=== PATIENT | female | born 1960 | race Caucasian/White ===

== ENCOUNTER → 2016-11-22 | Outpatient (CLI) | payer OTHER ==
[~2016-11-22] MED LIST: CYM30 PO; ERGO1CAP35 PO; FOLI1TAB7 PO; LORA-741 PO; MULT-506 PO; OXYC-57 PO; PRED-301 PO; PRED10TA PO; RMCI; ZOLE5INJ; methotrexate
[2016-11-22 15:38] LABS: CHOLESTEROL/HDL RATIO 2.6
== END | disposition home or self-care (01) ==
LOC: C.LABBC 09:41
PROVIDERS: ATTEND Family Medicine
DX: Z13.220 Encounter for screening for lipoid disorders (principal); Z11.59 Encounter for screening for other viral diseases

== ENCOUNTER → 2016-12-27 | Outpatient (CLI) | payer OTHER ==
--- NOTE | 2016-12-28 15:07 | MAMMOGRAPHY REPORT ---
BILATERAL DIGITAL SCREENING MAMMOGRAM TOMOSYNTHESIS WITH CAD: 12/27/2016 CLINICAL HISTORY: Routine screening. Patient has no complaints. TECHNIQUE: Breast tomosynthesis in addition to standard 2D mammography was performed. Current study was also evaluated with a Computer Aided Detection (CAD) system. COMPARISON: Comparison is made to exams dated: 11/25/2015 mammogram, 12/09/2014 ultrasound, 12/09/2014 m ammogram, 11/20/2013 mammogram, 11/19/2012 mammogram, and 11/17/2011 mammogram - [facility]. BREAST COMPOSITION: There are scattered areas of fibroglandular density in both breasts. FINDINGS: The hub of a Port-A-Cath projects over the superior right pectoralis muscle on the MLO vi ew. There are a few benign appearing calcifications in the breasts. No new suspicious mass, dawood ectural distortion or cluster of microcalcifications is seen. IMPRESSION: ACR BI-RADS CATEGORY 1: NEGATIVE There is no mammographic evidence of malignancy. A 1 year screening mammogram is recommended. The p atient will receive written notification of the results. Approximately 10% of breast cancers are not detected with mammography. A negative mammographic repor t should not delay biopsy if a clinically suggestive mass is present. Virginie Boyd M.D. ay/:12/27/2016 22:08:59 Automatic Furnace Operator: Kerline Juarez, [facility] letter sent: Normal 1/2 BI-RADS Code: ACR BI-RADS Category 1: Negative
== END | disposition home or self-care (01) ==
LOC: C.MAMM 12:24
PROVIDERS: ATTEND Internal Medicine Rheumatology
DX: Z12.31 Encounter for screening mammogram for malignant neoplasm of breast (principal)

== ENCOUNTER → 2017-01-17 | Outpatient (CLI) | payer OTHER ==
[~2017-01-17] MED LIST changes: -ERGO1CAP35 PO; -PRED10TA PO
== END | disposition home or self-care (01) ==
LOC: C.PAPS 14:13
PROVIDERS: ATTEND Obstetrics & Gynecology
DX: Z12.4 Encounter for screening for malignant neoplasm of cervix (principal)

== ENCOUNTER → 2017-03-02 | Outpatient (CLI) | payer OTHER ==
--- NOTE | 2017-03-02 15:19 | DIAGNOSTIC IMAGING REPORT ---
LEFT WRIST 4 VIEWS HISTORY: Left wrist injury and pain. COMPARISON: None. FINDINGS: Severe cartilage space narrowing with subchondral sclerosis at the radiocarpal joint. There is subchondral cystic change/erosions seen across the radiocarpal joint. There appear to be erosions at the scaphoid. Soft tissue swelling within the wrist. No definite fracture or dislocation within the left wrist. No radiopaque foreign bodies. 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 There may be superimposed erosions versus cystic change at the radiocarpal joint raising the possibility of rheumatoid arthritis. No definite acute fracture or dislocation within the left wrist. Electronically signed by: Paulo Cash M.D. 03/02/2017 3:18 PM Dictated Date/Time: 03/02/2017 3:14 PM
== END | disposition home or self-care (01) ==
LOC: C.RAD1850 15:04
PROVIDERS: ATTEND Family Medicine
DX: S69.92XA Unspecified injury of left wrist, hand and finger(s), initial encounter (principal); X58.XXXA Exposure to other specified factors, initial encounter

== ENCOUNTER → 2017-04-17 | Outpatient (CLI) | payer OTHER ==
--- NOTE | 2017-04-17 14:40 | DIAGNOSTIC IMAGING REPORT ---
INFUSION PORT CHECK CLINICAL HISTORY: Nonfunctioning port. Lack of blood return. COMPARISON STUDY: Infusion port check dated 11/25/2015. Fluoroscopy time: 0.1 minutes. FINDINGS: Approximately 20 cc of Optiray 300 was injected through the infusion port under fluoroscopic guidance as part of an infusion port check. The infusion port catheter appears intact. There is likely thrombus at the tip of the catheter with slow flow of contrast through the catheter lumen and pooling of contrast around the catheter tip. A small fibrin sheath is not excluded. There is normal filling of the superior vena cava. IMPRESSION: Thrombus is suggested at the tip of the catheter and a small fibrin sheath is not excluded. Electronically signed by: Varinder Morrissey M.D. 04/17/2017 2:39 PM Dictated Date/Time: 04/17/2017 2:27 PM
== END | disposition home or self-care (01) ==
LOC: C.RAD 13:41
PROVIDERS: ATTEND Physician Assistant
DX: Z45.2 Encounter for adjustment and management of vascular access device (principal)

== ENCOUNTER 2017-04-23 07:09 | Day surgery (SDC) | payer OTHER ==
[~2017-04-23] VITALS: Ht 170.2 cm; Wt 68.3 kg
--- NOTE | 2017-04-23 06:35 | History and Physical ---
History & Physical Date of Service Apr 23, 2017. History & Physical CC: Non functioning infusaport. HPI: Mrs. Miller is a 57-year-old female with a history of rectal cancer status post chemotherapy and currently being on Remicade per rheumatology, which she has been initially getting through the MediPort in the right chest wall, but has now been receiving it through IV injections since the MediPort has been nonfunctional for approximately 1 year. The patient reports that the MediPort is flushing, but they are not able to draw back any blood. The patient went in for a diagnostic study on 01/18/2017 which showed a thrombus suggested at the tip of the catheter and a small fibrinous sheath. The patient today denies any swelling in upper or lower extremities. Denies any chest pain , shortness of breath, fever or chills. Allergies Coded Allergies: Doxycycline (Verified Allergy, Intermediate, RASH, 08/11/14) Surgical / Medical History Hx Cardiac Surgery: No Hx Abdominal Surgery: Yes (cholecystectomy) Hx Cancer Surgery: No Hx Thoracic Surgery: No Hx Orthopedic: No (R elbow,lumbar fusion,L knee calcium,herniated disc,L TKA) Hx Urinary Tract Surgery: No HX Other Surgery: Yes (Retinal detachment,Calcium remoed L eye,L cataract) Past Medical/Surgical History: Arthritis Social History Smoking Status: Former Smoker Hx Tobacco Use In Past Year?: No Hx Alcohol Use - Type & Amnt: No Hx Substance Use -Type & Amnt: No Review of Systems Skin: No change in color, No change in hair/nails, No dryness, No lesions, No lumps, No rash, No abnormal mole, No problem reported Eyes: No discharge, No blurred vision, No double vision, No eye pain, No tearing, No itching, No photophobia, No redness, No visual changes, No dryness, No irritation, No problem reported ENMT: No dental pain, No loss of hearing, No epistaxis, No ear discharge, No ear pain, No gum swelling, No mouth pain, No mouth swelling, No nasal congestion , No nasal pain, No rhinorrhea, No stridor, No tinnitus, No sore throat, No throat swelling, No problem reported Respiratory: No cough, No cyanosis, No BONILLA, No hemoptysis, No orthopnea, No PND , No short of breath, No sputum production, No stridor, No wheezing, No dyspnea , No problem reported Cardiovascular: No chest pain, No chest tightness, No chest pressure, No palpitations, No syncope, No diaphoresis, No edema, No intermittent claudication , No orthopnea, No cyanosis, No mumur, No lightheadedness, No paroxysmal nocturnal dyspnea, No problem reported Gastrointestinal: + rectal bleeding, No abdominal pain, No constipation, No diarrhea, No nausea, No vomiting, No anorexia, No appetite changes, No belching , No flatulence, No food intolerance, No hematemesis, No hemorrhoids, No hematochezia, No stool changes, No heartburn, No indigestion, No dysphagia, No problem reported Genitourinary - Female: No dysmenorrhea, No dysuria, No hematuria, No hesitancy , No menorrhagia, No metrorrhagia, No , No rash, No urinary frequency, No urinary incontinence, No urinary retention, No urinary urgency, No vulvadynia , No vaginal bleeding, No vaginal discharge, No vaginal itching, No breast problems, No problem reported Musculoskeletal: + back pain, + joint pain Neurologic: No dizziness, No weakness, No headache, No lethargy, No numbness, No paresthesia, No pre-existing deficit, No seizures, No tics, No tingling, No tremors, No vertigo, No memory loss, No LOC, No problem reported Psychiatric: No anxiety, No alcohol abuse, No auditory hallucinations, No depression, No drug abuse, No homicidal ideation, No mood changes, No suicidal ideation, No visual hallucinations, No problem reported Physical Exam: Constitutional: General Apperance: heathly-appearing, well-nourished, well-developed Level of Distress: NAD Ambulation: ambulating normally Psychiatric: Mental Status: active & alert, normal mood, normal affect Orientation: oriented except where noted, to time, to place, to person Memory: recent memory normal, remote memory normal Head: normocephalic Lungs: Auscultation: breath sounds normal Cardiovascular: Heart Auscultation: RRR Peripheral Pulses: Pulses: full and equal Abdomen: Inspection & Palpation: soft Musculoskeletal: normal Extremities: Upper Right: no cyanosis, no edema, no varicosities, no palpable cord, no clubbing, no ulcers, no mottling Upper Left: no cyanosis, no edema, no varicosities, no palpable cord, no clubbing, no ulcers, no mottling Lower Right: no cyanosis, no edema, no varicosities, no palpable cord, no clubbing, no ulcers, no mottling Lower Left: no cyanosis, no edema, no varicosities, no palpable cord, no clubbing, no ulcers, no mottling Neurologic: Cranial Nerves: grossly intact Sensation: grossly intact Assessment and Plan Imp: Nonfunctioning infusaport Plan: Patient is admitted for removal of her infusaport. I have discussed the risks options and benefits of the procedure with the patient. The patient understands the risks options and benefits and agrees to the procedure.
[~2017-04-23 07:09] MED LIST changes: +CEFAZOLIN 1000MG/55 ML D5W IV SCH; +HYDROCORTISONE IV 100 MG in SYRINGE 0 ML IV SCH; -OXYC-57 PO; -RMCI; +SODIUM CHLORIDE 0.9% 1000ML IV SCH
--- NOTE | 2017-04-23 07:37 | Procedure Note ---
Pre-Mod Sedation Assessment General Date of Moderate Sedation: Apr 23, 2017. Pre-Sedation Airway Assessment Smoking Status: Never Smoker Mallampati Classification: Class I ASA Classification: Class II Notes The planned sedation has been discussed with the patient and consent obtained. I have identified the patient, determined the appropriateness of sedation and have assessed the patient immediately prior to the procedure. All medicine(s) and interventions are by my order.
--- NOTE | 2017-04-23 07:37 | History & Physical Bridge Note ---
H&P Re-Evaluation Bridge Note: I have examined the patient, reviewed the History & Physical and in the interval since the performance of the History & Physical I have noted the following changes of clinical significance: No changes noted
[2017-04-23] MEDS ORDERED: RMCI (07:53)
[2017-04-23 07:58] VITALS: BP 112/66; PULSE 55; TEMP 36.6; O2SAT 96; Ht 170.2 cm; Wt 68.3 kg
[2017-04-23] MEDS ORDERED: LIDOCAINE HCL 1% 20 ML VIAL ONE (08:45)
[2017-04-23] MEDS ORDERED: MIDAZOLAM HCL 1 MG/ML 2ML VIAL ONE (08:45)
[2017-04-23] MEDS ORDERED: FENTANYL CITRATE INJ 50 MCG/1 ML 2 ML VIAL ONE (08:45)
[2017-04-23 08:55] VITALS: BP 112/66; PULSE 55; TEMP 36.6; O2SAT 96
[2017-04-23] MEDS ORDERED: MIDAZOLAM HCL 1 MG/ML 2ML VIAL IV ONE (09:14)
[2017-04-23] MEDS ORDERED: FENTANYL CITRATE INJ 50 MCG/1 ML 2 ML VIAL IV ONE (09:14)
[2017-04-23] MEDS ORDERED: LIDOCAINE HCL 1% 20 ML VIAL INJ ONE (09:15)
--- NOTE | 2017-04-23 09:30 | Procedure Note ---
Post-Moderate Sedation Plan General Date of Moderate Sedation Apr 23, 2017. Vital Signs: Vital Signs Past 12 Hours Date Time Temp Pulse Resp B/P (MAP) Pulse Ox O2 Delivery O2 Flow Rate FiO2 04/23/17 08:55 36.6 55 18 112/66 96 Room Air 04/23/17 07:58 36.6 55 18 112/66 (81) 96 Room Air Review - Discharge Plan Post Moderate Sedation Plan: On clinical assessment, the patient appears to have tolerated the conscious sedation without complications. Patient is recovering as anticipated. Patient will continue to be monitored by nursing and may be discharged when conscious sedation discharge criteria are met.
--- NOTE | 2017-04-23 09:34 | [facility] Operative Report ---
Operative Report Operative Date Apr 23, 2017. Pre-Operative Diagnosis Malfunctioning infusaport Post-Operative Diagnosis Same Procedure(s) Performed Removal of infusaport, right internal jugular Conscious sedation ([id number]) Surgeon Teresa Strip Deburrer Surgeon(s) none Estimated Blood Loss 5cc Findings port and catheter entirely removed Specimens port Anesthesia Local with sedation Complication(s) None Disposition Indications This is a 57-year-old female with a right internal jugular [id number] in place. It is nonfunctional due to a clot around the tip. Removal was recommended. She understood the risks options and benefits and agreed to go ahead with this procedure. Description of Procedure Patient was taken to the angio suite and placed in the supine position. The right side of the neck and chest wall were prepped and draped in a sterile manner. Local anesthesia was then administered to the appropriate areas of the neck and chest wall. A transverse incision was made below the clavicle on the chest wall in the line of the old incision. Bleeding was controlled using cautery. Using sharp and blunt dissection the port and fibrin sheath were dissected free and removed. The catheter slid out easily. Adequate hemostasis was then obtained. Once adequate hemostasis was noted the wound was then closed. The incision was closed using a 3-0 Vicryl suture for the subcutaneous layer and a 4-0 Vicryl subcuticular stitch for the skin layer. Dermabond was used for a dressing on the incision. Pressure was applied to the catheter site over the internal jugular vein. The patient left the angio suite in good condition and tolerated the procedure well. I attest to the content of the Intraoperative Record and any orders documented therein. Any exceptions are noted below.
[2017-04-23 09:40] VITALS: BP 115/72; PULSE 57; TEMP 36.6; O2SAT 96
[2017-04-23] MEDS ORDERED: OXYC-57 PO (09:45)
--- NOTE | 2017-04-23 09:47 | Discharge Instructions ---
Discharge Instructions Date of Service Apr 23, 2017. Visit Reason for Visit: Malfunctioning Port Discharge Discharge Diagnosis / Problem: Non functional infusaport Discharge Goals Goal(s): Therapeutic intervention Activity Recommendations Activity Limitations: resume your previous activity Exercise/Sports Limitations: none Shower/Bathe: tomorrow Driving or Machine Use: resume 1 day after discharge Anesthesia . Post Anesthesia Instructions: If you have had General Anesthesia or IV Sedation: * Do not drive today. * Resume driving when surgeon permits. * Do not make important decisions or sign legal documents today. * Call surgeon for: 1. Temperature elevations greater than 101 degrees F. 2. Uncontrollable pain. 3. Excessive bleeding. 4. Persistent nausea and vomiting. 5. Medication intolerance (nausea, vomiting or rash). * For nausea and vomiting use only clear liquids such as: tea, soda, bouillon until nausea subsides, then gradually increase diet as tolerated. * If you have any concerns or questions, call your surgeon's office. If physician is unavailable and it is an emergency, call 911 or go to the nearest emergency room. . Instructions / Follow-Up Instructions / Follow-Up Call [phone] to schedule a follow up appointment if one not already scheduled. ACTIVITY RECOMMENDATIONS: See Above SPECIAL CARE INSTRUCTIONS: Call your doctor if: * Temperature above 101 degrees * Pain not relieved by pain medicine ordered * There is increased drainage or redness from any incision * You have any unanswered questions or concerns. Diet Recommendations Recommended Home Diet: resume previous diet Procedures Procedures Performed: Removal of infusaport, right internal jugular Conscious sedation ([id number]) Pending Studies Studies pending at discharge: no Medical Emergencies . Who to Call and When: Medical Emergencies: If at any time you feel your situation is an emergency, please call 911 immediately. . Non-Emergent Contact Non-Emergency issues call your: Surgeon . . "Provider Documentation" section prepared by Durga Moore. .
[2017-04-23 10:10] VITALS: BP 114/70; PULSE 55; TEMP 36.4; O2SAT 95
== END 2017-04-23 10:25 | disposition home or self-care (01) ==
LOC: C.ACU 07:09
PROVIDERS: ATTEND Surgery Vascular Surgery
DX: T82.594A Other mechanical complication of infusion catheter, initial encounter (principal); X58.XXXA Exposure to other specified factors, initial encounter; Z85.048 Personal history of other malignant neoplasm of rectum, rectosigmoid junction, and anus; Z92.21 Personal history of antineoplastic chemotherapy; Z87.891 Personal history of nicotine dependence; Z79.899 Other long term (current) drug therapy

== ENCOUNTER → 2018-01-02 | Outpatient (CLI) | payer OTHER ==
[~2018-01-02] MED LIST changes: -CEFAZOLIN 1000MG/55 ML D5W IV SCH; -FOLI1TAB7 PO; +FOLI1TAB8 PO; -HYDROCORTISONE IV 100 MG in SYRINGE 0 ML IV SCH; +RMCI; -SODIUM CHLORIDE 0.9% 1000ML IV SCH
--- NOTE | 2018-01-02 15:44 | MAMMOGRAPHY REPORT ---
BILATERAL DIGITAL SCREENING MAMMOGRAM TOMOSYNTHESIS WITH CAD: 01/02/2018 CLINICAL HISTORY: Routine screening. The patient reported to the technologist that she has a palpabl e right breast lump and associated milky discharge. TECHNIQUE: Breast tomosynthesis in addition to standard 2D mammography was performed. Current study was also evaluated with a Computer Aided Detection (CAD) system. Bilateral CC and MLO 2D and tomosyn thesis images were obtained. COMPARISON: Comparison is made to exams dated: 11/25/2015 mammogram, 12/27/2016 mammogram, 12/09/2014 ma mmogram, 11/20/2013 mammogram, 11/19/2012 mammogram, and 11/17/2011 mammogram - [facility]ter. BREAST COMPOSITION: There are scattered areas of fibroglandular density in both breasts. FINDINGS: A triangle marker chavez the site of the palpable lump pointed out by the patient in the rig ht 12:00 breast. There are no suspicious masses, calcifications, or areas of architectural distortio n noted in either breast. There has been no significant interval change compared to prior exams. A few scattered bilateral benign-appearing calcifications are not significantly changed. Focal asymmet ry in the right subareolar breast is stable compared to multiple prior exams. IMPRESSION: ACR BI-RADS CATEGORY 0: INCOMPLETE EVALUATION: NEED ADDITIONAL IMAGING EVALUATION No mammographic evidence of malignancy in either breast. However, the patient reported a palpable ri ght breast lump and associated milky nipple discharge, for which further evaluation with targeted ult rasound is recommended for further evaluation. The patient will be called to schedule an appointment. Approximately 10% of breast cancers are not detected with mammography. A negative mammographic report should not delay biopsy if a clinically suggestive mass is present. Porsche Gonzalez M.D. ah/:01/02/2018 13:10:24 Certified Midwife: Kerline DICKSON(Rohan)(M), [facility] letter sent: Addl Imaging 0 BI-RADS Code: ACR BI-RADS Category 0: Incomplete Evaluation: Need Additional Imaging Evaluation
== END | disposition home or self-care (01) ==
LOC: C.MAMM 12:31
PROVIDERS: ATTEND Nurse Practitioner Adult Health
DX: Z12.31 Encounter for screening mammogram for malignant neoplasm of breast (principal)

== ENCOUNTER → 2018-01-11 | Outpatient (CLI) | payer OTHER ==
--- NOTE | 2018-01-14 07:45 | MAMMOGRAPHY REPORT ---
ULTRASOUND OF RIGHT BREAST: 01/11/2018 CLINICAL HISTORY: The patient reports a palpable right subareolar breast lump for approximately 8 mon ths. She also reports bilateral nonspontaneous milky and sometimes green nipple discharge for approx imately a months as well. She also reports a possible left subareolar lump. She notes multiple whit e pimple-like lesions on her nipple which she has had for years. COMPARISON: Comparison is made to exams dated: 01/02/2018 mammogram, 12/27/2016 mammogram, 11/25/2015 ma mmogram, 12/09/2014 mammogram, 11/20/2013 mammogram, and 11/19/2012 mammogram - [facility]. TECHNIQUE: Real-time targeted ultrasound of the right breast was performed. FINDINGS: Real-time, high-resolution targeted ultrasound was performed of the area of the palpable ri ght subareolar breast mass pointed out by the patient. In the right inferior subareolar breast, ther e is a round circumscribed hypoechoic 9 x 6 x 8 mm mass which demonstrates posterior acoustic enhance ment. The mass is indeterminant, with differential including a papilloma or dilated duct with qa internship al debris, or possibly a Wyman gland/sebaceous cyst. On clinical exam, there are multiple white superficial lesions on the right nipple which may represent sebaceous cysts or other benign masses. Targeted ultrasound was also performed of the left subareolar breast at the site of the palpable lump pointed out by the patient, which shows no suspicious masses or other suspicious sonographic abnorma lities. IMPRESSION: ACR BI-RADS CATEGORY 4: SUSPICIOUS - FOLLOW-UP RECOMMENDED 1. Circumscribed 9 mm mass in the right subareolar breast, in the setting of a palpable right subare olar breast lump and nonspontaneous white/green nipple discharge. The mass is indeterminant, with di fferential including a papilloma, focal duct ectasia with internal debris, or possibly a Wyman g land/sebaceous cyst. Recommend ultrasound-guided core needle biopsy for further evaluation. 2. No suspicious sonographic abnormality in the left subareolar breast at the site of a possible lum p. Recommend clinical follow-up. A phone call was made to the physician's office to confirm faxed results were received. The patient was verbally notified of the results. She tentatively scheduled the biopsy before leaving the depart ment. Porsche Gonzalez M.D. ah/:01/11/2018 09:10:52 Behavioral Consultant: Porsche Gonzalez MD, [facility] letter sent: Abnormal 4/5 BI-RADS Code: ACR BI-RADS Category 4: Suspicious
== END | disposition home or self-care (01) ==
LOC: C.MAMM 08:26
PROVIDERS: ATTEND Nurse Practitioner Adult Health
DX: R92.8 Other abnormal and inconclusive findings on diagnostic imaging of breast (principal); N63.10 Unspecified lump in the right breast, unspecified quadrant

== ENCOUNTER → 2018-01-16 | Outpatient (CLI) | payer OTHER ==
--- NOTE | 2018-01-16 15:25 | MAMMOGRAPHY REPORT ---
ULTRASOUND OF RIGHT BREAST: 01/16/2018 CLINICAL HISTORY: Circumscribed 9 mm mass in the subareolar right breast, which is palpable by the pa tient. Patient presents for ultrasound-guided core biopsy. The patient reports that since her diagnostic workup dated 01/11/2018, she was able to elicit greenish discharge from this mass and feels it may be slightly smaller in size. COMPARISON: Comparison is made to exams dated: 01/11/2018 ultrasound, 01/02/2018 mammogram, 12/27/2016 m ammogram, and 11/25/2015 mammogram - [facility]. FINDINGS: Targeted ultrasound was performed in the subareolar right breast in the area of lump pointe d out by the patient. There is an oval circumscribed isoechoic solid versus cystic mass which twila willy measures 5.2 x 3.4 x 5.3 mm, previously measured 9.0 x 6.3 x 7.8 mm. This has significantly decr eased in size since the prior exam, confirming benignity, and is also concordant with the clinical hi story of eliciting fluid from inside this lesion. Therefore, the ultrasound-guided core biopsy was c anceled and a short interval follow-up targeted right breast ultrasound in 1-2 months is recommended to ensure stability and/or resolution. Conservative management with hot compresses and NSAIDs may al so be useful. IMPRESSION: ACR-BI-RADS CATEGORY 3: PROBABLY BENIGN - FOLLOW-UP RECOMMENDED Ultrasound-guided core biopsy of the right subareolar breast was canceled given that the palpable les ion has significantly decreased in size comparing to the prior ultrasound, and the patient was able t o elicit internal fluid from the lesion. Conservative management with hot compresses and NSAIDs are recommended. Also recommend follow-up right breast ultrasound in 1-2 months to ensure stability and/ or resolution. Virginie Boyd M.D. ay/:01/16/2018 13:37:06 Waistband Setter: Dr. Virginie Boyd, [facility] letter sent: Follow Up Recommended 3 BI-RADS Code: ACR-BI-RADS Category 3: Probably Benign
== END | disposition home or self-care (01) ==
LOC: C.MAMM 09:53
PROVIDERS: ATTEND Nurse Practitioner Adult Health
DX: N63.41 Unspecified lump in right breast, subareolar (principal)

== ENCOUNTER 2020-05-01 14:10 | Inpatient (IN) ==
[2020-05-01] MEDS ORDERED: SODIUM CHLORIDE 0.9% 1000ML 2,000 ML IV ONE (14:30)
--- NOTE | 2020-05-01 14:32 | Emergency Department Note ---
Impression & Plan Acute blood loss anemia, Lyme disease, Acute GI bleeding, Symptomatic anemia, Acute hypotension, Atrial tachycardia ED Provider Note NAME: SERA ABRAMS AGE: 60 SEX: F : 1960 ARRIVES VIA: Walk-In INFORMANT: Patient ED PROVIDER(S): Mahamed Young DO CHIEF COMPLAINT: weakness HPI: Patient is a 60-year-old female who presents the ER for weakness. She notes that she has been weak for the past 2 weeks. She has a history of colon cancer and is in remission and nearly discharged from that service. She notes about 2 weeks ago on Sunday she felt like she could not get warm. Since then she has been feeling more weak. She notes that she does not really want to eat or drink. She followed up today with [facility] and was referred in as she was found to be a little tachycardic. Patient denies any headache, change in vision, sore throat, loss of taste or smell, cough, shortness of breath, chest pain, nausea, vomiting, diarrhea. No dysuria urgency or frequency. No open wounds or sores. She does admit to taking methotrexate, steroids for her rheumatoid arthritis. Admits to dark tarry stools for the past 2 weeks. ROS: See above HPI for pertinent positives & negatives. A total of 10 systems reviewed and were otherwise negative. PAST MEDICAL HISTORY:See Below PAST SURGICAL HISTORY:See Below FAMILY HISTORY:See Below SOCIAL HISTORY:See Below HOME MEDICATIONS:See Below ALLERGIES:See Below VITALS:See Below PHYSICAL EXAMINATION: GENERAL: Sitting up in bed, alert, cachectic, no acute distress, nontoxic EYE EXAM: normal conjunctiva. PERRL and EOM's grossly intact. OROPHARYNX: no exudate, no erythema, lips, buccal mucosa, and tongue normal and mucous membranes are moist NECK: supple, no nuchal rigidity, no adenopathy, non-tender LUNGS: Clear to auscultation. Normal chest wall mechanics HEART: no murmurs, S1 normal and S2 normal ABDOMEN: abdomen soft, non-tender, normo-active bowel sounds, no masses, no rebound or guarding. BACK: Back is symmetrical on inspection and there is no deformity, no midline tenderness, no CVA tenderness. RECTAL: Heme positive stool SKIN: no rashes and no bruising UPPER EXTREMITIES: upper extremities are grossly normal. LOWER EXTREMITIES: No pitting edema. NEURO EXAM: Normal sensorium, cranial nerves II-XII grossly intact, normal speech, no gross weakness of arms, no gross weakness of legs. No drift. Finger to nose intact. Gross sensation intact. MEDICAL DECISION MAKING: Patient is a 60-year-old female immune compromised being treated for rheumatoid arthritis who presents the ER referred and for hypotension and tachycardia. Upon presentation she is found to be tachycardic and hypotensive. Labs show leukocytosis of 16,000. Hemoglobin 8 down from 12. Rectally heme positive. Admits to dark tarry stools for the past 2 weeks. History of colon cancer. No thinners. BMP with mild hyponatremia. Chloride slightly low. LFTs bilirubin lactate and troponin were negative. Patient was typed and screened. UA was contaminated. IgM Lyme was obtained and positive. I did cover her with a gram of Rocephin for questionable UTI which would also cover the positive Lyme disease. Patient was also given Protonix drip and bolus. Patient was also given 2 L of IV fluids. Patient was updated and admitted to the hospital for symptomatic anemia, GI bleed hypotension and tachycardia and immune compromise. Triage Nursing notes reviewed. Prior medical records reviewed Vital Signs: reviewed and remarkable for tachycardic and hypotensive Differential diagnosis: Differential diagnosis includes etiologies such as sepsis, UTI, pneumonia, metabolic, electrolyte abnormalities, cardiac sources, intracerebral event, toxicologic, neurological, as well as others were entertained. ER treatment provided: See below Diagnostics interpreted by me: ECG: Sinus tachycardia rate of 101 Normal axis No PVCs Normal QTC Cardiac Monitoring: An order was placed for continuous cardiac monitoring. The monitor shows a rate of 104 with sinus rhythm. Laboratory studies: As stated above and show below. Imaging studies: Portable AP upright 1 view of the chest shows no focal infiltrate or pneumothorax Consultation(s): Discussed with Dr. 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, chemo, radiation Deep vein thrombosis hx of after back surgery---no blood thinners Degenerative disc disease Detached retina Diverticulosis Rheumatoid arthritis Spinal stenosis Vitamin D deficiency Warts, genital Surgical History H/O hemorrhoidectomy History of arthroscopy of left knee History of colonoscopy Recommend repeat 2023 History of detached retina repair left History of esophagogastroduodenoscopy (EGD) History of lumbar discectomy History of lumbar fusion hardware in place History of right elbow replacement History of total left knee replacement (TKR) History of vascular access device Aport right side Hx of cholecystectomy Family History Sister Family history of reaction to anesthesia trouble waking up after anesthesia Type 2 diabetes mellitus Breast cancer Mother Cardiac disorder Hypertension Type 2 diabetes mellitus Grandfather (Paternal) Family hx of colon cancer Father Bladder cancer Grandfather Osteoarthritis Grandmother Osteoarthritis Social History Smoking Status: Former smoker Second Hand Exposure: No; Hx Alcohol Use: No Hx Substance Use: No Preferred Language: Hebrew Communication Ability: Effective Visual Impairment: No Limitations Hearing Ability: Normal Chopped Strand Operator Required: No Beliefs That Will Affect Care: None marital status: Single Current Living Situation: Alone current occupational status: disabled Other Information That Helps Us Care for You: No Feels Safe at Home: Yes Safety Concerns: Feels Safe At This Time Childhood Exposure to Second-Hand Smoke: Yes Dental Care, Regularly: Yes Physical Activity Frequency: 3-4 Times per Week Seatbelt Use: always Sunscreen Use: Yes Allergies Allergies Allergy/AdvReac Type Severity Reaction Status Date / Time doxycycline Allergy Intermediate RASH Verified 04/26/20 11:01 buspirone AdvReac Intermediate nightmares Verified 04/26/20 11:01 mirtazapine AdvReac Mild weight gain Verified 04/26/20 11:01 Home Meds Home Medications Medication Instructions Recorded Confirmed folic acid 1 mg PO QAM 90 Days #90 tab 01/03/17 05/01/20 prednisone 5 mg PO .TAPER UD #0 tab 01/03/17 05/01/20 infliximab 500 mg IV [id number] #0 04/23/17 05/01/20 cholecalciferol (vitamin D3) 1,000 unit PO QAM 07/08/18 05/01/20 ibuprofen 200 - 400 mg PO Q8 PRN 08/07/18 05/01/20 methotrexate sodium 6 tab PO WK 08/07/18 05/01/20 Previous Rx's Medication Instructions Recorded duloxetine 30 mg capsule,delayed See Rx Instructions .ROUTE 10/12/19 release .COMPLEX #30 capsule bupropion HCl 100 mg tablet,12 hr 100 mg PO QAM #30 ea 02/25/20 sustained-release duloxetine 60 mg capsule,delayed 60 mg PO DAILY #90 cap 04/16/20 release Results & Data (ED) Vital Signs Vital Signs - 24 hr 05/01/20 14:14 05/01/20 14:55 05/01/20 15:00 Temperature 37.1 C Temperature Source Oral Pulse Rate 105 H 94 H 101 H Pulse Rate from SpO2 Sensor Respiratory Rate 20 20 25 H Blood Pressure 94/63 L Blood Pressure Mean 73 Pulse Oximetry 97 Oxygen Delivery Method Room Air Sepsis Recent Fever Within 48 Hours No Sepsis New/Unexplained Change in Mental Status No Sepsis Action Taken by Nursing No Action Required 05/01/20 15:10 05/01/20 15:20 05/01/20 15:25 Temperature Temperature Source Pulse Rate 95 H 102 H Pulse Rate from SpO2 Sensor 102 H Respiratory Rate 22 28 H Blood Pressure Blood Pressure Mean Pulse Oximetry 94 98 Oxygen Delivery Method Room Air Sepsis Recent Fever Within 48 Hours Sepsis New/Unexplained Change in Mental Status Sepsis Action Taken by Nursing 05/01/20 15:30 05/01/20 15:31 05/01/20 15:40 Temperature Temperature Source Pulse Rate 97 H 97 H 94 H Pulse Rate from SpO2 Sensor 98 H 97 H 93 H Respiratory Rate 24 32 H 18 Blood Pressure 100/70 Blood Pressure Mean 78 Pulse Oximetry 90 94 94 Oxygen Delivery Method Sepsis Recent Fever Within 48 Hours Sepsis New/Unexplained Change in Mental Status Sepsis Action Taken by Nursing 05/01/20 15:50 05/01/20 16:00 05/01/20 16:01 Temperature Temperature Source Pulse Rate 87 88 88 Pulse Rate from SpO2 Sensor 88 88 88 Respiratory Rate 22 22 24 Blood Pressure 98/67 L Blood Pressure Mean 74 Pulse Oximetry 93 93 92 Oxygen Delivery Method Sepsis Recent Fever Within 48 Hours Sepsis New/Unexplained Change in Mental Status Sepsis Action Taken by Nursing 05/01/20 16:10 05/01/20 16:20 05/01/20 16:30 Temperature Temperature Source Pulse Rate 94 H 90 92 H Pulse Rate from SpO2 Sensor 93 H 91 H 92 H Respiratory Rate 18 26 H 23 Blood Pressure 95/67 L Blood Pressure Mean 69 Pulse Oximetry 96 95 91 Oxygen Delivery Method Sepsis Recent Fever Within 48 Hours Sepsis New/Unexplained Change in Mental Status Sepsis Action Taken by Nursing 05/01/20 16:31 05/01/20 16:40 05/01/20 16:50 Temperature Temperature Source Pulse Rate 87 95 H 85 Pulse Rate from SpO2 Sensor 87 Respiratory Rate 21 20 20 Blood Pressure Blood Pressure Mean Pulse Oximetry 92 Oxygen Delivery Method Sepsis Recent Fever Within 48 Hours Sepsis New/Unexplained Change in Mental Status Sepsis Action Taken by Nursing 05/01/20 16:56 05/01/20 17:00 05/01/20 17:01 Temperature Temperature Source Pulse Rate 87 82 86 Pulse Rate from SpO2 Sensor 87 83 84 Respiratory Rate 20 19 19 Blood Pressure 93/64 L 96/60 L Blood Pressure Mean 68 65 Pulse Oximetry 92 92 92 Oxygen Delivery Method Sepsis Recent Fever Within 48 Hours Sepsis New/Unexplained Change in Mental Status Sepsis Action Taken by Nursing 05/01/20 17:10 05/01/20 17:15 05/01/20 17:16 Temperature Temperature Source Pulse Rate 84 87 91 H Pulse Rate from SpO2 Sensor 84 87 92 H Respiratory Rate 20 22 21 Blood Pressure 100/63 Blood Pressure Mean 68 Pulse Oximetry 92 92 93 Oxygen Delivery Method Sepsis Recent Fever Within 48 Hours Sepsis New/Unexplained Change in Mental Status Sepsis Action Taken by Nursing Laboratory Data Result diagrams: 05/01/20 15:20 05/01/20 15:20 Lab Results 05/01/20 05/01/20 05/01/20 Range/Units 14:30 15:02 15:20 WBC 16.29 H (4.8-10.8) K/uL RBC 2.60 L (4.2-5.4) M/uL Hgb 8.2 L (12.0-16.0) g/dL Hct 23.6 L (37-47) % MCV 90.8 (80-100) fL MCH 31.5 (25-34) pg MCHC 34.7 (32-36) g/dL RDW Std Deviation 43.1 (36.4-46.3) fL RDW Coeff of Gabrielle 13.1 (11.5-14.5) % Plt Count 470 H (130-400) K/uL MPV 8.5 (7.4-10.4) fL Immature Gran % (Auto) 0.4 % Neut % (Auto) 93.1 % Lymph % (Auto) 3.4 % [place] % (Auto) 2.8 % Eos % (Auto) 0.2 % Baso % (Auto) 0.1 % Neut # (Auto) 15.16 H (1.4-6.5) K/uL Lymph # (Auto) 0.55 L (1.2-3.4) K/uL [place] # (Auto) 0.46 (0.11-0.59) K/uL Eos # (Auto) 0.03 (0-0.5) K/uL Baso # (Auto) 0.02 (0-0.2) K/uL Immature Gran # (Auto) 0.07 H (0.00-0.02) K/uL PT (9.0-12.0) Seconds INR (0.9-1.1) APTT (21.0-31.0) Seconds PTT Ratio Sodium (136-145) mmol/L Potassium (3.5-5.1) mmol/L Chloride (98-107) mmol/L Carbon Dioxide (21-32) mmol/L Anion Gap (3-11) BUN (7-18) mg/dl Creatinine (0.6-1.2) mg/dl Est Cr Clr Drug Dosing ml/min Est GFR ( Amer) Est GFR (Non-Af Amer) BUN/Creatinine Ratio (10-20) Glucose (70-99) mg/dl Lactate 0.9 (0.4-2.0) mmol/L Calcium (8.5-10.1) mg/dl Magnesium (1.8-2.4) mg/dl Total Bilirubin (0.2-1) mg/dl AST (15-37) U/L ALT (12-78) U/L Alkaline Phosphatase (45-117) U/L Troponin I (0-0.045) ng/ml Total Protein (6.4-8.2) gm/dl Albumin (3.4-5.0) gm/dl Globulin (2.5-4.0) gm/dl Albumin/Globulin Ratio (0.9-2) Urine Color Urine Appearance (Clear) Urine pH (4.5-7.5) Ur Specific [place] (1.000-1.030) Urine Protein (Negative) Urine Glucose (UA) (Negative) Urine Ketones (Negative) Urine Blood (Negative) Urine Nitrite (Negative) Urine Bilirubin (Negative) Urine Urobilinogen (Negative) Ur Leukocyte Esterase (Negative) Urine WBC (Auto) (0-5) /hpf Urine RBC (Auto) (0-4) /hpf U Hyaline Cast (Auto) (0-5) /lpf U Epithel Cells (Auto) (0-5) /lpf Urine Bacteria (Auto) (Negative) Lyme Disease IgG Ab Negative (Negative) Lyme Disease IgM Ab Positive A (Negative) Blood Type Antibody Screen 05/01/20 05/01/20 05/01/20 Range/Units 15:20 15:20 16:38 WBC (4.8-10.8) K/uL RBC (4.2-5.4) M/uL Hgb (12.0-16.0) g/dL Hct (37-47) % MCV (80-100) fL MCH (25-34) pg MCHC (32-36) g/dL RDW Std Deviation (36.4-46.3) fL RDW Coeff of Gabrielle (11.5-14.5) % Plt Count (130-400) K/uL MPV (7.4-10.4) fL Immature Gran % (Auto) % Neut % (Auto) % Lymph % (Auto) % [place] % (Auto) % Eos % (Auto) % Baso % (Auto) % Neut # (Auto) (1.4-6.5) K/uL Lymph # (Auto) (1.2-3.4) K/uL [place] # (Auto) (0.11-0.59) K/uL Eos # (Auto) (0-0.5) K/uL Baso # (Auto) (0-0.2) K/uL Immature Gran # (Auto) (0.00-0.02) K/uL PT 12.0 (9.0-12.0) Seconds INR 1.1 (0.9-1.1) APTT 42.7 H (21.0-31.0) Seconds PTT Ratio 1.5 Sodium 129 L (136-145) mmol/L Potassium 3.6 (3.5-5.1) mmol/L Chloride 97 L (98-107) mmol/L Carbon Dioxide 22 (21-32) mmol/L Anion Gap 10.0 (3-11) BUN 9 (7-18) mg/dl Creatinine 0.57 L (0.6-1.2) mg/dl Est Cr Clr Drug Dosing 104.6 ml/min Est GFR ( Amer) 118.4 Est GFR (Non-Af Amer) 102.2 BUN/Creatinine Ratio 15.4 (10-20) Glucose 98 (70-99) mg/dl Lactate (0.4-2.0) mmol/L Calcium 9.0 (8.5-10.1) mg/dl Magnesium 1.9 (1.8-2.4) mg/dl Total Bilirubin 0.5 (0.2-1) mg/dl AST 56 H (15-37) U/L ALT 42 (12-78) U/L Alkaline Phosphatase 112 (45-117) U/L Troponin I < 0.015 (0-0.045) ng/ml Total Protein 7.4 (6.4-8.2) gm/dl Albumin 2.6 L (3.4-5.0) gm/dl Globulin 4.8 H (2.5-4.0) gm/dl Albumin/Globulin Ratio 0.5 L (0.9-2) Urine Color Urine Appearance (Clear) Urine pH (4.5-7.5) Ur Specific [place] (1.000-1.030) Urine Protein (Negative) Urine Glucose (UA) (Negative) Urine Ketones (Negative) Urine Blood (Negative) Urine Nitrite (Negative) Urine Bilirubin (Negative) Urine Urobilinogen (Negative) Ur Leukocyte Esterase (Negative) Urine WBC (Auto) (0-5) /hpf Urine RBC (Auto) (0-4) /hpf U Hyaline Cast (Auto) (0-5) /lpf U Epithel Cells (Auto) (0-5) /lpf Urine Bacteria (Auto) (Negative) Lyme Disease IgG Ab (Negative) Lyme Disease IgM Ab (Negative) Blood Type O Positive Antibody Screen NEGATIVE 05/01/20 Range/Units 16:55 WBC (4.8-10.8) K/uL RBC (4.2-5.4) M/uL Hgb (12.0-16.0) g/dL Hct (37-47) % MCV (80-100) fL MCH (25-34) pg MCHC (32-36) g/dL RDW Std Deviation (36.4-46.3) fL RDW Coeff of Gabrielle (11.5-14.5) % Plt Count (130-400) K/uL MPV (7.4-10.4) fL Immature Gran % (Auto) % Neut % (Auto) % Lymph % (Auto) % [place] % (Auto) % Eos % (Auto) % Baso % (Auto) % Neut # (Auto) (1.4-6.5) K/uL Lymph # (Auto) (1.2-3.4) K/uL [place] # (Auto) (0.11-0.59) K/uL Eos # (Auto) (0-0.5) K/uL Baso # (Auto) (0-0.2) K/uL Immature Gran # (Auto) (0.00-0.02) K/uL PT (9.0-12.0) Seconds INR (0.9-1.1) APTT (21.0-31.0) Seconds PTT Ratio Sodium (136-145) mmol/L Potassium (3.5-5.1) mmol/L Chloride (98-107) mmol/L Carbon Dioxide (21-32) mmol/L Anion Gap (3-11) BUN (7-18) mg/dl Creatinine (0.6-1.2) mg/dl Est Cr Clr Drug Dosing ml/min Est GFR ( Amer) Est GFR (Non-Af Amer) BUN/Creatinine Ratio (10-20) Glucose (70-99) mg/dl Lactate (0.4-2.0) mmol/L Calcium (8.5-10.1) mg/dl Magnesium (1.8-2.4) mg/dl Total Bilirubin (0.2-1) mg/dl AST (15-37) U/L ALT (12-78) U/L Alkaline Phosphatase (45-117) U/L Troponin I (0-0.045) ng/ml Total Protein (6.4-8.2) gm/dl Albumin (3.4-5.0) gm/dl Globulin (2.5-4.0) gm/dl Albumin/Globulin Ratio (0.9-2) Urine Color Dark Yellow Urine Appearance Clear (Clear) Urine pH 7.0 (4.5-7.5) Ur Specific [place] 1.024 (1.000-1.030) Urine Protein 1+ H (Negative) Urine Glucose (UA) Negative (Negative) Urine Ketones 3+ H (Negative) Urine Blood Trace H (Negative) Urine Nitrite Negative (Negative) Urine Bilirubin Negative (Negative) Urine Urobilinogen Negative (Negative) Ur Leukocyte Esterase 2+ H (Negative) Urine WBC (Auto) 10-30 H (0-5) /hpf Urine RBC (Auto) 5-10 H (0-4) /hpf U Hyaline Cast (Auto) 5-10 H (0-5) /lpf U Epithel Cells (Auto) >30 H (0-5) /lpf Urine Bacteria (Auto) Negative (Negative) Lyme Disease IgG Ab (Negative) Lyme Disease IgM Ab (Negative) Blood Type Antibody Screen Administered Medications Pantoprazole Sodium 40 mg/ (Dextrose) 100 mls @ 20 mls/hr IV Q5H [facility] Stop: 05/31/20 16:38 Last Admin: 05/01/20 17:10 Dose: 8 mg/hr, 20 mls/hr Documented by: [id number] Discontinued Medications Sodium Chloride (Nss 1000ml) 2,000 mls @ 999 mls/hr IV .Q2H1M ONE Stop: 05/01/20 16:30 Last Infusion: 05/01/20 17:34 Dose: 0 mls/hr Documented by: [id number] Admin: 05/01/20 15:30 Dose: 999 mls/hr Documented by: [id number] Pantoprazole Sodium (Protonix Bolus/Drip) 0 mls @ 1 mls/hr IV ONE STA Stop: 05/01/20 16:25 Last Admin: 05/01/20 17:12 Dose: Not Given Documented by: [id number] Pantoprazole Sodium 80 mg/ (Dextrose) 120 mls @ 400 mls/hr IV NOW ONE Stop: 05/01/20 16:41 Last Infusion: 05/01/20 17:35 Dose: 0 mls/hr Documented by: [id number] Admin: 05/01/20 16:52 Dose: 400 mls/hr Documented by: [id number] Discharge Plan Visit Data Chief Complaint: Illness Stated Complaint: TESTED NEGATIVE FOR COVID ED Provider: Mahamed Young Discharge Problem: Acute blood loss anemia, Lyme disease, Acute GI bleeding, Symptomatic anemia, Acute hypotension, Atrial tachycardia Patient Disposition: Admitted As Inpatient Discharge Instructions Interventions: ED Discharge Assessment Last Done: 05/01/20 17:45
--- NOTE | 2020-05-01 15:10 | XRay Report ---
SINGLE VIEW CHEST CLINICAL HISTORY: Sepsis. FINDINGS: An AP, portable, upright chest radiograph is compared to study dated C3 12/14/2019 and corre lated with chest CT dated 07/10/2014. The examination is degraded by portable technique and apical zac dotic positioning. The right internal jugular central venous infusion port is unchanged in position.T he cardiomediastinal silhouette is unremarkable. There is pulmonary vascular congestion. Atelectasis is noted at the lung bases. No airspace consolidation or large pleural effusion is identified. No pne umothorax is seen. The skeletal structures are osteopenic. The bony thorax is grossly intact. IMPRESSION: There is pulmonary vascular congestion. ACT 112: Negative or not required by law. Electronically signed by: Varinder Morrissey M.D. 05/01/2020 3:09 PM
[2020-05-01 15:32] LABS: Basophils # (auto) 0.02 K/uL (0-0.2); Basophils % (auto) 0.1 %; Eosinophils # (auto) 0.03 K/uL (0-0.5); Eosinophils % (auto) 0.2 %; Hematocrit (blood only) 23.6 % (37-47); Hemoglobin 8.2 g/dL (12.0-16.0); Immature Granulocytes # (auto) 0.07 K/uL (0.00-0.02); Immature Granulocytes % (auto) 0.4 %; Lymphocytes # (auto) 0.55 K/uL (1.2-3.4); Lymphocytes % (auto) 3.4 %; Mean Corpuscular Hemoglobin 31.5 pg (25-34); Mean Corpuscular Hgb Conc 34.7 g/dL (32-36); Mean Corpuscular Volume 90.8 fL (80-100); Mean Platelet Volume 8.5 fL (7.4-10.4); Monocytes # (auto) 0.46 K/uL (0.11-0.59); Monocytes % (auto) 2.8 %; Neutrophils # (auto) 15.16 K/uL (1.4-6.5); Neutrophils % (auto) 93.1 %; Platelet Count 470 K/uL (130-400); RDW Coefficient of Variation 13.1 % (11.5-14.5); RDW Standard Deviation 43.1 fL (36.4-46.3); White Blood Count 16.29 K/uL (4.8-10.8)
[2020-05-01 15:44] LABS: INR 1.1 (0.9-1.1); Partial Thromboplastin Ratio 1.5; Partial Thromboplastin Time 42.7 Seconds (21.0-31.0)
[2020-05-01 15:49] LABS: Alanine Aminotransferase 42 U/L (12-78); Albumin Level 2.6 gm/dl (3.4-5.0); Aspartate Aminotransferase 56 U/L (15-37); BUN Creatinine Ratio 15.4 (10-20); Blood Urea Nitrogen 9 mg/dl (7-18); Carbon Dioxide 22 mmol/L (21-32); Chloride 97 mmol/L (98-107); Creatinine Clr Calc Pharmacy 104.6 ml/min; Est GFR (African American) 118.4; Est GFR (Non-African American) 102.2; Glucose 98 mg/dl (70-99); Magnesium 1.9 mg/dl (1.8-2.4); Potassium 3.6 mmol/L (3.5-5.1); Sodium 129 mmol/L (136-145)
[2020-05-01 15:54] LABS: Albumin Globulin Ratio 0.5 (0.9-2); Alkaline Phosphatase 112 U/L (45-117); Bilirubin,Total 0.5 mg/dl (0.2-1); Globulin 4.8 gm/dl (2.5-4.0); Total Protein 7.4 gm/dl (6.4-8.2); Troponin I < 0.015 ng/ml (0-0.045)
[2020-05-01] MEDS ORDERED: PANTOprazole 80 MG in DEXTROSE 5% 100 ML IV ONE (16:24)
[2020-05-01] MEDS ORDERED: PANTOPRAZOLE BOLUS/DRIP 1 EA IV STA (16:24)
--- NOTE | 2020-05-01 16:51 | History & Physical Report ---
Date of Service May 01, 2020 Assessment & Plan (1) Acute blood loss anemia: Patient presents with acute blood loss anemia suspected to be from a GI source. Since she has melena there would be concern it could be from an upper GI bleed. Patient does take prednisone and methotrexate for rheumatoid arthritis. 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 She most recently had a recent colonoscopy in 2019, by Dr. Obregon, which only showed diverticuli and internal hemorrhoids and one sessile polyp that was removedpathology showed tubular adenoma. She is followed by [facility] for anal Pap smears and these have been up-to-date following in the [place] office Patient will be hydrated frequent hemoglobins will be checked transfused if she drops further. She will be a Protonix drip as she was bolus in the ER. gastroenterology consultation keeping her n.p.o. in the morning in case urgent endoscopy would be required Blood consent is signed and on the chart (2) Leukocytosis: Patient's leukocytosis could be a stress reaction. The patient has had changes in her urine and she also has a indications of an active Lyme infection which she is placed on ceftriaxone due to an allergy to doxycycline. Urine culture and blood cultures were sent on presentation and these will be followed. She does have an abnormal urine dip in the ER although negative nitrates positive leukocyte esterase and trace blood (3) Rheumatoid arthritis: Patient has history of J I/A and OA she typically sees rheumatology taking methotrexate prednisone Remicade and for osteoporosis does take some zoledronic acid her oral prednisone is being held she is on intravenous hydrocortisone due to her chronic steroid use and suppression of her adrenal axis (4) Chronic steroid use: Patient is on chronic daily prednisone use reluctantly I will give her hydrocortisone as she will be come n.p.o. for possible endoscopy (5) Depression: Wellbutrin and Cymbalta will be continued with a small sip (6) Lyme disease: Will be on ceftriaxone 2 g daily patient initially a Lyme test to because of extreme fatigue prior to the disclosure of melena. Reports of being treated previously for Lyme disease although her IgM antibody is positive and IgG antibody is negative (7) Hyponatremia: We will check a random urine sodium as it was greater than 20 she will be given isotonic saline we will follow her sodium levels (8) DVT prophylaxis: DVT prevention is SCDs given her bleeding History of Present Illness Primary Care Provider: Miguel Arreola, DO 60-year-old female who presents the ER for weakness. She notes that she has been weak for the past 2 weeks. She has a history of colon cancer and is in remission and nearly discharged from that service. She notes about 2 weeks ago on Sunday she felt like she could not get warm. Since then she has been feeling more weak. She notes that she does not really want to eat or drink. She followed up today with js barkley and was referred in as she was found to be a little tachycardic. Patient denies any headache, change in vision, sore throat, loss of taste or smell, cough, shortness of breath, chest pain, nausea, vomiting, diarrhea. No dysuria urgency or frequency. No open wounds or sores. She does admit to taking methotrexate, steroids for her rheumatoid arthritis. Allergies Allergy/AdvReac Type Severity Reaction Status Date / Time doxycycline Allergy Intermediate RASH Verified 04/26/20 11:01 buspirone AdvReac Intermediate nightmares Verified 04/26/20 11:01 mirtazapine AdvReac Mild weight gain Verified 04/26/20 11:01 Home Medications Home Medications Medication Instructions Recorded Confirmed Type folic acid 1 mg PO QAM 90 Days #90 tab 01/03/17 05/01/20 History prednisone 5 mg PO .TAPER UD #0 tab 01/03/17 05/01/20 History infliximab 500 mg IV [id number] #0 04/23/17 05/01/20 History cholecalciferol (vitamin D3) 1,000 unit PO QAM 07/08/18 05/01/20 History ibuprofen 200 - 400 mg PO Q8 PRN 08/07/18 05/01/20 History methotrexate sodium 6 tab PO WK 08/07/18 05/01/20 History duloxetine 30 mg capsule,delayed See Rx Instructions .ROUTE 10/12/19 05/01/20 Rx release .COMPLEX #30 capsule bupropion HCl 100 mg tablet,12 hr 100 mg PO QAM #30 ea 02/25/20 05/01/20 Rx sustained-release duloxetine 60 mg capsule,delayed 60 mg PO DAILY #90 cap 04/16/20 05/01/20 Rx release Past Med/Surg History Medical History (Updated 05/01/20 @ 17:42 by Donnell Brown MD) 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, chemo, radiation Deep vein thrombosis hx of after back surgery---no blood thinners Degenerative disc disease Detached retina Diverticulosis Rheumatoid arthritis Spinal stenosis Vitamin D deficiency Warts, genital Surgical History H/O hemorrhoidectomy History of arthroscopy of left knee History of colonoscopy Recommend repeat 2023 History of detached retina repair left History of esophagogastroduodenoscopy (EGD) History of lumbar discectomy History of lumbar fusion hardware in place History of right elbow replacement History of total left knee replacement (TKR) History of vascular access device [place] right side Hx of cholecystectomy Family History Sister Family history of reaction to anesthesia trouble waking up after anesthesia Type 2 diabetes mellitus Breast cancer Mother Cardiac disorder Hypertension Type 2 diabetes mellitus Grandfather (Paternal) Family hx of colon cancer Father Bladder cancer Grandfather Osteoarthritis Grandmother Osteoarthritis Social History Smoking Status: Former smoker Second Hand Exposure: No; Hx Alcohol Use: No Hx Substance Use: No Preferred Language: Maori Communication Ability: Effective Visual Impairment: No Limitations Hearing Ability: Normal Telescope Repairer Required: No Beliefs That Will Affect Care: None marital status: Single Current Living Situation: Alone current occupational status: disabled Other Information That Helps Us Care for You: No Feels Safe at Home: Yes Safety Concerns: Feels Safe At This Time Childhood Exposure to Second-Hand Smoke: Yes Dental Care, Regularly: Yes Physical Activity Frequency: 3-4 Times per Week Seatbelt Use: always Sunscreen Use: Yes Review of Systems Review of Systems: Mild distress and moderate fatigue no headache, blurry or double vision no speech or swallowing issues no chest pain, pressure or palpitations no shortness of breath, she has had some dyspnea on exertion. No cough or wheezes Patient gets upper epigastric abdominal pain after she eats or drinks his pain is not reproducible otherwise, she has had no nausea or vomiting, she has had black bowel movements no dysuria, hematuria or frequency in fact she is had darkened urine and less frequent urine Typical focal joint pain associate with her arthritis no back pain, CVA tenderness or radicular pain no bruising, bleeding or rashes no focal signs of weakness or numbness or altered sensation no complaints or anxiety or depression. Physical Exam Physical Exam: The patient appeared well nourished and normally developed. He is mildly pale Vital signs as documented. Head exam is normocephalic atraumatic no scleral icterus conjunctiva are not pale she does have decreased visual acuity of her left eye due to retinal detachment Neck is without JVD, thyromegaly, or carotid bruits. Lungs are clear to auscultation, no focal loss of breath sounds Cardiac exam, Rhythm is regular.. No murmurs, rubs or gallops. Abdominal exam reveals normal bowel sounds, soft non tender, no masses, interestingly no reproducible tenderness on abdominal exam of any means Extremities are nonedematous and both pedal pulses are normal. Neurologic exam is alert and oriented, no focal loss of strength or sensation Skin is without bruises or rashes Psychologically is without concerns for anxiety or depression. Results & Data Results & Data ([facility]) Vital Signs (Past 12 Hours) Vital Signs Temp Pulse Resp BP Pulse Ox 05/01/20 16:20 90 26 H 95 05/01/20 16:10 94 H 18 96 05/01/20 16:01 88 24 92 05/01/20 16:00 88 22 98/67 L 93 05/01/20 15:50 87 22 93 05/01/20 15:40 94 H 18 94 05/01/20 15:31 97 H 32 H 94 05/01/20 15:30 97 H 24 100/70 90 05/01/20 15:25 98 05/01/20 15:20 102 H 28 H 94 05/01/20 15:10 95 H 22 05/01/20 15:00 101 H 25 H 05/01/20 14:55 94 H 20 05/01/20 14:14 98.8 F 105 H 20 94/63 L 97 vascular congestion although her hypotension suggest the fact that she needs volume resuscitation volume resuscitation was performed in the ER EKG shows sinus tachycardia no acute ST or T wave changes PG Care Time/CCT Total # of Minutes Spent Total Time Spent with Patient: Total time spent is greater than 50% in coordination of care (as documented) at patient's floor/unit and/or counseling patient: Coding Level of Care Code 81603 Initial Inpt Care Lvl 3 Diagnoses Acute blood loss anemia D62 Leukocytosis D72.829 Rheumatoid arthritis M06.9 Chronic steroid use Depression F32.9 Lyme disease A69.20 Hyponatremia E87.1 DVT prophylaxis Z29.9
[2020-05-01 16:55] LABS: Lyme Ab IgG w/WB Rflx Negative (Negative)
[2020-05-01 16:56] LABS: Lyme Ab IgM w/WB Rflx Positive (Negative)
[2020-05-01] MEDS: PANTOprazole 40 MG in DEXTROSE 5% 100 ML IV SCH ×2 (17:10→21:56)
[2020-05-01 17:12] LABS: Appearance Urine Clear (Clear); Bacteria Urine Automated Negative (Negative); Blood Urine Trace (Negative); Color Urine Dark Yellow; Epithelial Cell Urine Auto >30 /lpf (0-5); Glucose Urine UA Negative (Negative); Ketones Urine 3+ (Negative); Leukocyte Esterase Urine 2+ (Negative); Nitrite Urine Negative (Negative); Protein Urine 1+ (Negative); Specific Gravity Urine 1.024 (1.000-1.030); Urobilinogen Urine Negative (Negative)
[2020-05-01 17:26] LABS: Bilirubin Urine Negative (Negative); Ictotest Urine Negative (Negative)
[2020-05-01] MEDS ORDERED: MoRPHine SULFATE 4 MG/ML 1 ML CARP\\VIAL IV PRN (18:18)
[2020-05-01] MEDS ORDERED: ONDANSETRON INJ 2 MG/ML 2 ML VIAL IV PRN (18:18)
[2020-05-01] MEDS ORDERED: MoRPHine SULFATE 2 MG/ML CARP IV PRN (18:18)
[2020-05-01] MEDS ORDERED: OXYCODONE HCL IR 5 MG TAB (IMMEDIATE RELEASE) PO PRN (18:18)
[2020-05-01] MEDS ORDERED: PANTOprazole 40 MG in DEXTROSE 5% 100 ML IV SCH (18:18)
[2020-05-01] MEDS: SODIUM CHLORIDE 0.9% 1000ML 1,000 ML IV SCH (20:09)
[2020-05-01] MEDS: cefTRIAXone SODIUM 2,000 MG in DEXTROSE 5% 50 ML IV SCH (20:12)
[2020-05-01] MEDS ORDERED: HYDROCORTISONE SOD SUCCINATE 100 MG/2 ML VIAL IV SCH (22:00)
[2020-05-01] MEDS: HYDROCORTISONE SOD 50 MG in SYRINGE 0 ML IV SCH (22:03)
[2020-05-02] MEDS: LORazepam 0.5 MG TAB PO PRN ×2 (01:43→15:13)
[2020-05-02] MEDS: PANTOprazole 40 MG in DEXTROSE 5% 100 ML IV SCH ×5 (02:13→21:53)
[2020-05-02] MEDS: SODIUM CHLORIDE 0.9% 1000ML 1,000 ML IV SCH ×3 (04:45→18:48)
[2020-05-02] MEDS: HYDROCORTISONE SOD 50 MG in SYRINGE 0 ML IV SCH ×2 (05:09→15:10)
[2020-05-02 06:20] LABS: Hematocrit (blood only) 28.6 % (37-47); Hemoglobin 9.4 g/dL (12.0-16.0); Mean Corpuscular Hemoglobin 30.5 pg (25-34); Mean Corpuscular Hgb Conc 32.9 g/dL (32-36); Mean Corpuscular Volume 92.9 fL (80-100); Mean Platelet Volume 8.3 fL (7.4-10.4); Platelet Count 363 K/uL (130-400); RDW Coefficient of Variation 13.4 % (11.5-14.5); RDW Standard Deviation 45.2 fL (36.4-46.3); Red Blood Count 3.08 M/uL (4.2-5.4); White Blood Count 11.49 K/uL (4.8-10.8)
[2020-05-02 07:10] LABS: BUN Creatinine Ratio 11.3 (10-20); Calcium 7.7 mg/dl (8.5-10.1); Creatinine Clr Calc Pharmacy 124.2 ml/min; Est GFR (African American) 125.3; Est GFR (Non-African American) 108.1; Potassium 3.4 mmol/L (3.5-5.1)
[2020-05-02] MEDS: DULOXETINE HCL 30 MG CAP PO SCH (07:55)
[2020-05-02] MEDS: BuPROPion SR 100 MG TABCR PO SCH (07:55)
[2020-05-02] MEDS: DULOXETINE HCL 60 MG CAP PO SCH (07:55)
--- NOTE | 2020-05-02 10:05 | Electrocardiogram Report ---
Test Reason : Blood Pressure : / mmHG Vent. Rate : 101 BPM Atrial Rate : 101 BPM P-R Int : 128 ms QRS Dur : 088 ms QT Int : 344 ms P-R-T Axes : 066 068 063 degrees QTc Int : 446 ms Sinus tachycardia Otherwise normal ECG When compared with ECG of 15-DEC-2013 13:42, No significant change was found Confirmed by Maximus Lazaro ([id number]) on 05/02/2020 10:04:56 AM Referred By: REFERRED SELF Confirmed By:Maximus Laazro
--- NOTE | 2020-05-02 15:03 | Consultation Report ---
DATE OF CONSULTATION: 05/02/2020 GASTROENTEROLOGY CONSULTATION REFERRED BY: Dr. Brown. I was asked by Dr. Brown to consult on this patient for evaluation of GI bleeding. HISTORY OF PRESENT ILLNESS: The patient is a 60-year-old who presented to the hospital for weakness. She states she has been weak for about 2 weeks. She states she has had some occasional dark stools, which is not typical for her. She has a history of colon cancer in remission. Upon workup in the Emergency Room, she was found to be anemic. She denies any significant abdominal pain. She does take prednisone for arthritis as well as nonsteroidal products several times a week. Her colon cancer and history of anal dysplasia are followed at [facility]. She denies any previous history of ulcer disease. I reviewed her medical records and her past medical history. PAST MEDICAL HISTORY: Significant for anal cancer, DVT, diverticulosis, rheumatoid arthritis, degenerative disk disease. FAMILY HISTORY: Not significant for colorectal disease. SOCIAL HISTORY: Significant for being a former smoker, but no alcohol use. OUTPATIENT MEDICATIONS: Include Infliximab, prednisone, folic acid, ibuprofen p.r.n., methotrexate, duloxetine, bupropion. ALLERGIES: SHE STATES SHE IS ALLERGIC TO DOXYCYCLINE, BUSPIRONE, AND MIRTAZAPINE. REVIEW OF SYSTEMS: As above, otherwise she denies any significant change in vision or hearing. She has had no slurred speech. She denies any chest pain or pressure. She denies any shortness of breath or productive cough. She denies dysuria or hematuria. She denies any change in her joint symptoms, though she typically has joint pain because of her arthritis. She has had no recent bruising. She denies any history of seizures, depression or anxiety. She has had no change in gait. She denies any heat or cold intolerance. PHYSICAL EXAMINATION: GENERAL: Reveals a pleasant woman in no distress. VITAL SIGNS: Blood pressure is 96/63, pulse is 85, temperature is 36.8. SKIN: Anicteric. EYES: Show anicteric sclerae. NECK: Supple. CHEST: Clear. HEART: Regular rate and rhythm. ABDOMEN: Benign with good bowel sounds. There is no organomegaly, masses, rebound tenderness noted. EXTREMITIES: Warm with good distal pulses. NEUROLOGIC: She is alert and oriented x3 and grossly intact. LABORATORY DATA: Show a hemoglobin on admission of 8.2, down from the 13 and 12 gram range several months ago. BUN is 9 and creatinine is 0.57 on admission. IMPRESSION: A 60-year-old woman on prednisone and nonsteroidals for rheumatoid arthritis who presents with some symptomatic anemia, most likely related to low grade upper GI bleeding. She is certainly at risk for ulcer disease. This would explain her weakness and dark stools as well. Given her constellation of symptoms and her prior history, I would recommend an upper endoscopy and we can arrange this for tomorrow morning. I have discussed this with the patient and she is agreeable with the plan. Continue to follow her hemoglobin and her IV PPI.
[2020-05-02] MEDS: ACETAMINOPHEN 325 MG TAB PO PRN ×2 (15:13→21:17)
--- NOTE | 2020-05-02 16:11 | Hospitalist Progress Note ---
Date of Service May 02, 2020 Assessment & Plan (1) Acute blood loss anemia: Patient presents with acute blood loss anemia suspected to be from a GI source. Since she has melena there would be concern it could be from an upper GI bleed. Patient does take prednisone and methotrexate for rheumatoid arthritis. 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 She most recently had a recent colonoscopy in 2019, by Dr. Obregon, which only showed diverticuli and internal hemorrhoids and one sessile polyp that was removedpathology showed tubular adenoma. She is followed by [facility] for anal Pap smears and these have been up-to-date following in the [place] office -admitted and started on PPI gtt -serial hgbs stable today at 9, no transfusion needed -unclear if any further GI bleeding but seems stabilized -plan for EGD on Sunday with GI -follow CBC again in the AM -Blood consent is signed and on the chart (2) Acute GI bleeding: p/w melena, on chronic prednisone and some NSAIDs occasionally EGD tomorrow as above PPI gtt (3) Leukocytosis: Patient's leukocytosis could be a stress reaction to GIB and anemia. SHe did report a fever x 2 within the last week and is being terated for Lyme disease given positive IgM COVID test negative 04/28 as an outpt UA seems contaminated but Ur cx was sent BCxs drawn-NGTD no abx at this time and leukocytosis improving on own -follow CBC Now on IV hydrocortisone which could skew results (4) Rheumatoid arthritis: Patient has history of RA--> she typically sees rheumatology taking methotrexate, prednisone , and Remicade -continue prednisone and IV HC for stess dosed steroids hold MTX, Remicade for now (5) Lyme disease: With reports of fevers to 101, HAs, myalgias within the last week, severe fatigue. Lyme IgM positive but has been positive in the past and can remain positive for years (even the IgM) -Nonetheless, continue IV ceftriaxone 2 g daily and eventually can convert to amoxicillin x 4 week course -await Lyme WB to come back (6) Chronic steroid use: continue prednisone 5mg daily and IV HC as above (7) Depression: continue Wellbutrin and Cymbalta (8) Hyponatremia: Na+ 129 on admission, Ur Na+ >20 Was given NS and now greatly improved to 138 likely volume depletion follow BMP (9) History of DVT (deep vein thrombosis): in 2000 after a surgery no chemical DVT proph due to bleeding SCDs (10) Hypokalemia: mildly low replace follow BMP (11) Metabolic acidosis: mild, HCO3 20 today, likely from volume depletion, non AG -continue NSS and follow BMP in AM (12) Elevated AST (SGOT): mild elevation at 56 did have fevers, possible Lyme? DO not suspect ANaplasmosis given lack of thrombocytopenia. COVID neg on 04/28 follow LFTs (13) DVT prophylaxis: DVT prevention is SCDs given her bleeding Dispo --Continued stay on PCU, EGD on Sunday NPO after midnight Admission and Anticipated Discharge Date Admission Date: May 01, 2020 Subjective Pt feeling better than on admission. Still some BONILLA with walking to bathroom. Not lightheaded, denies chest pain. Had 2 loose BMs today but does not think they were dark or bloody although wasn't paying close attention. Is making urine, no nausea, no abd pain except slight pain left mid abdomen. Denies heartburn or indigestion. Does report she had a fever to 101 x 2 days last week along with myalgias and headaches. No tick bite noticed. Tele with NSR, PACs Review of Systems Review of Systems: All systems reviewed & are unremarkable except as noted in HPI & below Physical Exam Constitutional: WD/WN, vitals as above Eyes: + anicteric sclerae Neck: trachea midline, no thyromegaly Respiratory: normal respiratory effort, lungs clear to auscultation Cardiovascular: RRR, no murmur, no edema Chest (Breasts): Chest: normal inspection of chest Gastrointestinal (Abdomen): normal bowel sounds, soft, nontender, no hepatosplenomegaly Musculoskeletal: Extremities: extremities normal to inspection; no cyanosis and no clubbing Skin: no rashes, warm and dry Neurologic: moves all extremities and awake; no focal motor deficits Psychiatric: A+Ox3, euthymic affect Lymphatic: no lymphedema Results & Data Results & Data ([facility]) Vital Signs (Past 12 Hours) Vital Signs Temp Pulse Pulse Resp BP Pulse Ox 05/02/20 15:55 36.7 C 78 19 99/64 L 93 05/02/20 11:17 36.8 C 85 18 96/63 L 91 05/02/20 07:24 37.0 C 81 18 94/60 L 90 05/02/20 06:58 93 H Laboratory Results 05/02/20 05/02/20 05/02/20 Range/Units Unknown 15:50 05:55 WBC 10.29 (4.8-10.8) K/uL RBC 2.93 L (4.2-5.4) M/uL Hgb 9.0 L (12.0-16.0) g/dL Hct 27.3 L (37-47) % MCV 93.2 (80-100) fL MCH 30.7 (25-34) pg MCHC 33.0 (32-36) g/dL RDW Std Deviation 45.3 (36.4-46.3) fL RDW Coeff of Gabrielle 13.4 (11.5-14.5) % Plt Count 363 (130-400) K/uL MPV 8.4 (7.4-10.4) fL Sodium 138 D (136-145) mmol/L Potassium 3.4 L (3.5-5.1) mmol/L Chloride 109 H (98-107) mmol/L Carbon Dioxide 20 L (21-32) mmol/L Anion Gap 9.0 (3-11) BUN 5 L (7-18) mg/dl Creatinine 0.48 L (0.6-1.2) mg/dl Est Cr Clr Drug Dosing 124.2 ml/min Est GFR ( Amer) 125.3 Est GFR (Non-Af Amer) 108.1 BUN/Creatinine Ratio 11.3 (10-20) Glucose 107 H (70-99) mg/dl Calcium 7.7 L (8.5-10.1) mg/dl Ur Random Sodium 48 mmol/L 05/02/20 Range/Units 05:55 WBC 11.49 H (4.8-10.8) K/uL RBC 3.08 L (4.2-5.4) M/uL Hgb 9.4 L (12.0-16.0) g/dL Hct 28.6 L (37-47) % MCV 92.9 (80-100) fL MCH 30.5 (25-34) pg MCHC 32.9 (32-36) g/dL RDW Std Deviation 45.2 (36.4-46.3) fL RDW Coeff of Gabrielle 13.4 (11.5-14.5) % Plt Count 363 (130-400) K/uL MPV 8.3 (7.4-10.4) fL Sodium (136-145) mmol/L Potassium (3.5-5.1) mmol/L Chloride (98-107) mmol/L Carbon Dioxide (21-32) mmol/L Anion Gap (3-11) BUN (7-18) mg/dl Creatinine (0.6-1.2) mg/dl Est Cr Clr Drug Dosing ml/min Est GFR ( Amer) Est GFR (Non-Af Amer) BUN/Creatinine Ratio (10-20) Glucose (70-99) mg/dl Calcium (8.5-10.1) mg/dl Ur Random Sodium mmol/L PG Care Time/CCT Total # of Minutes Spent Total Time Spent with Patient: Total time spent is greater than 50% in coordination of care (as documented) at patient's floor/unit and/or counseling patient: Coding Level of Care Code 72072 Subseq Hosp Care Lvl 3 Diagnoses Acute blood loss anemia D62 Acute GI bleeding K92.2 Leukocytosis D72.829 Rheumatoid arthritis M06.9 Lyme disease A69.20 Chronic steroid use Depression F32.9 Hyponatremia E87.1 History of DVT (deep vein thrombosis) Z86.718 Hypokalemia E87.6 Metabolic acidosis E87.2 Elevated AST (SGOT) R74.0 DVT prophylaxis Z29.9
[2020-05-02 16:12] LABS: Hematocrit (blood only) 27.3 % (37-47); Mean Corpuscular Hemoglobin 30.7 pg (25-34); Mean Corpuscular Volume 93.2 fL (80-100); Mean Platelet Volume 8.4 fL (7.4-10.4); Platelet Count 363 K/uL (130-400); RDW Coefficient of Variation 13.4 % (11.5-14.5); RDW Standard Deviation 45.3 fL (36.4-46.3); Red Blood Count 2.93 M/uL (4.2-5.4); White Blood Count 10.29 K/uL (4.8-10.8)
[2020-05-02] MEDS: cefTRIAXone SODIUM 2,000 MG in DEXTROSE 5% 50 ML IV SCH (18:48)
[2020-05-03] MEDS: SODIUM CHLORIDE 0.9% 1000ML 1,000 ML IV SCH ×3 (02:20→18:35)
[2020-05-03] MEDS: PANTOprazole 40 MG in DEXTROSE 5% 100 ML IV SCH ×3 (03:05→13:44)
[2020-05-03] MEDS: ACETAMINOPHEN 325 MG TAB PO PRN ×2 (03:19→09:12)
[2020-05-03] MEDS ORDERED: POLYETHYLENE (MIRALAX) 17 GM PACK PO SCH (06:00)
[2020-05-03 06:37] LABS: Hematocrit (blood only) 26.4 % (37-47); Hemoglobin 8.9 g/dL (12.0-16.0); Mean Corpuscular Hemoglobin 30.8 pg (25-34); Mean Corpuscular Hgb Conc 33.7 g/dL (32-36); Mean Corpuscular Volume 91.3 fL (80-100); Platelet Count 338 K/uL (130-400); RDW Coefficient of Variation 13.4 % (11.5-14.5); RDW Standard Deviation 43.9 fL (36.4-46.3); Red Blood Count 2.89 M/uL (4.2-5.4); White Blood Count 9.97 K/uL (4.8-10.8)
[2020-05-03 07:20] LABS: BUN Creatinine Ratio 6.7 (10-20); Calcium 7.2 mg/dl (8.5-10.1); Creatinine Clr Calc Pharmacy 121.7 ml/min; Est GFR (African American) 124.5; Est GFR (Non-African American) 107.4; Potassium 2.6 mmol/L (3.5-5.1)
[2020-05-03] MEDS: DULOXETINE HCL 60 MG CAP PO SCH (08:13)
[2020-05-03] MEDS: DULOXETINE HCL 30 MG CAP PO SCH (08:13)
[2020-05-03] MEDS: predniSONE 5 MG TAB PO SCH (08:13)
[2020-05-03] MEDS: BuPROPion SR 100 MG TABCR PO SCH (08:13)
[2020-05-03] MEDS: POTASSIUM CHLORIDE / WTR 10 MEQ/100 ML PLCT IV SCH ×4 (09:12→13:45)
--- NOTE | 2020-05-03 09:22 | Anesthesiology Consultation ---
Date of Service May 03, 2020 Assessment & Plan (1) Encounter for pre-operative examination: Chart Review Chart Review: Acceptable Risk for Surgery and Patient NOT seen in Pre Admission Testing Consults Requested none History Surgery Operation Date: 05/03/20 16:30 Proposed Procedures p Esophagogastroduodenoscopy Dr Sebastian Cortes Height/Weight Height: 5 ft 7 in Weight: 67 kg Allergies Allergy/AdvReac Type Severity Reaction Status Date / Time doxycycline Allergy Intermediate RASH Verified 04/26/20 11:01 buspirone AdvReac Intermediate nightmares Verified 04/26/20 11:01 mirtazapine AdvReac Mild weight gain Verified 04/26/20 11:01 Medications Home Medications Medication Instructions Recorded Confirmed Last Taken folic acid 1 mg PO QAM 90 Days #90 tab 01/03/17 05/01/20 10/23/19 09:00 prednisone 5 mg PO .TAPER UD #0 tab 01/03/17 05/01/20 10/24/19 08:00 infliximab 500 mg IV 6XWK #0 04/23/17 05/01/20 09/17/19 cholecalciferol (vitamin D3) 1,000 unit PO QAM 07/08/18 05/01/20 10/23/19 08:00 ibuprofen 200 - 400 mg PO Q8 PRN 08/07/18 05/01/20 Unknown methotrexate sodium 6 tab PO WK 08/07/18 05/01/20 10/22/19 duloxetine 30 mg capsule,delayed See Rx Instructions .ROUTE 10/12/19 05/01/20 10/24/19 07:00 release .COMPLEX #30 capsule bupropion HCl 100 mg tablet,12 hr 100 mg PO QAM #30 ea 02/25/20 05/01/20 Unknown sustained-release duloxetine 60 mg capsule,delayed 60 mg PO DAILY #90 cap 04/16/20 05/01/20 Unknown release Active Medications Generic Name Dose Route Start Last Admin Trade Name Freq PRN Reason Stop Dose Admin Acetaminophen 650 mg 05/01/20 18:18 05/03/20 09:12 Acetaminophen 325 Mg Tab PO 05/31/20 18:17 650 mg Q4H PRN Administration Pain or Fever Bupropion HCl 100 mg 05/02/20 09:00 05/03/20 08:13 Bupropion Sr 100 Mg Tabcr PO 06/01/20 08:59 100 mg QAM [facility] Administration Duloxetine HCl 30 mg 05/02/20 09:00 05/03/20 08:13 Duloxetine Hcl 30 Mg Cap PO 06/01/20 08:59 30 mg DAILY [facility] Administration Duloxetine HCl 60 mg 05/02/20 09:00 05/03/20 08:13 Duloxetine Hcl 60 Mg Cap PO 06/01/20 08:59 60 mg DAILY [facility] Administration Pantoprazole Sodium 40 mg/ 100 mls @ 20 mls/hr 05/01/20 16:39 05/03/20 08:12 Dextrose IV 05/31/20 16:38 8 mg/hr Q5H [facility] 20 mls/hr Administration 8 MG/HR Sodium Chloride 1,000 mls @ 125 mls/hr 05/01/20 18:18 05/03/20 02:20 Nss 1000ml IV 05/31/20 18:17 125 mls/hr .Q8H [facility] Administration Ceftriaxone Sodium 2,000 mg/ 50 mls @ 100 mls/hr 05/01/20 19:00 05/02/20 19:27 Dextrose IV 05/11/20 18:59 Infused Q24H [facility] Infusion Protocol Potassium Chloride 10 meq in 100 mls @ 100 mls/hr 05/03/20 08:30 05/03/20 09:12 K Reinaldo / Wtr IV 05/03/20 12:29 100 mls/hr Q1H [facility] Administration Lorazepam 0.5 mg 05/01/20 18:18 05/02/20 15:13 Lorazepam 0.5 Mg Tab PO 05/31/20 18:17 0.5 mg Q6H PRN Administration Anxiety Prednisone 5 mg 05/03/20 09:00 05/03/20 08:13 Prednisone 5 Mg Tab PO 06/02/20 08:59 5 mg DAILY [facility] Administration Past Medical History Medical History 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, chemo, radiation Deep vein thrombosis hx of after back surgery---no blood thinners Degenerative disc disease Detached retina Diverticulosis History of DVT (deep vein thrombosis) Rheumatoid arthritis Spinal stenosis Vitamin D deficiency Warts, genital Exercise / Class Metabolic Activity II 4-5 Yardwork/Stairs/Walk up hill Past Family History Family History Sister Family history of reaction to anesthesia trouble waking up after anesthesia Type 2 diabetes mellitus Breast cancer Mother Cardiac disorder Hypertension Type 2 diabetes mellitus Grandfather (Paternal) Family hx of colon cancer Father Bladder cancer Grandfather Osteoarthritis Grandmother Osteoarthritis Past Surgical History Surgical History H/O hemorrhoidectomy History of arthroscopy of left knee History of colonoscopy Recommend repeat 2023 History of detached retina repair left History of esophagogastroduodenoscopy (EGD) History of lumbar discectomy History of lumbar fusion hardware in place History of right elbow replacement History of total left knee replacement (TKR) History of vascular access device [place] right side Hx of cholecystectomy Past Anesthesia History No Hx of Anesthesia Complications and No Family Hx of Anesthesia Complications History of PONV No Hx of PONV and No Hx of Motion Sickness Social History Smoking Status: Former smoker tobacco type: cigarettes Hx Alcohol Use: No Hx Substance Use: No substance use type: does not use Physical Exam Vital Signs Last Vital Signs Temp 36.5 C 05/03/20 08:00 Pulse 90 05/03/20 08:00 Resp 18 05/03/20 08:00 BP 98/66 L 05/03/20 08:00 Pulse Ox 92 05/03/20 08:00 Testing Laboratory Results 05/03/20 06:26 05/03/20 06:26 PT 12.0 Seconds (9.0-12.0) 05/01/20 15:20 INR 1.1 (0.9-1.1) 05/01/20 15:20 APTT 42.7 Seconds (21.0-31.0) H 05/01/20 15:20 Urine Color Dark Yellow 05/01/20 16:55 Urine Appearance Clear (Clear) 05/01/20 16:55 Urine pH 7.0 (4.5-7.5) 05/01/20 16:55 Ur Specific [place] 1.024 (1.000-1.030) 05/01/20 16:55 Urine Protein 1+ (Negative) H 05/01/20 16:55 Urine Glucose (UA) Negative (Negative) 05/01/20 16:55 Urine Ketones 3+ (Negative) H 05/01/20 16:55 Urine Nitrite Negative (Negative) 05/01/20 16:55 Ur Leukocyte Esterase 2+ (Negative) H 05/01/20 16:55 Urine WBC (Auto) 10-30 /hpf (0-5) H 05/01/20 16:55 Urine RBC (Auto) 5-10 /hpf (0-4) H 05/01/20 16:55 U Hyaline Cast (Auto) 5-10 /lpf (0-5) H 05/01/20 16:55 U Epithel Cells (Auto) >30 /lpf (0-5) H 05/01/20 16:55 Urine Bacteria (Auto) Negative (Negative) 05/01/20 16:55 Blood Type O Positive 05/01/20 16:38 Antibody Screen NEGATIVE 05/01/20 16:38 05/01/20 15:29 Aerobic Blood Culture - Preliminary Blood No growth in Aerobic bottle after 24 hours. Anaerobic Blood Culture - Preliminary No growth in Anaerobic bottle after 24 hours. 05/01/20 15:20 Aerobic Blood Culture - Preliminary Blood No growth in Aerobic bottle after 24 hours. Anaerobic Blood Culture - Preliminary No growth in Anaerobic bottle after 24 hours. 05/01/20 16:55 Urine Culture - Preliminary Urine,Clean Catch No growth - Less than 1,000 colonies/mL, Final report to follow.
--- NOTE | 2020-05-03 09:55 | History & Physical Bridge Note ---
Date of Service May 03, 2020 History & Physical Bridge Note I have examined the patient, reviewed the History & Physical and in the interval since the performance of the History & Physical I have noted the following changes of clinical significance: no changes noted. Upper endoscopy planned for today due to a history of anemia and question of melena. We have discussed the risks to include bleeding, infection, perforation and need for follow-up studies.
--- NOTE | 2020-05-03 10:23 | GI REPORT ---
Patient Name: Misa Miller Procedure Date: 05/03/2020 10:00 AM Date of : 1960 Admit Type: Inpatient Age: 60 Gender: Female Attending MD: Angel Luis Cortes DO Procedure: Upper GI endoscopy Providers: Angel Luis Cortes DO Referring MD: Luigi Jacobo Indications: Melena Medicines: Monitored Anesthesia Care Complications: No immediate complications. Estimated blood loss: Minimal. Estimated Blood Loss: Estimated blood loss was minimal. Procedure: Pre-Anesthesia Assessment: - Prior to the procedure, a History and Physical was performed, and patient medications, allergies and sensitivities were reviewed. The patient's tolerance of previous anesthesia was reviewed. - The risks and benefits of the procedure and the sedation options and risks were discussed with the patient. All questions were answered and informed consent was obtained. - Patient identification and proposed procedure were verified prior to the procedure by the physician, the nurse and the director work. The procedure was verified in the procedure room. - Pre-procedure physical examination revealed no contraindications to sedation. - ASA Grade Assessment: II - A patient with mild systemic disease. - After reviewing the risks and benefits, the patient was deemed in satisfactory condition to undergo the procedure. - The anesthesia plan was to use monitored anesthesia care (MAC). - Immediately prior to administration of medications, the patient was re-assessed for adequacy to receive sedatives. - The heart rate, respiratory rate, oxygen saturations, blood pressure, adequacy of pulmonary ventilation, and response to care were monitored throughout the procedure. - The physical status of the patient was re-assessed after the procedure. After obtaining informed consent, the endoscope was passed under direct vision. Throughout the procedure, the patient's blood pressure, pulse, and oxygen saturations were monitored continuously. The Endoscope was introduced through the mouth, and advanced to the fourth part of duodenum. The upper GI endoscopy was accomplished without difficulty. The patient tolerated the procedure well. Findings: The examined esophagus was normal. The Z-line was regular and was found 38 cm from the incisors. Diffuse minimal inflammation characterized by erythema and granularity was found in the entire examined stomach. The examined duodenum was normal. Impression: - Normal esophagus. - Z-line regular, 38 cm from the incisors. - Gastritis. - Normal examined duodenum. - No specimens collected. Recommendation: - Observe patient's clinical course following today's procedure with therapeutic intervention. Angel Luis Cortes D.O. Angel Luis Cortes, 05/03/2020 10:22:50 AM This report has been signed electronically. Note Initiated On: 05/03/2020 10:00 AM Number of Addenda: 0 I attest to the content of the Intraoperative Record and orders documented therein, exceptions below {[id number]}
[2020-05-03] MEDS ORDERED: PROPOFOL IV EMULSION 10 MG/ML 20 ML VIAL IV ONE (10:51)
[2020-05-03] MEDS ORDERED: LIDOCAINE HCL 2% 2 ML VIAL/AMP(20MG/ML) INFIL ONE (10:51)
--- NOTE | 2020-05-03 11:13 | Communication Note ---
Date of Service: May 03, 2020 Patient underwent upper endoscopy today notable for mild gastritis. It was otherwise unremarkable, there was no evidence of peptic ulcer disease. Recommendations Colonoscopy to be scheduled, will have the patient undergo bowel preparation this afternoon and evening for anticipated examination tomorrow
[2020-05-03] MEDS ORDERED: bisacodyL 5 MG TABEC PO STA (11:20)
--- NOTE | 2020-05-03 12:06 | Anesthesiology Progress Note ---
Date of Service May 03, 2020 Anesthesia Post Procedure Vital Signs Vital Signs: Temp Pulse Pulse Pulse Resp BP BP 05/03/20 11:12 97 H 18 110/68 05/03/20 10:48 84 18 96/61 L 05/03/20 10:35 83 18 96/62 L 05/03/20 10:22 91 H 18 95/58 L 05/03/20 08:00 36.5 C 90 18 98/66 L 05/03/20 07:43 69 05/03/20 03:18 36.8 C 80 20 94/57 L 05/03/20 00:29 36.7 C 75 18 101/63 05/02/20 22:00 78 05/02/20 19:29 36.7 C 83 24 97/62 L 05/02/20 15:55 36.7 C 78 19 99/64 L 05/02/20 14:00 90 Pulse Ox 05/03/20 11:12 94 05/03/20 10:48 97 05/03/20 10:35 97 05/03/20 10:22 93 05/03/20 08:00 92 05/03/20 07:43 05/03/20 03:18 91 05/03/20 00:29 92 05/02/20 22:00 05/02/20 19:29 90 05/02/20 15:55 93 05/02/20 14:00 Transfer of Care Handoff Completed per policy Notes Mental Status: alert / awake / arousable and participated in evaluation Patient Amnestic to Procedure: Yes Nausea / Vomiting: adequately controlled Pain: adequately controlled Airway Patency, RR, SpO2: stable & adequate BP & HR: stable & adequate Hydration State: stable & adequate Anesthetic Complications: no major complications apparent and Pt Satisfied with anesthetic care
[2020-05-03] MEDS: LORazepam 0.5 MG TAB PO PRN ×2 (12:20→18:35)
[2020-05-03] MEDS ORDERED: MAGNESIUM CITRATE 296 ML/BTL PO STA (13:04)
[2020-05-03] MEDS ORDERED: POTASSIUM CHLORIDE 20 MEQ TABCR PO SCH (14:00)
[2020-05-03] MEDS ORDERED: PROMETHAZINE HCL 12.5 MG in SODIUM CHLORIDE 0.9% 50 ML IV PRN (14:08)
[2020-05-03] MEDS ORDERED: POLYETHYLENE (MIRALAX) 17 GM PACK PO STA (14:09)
[2020-05-03] MEDS ORDERED: POTASSIUM CHLORIDE / WTR 20 MEQ/100 ML PLCT IV ONE (14:30)
--- NOTE | 2020-05-03 16:25 | Hospitalist Progress Note ---
Date of Service May 03, 2020 Assessment & Plan (1) Acute blood loss anemia: Patient presents with acute blood loss anemia suspected to be from a GI source. Since she has melena there would be concern it could be from an upper GI bleed. Patient does take prednisone and methotrexate for rheumatoid arthritis. 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 She most recently had a recent colonoscopy in 2019, by Dr. Obregon, which only showed diverticuli and internal hemorrhoids and one sessile polyp that was removedpathology showed tubular adenoma. She is followed by [facility] for anal Pap smears and these have been up-to-date following in the [facility] office Hb stable at 8.9, no transfusions required, BP stable no signs of bleeding EGD today with gastritis, no bleeding plan for colonoscopy tomorrow, bowel prep with Miralax (2) Acute GI bleeding: stop PPI drip as no concerning findings on EGD today no signs of active bleeding check colonoscopy tomorrow (3) Leukocytosis: Patient's leukocytosis could be a stress reaction to GIB and anemia. SHe did report a fever x 2 within the last week and is being terated for Lyme disease given positive IgM COVID test negative 04/28 as an outpt UA seems contaminated but Ur cx was sent BCxs drawn-NGTD WBC normal at 9k today no antibiotics, monitor (4) Rheumatoid arthritis: Patient has history of RA--> she typically sees rheumatology taking methotrexate, prednisone , and Remicade -continue prednisone and IV HC for stess dosed steroids hold MTX, Remicade for now (5) Lyme disease: With reports of fevers to 101, HAs, myalgias within the last week, severe fatigue. Lyme IgM positive but has been positive in the past and can remain positive for years (even the IgM) -Nonetheless, continue IV ceftriaxone 2 g daily and eventually can convert to amoxicillin x 4 week course -await Lyme WB to come back (6) Chronic steroid use: continue prednisone 5mg daily and IV HC as above (7) Depression: continue Wellbutrin and Cymbalta (8) Hyponatremia: Na+ 129 on admission, Ur Na+ >20 Was given NS and now greatly improved to 142 likely volume depletion follow BMP (9) History of DVT (deep vein thrombosis): in 2000 after a surgery no chemical DVT proph due to bleeding SCDs (10) Hypokalemia: low at 2.6 60mEq IV total today via port repeat tomorrow (11) Metabolic acidosis: HCO3 21 today, likely from volume depletion, non AG resolved (12) Elevated AST (SGOT): mild elevation at 56 did have fevers, possible Lyme? DO not suspect ANaplasmosis given lack of thrombocytopenia. COVID neg on 04/28 follow LFTs (13) DVT prophylaxis: DVT prevention is SCDs given her bleeding Dispo --Continued stay on PCU, colonoscopy tomorrow Admission and Anticipated Discharge Date Admission Date: May 01, 2020 Subjective patient with EGD today, just showed gastritis, plan for colonoscopy tomorrow discussed prep, she cannot tolerate GoLytely or Magnesium Citrate, requesting Miralax K low, replaced IV via port Hb is improved to 8.9, no signs of bleeding has some nausea no other complaints Review of Systems Review of Systems: All systems reviewed & are unremarkable except as noted in Subjective Physical Exam Constitutional: WD/WN, vitals as above Eyes: PERRL, conjunctivae normal, anicteric sclerae ENMT: external ear and nose normal, oropharynx normal Neck: trachea midline, no thyromegaly Respiratory: normal respiratory effort, lungs clear to auscultation Cardiovascular: RRR, no murmur, no edema Gastrointestinal (Abdomen): normal bowel sounds, soft, nontender, no hepatosplenomegaly Musculoskeletal: no cyanosis or clubbing, extremities motor strength 5/5 Skin: no rashes, warm and dry Neurologic: patellar DTR's 2+ bilat, sensation intact and PERRL, EOMI, accommodation nl, no face palsy, no dysarthria Psychiatric: A+Ox3, euthymic affect Lymphatic: no cervical or axillary lymphadenopathy Results & Data Results & Data ([facility]) Vital Signs (Past 12 Hours) Vital Signs Temp Pulse Pulse Pulse Resp BP BP 05/03/20 16:00 36.8 C 61 18 90/54 L 05/03/20 15:43 90 05/03/20 13:06 94 H 18 95/61 L 05/03/20 12:25 82 18 111/70 05/03/20 12:00 94 H 18 110/68 05/03/20 11:12 97 H 18 110/68 05/03/20 10:48 84 18 96/61 L 05/03/20 10:35 83 18 96/62 L 05/03/20 10:22 91 H 18 95/58 L 05/03/20 08:00 36.5 C 90 18 98/66 L 05/03/20 07:43 69 Pulse Ox 05/03/20 16:00 98 05/03/20 15:43 05/03/20 13:06 94 05/03/20 12:25 96 05/03/20 12:00 89 L 05/03/20 11:12 94 05/03/20 10:48 97 05/03/20 10:35 97 05/03/20 10:22 93 05/03/20 08:00 92 05/03/20 07:43 Laboratory Results Laboratory Results - last 24 hr 05/03/20 05/03/20 05/03/20 06:26 06:26 08:28 WBC 9.97 RBC 2.89 L Hgb 8.9 L Hct 26.4 L MCV 91.3 MCH 30.8 MCHC 33.7 RDW Std Deviation 43.9 RDW Coeff of Gabrielle 13.4 Plt Count 338 MPV 8.0 Sodium 142 Potassium 2.6 L D Chloride 113 H Carbon Dioxide 21 Anion Gap 8.0 BUN 3 L Creatinine 0.49 L Est Cr Clr Drug Dosing 121.7 Est GFR ( Amer) 124.5 Est GFR (Non-Af Amer) 107.4 BUN/Creatinine Ratio 6.7 L Glucose 88 Calcium 7.2 L COVID-19 Eval Order Covid19 IDNow atMLAC SARS-CoV-2, RNA, NAAT 05/03/20 08:28 WBC RBC Hgb Hct MCV MCH MCHC RDW Std Deviation RDW Coeff of Gabrielle Plt Count MPV Sodium Potassium Chloride Carbon Dioxide Anion Gap BUN Creatinine Est Cr Clr Drug Dosing Est GFR ( Amer) Est GFR (Non-Af Amer) BUN/Creatinine Ratio Glucose Calcium COVID-19 Eval Order SARS-CoV-2, RNA, NAAT NEGATIVE Medications Administered Current Inpatient Medications Acetaminophen (Acetaminophen 325 Mg Tab) 650 mg PO Q4H PRN PRN Reason: Pain or Fever Stop: 05/31/20 18:17 Last Admin: 05/03/20 09:12 Dose: 650 mg Documented by: Bupropion HCl (Bupropion Sr 100 Mg Tabcr) 100 mg PO QAM [facility] Stop: 06/01/20 08:59 Last Admin: 05/03/20 08:13 Dose: 100 mg Documented by: Duloxetine HCl (Duloxetine Hcl 30 Mg Cap) 30 mg PO DAILY [facility] Stop: 06/01/20 08:59 Last Admin: 05/03/20 08:13 Dose: 30 mg Documented by: Duloxetine HCl (Duloxetine Hcl 60 Mg Cap) 60 mg PO DAILY [facility] Stop: 06/01/20 08:59 Last Admin: 05/03/20 08:13 Dose: 60 mg Documented by: Heparin Sodium (Porcine) (Heparin 100 Unit/Ml 5ml Flush) 5 ml FLUSH PRN PRN PRN Reason: Flush Stop: 06/01/20 00:02 Sodium Chloride (Nss 1000ml) 1,000 mls @ 125 mls/hr IV .Q8H [facility] Stop: 05/31/20 18:17 Last Admin: 05/03/20 12:19 Dose: 125 mls/hr Documented by: Ceftriaxone Sodium 2,000 mg/ (Dextrose) 50 mls @ 100 mls/hr IV Q24H [facility]; Protocol Stop: 05/11/20 18:59 Last Infusion: 05/02/20 19:27 Dose: Infused Documented by: Promethazine HCl 12.5 mg/ (Sodium Chloride) 50.5 mls @ 202 mls/hr IV Q6H PRN PRN Reason: Nausea And Vomiting Stop: 06/02/20 14:07 Potassium Chloride (K Reinaldo / Wtr) 20 meq in 100 mls @ 50 mls/hr IV ONE ONE Stop: 05/03/20 16:29 Last Admin: 05/03/20 15:06 Dose: 50 mls/hr Documented by: Lorazepam (Lorazepam 0.5 Mg Tab) 0.5 mg PO Q6H PRN PRN Reason: Anxiety Stop: 05/31/20 18:17 Last Admin: 05/03/20 12:20 Dose: 0.5 mg Documented by: Morphine Sulfate (Morphine Sulfate 2 Mg/Ml Carp) 2 mg IV Q4 PRN PRN Reason: Pain Stop: 05/15/20 18:17 Morphine Sulfate (Morphine Sulfate 4 Mg/Ml 1 Ml Carp\Vial) 4 mg IV Q4 PRN PRN Reason: Pain Stop: 05/15/20 18:17 Ondansetron HCl (Ondansetron Inj 2 Mg/Ml 2 Ml Vial) 4 mg IV Q6H PRN PRN Reason: Nausea Stop: 05/31/20 18:17 Oxycodone HCl (Oxycodone Hcl Ir 5 Mg Tab (Immediate Release)) 10 mg PO Q6H PRN PRN Reason: Moderate Pain Stop: 05/15/20 18:17 Prednisone (Prednisone 5 Mg Tab) 5 mg PO DAILY [facility] Stop: 06/02/20 08:59 Last Admin: 05/03/20 08:13 Dose: 5 mg Documented by: PG Care Time/CCT Total # of Minutes Spent Total Time Spent with Patient: Total time spent is greater than 50% in coordination of care (as documented) at patient's floor/unit and/or counseling patient: Coding Level of Care Code 61128 Subseq Hosp Care Lvl 3 Diagnoses Acute blood loss anemia D62 Acute GI bleeding K92.2 Leukocytosis D72.829 Rheumatoid arthritis M06.9 Lyme disease A69.20 Chronic steroid use Depression F32.9 Hyponatremia E87.1 History of DVT (deep vein thrombosis) Z86.718 Hypokalemia E87.6 Metabolic acidosis E87.2 Elevated AST (SGOT) R74.0 DVT prophylaxis Z29.9
[2020-05-03] MEDS: cefTRIAXone SODIUM 2,000 MG in DEXTROSE 5% 50 ML IV SCH (18:30)
[2020-05-03] MEDS ORDERED: MAGNESIUM CITRATE 296 ML/BTL PO SCH (19:00)
[2020-05-04] MEDS: LORazepam 0.5 MG TAB PO PRN ×3 (01:09→18:15)
[2020-05-04] MEDS ORDERED: POLYETHYLENE (MIRALAX) 17 GM PACK PO SCH (06:00)
[2020-05-04 06:16] LABS: Hematocrit (blood only) 27.8 % (37-47); Hemoglobin 9.5 g/dL (12.0-16.0); Mean Corpuscular Hemoglobin 31.1 pg (25-34); Mean Corpuscular Hgb Conc 34.2 g/dL (32-36); Mean Corpuscular Volume 91.1 fL (80-100); Mean Platelet Volume 8.3 fL (7.4-10.4); Platelet Count 357 K/uL (130-400); RDW Coefficient of Variation 13.6 % (11.5-14.5); Red Blood Count 3.05 M/uL (4.2-5.4); White Blood Count 11.25 K/uL (4.8-10.8)
[2020-05-04] MEDS: SODIUM CHLORIDE 0.9% 1000ML 1,000 ML IV SCH ×3 (06:22→14:33)
[2020-05-04 06:51] LABS: BUN Creatinine Ratio 2.9 (10-20); Calcium 7.7 mg/dl (8.5-10.1); Creatinine Clr Calc Pharmacy 119.3 ml/min; Est GFR (African American) 123.7; Est GFR (Non-African American) 106.7
[2020-05-04] MEDS: LAVAGE SOLUTION 4000ML PO SCH (08:23)
[2020-05-04] MEDS: DULOXETINE HCL 60 MG CAP PO SCH (08:38)
[2020-05-04] MEDS: predniSONE 5 MG TAB PO SCH (08:38)
[2020-05-04] MEDS: DULOXETINE HCL 30 MG CAP PO SCH (08:38)
[2020-05-04] MEDS: BuPROPion SR 100 MG TABCR PO SCH (08:38)
[2020-05-04] MEDS ORDERED: POTASSIUM CHLORIDE 20 MEQ TABCR PO STA (09:12)
[2020-05-04] MEDS: POTASSIUM CHLORIDE / WTR 20 MEQ/100 ML PLCT IV SCH ×2 (09:51→11:56)
--- NOTE | 2020-05-04 09:57 | Gastroenterology Progress Note ---
Date of Service May 04, 2020 Assessment & Plan (1) Acute GI bleeding: Colonoscopy - initially planned for today but after discussion with Primary Hospitalist who says pt's respiratory status is slightly worse than yesterday, will hold today to allow time for respiration work up. If breathing improved tomorrow then colonoscopy can be tomorrow. Keep pt on clear liquids po today. Will order a small prep for early tomorrow morning. Present on Admission?: Yes Admission and Anticipated Discharge Date Admission Date: May 01, 2020 Supervising Physician Co-Signing Physician Notes I saw and evaluated the patient. We are planning to do colonoscopy today to evaluate her history of anemia as she had a negative upper endoscopy. Unfortunately it appears that the patient had some shortness of breath this morning delaying her examination. Recommendations Patient should have another one half bowel prep this evening if she is cleared for colonoscopy tomorrow Subjective 60 yr old female with melena, symptomatic anemia. On methotrexate/prednisone prior to admission. On Protonix drip no and no further melena. EGD yesterday w/o cause of anemia Colonoscopy planned for today. Completed po prep at 9AM. Clear/green liquid BMs this morning. K 3.0, receiving 40meq by IV. No new symptoms and no events over night. Hb 12 in December-> 8.2 two days ago to 9.5 today. Did not receive blood products. Review of Systems Review of Systems: ROS: Gen: Denies weakness, fevers, weight loss Eyes: No eye redness, or pain, no recent vision changes Resp: Mildly SOB with exertion; same as prior to admission Cardio: No palpitations/irregular beats, no chest pain GI: + melena; No abdominal pain, no nausea/vomiting : Denies pain on urination Skin: No jaundice, itching or new rashes Physical Exam Constitutional: WD/WN, vitals as above Eyes: PERRL, conjunctivae normal, anicteric sclerae ENMT: external ear and nose normal, oropharynx normal Neck: trachea midline, no thyromegaly Respiratory: normal respiratory effort, lungs clear to auscultation O2 via cannula 3L/min Cardiovascular: RRR, no murmur, no edema Gastrointestinal (Abdomen): normal bowel sounds, soft, nontender, no hepatosplenomegaly Skin: no rashes, warm and dry Neurologic: patellar DTR's 2+ bilat, sensation intact Psychiatric: A+Ox3, euthymic affect Lymphatic: no cervical or axillary lymphadenopathy Results & Data ([facility]) Vital Signs (Past 12 Hours) Vital Signs Temp Pulse Pulse Resp BP BP Pulse Ox 05/04/20 08:00 36.9 C 93 H 20 103/69 95 05/04/20 04:17 37.4 C 101 H 18 110/71 92 05/03/20 23:57 110 H 05/03/20 23:25 37.0 C 106 H 17 105/70 91 Laboratory Results WBC 11, Hb 9.5, Hct 27, Plat 357, Na 135, K 3.0, BUN1, Cr 0.5. Diagnostic Findings CXR 05/01: IMPRESSION: There is pulmonary vascular congestion. EGD 05/01/20: - Normal esophagus. - Z-line regular, 38 cm from the incisors. - Gastritis. - Normal examined duodenum. - No specimens collected.
[2020-05-04] MEDS ORDERED: OPTIRAY 320 125ml IV ONE (10:36)
--- NOTE | 2020-05-04 11:02 | CT Scan Report ---
CT ANGIOGRAPHY OF THE CHEST, PULMONARY EMBOLUS PROTOCOL CLINICAL HISTORY: dyspnea, tachycardia, tachypnea COMPARISON STUDY: Chest CT July 10, 2014. Chest radiograph May 01, 2020. TECHNIQUE: Following IV administration of 120 mL of Optiray-320, helical axial images of the chest we re obtained utilizing the pulmonary embolus protocol. Maximal intensity projections and sagittal and coronal reformats were viewed on an independent 3D workstation. IV contrast was administered withou t complication. Automated exposure control was utilized for the study. A dose lowering technique wa s utilized adhering to the principles of ALARA. CT DOSE: 294.62 mGy.cm FINDINGS: No central or lobar pulmonary emboli are identified. The segmental and subsegmental pulmon ara arteries are suboptimally assessed due to respiratory motion. A right internal jugular Infuse-a-P ort is in place. Size of the heart is normal. There is no pericardial effusion. No enlarged axillary, mediastinal or hilar lymph nodes are present. There is no pneumothorax. There are trace bilateral pl eural effusions. Extensive bilateral airspace opacities within the lungs are noted. The lungs are sub optimally assessed given respiratory motion. There is also mild interlobular septal thickening. No ca vitation is present. Central airways are patent. Bony thorax is unremarkable. Right hepatic lobe lesi on is unchanged from earlier exams. This was shown to represent a hemangioma on previous MRI. IMPRESSION: 1. No pulmonary emboli identified. Segmental and subsegmental pulmonary arteries suboptimally assesse d due to respiratory motion. 2. Extensive airspace opacities within the lungs with interlobular septal thickening, increased since chest radiograph May 01, 2020. The findings may reflect an infectious process or pulmonary edema. 3. Trace bilateral pleural effusions. ACT 112: Negative or not required by law. Electronically signed by: Enrrique Stratton M.D. 05/04/2020 11:01 AM
[2020-05-04 14:20] LABS: 18KDIGG Band REACTIVE; 23KDIGG Band NON-REACTIVE; 23KDIGM Band REACTIVE; 28KDIGG Band NON-REACTIVE; 30KDIGG Band NON-REACTIVE; 39KDIGG Band NON-REACTIVE; 39KDIGM Band NON-REACTIVE; 41KDIGG Band NON-REACTIVE; 41KDIGM Band NON-REACTIVE; 45KDIGG Band NON-REACTIVE; 58KDIGG Band NON-REACTIVE; 66KDIGG Band NON-REACTIVE; 93KDIGG Band NON-REACTIVE; Lyme Antibodies, WB IgG NEGATIVE (NEGATIVE); Lyme Antibodies, WB IgM NEGATIVE (NEGATIVE)
[2020-05-04 15:38] LABS: HCO3 ABG 20 mmol/L (19-24); Oxygen Saturation ABG 91.9 % (90-95); PCO2 ABG 29 mmHg (35-46); PO2 ABG 68 mmHg (80-95); pH ABG 7.45 (7.35-7.45)
[2020-05-04 15:48] LABS: Allen Test POS (Pos)
--- NOTE | 2020-05-04 15:58 | Pulmonary Consultation ---
Date of Consultation May 04, 2020 Assessment & Plan (1) Acute respiratory failure with hypoxia: 60-year-old female with a past medical history of juvenile idiopathic arthritis on Remicade, methotrexate and prednisone, history of DVT, history of anal cancer status post chemotherapy and radiation in 2013 presenting to the hospital with ongoing weakness, shortness of breath and an abnormal CT chest. Patient is very clearly immunocompromised given that she is on Remicade, meth otrexate and prednisone. Differential is very broad for her abnormal CT chest and overall presentation. Atypical infection such as fungal pneumonia, P GABRIELA pneumonia and atypical bacterial infections should be considered highly in the differential. I am also going to order a respiratory viral panel. Her COVID-19 testing was negative x2. Diffuse alveolar hemorrhage is also on the differential especially in light of her low hemoglobin and inflammatory joint disease. Eosinophilic pneumonia remains a possibility as well although less likely given the distribution of the groundglass opacities. I am ordering an echocardiogram. Procalcitonin, ESR and CRP were all ordered as well. LDH is elevated which is nonspecific but may be elevated and fungal infections. Beta glucan and urine histoplasma antigen ordered as well. We will go ahead and proceed with bronchoscopy tomorrow morning to evaluate for atypical infections and eosinophilic pneumonia. If she should decompensate overnight, I would recommend starting her on IV Solu-Medrol. She has already been started on 15 mg/kg every 6 hours of Bactrim for possible PJP pneumonia. After bronchoscopy tomorrow, I will likely start her on prednisone at higher doses. Please continue her p.o. Protonix. Hold all immunosuppressive medications other than 5 mg prednisone. Her LFTs are mildly elevated. This may be related to methotrexate. Methotrexate and Remicade can also cause interstitial lung disease. Thank you for the consult. We will continue to follow. (2) Chronic steroid use: (3) Immunocompromised state: (4) Juvenile idiopathic arthritis: (5) Normocytic anemia: (6) Abnormal CT scan, chest: History of Present Illness Reason for Consultation: Diffuse groundglass opacities with hypoxemic respiratory failure Requesting Physician: Dr. Luigi Jacobo Attending Physician: Luigi Jacobo, DO History of Present Illness 60-year-old female with a past medical history of anorectal carcinoma in 2013 treated with chemotherapy and radiation, juvenile idiopathic arthritis currently on Remicade, methotrexate and 5 mg of prednisone, history of DVT, history of lumbar stenosis and osteoporosis presenting to the hospital with increasing shortness of breath. Patient notes that over the last week and a half she has been having gradual increasing shortness of breath to the point where she can barely walk from her bed to her bathroom in the hospital without having profound shortness of breath. She denies any significant cough, fevers or chills. She denies any hemoptysis. She does endorse some abdominal pain around her umbilicus. She is being worked up for possible GI bleed and underwent EGD yesterday which demonstrated gastritis. She was supposed have a colonoscopy today but this was deferred due to her respiratory status. She denies any sick contacts. She lives alone in a house. She has 1 dog and 1 cat. No feather pillows or comforters at home. No bird exposure. She does not smoke, use e- cigarettes or vape. She underwent a CT of her chest today which demonstrated upper lobe predominant diffuse groundglass opacities with some subpleural sparing. No significant mediastinal adenopathy was noted. She describes that she has not had any recent prednisone burst. The highest though she can think of most recently was 20 mg several months ago. She has been on a stable dose of methotrexate and Remicade. She also takes folic acid. Labs are significant for white count of 11,000, hemoglobin of 9.5 which is trended up from yesterday, platelet count of 357,000. INR normal on admission. ABG with a pH of 7.45, PCO2 of 29, PO2 of 68. Potassium at 3.1. Creatinine 0.50. BUN 1. CRP of 25.2. ESR 78. LDH of 404. AST 56. Albumin is 2.6. Lyme disease IgM was positive on 05/01/2020. COVID-19 testing negative on 04/28/2020 and 05/03/2020. He is saturating 92% on 4 L nasal cannula. EGD yesterday demonstrated diffuse minimal inflammation characterized by erythema and granularity in the entire examined stomach. Urinalysis was significant for possible UTI and admission. She is growing Gardnerella-like bacilli in the urine with greater than 100,000 colonies. She is currently on Rocephin. Allergies Allergy/AdvReac Type Severity Reaction Status Date / Time doxycycline Allergy Intermediate RASH Verified 04/26/20 11:01 buspirone AdvReac Intermediate nightmares Verified 04/26/20 11:01 mirtazapine AdvReac Mild weight gain Verified 04/26/20 11:01 Home Medications Home Medications Medication Instructions Recorded Confirmed Type folic acid 1 mg PO QAM 90 Days #90 tab 01/03/17 05/01/20 History prednisone 5 mg PO .TAPER UD #0 tab 01/03/17 05/01/20 History infliximab 500 mg IV [id number] #0 04/23/17 05/01/20 History cholecalciferol (vitamin D3) 1,000 unit PO QAM 07/08/18 05/01/20 History ibuprofen 200 - 400 mg PO Q8 PRN 08/07/18 05/01/20 History methotrexate sodium 6 tab PO WK 08/07/18 05/01/20 History duloxetine 30 mg capsule,delayed See Rx Instructions .ROUTE 10/12/19 05/01/20 Rx release .COMPLEX #30 capsule bupropion HCl 100 mg tablet,12 hr 100 mg PO QAM #30 ea 02/25/20 05/01/20 Rx sustained-release duloxetine 60 mg capsule,delayed 60 mg PO DAILY #90 cap 04/16/20 05/01/20 Rx release Patient History Medical History 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, chemo, radiation Deep vein thrombosis hx of after back surgery---no blood thinners Degenerative disc disease Detached retina Diverticulosis History of DVT (deep vein thrombosis) Rheumatoid arthritis Spinal stenosis Vitamin D deficiency Warts, genital Surgical History H/O hemorrhoidectomy History of arthroscopy of left knee History of colonoscopy Recommend repeat 2023 History of detached retina repair left History of esophagogastroduodenoscopy (EGD) History of lumbar discectomy History of lumbar fusion hardware in place History of right elbow replacement History of total left knee replacement (TKR) History of vascular access device Aport right side Hx of cholecystectomy Family History Sister Family history of reaction to anesthesia trouble waking up after anesthesia Type 2 diabetes mellitus Breast cancer Mother Cardiac disorder Hypertension Type 2 diabetes mellitus Grandfather (Paternal) Family hx of colon cancer Father Bladder cancer Grandfather Osteoarthritis Grandmother Osteoarthritis Social History Smoking Status: Former smoker Second Hand Exposure: No; Hx Alcohol Use: No Hx Substance Use: No Preferred Language: Urdu Communication Ability: Effective Visual Impairment: No Limitations Hearing Ability: Normal Cutting And Boning Supervisor Required: No Beliefs That Will Affect Care: None marital status: Single Current Living Situation: Alone current occupational status: disabled Feels Safe at Home: Yes Childhood Exposure to Second-Hand Smoke: Yes Dental Care, Regularly: Yes Physical Activity Frequency: 3-4 Times per Week Seatbelt Use: always Sunscreen Use: Yes Review of Systems Review of Systems: All systems reviewed & are unremarkable except as noted in HPI & below Physical Exam Constitutional: Patient is thin and frail-appearing. Mildly tachypneic. Eyes: PERRL, conjunctivae normal, anicteric sclerae ENMT: external ear and nose normal, oropharynx normal Neck: normal visual inspection Respiratory: normal respiratory effort, lungs clear to auscultation + tachypneic Cardiovascular: Rate/Rhythm: regular rhythm and + tachycardic Palpation: normal PMI Extremities: no edema Gastrointestinal (Abdomen): normal bowel sounds, soft, nontender, no hepatosplenomegaly Musculoskeletal: no cyanosis or clubbing, extremities motor strength 5/5 Skin: no rashes, warm and dry Neurologic: PERRL, EOMI, accommodation nl, no face palsy, no dysarthria Psychiatric: A+Ox3, euthymic affect Results & Data Results & Data ([facility]) Vital Signs (Past 12 Hours) Vital Signs Temp Pulse Resp BP BP Pulse Ox 05/04/20 15:28 98.4 F 102 H 18 95/60 L 92 05/04/20 12:00 98.8 F 98 H 20 104/71 93 05/04/20 08:00 98.4 F 93 H 20 103/69 95 05/04/20 04:17 99.3 F 101 H 18 110/71 92 I reviewed her vital signs, labs and imaging PG Care Time/CCT Total # of Minutes Spent Total Time Spent with Patient: Total time spent is greater than 50% in coordination of care (as documented) at patient's floor/unit and/or counseling patient: Coding Level of Care Code 41739 Inpt Consult Level 5 Diagnoses Acute respiratory failure with hypoxia J96.01 Chronic steroid use Immunocompromised state D89.9 Juvenile idiopathic arthritis M08.80 Normocytic anemia D64.[address] scan, chest R93.89
[2020-05-04] MEDS: DEXTROSE 5% IV SCH ×2 (16:28→23:11)
[2020-05-04] MEDS: TRIMETH IV SCH ×2 (16:28→23:11)
[2020-05-04] MEDS: SULFA IV SCH ×2 (16:28→23:11)
[2020-05-04 16:43] LABS: Bilirubin Direct 0.1 mg/dl (0-0.2); Bilirubin,Total 0.5 mg/dl (0.2-1)
[2020-05-04] MEDS: PANTOprazole 40 MG TAB PO SCH (17:16)
[2020-05-04] MEDS ORDERED: FUROSEMIDE 20 MG in SYRINGE 0 ML IV ONE (18:30)
[2020-05-04 18:38] LABS: Adenovirus PCR Not Detected (NotDetected); Bordetella parapertussis PCR Not Detected (NotDetected); Bordetella pertussis PCR Not Detected (NotDetected); Chlamydia pneumoniae PCR Not Detected (NotDetected); Coronavirus 229E PCR Not Detected (NotDetected); Coronavirus CoV-2 (COVID19)PCR Not Detected (NotDetected); Coronavirus HKU1 PCR Not Detected (NotDetected); Coronavirus NL63 PCR Not Detected (NotDetected); Coronavirus OC43PCR Not Detected (NotDetected); Human Metapneumovirus PCR Not Detected (NotDetected); Influenza A PCR Not Detected (NotDetected); Influenza B PCR Not Detected (NotDetected); Mycoplasma pneumoniae PCR Not Detected (NotDetected); Parainfluenza Virus 1 PCR Not Detected (NotDetected); Parainfluenza Virus 2 PCR Not Detected (NotDetected); Parainfluenza Virus 3 PCR Not Detected (NotDetected); Parainfluenza Virus 4 PCR Not Detected (NotDetected); Respiratory Syncytial VirusPCR Not Detected (NotDetected); Rhinovirus/Enterovirus PCR Not Detected (NotDetected)
[2020-05-04] MEDS: cefTRIAXone SODIUM 2,000 MG in DEXTROSE 5% 50 ML IV SCH (19:57)
[2020-05-04] MEDS ORDERED: POLYETHYLENE (MIRALAX) 17 GM PACK PO ONE (20:00)
--- NOTE | 2020-05-04 22:04 | Hospitalist Progress Note ---
Date of Service May 04, 2020 Assessment & Plan (1) Acute respiratory failure with hypoxia: requiring 4L nasal canula, increased work of breathing, worse today CT chest, no PE but does have bilateral interstitial lung changes appreciate differential from Dr. Morales will treat with Bactrim for possible PCP pneumonia will give Lasix 20mg IV x 1 to look for response to possible volume overload plan for bronchoscopy tomorrow to work up for the PCP, alveolar hemorrhage, eosinophilic pneumonitis, and other possibilities NPO after midnight (2) Abnormal CT scan, chest: bilateral interstitial lung changes with either infection, inflammation, pulmonary edema plan for bronchoscopy tomorrow to work up (3) Immunocompromised state: long standing use of Remicade, Prednisone, Methotrexate taking for decades for her RA start on Bactrim for possible PCP pneumonia urine culture with Gardnerella, on Rocephin (4) Acute blood loss anemia: Hb stable at 9.5 no transfusions required, BP stable no signs of bleeding EGD 05/03 with gastritis, no bleeding Protonix 40mg PO daily hold on colonoscopy as Hb is stable, no signs of bleeding and her lung work up will take priority (5) Acute GI bleeding: stop PPI drip as no concerning findings on EGD no signs of active bleeding Protonix PO (6) Leukocytosis: no fever could be related to immunocompromised state, opportunistic infection WBC is 11k Ceftriaxone for Gardnerella UTI Bactrim for possible PCP pneumonia (7) Rheumatoid arthritis: Patient has history of RA--> she typically sees rheumatology taking methotrexate, prednisone , and Remicade hold MTX, Remicade for now (8) Lyme disease: With reports of fevers to 101, HAs, myalgias within the last week, severe fatigue. Lyme IgM positive but has been positive in the past and can remain positive for years (even the IgM) -Nonetheless, continue IV ceftriaxone 2 g daily and eventually can convert to amoxicillin x 4 week course -await Lyme WB to come back (9) Chronic steroid use: (10) Depression: continue Wellbutrin and Cymbalta (11) Hyponatremia: Na+ 129 on admission, Ur Na+ >20 Was given NS and now greatly improved to 142 likely volume depletion follow BMP (12) History of DVT (deep vein thrombosis): in 2000 after a surgery no chemical DVT proph due to bleeding SCDs (13) Hypokalemia: 3.0 today, gave 20mEq PO and 40mEq IV repeat tomorrow (14) Metabolic acidosis: HCO3 21 today, likely from volume depletion, non AG resolved (15) Elevated AST (SGOT): mild elevation at 56 did have fevers, possible Lyme? DO not suspect ANaplasmosis given lack of thrombocytopenia. COVID neg on 04/28 follow LFTs (16) DVT prophylaxis: DVT prevention is SCDs given her bleeding Dispo --Continued stay on PCU, colonoscopy tomorrow Admission and Anticipated Discharge Date Admission Date: May 01, 2020 Subjective patient with increased dyspnea today she was short of breath just going from bedside commode to the bed she admits to being more short of breath for a few weeks, no fever/chills, minimal cough, no hemoptysis she was tachypneic, tachycardic so ordered CTA chest no PE but did show bilateral interstitial changes, more predominant in the upper lobes appreciate consult from Dr. Morales, discussed differential with him will start on Bactrim for possible PCP pneumonia will give Lasix for possible volume overload plan for bronchoscopy tomorrow, patient agrees updated her sister over the phone today about plan reviewed labs, Hb is up to 9.5, WBC 11k, K is 3.1, Cr 0.5 Review of Systems Review of Systems: All systems reviewed & are unremarkable except as noted in Subjective Constitutional: + fatigue and + weakness; no fever, no chills and no sweats Respiratory: + dyspnea and + dyspnea on exertion; no cough, no hemoptysis and no wheezing Cardiovascular: no chest pain and no edema Gastrointestinal: + diarrhea/loose stools; no abdominal pain, no nausea, no vomiting, no constipation, no blood in stools and no melena Physical Exam Constitutional: WD/WN, vitals as above Eyes: PERRL, conjunctivae normal, anicteric sclerae ENMT: external ear and nose normal, oropharynx normal Neck: trachea midline, no thyromegaly Respiratory: normal respiratory effort, lungs clear to auscultation Cardiovascular: RRR, no murmur, no edema Gastrointestinal (Abdomen): normal bowel sounds, soft, nontender, no hepatosplenomegaly Musculoskeletal: no cyanosis or clubbing, extremities motor strength 5/5 Skin: no rashes, warm and dry Neurologic: patellar DTR's 2+ bilat, sensation intact and PERRL, EOMI, accommodation nl, no face palsy, no dysarthria Psychiatric: A+Ox3, euthymic affect Lymphatic: no cervical or axillary lymphadenopathy Results & Data Results & Data ([facility]) Vital Signs (Past 12 Hours) Vital Signs Temp Pulse Resp BP Pulse Ox 05/04/20 19:24 37.3 C 89 18 96/61 L 90 05/04/20 15:28 36.9 C 102 H 18 95/60 L 92 05/04/20 12:00 37.1 C 98 H 20 104/71 93 Laboratory Results Laboratory Results - last 24 hr 05/01/20 05/04/20 05/04/20 15:02 06:02 06:02 WBC 11.25 H RBC 3.05 L Hgb 9.5 L Hct 27.8 L MCV 91.1 MCH 31.1 MCHC 34.2 RDW Std Deviation 45.0 RDW Coeff of Gabrielle 13.6 Plt Count 357 MPV 8.3 ESR ABG pH ABG pCO2 ABG pO2 ABG HCO3 ABG O2 Saturation ABG Base Excess Rony Test Barometric Pressure Oxygen Given Sodium 136 Potassium 3.0 L D Chloride 105 Carbon Dioxide 23 Anion Gap 8.0 BUN 1 L Creatinine 0.50 L Est Cr Clr Drug Dosing 119.3 Est GFR ( Amer) 123.7 Est GFR (Non-Af Amer) 106.7 BUN/Creatinine Ratio 2.9 L Glucose 91 Calcium 7.7 L Total Bilirubin Direct Bilirubin AST ALT Alkaline Phosphatase Lactate Dehydrogenase C-Reactive Protein NT-Pro-B Natriuret Pep Total Protein Albumin Procalcitonin Adenovirus (PCR) B. pertussis DNA (PCR) B.parapertussis DNA PCR Lyme IgG (Western Blot) NEGATIVE Lyme IgG 18 kDa Band REACTIVE A Lyme IgG 23 kDa Band NON-REACTIVE Lyme IgG 28 kDa Band NON-REACTIVE Lyme IgG 30 kDa Band NON-REACTIVE Lyme IgG 39 kDa Band NON-REACTIVE Lyme IgG 41 kDa Band NON-REACTIVE Lyme IgG 45 kDa Band NON-REACTIVE Lyme IgG 58 kDa Band NON-REACTIVE Lyme IgG 66 kDa Band NON-REACTIVE Lyme IgG 93 kDa Band NON-REACTIVE Lyme IgM Ab (WB) NEGATIVE Lyme IgM 23 kDa Band REACTIVE A Lyme IgM 39 kDa Band NON-REACTIVE Lyme IgM 41 kDa Band NON-REACTIVE C. pneumoniae DNA (PCR) Coronavirus OC43 (PCR) Coronavirus HKU1 (PCR) Coronavirus 229E (PCR) COVID-19 PCR Coronavirus NL63 (PCR) U Histopl Galactoman Ag Human Metapneumovir PCR Influenza Type A (PCR) Influenza Type B (PCR) M. pneumoniae (PCR) Parainfluenza 1 (PCR) Parainfluenza 2 (PCR) Parainfluenza 3 (PCR) Parainfluenza 4 (PCR) RSV (PCR) Entero/Rhino (PCR) Beta-(1,3)-D-Glucan B-(1,3)-D-Glucan Intr 05/04/20 05/04/20 05/04/20 10:52 15:18 15:18 WBC RBC Hgb Hct MCV MCH MCHC RDW Std Deviation RDW Coeff of Gabrielle Plt Count MPV ESR 78 H ABG pH ABG pCO2 ABG pO2 ABG HCO3 ABG O2 Saturation ABG Base Excess Rony Test Barometric Pressure Oxygen Given Sodium Potassium 3.1 L Chloride Carbon Dioxide Anion Gap BUN Creatinine Est Cr Clr Drug Dosing Est GFR ( Amer) Est GFR (Non-Af Amer) BUN/Creatinine Ratio Glucose Calcium Total Bilirubin Direct Bilirubin AST ALT Alkaline Phosphatase Lactate Dehydrogenase 404 H C-Reactive Protein NT-Pro-B Natriuret Pep Total Protein Albumin Procalcitonin Adenovirus (PCR) B. pertussis DNA (PCR) B.parapertussis DNA PCR Lyme IgG (Western Blot) Lyme IgG 18 kDa Band Lyme IgG 23 kDa Band Lyme IgG 28 kDa Band Lyme IgG 30 kDa Band Lyme IgG 39 kDa Band Lyme IgG 41 kDa Band Lyme IgG 45 kDa Band Lyme IgG 58 kDa Band Lyme IgG 66 kDa Band Lyme IgG 93 kDa Band Lyme IgM Ab (WB) Lyme IgM 23 kDa Band Lyme IgM 39 kDa Band Lyme IgM 41 kDa Band C. pneumoniae DNA (PCR) Coronavirus OC43 (PCR) Coronavirus HKU1 (PCR) Coronavirus 229E (PCR) COVID-19 PCR Coronavirus NL63 (PCR) U Histopl Galactoman Ag Human Metapneumovir PCR Influenza Type A (PCR) Influenza Type B (PCR) M. pneumoniae (PCR) Parainfluenza 1 (PCR) Parainfluenza 2 (PCR) Parainfluenza 3 (PCR) Parainfluenza 4 (PCR) RSV (PCR) Entero/Rhino (PCR) Beta-(1,3)-D-Glucan B-(1,3)-D-Glucan Intrp 05/04/20 05/04/20 05/04/20 15:18 15:18 16:00 WBC RBC Hgb Hct MCV MCH MCHC RDW Std Deviation RDW Coeff of Gabrielle Plt Count MPV ESR ABG pH 7.45 ABG pCO2 29 L ABG pO2 68 L ABG HCO3 20 ABG O2 Saturation 91.9 ABG Base Excess -3.0 Rony Test POS Barometric Pressure 733.0 Oxygen Given 4 L Sodium Potassium Chloride Carbon Dioxide Anion Gap BUN Creatinine Est Cr Clr Drug Dosing Est GFR ( Amer) Est GFR (Non-Af Amer) BUN/Creatinine Ratio Glucose Calcium Total Bilirubin Direct Bilirubin AST ALT Alkaline Phosphatase Lactate Dehydrogenase C-Reactive Protein 25.20 H NT-Pro-B Natriuret Pep Total Protein Albumin Procalcitonin 0.12 Adenovirus (PCR) B. pertussis DNA (PCR) B.parapertussis DNA PCR Lyme IgG (Western Blot) Lyme IgG 18 kDa Band Lyme IgG 23 kDa Band Lyme IgG 28 kDa Band Lyme IgG 30 kDa Band Lyme IgG 39 kDa Band Lyme IgG 41 kDa Band Lyme IgG 45 kDa Band Lyme IgG 58 kDa Band Lyme IgG 66 kDa Band Lyme IgG 93 kDa Band Lyme IgM Ab (WB) Lyme IgM 23 kDa Band Lyme IgM 39 kDa Band Lyme IgM 41 kDa Band C. pneumoniae DNA (PCR) Coronavirus OC43 (PCR) Coronavirus HKU1 (PCR) Coronavirus 229E (PCR) COVID-19 PCR Coronavirus NL63 (PCR) U Histopl Galactoman Ag Human Metapneumovir PCR Influenza Type A (PCR) Influenza Type B (PCR) M. pneumoniae (PCR) Parainfluenza 1 (PCR) Parainfluenza 2 (PCR) Parainfluenza 3 (PCR) Parainfluenza 4 (PCR) RSV (PCR) Entero/Rhino (PCR) Beta-(1,3)-D-Glucan B-(1,3)-D-Glucan Intrp 05/04/20 05/04/20 05/04/20 16:00 16:00 Unknown WBC RBC Hgb Hct MCV MCH MCHC RDW Std Deviation RDW Coeff of Gabrielle Plt Count MPV ESR ABG pH ABG pCO2 ABG pO2 ABG HCO3 ABG O2 Saturation ABG Base Excess Rony Test Barometric Pressure Oxygen Given Sodium Potassium Chloride Carbon Dioxide Anion Gap BUN Creatinine Est Cr Clr Drug Dosing Est GFR ( Amer) Est GFR (Non-Af Amer) BUN/Creatinine Ratio Glucose Calcium Total Bilirubin 0.5 Direct Bilirubin 0.1 AST 30 ALT 26 Alkaline Phosphatase 92 Lactate Dehydrogenase C-Reactive Protein NT-Pro-B Natriuret Pep 1887 H Total Protein 6.0 L Albumin 2.0 L Procalcitonin Adenovirus (PCR) Not Detected B. pertussis DNA (PCR) Not Detected B.parapertussis DNA PCR Not Detected Lyme IgG (Western Blot) Lyme IgG 18 kDa Band Lyme IgG 23 kDa Band Lyme IgG 28 kDa Band Lyme IgG 30 kDa Band Lyme IgG 39 kDa Band Lyme IgG 41 kDa Band Lyme IgG 45 kDa Band Lyme IgG 58 kDa Band Lyme IgG 66 kDa Band Lyme IgG 93 kDa Band Lyme IgM Ab (WB) Lyme IgM 23 kDa Band Lyme IgM 39 kDa Band Lyme IgM 41 kDa Band C. pneumoniae DNA (PCR) Not Detected Coronavirus OC43 (PCR) Not Detected Coronavirus HKU1 (PCR) Not Detected Coronavirus 229E (PCR) Not Detected COVID-19 PCR Not Detected Coronavirus NL63 (PCR) Not Detected U Histopl Galactoman Ag Human Metapneumovir PCR Not Detected Influenza Type A (PCR) Not Detected Influenza Type B (PCR) Not Detected M. pneumoniae (PCR) Not Detected Parainfluenza 1 (PCR) Not Detected Parainfluenza 2 (PCR) Not Detected Parainfluenza 3 (PCR) Not Detected Parainfluenza 4 (PCR) Not Detected RSV (PCR) Not Detected Entero/Rhino (PCR) Not Detected Beta-(1,3)-D-Glucan Pending B-(1,3)-D-Glucan Intrp Pending 05/04/20 Unknown WBC RBC Hgb Hct MCV MCH MCHC RDW Std Deviation RDW Coeff of Gabrielle Plt Count MPV ESR ABG pH ABG pCO2 ABG pO2 ABG HCO3 ABG O2 Saturation ABG Base Excess Rony Test Barometric Pressure Oxygen Given Sodium Potassium Chloride Carbon Dioxide Anion Gap BUN Creatinine Est Cr Clr Drug Dosing Est GFR ( Amer) Est GFR (Non-Af Amer) BUN/Creatinine Ratio Glucose Calcium Total Bilirubin Direct Bilirubin AST ALT Alkaline Phosphatase Lactate Dehydrogenase C-Reactive Protein NT-Pro-B Natriuret Pep Total Protein Albumin Procalcitonin Adenovirus (PCR) B. pertussis DNA (PCR) B.parapertussis DNA PCR Lyme IgG (Western Blot) Lyme IgG 18 kDa Band Lyme IgG 23 kDa Band Lyme IgG 28 kDa Band Lyme IgG 30 kDa Band Lyme IgG 39 kDa Band Lyme IgG 41 kDa Band Lyme IgG 45 kDa Band Lyme IgG 58 kDa Band Lyme IgG 66 kDa Band Lyme IgG 93 kDa Band Lyme IgM Ab (WB) Lyme IgM 23 kDa Band Lyme IgM 39 kDa Band Lyme IgM 41 kDa Band C. pneumoniae DNA (PCR) Coronavirus OC43 (PCR) Coronavirus HKU1 (PCR) Coronavirus 229E (PCR) COVID-19 PCR Coronavirus NL63 (PCR) U Histopl Galactoman Ag Pending Human Metapneumovir PCR Influenza Type A (PCR) Influenza Type B (PCR) M. pneumoniae (PCR) Parainfluenza 1 (PCR) Parainfluenza 2 (PCR) Parainfluenza 3 (PCR) Parainfluenza 4 (PCR) RSV (PCR) Entero/Rhino (PCR) Beta-(1,3)-D-Glucan B-(1,3)-D-Glucan Intrp Diagnostic Findings CT angiogram chest IMPRESSION: 1. No pulmonary emboli identified. Segmental and subsegmental pulmonary arteries suboptimally assessed due to respiratory motion. 2. Extensive airspace opacities within the lungs with interlobular septal thickening, increased since chest radiograph May 01, 2020. The findings may reflect an infectious process or pulmonary edema. 3. Trace bilateral pleural effusions. Medications Administered Current Inpatient Medications Acetaminophen (Acetaminophen 325 Mg Tab) 650 mg PO Q4H PRN PRN Reason: Pain or Fever Stop: 05/31/20 18:17 Last Admin: 05/03/20 09:12 Dose: 650 mg Documented by: Bupropion HCl (Bupropion Sr 100 Mg Tabcr) 100 mg PO QAM [facility] Stop: 06/01/20 08:59 Last Admin: 05/04/20 08:38 Dose: 100 mg Documented by: Duloxetine HCl (Duloxetine Hcl 30 Mg Cap) 30 mg PO DAILY [facility] Stop: 06/01/20 08:59 Last Admin: 05/04/20 08:38 Dose: 30 mg Documented by: Duloxetine HCl (Duloxetine Hcl 60 Mg Cap) 60 mg PO DAILY [facility] Stop: 06/01/20 08:59 Last Admin: 05/04/20 08:38 Dose: 60 mg Documented by: Heparin Sodium (Porcine) (Heparin 100 Unit/Ml 5ml Flush) 5 ml FLUSH PRN PRN PRN Reason: Flush Stop: 06/01/20 00:02 Ceftriaxone Sodium 2,000 mg/ (Dextrose) 50 mls @ 100 mls/hr IV Q24H [facility]; Protocol Stop: 05/11/20 18:59 Last Infusion: 05/04/20 20:27 Dose: Infused Documented by: Promethazine HCl 12.5 mg/ (Sodium Chloride) 50.5 mls @ 202 mls/hr IV Q6H PRN PRN Reason: Nausea And Vomiting Stop: 06/02/20 14:07 Last Infusion: 05/04/20 08:22 Dose: Infused Documented by: Trimethoprim/Sulfamethoxazole (240 mg/ Dextrose) 515 mls @ 333 mls/hr IV Q6H [facility]; Protocol Stop: 05/25/20 15:59 Last Admin: 05/04/20 23:11 Dose: 333 mls/hr Documented by: Lorazepam (Lorazepam 0.5 Mg Tab) 0.5 mg PO Q6H PRN PRN Reason: Anxiety Stop: 05/31/20 18:17 Last Admin: 05/04/20 18:15 Dose: 0.5 mg Documented by: Morphine Sulfate (Morphine Sulfate 2 Mg/Ml Carp) 2 mg IV Q4 PRN PRN Reason: Pain Stop: 05/15/20 18:17 Morphine Sulfate (Morphine Sulfate 4 Mg/Ml 1 Ml Carp\Vial) 4 mg IV Q4 PRN PRN Reason: Pain Stop: 05/15/20 18:17 Ondansetron HCl (Ondansetron Inj 2 Mg/Ml 2 Ml Vial) 4 mg IV Q6H PRN PRN Reason: Nausea Stop: 05/31/20 18:17 Oxycodone HCl (Oxycodone Hcl Ir 5 Mg Tab (Immediate Release)) 10 mg PO Q6H PRN PRN Reason: Moderate Pain Stop: 05/15/20 18:17 Pantoprazole Sodium (Pantoprazole 40 Mg Tab) 40 mg PO QAM [facility] Stop: 06/03/20 16:29 Last Admin: 05/04/20 17:16 Dose: 40 mg Documented by: Prednisone (Prednisone 5 Mg Tab) 5 mg PO DAILY [facility] Stop: 06/02/20 08:59 Last Admin: 05/04/20 08:38 Dose: 5 mg Documented by: PG Care Time/CCT Total # of Minutes Spent Total Time Spent with Patient: Total time spent is greater than 50% in coordination of care (as documented) at patient's floor/unit and/or counseling patient: Coding Level of Care Code 78362 Subseq Hosp Care Lvl 3 Diagnoses Acute respiratory failure with hypoxia J96.[address] scan, chest R93.89 Immunocompromised state D89.9 Acute blood loss anemia D62 Acute GI bleeding K92.2 Leukocytosis D72.829 Rheumatoid arthritis M06.9 Lyme disease A69.20 Chronic steroid use Depression F32.9 Hyponatremia E87.1 History of DVT (deep vein thrombosis) Z86.718 Hypokalemia E87.6 Metabolic acidosis E87.2 Elevated AST (SGOT) R74.0 DVT prophylaxis Z29.9
[2020-05-05] MEDS: DEXTROSE 5% IV SCH ×3 (05:03→19:39)
[2020-05-05] MEDS: SULFA IV SCH ×3 (05:03→19:39)
[2020-05-05] MEDS: TRIMETH IV SCH ×3 (05:03→19:39)
[2020-05-05 06:44] LABS: Hematocrit (blood only) 26.3 % (37-47); Hemoglobin 9.2 g/dL (12.0-16.0); Mean Corpuscular Hemoglobin 32.3 pg (25-34); Mean Corpuscular Volume 92.3 fL (80-100); Mean Platelet Volume 8.1 fL (7.4-10.4); Platelet Count 346 K/uL (130-400); RDW Coefficient of Variation 13.7 % (11.5-14.5); RDW Standard Deviation 45.7 fL (36.4-46.3); Red Blood Count 2.85 M/uL (4.2-5.4); White Blood Count 9.47 K/uL (4.8-10.8)
[2020-05-05 06:52] LABS: INR 1.2 (0.9-1.1)
[2020-05-05 07:14] LABS: BUN Creatinine Ratio 4.8 (10-20); Calcium 7.6 mg/dl (8.5-10.1); Creatinine Clr Calc Pharmacy 99.4 ml/min; Est GFR (African American) 116.4; Est GFR (Non-African American) 100.5; Potassium 2.7 mmol/L (3.5-5.1)
--- NOTE | 2020-05-05 07:43 | History & Physical Bridge Note ---
Date of Service May 05, 2020 History & Physical Bridge Note I have examined the patient, reviewed the History & Physical and in the interval since the performance of the History & Physical I have noted the following changes of clinical significance: no changes noted
--- NOTE | 2020-05-05 08:17 | Pre Anesthesia Assessment ---
Date of Service May 05, 2020 Pre Sedation Assessment Vital Signs Temp Pulse Pulse Resp BP BP Pulse Ox 05/05/20 08:00 97.7 F 88 20 90/57 L 92 05/05/20 05:05 98.2 F 99 H 20 94/61 L 91 05/04/20 23:59 109 H 05/04/20 23:26 99.5 F 114 H 16 107/67 95 05/04/20 19:24 99.1 F 89 18 96/61 L 90 05/04/20 15:28 98.4 F 102 H 18 95/60 L 92 05/04/20 12:00 98.8 F 98 H 20 104/71 93 Pre-Sedation Airway Assessment Smoking Status: Former smoker Hx Sleep Apnea: No Thyromental Distance: < 3.5 Finger Breadths Mallampati Class: II Notes The planned sedation has been discussed with the patient. Informed Consent was obtained. I have identified the patient, determined the appropriateness of sedation and have assessed the patient immediately prior to the procedure. All medicine(s) and interventions are by my order.
--- NOTE | 2020-05-05 08:49 | Post Anesthesia Assessment ---
Date of Service May 05, 2020 Post Sedation Assessment Vital Signs Temp Pulse Pulse Resp BP BP Pulse Ox 05/05/20 08:45 103 H 24 99/66 L 93 05/05/20 08:40 100 H 24 100/64 94 05/05/20 08:35 97 H 22 96/63 L 95 05/05/20 08:30 96 H 19 100/64 95 05/05/20 08:25 93 H 22 98/67 L 99 05/05/20 08:00 97.7 F 88 20 90/57 L 92 05/05/20 05:05 98.2 F 99 H 20 94/61 L 91 05/04/20 23:59 109 H 05/04/20 23:26 99.5 F 114 H 16 107/67 95 05/04/20 19:24 99.1 F 89 18 96/61 L 90 05/04/20 15:28 98.4 F 102 H 18 95/60 L 92 05/04/20 12:00 98.8 F 98 H 20 104/71 93 Recovery Score Activity: Moves 4 extremities Respiration: Deep Breath/Cough Circulation: +/-20% PreAnes Value Consciousness: Arouseable (by name) Oxygen Saturation: O2 needed for >90% Post Anesthesia Score: 8 Discharge Sedation Level of Care: Fast Track Phase II Post Sedation Plan On clinical assessment, the patient appears to have tolerated the sedation without complications. Patient is recovering as anticipated. Patient will continue to be monitored by nursing and may be discharged when sedation discharge criteria are met per below protocol. Upon Completions of procedure up to 15 minutes continue every 5 minute vital signs and the P.A.R. score; then discharge to a Phase I or Fast Track to Phase II per the following guidelines: * Discharge Patient to appropriate Phase II area if PAR is 8 or greater or return to pre- procedure baseline. The post - procedure orders will be as directed. * If PAR score is less than 8 or not return to pre-procedure baseline then patient will follow Phase I monitoring till PAR is reached for Phase II. The Phase I may be done in procedure room or may call to secure a Phase I area. * If naloxone or flumazenil are used for reversal, hold in Phase I for continued monitoring from when last reversal dose was given for a minimum of 60 minutes or longer pending the nurse and/or physician discretion of patient condition before discharge to Phase II. Please call the Sedation Physician to re-evaluate and complete post-note for discharge to Phase II area. Do NOT discharge from procedure sedation or Phase 1 until post- sedation evaluation note is complete by procedure /sedation MD Sedation Discharge Instructions to be given to the patient at discharge to home.
[2020-05-05] MEDS ORDERED: LIDOCAINE 4% INH SOLN 4 ML BTL NEB ONE (08:52)
[2020-05-05] MEDS ORDERED: OXYMETAZOLINE 0.05% 30 ML BTL ONE (08:52)
[2020-05-05] MEDS ORDERED: LIDOCAINE HCL 2% (LOCAL) INJ 50 ML VIAL INSTIL ONE (08:52)
[2020-05-05] MEDS ORDERED: fentaNYL citrate 100 MCG/2 ML VIAL IV ONE (08:52)
[2020-05-05] MEDS ORDERED: LIDOCAINE HCL VISCOUS SOLN 2% 15 ML UDC TOP ONE (08:52)
[2020-05-05] MEDS ORDERED: MIDAZOLAM HCL 1 MG/ML 2ML VIAL IV ONE (08:53)
--- NOTE | 2020-05-05 08:58 | Procedure Note ---
Procedure Note Date of Service May 05, 2020 Note Procedural sedation began at 8:28 AM and ended at 8:45 AM. 3 mg of Versed and 75 mcg of fentanyl were used for the procedure. PREOPERATIVE DIAGNOSIS: Groundglass opacities in immunocompromised patient POSTOPERATIVE DIAGNOSIS: Glass opacities in immunocompromised patient PROCEDURE PERFORMED: Flexible fiberoptic bronchoscopy with bronchial alveolar lavage with microscopy brushings of the lingula COMPLICATIONS: None. INDICATION: Evaluate for infectious etiology PROCEDURE: After obtaining an informed consent, the patient was brought to the Bronchoscopy Suite. The patient had appropriate oxygen, blood pressure, heart rate, and respiratory rate monitoring applied and monitored continuously throughout the procedure. Supplemental oxygen via nasal cannula as per nursing records was applied to the nasopharynx with adequate saturations achieved. Topical anesthesia with nebulized 1% lidocaine was achieved. Subsequent to this, the patient was premedicated with 3 mg of midazolam and 75 Mcg of fentanyl. The oropharynx and larynx were well visualized and showed mild erythema. There was normal vocal cord motion without masses or lesions. Additional topical anesthesia with 1% lidocaine was applied to the trachea and pau. The trachea appeared normal however there was excessive collapse of the posterior membrane upon coughing.The bronchoscope was then advanced through the pau, which was sharp. The scope was then advanced into the right main stem and each segment, subsegement in the right upper lobe, right middle lobe and right lower lobe was visualized. There was a small amounts of thick secretions noted. There were no other findings including evidence of mass, anatomic distortion or hemorrhage.. The bronchoscope was subsequently withdrawn and advanced into the left mainstem. Again, each segment and subsegment was well visualized. No specific masses or other lesions were identified throughout the tracheobronchial tree on the left. There was small amounts of thick secretions noted. The bronchoscope was then wedged in the lingula and bronchoalveolar lavage samples were obtained. 180 ml of saline was instilled in 60 mL aliquots and 85 ml of fluid was aspirated back. No alveolar hemorrhage is seen. The bronchoscope was withdrawn and the area was suctioned clear. The bronchoscope was then re-advanced into the lingula and microscopy brushings with a protected brush were performed of the lingula. Minim al hemorrhage was identified and suctioned clear without difficulty. The bronchoscope was then withdrawn to the mainstem. The area was suctioned clear. The patient tolerated the procedure well without evidence of desaturation or complications. Bronchoalveolar lavage samples were sent for cell count, Gram stain and bacterial culture, AFB culture and smear, fungal culture and smear, Aspergillus galactomannan and cytology. Microscopy brushings were sent as well for culture. Recommendations: Await cell counts from the BAL fluid. Await cultures. Continue Bactrim for possible PCP in an immunocompromised host. I will start her on 40 mg twice daily of prednisone for presumptive severe PCP. Coding CPT Codes Pulmonary/Thoracic - Pulmonary and Thoracic: 23386 Dx bronchoscopy/BAL ([id number]) Pulmonary/Thoracic - Pulmonary and Thoracic: 17600 Dx bronchoscopy/brush ([id number]) Sedation/Anesthesia - Sedation/Anesthesia: 10946 Mod Sedation by the same physician; Ea [id number] Minutes ([id number]) [facility] [place] Procedure Codes (Charges) Pulmonary/Thoracic Procedure 1: Pulmonary and Thoracic: 26309 Dx bronchoscopy/BAL Procedure 2: Pulmonary and Thoracic: 17668 Dx bronchoscopy/brush Sedation/Anesthesia Procedure 1: Sedation/Anesthesia: 37912 Mod Sedation by the same physician; Ea [id number] Minutes Total Sedation Time (minutes): 17
[2020-05-05] MEDS: POTASSIUM CHLORIDE / WTR 20 MEQ/100 ML PLCT IV SCH ×4 (09:18→17:16)
[2020-05-05] MEDS: DULOXETINE HCL 30 MG CAP PO SCH (11:07)
[2020-05-05] MEDS: BuPROPion SR 100 MG TABCR PO SCH (11:07)
[2020-05-05] MEDS: PANTOprazole 40 MG TAB PO SCH (11:07)
[2020-05-05] MEDS: DULOXETINE HCL 60 MG CAP PO SCH (11:08)
[2020-05-05] MEDS: predniSONE 20 MG TAB PO SCH ×2 (11:09→21:23)
[2020-05-05 11:25] LABS: Basophil Body Fluid Man 1 %; Eosinophil Body Fluid Man 3 %; Fluid Mono/Macrophage 53 %; Lymphocyte Body Fluid Man 8 %; Neutrophil Body Fluid Man 35 %
--- NOTE | 2020-05-05 12:26 | Gastroenterology Progress Note ---
Date of Service May 05, 2020 Assessment & Plan (1) Acute GI bleeding: EGD without cause of melena/anemia. Colonoscopy deferred in mojgan of respiratory work up. Recommend that she f/u with her regular OP business taxes specialist, Dr. Obregon in his office at after improvement of acute respiratory issues at which time OP colonoscopy can be considered. [facility] group will sign off. Please contact Dr. Obregon with further GI issues during this admission (our group was covering for Dr. Obregon during the past weekend). Admission and Anticipated Discharge Date Admission Date: May 01, 2020 Supervising Physician Co-Signing Physician Notes I saw and evaluated the patient. Unfortunately her respiratory status is precluded colonoscopy during this recent admission. At the present time she is not had any evidence of recurrent bleeding. Would recommend an outpatient colonoscopy with her regular GI provider next 4 to 6 weeks. Subjective 60 yr old female with melena, symptomatic anemia. On methotrexate/prednisone prior to admission. On Protonix drip no and no further melena. EGD 05/03 w/o cause of anemia Colonoscopy held due to worsened respiratory status. Hb 12 in December-> 8.2 on arrival -> 9.2 today. Did not receive blood products. Review of Systems Review of Systems: ROS: Gen: Denies weakness, fevers, weight loss Eyes: No eye redness, or pain, no recent vision changes Resp: Mildly SOB with exertion; same as prior to admission Cardio: No palpitations/irregular beats, no chest pain GI: + melena (prior to arrival); No abdominal pain, no nausea/vomiting : Denies pain on urination Skin: No jaundice, itching or new rashes Physical Exam Constitutional: WD/WN, vitals as above Eyes: PERRL, conjunctivae normal, anicteric sclerae ENMT: external ear and nose normal, oropharynx normal Neck: trachea midline, no thyromegaly Respiratory: normal respiratory effort, lungs clear to auscultation Cardiovascular: RRR, no murmur, no edema Gastrointestinal (Abdomen): normal bowel sounds, soft, nontender, no hepatosplenomegaly Skin: no rashes, warm and dry Neurologic: patellar DTR's 2+ bilat, sensation intact Psychiatric: A+Ox3, euthymic affect Lymphatic: no cervical or axillary lymphadenopathy Results & Data ([facility]) Vital Signs (Past 12 Hours) Vital Signs Temp Pulse Pulse Resp BP BP Pulse Ox 05/05/20 11:52 37.0 C 76 20 97/65 L 94 05/05/20 09:43 90 90/58 L 94 05/05/20 09:21 79 92/60 L 92 05/05/20 09:00 84 20 90/58 L 93 05/05/20 08:55 85 22 92/58 L 93 05/05/20 08:50 90 22 92/62 L 93 05/05/20 08:45 103 H 24 99/66 L 93 05/05/20 08:40 100 H 24 100/64 94 05/05/20 08:35 97 H 22 96/63 L 95 05/05/20 08:30 96 H 19 100/64 95 05/05/20 08:25 93 H 22 98/67 L 99 05/05/20 08:00 36.5 C 88 20 90/57 L 92 05/05/20 05:05 36.8 C 99 H 20 94/61 L 91
--- NOTE | 2020-05-05 15:34 | XCELERA ---
[id number]
[2020-05-05] MEDS: cefTRIAXone SODIUM 2,000 MG in DEXTROSE 5% 50 ML IV SCH (18:08)
[2020-05-05] MEDS: HEPARIN 100 UNIT/ML 5ML FLUSH FLUSH PRN (21:25)
--- NOTE | 2020-05-05 23:08 | Hospitalist Progress Note ---
Date of Service May 05, 2020 Assessment & Plan (1) Acute respiratory failure with hypoxia: requiring 4L nasal canula, increased work of breathing CT chest, no PE but does have bilateral interstitial lung changes appreciate differential from Dr. Morales will treat with Bactrim for possible PCP pneumonia, add Prednisone 40mg BID bronchoscopy today with lavage, microscopy brushings await results of BAL, fungal, bacterial cultures will try to wean oxygen as tolerated but may need supplemental oxygen on discharge (2) Abnormal CT scan, chest: bilateral interstitial lung changes with either infection, inflammation, pulmonary edema bronchoscopy today follow up culture results Bactrim and Prednisone for presumed severe PCP pneumonia (3) Immunocompromised state: long standing use of Remicade, Prednisone, Methotrexate taking for decades for her RA start on Bactrim for possible PCP pneumonia, add Prednisone 40 BID today urine culture with Gardnerella, on Rocephin (4) Acute blood loss anemia: Hb stable at 9.2 no transfusions required, BP stable no signs of bleeding EGD 05/03 with gastritis, no bleeding Protonix 40mg PO daily hold on colonoscopy as Hb is stable, no signs of bleeding and her lung work up will take priority (5) Acute GI bleeding: stop PPI drip as no concerning findings on EGD no signs of active bleeding Protonix PO, continue this as she will be on high dose Prednisone (6) Leukocytosis: no fever could be related to immunocompromised state, opportunistic infection WBC is 9k Ceftriaxone for Gardnerella UTI Bactrim for possible PCP pneumonia (7) Rheumatoid arthritis: Patient has history of RA--> she typically sees rheumatology taking methotrexate, prednisone , and Remicade hold MTX, Remicade for now (8) Lyme disease: With reports of fevers to 101, HAs, myalgias within the last week, severe fatigue. Lyme IgM positive but has been positive in the past and can remain positive for years (even the IgM) -Nonetheless, continue IV ceftriaxone 2 g daily in hindsight, fevers more likely due to infection in lungs, awaiting culture results (9) Chronic steroid use: increase Prednisone to 40mg BID due to possible PCP pneumonia (10) Depression: continue Wellbutrin and Cymbalta (11) Hyponatremia: Na 132 today (12) History of DVT (deep vein thrombosis): in 2000 after a surgery no chemical DVT proph due to bleeding SCDs (13) Hypokalemia: down to 2.7 today gave 60mEq IV via port this morning repeat tomorrow (14) Metabolic acidosis: HCO3 22 today, likely from volume depletion, non AG resolved (15) DVT prophylaxis: DVT prevention is SCDs given her bleeding Dispo --Continued stay on PCU, PT/OT evaluations Admission and Anticipated Discharge Date Admission Date: May 01, 2020 Subjective patient tolerated bronchoscopy this morning spoke with Dr. Morales, she had some thick mucous that he suctioned lavage sent for cultures, microscopy brushings of the lingula Dr. Morales recommends starting on Prednisone 40mg BID for presumptive PCP patient feeling okay later in the morning, no respiratory distress no nausea, tolerating food no chest pain, no fever, no diarrhea reviewed labs, Hb 9, WBC 9k, potassium low at 2.7 biofire negative for other viral infections Review of Systems Review of Systems: All systems reviewed & are unremarkable except as noted in Subjective Physical Exam Constitutional: WD/WN, vitals as above Eyes: PERRL, conjunctivae normal, anicteric sclerae ENMT: external ear and nose normal, oropharynx normal Neck: trachea midline, no thyromegaly Respiratory: normal respiratory effort, lungs clear to auscultation Cardiovascular: RRR, no murmur, no edema Gastrointestinal (Abdomen): normal bowel sounds, soft, nontender, no hepatosplenomegaly Musculoskeletal: no cyanosis or clubbing, extremities motor strength 5/5 Skin: no rashes, warm and dry Neurologic: patellar DTR's 2+ bilat, sensation intact and PERRL, EOMI, accommodation nl, no face palsy, no dysarthria Psychiatric: A+Ox3, euthymic affect Lymphatic: no cervical or axillary lymphadenopathy Results & Data Results & Data ([facility]) Vital Signs (Past 12 Hours) Vital Signs Temp Pulse Pulse Resp BP BP Pulse Ox 05/05/20 20:07 37.1 C 84 18 92/63 L 93 05/05/20 16:09 37.1 C 91 H 18 96/66 L 94 05/05/20 16:00 80 05/05/20 14:05 92 05/05/20 11:52 37.0 C 76 20 97/65 L 94 Laboratory Results Laboratory Results - last 24 hr 05/05/20 05/05/20 05/05/20 06:05 06:05 06:05 WBC 9.47 RBC 2.85 L Hgb 9.2 L Hct 26.3 L MCV 92.3 MCH 32.3 MCHC 35.0 RDW Std Deviation 45.7 RDW Coeff of Gabrielle 13.7 Plt Count 346 MPV 8.1 PT 13.0 H INR 1.2 H Sodium 132 L Potassium 2.7 L Chloride 100 Carbon Dioxide 22 Anion Gap 10.0 BUN 3 L Creatinine 0.60 Est Cr Clr Drug Dosing 99.4 Est GFR ( Amer) 116.4 Est GFR (Non-Af Amer) 100.5 BUN/Creatinine Ratio 4.8 L Glucose 144 H Calcium 7.6 L Fluid Neutrophils % Fluid Lymphocytes % Fluid Eosinophils % Fluid Basophils % Fl Monocyt/Macrophag % BAL A.galactomannan Ag BAL A.galactomann Index 05/05/20 05/05/20 08:37 08:37 WBC RBC Hgb Hct MCV MCH MCHC RDW Std Deviation RDW Coeff of Gabrielle Plt Count MPV PT INR Sodium Potassium Chloride Carbon Dioxide Anion Gap BUN Creatinine Est Cr Clr Drug Dosing Est GFR ( Amer) Est GFR (Non-Af Amer) BUN/Creatinine Ratio Glucose Calcium Fluid Neutrophils % 35 Fluid Lymphocytes % 8 Fluid Eosinophils % 3 Fluid Basophils % 1 Fl Monocyt/Macrophag % 53 BAL A.galactomannan Ag Pending BAL A.galactomann Index Pending Medications Administered Current Inpatient Medications Acetaminophen (Acetaminophen 325 Mg Tab) 650 mg PO Q4H PRN PRN Reason: Pain or Fever Stop: 05/31/20 18:17 Last Admin: 05/03/20 09:12 Dose: 650 mg Documented by: Bupropion HCl (Bupropion Sr 100 Mg Tabcr) 100 mg PO QAM [facility] Stop: 06/01/20 08:59 Last Admin: 05/05/20 11:07 Dose: 100 mg Documented by: Duloxetine HCl (Duloxetine Hcl 30 Mg Cap) 30 mg PO DAILY [facility] Stop: 06/01/20 08:59 Last Admin: 05/05/20 11:07 Dose: 30 mg Documented by: Duloxetine HCl (Duloxetine Hcl 60 Mg Cap) 60 mg PO DAILY [facility] Stop: 06/01/20 08:59 Last Admin: 05/05/20 11:08 Dose: 60 mg Documented by: Heparin Sodium (Porcine) (Heparin 100 Unit/Ml 5ml Flush) 5 ml FLUSH PRN PRN PRN Reason: Flush Stop: 06/01/20 00:02 Last Admin: 05/05/20 21:25 Dose: 5 ml Documented by: Ceftriaxone Sodium 2,000 mg/ (Dextrose) 50 mls @ 100 mls/hr IV Q24H [facility]; Protocol Stop: 05/11/20 18:59 Last Infusion: 05/05/20 19:02 Dose: Infused Documented by: Promethazine HCl 12.5 mg/ (Sodium Chloride) 50.5 mls @ 202 mls/hr IV Q6H PRN PRN Reason: Nausea And Vomiting Stop: 06/02/20 14:07 Last Infusion: 05/04/20 08:22 Dose: Infused Documented by: Trimethoprim/Sulfamethoxazole (240 mg/ Dextrose) 515 mls @ 333 mls/hr IV Q6H [facility]; Protocol Stop: 05/25/20 15:59 Last Infusion: 05/05/20 21:22 Dose: Infused Documented by: Lorazepam (Lorazepam 0.5 Mg Tab) 0.5 mg PO Q6H PRN PRN Reason: Anxiety Stop: 05/31/20 18:17 Last Admin: 05/04/20 18:15 Dose: 0.5 mg Documented by: Morphine Sulfate (Morphine Sulfate 2 Mg/Ml Carp) 2 mg IV Q4 PRN PRN Reason: Pain Stop: 05/15/20 18:17 Morphine Sulfate (Morphine Sulfate 4 Mg/Ml 1 Ml Carp\Vial) 4 mg IV Q4 PRN PRN Reason: Pain Stop: 05/15/20 18:17 Ondansetron HCl (Ondansetron Inj 2 Mg/Ml 2 Ml Vial) 4 mg IV Q6H PRN PRN Reason: Nausea Stop: 05/31/20 18:17 Oxycodone HCl (Oxycodone Hcl Ir 5 Mg Tab (Immediate Release)) 10 mg PO Q6H PRN PRN Reason: Moderate Pain Stop: 05/15/20 18:17 Pantoprazole Sodium (Pantoprazole 40 Mg Tab) 40 mg PO QAM [facility] Stop: 06/03/20 16:29 Last Admin: 05/05/20 11:07 Dose: 40 mg Documented by: Prednisone (Prednisone 20 Mg Tab) 40 mg PO BID [facility] Stop: 06/04/20 08:59 Last Admin: 09/02/20 21:23 Dose: 40 mg Documented by: PG Care Time/CCT Total # of Minutes Spent Total Time Spent with Patient: Total time spent is greater than 50% in coordination of care (as documented) at patient's floor/unit and/or counseling patient: Coding Level of Care Code 08025 Subseq Hosp Care Lvl 3 Diagnoses Acute respiratory failure with hypoxia J96.[address] scan, chest R93.89 Immunocompromised state D89.9 Acute blood loss anemia D62 Acute GI bleeding K92.2 Leukocytosis D72.829 Rheumatoid arthritis M06.9 Lyme disease A69.20 Chronic steroid use Depression F32.9 Hyponatremia E87.1 History of DVT (deep vein thrombosis) Z86.718 Hypokalemia E87.6 Metabolic acidosis E87.2 DVT prophylaxis Z29.9
[2020-05-06] MEDS: TRIMETH IV SCH ×4 (01:48→19:35)
[2020-05-06] MEDS: SULFA IV SCH ×4 (01:48→19:35)
[2020-05-06] MEDS: DEXTROSE 5% IV SCH ×4 (01:48→19:35)
[2020-05-06 05:58] LABS: Hematocrit (blood only) 28.3 % (37-47); Hemoglobin 9.6 g/dL (12.0-16.0); Immature Granulocytes # (auto) 0.02 K/uL (0.00-0.02); Immature Granulocytes % (auto) 0.3 %; Lymphocytes # (auto) 0.26 K/uL (1.2-3.4); Lymphocytes % (auto) 3.8 %; Mean Corpuscular Hemoglobin 30.9 pg (25-34); Mean Corpuscular Hgb Conc 33.9 g/dL (32-36); Mean Platelet Volume 8.2 fL (7.4-10.4); Monocytes # (auto) 0.04 K/uL (0.11-0.59); Monocytes % (auto) 0.6 %; Neutrophils % (auto) 95.3 %; Platelet Count 438 K/uL (130-400); RDW Coefficient of Variation 13.8 % (11.5-14.5); RDW Standard Deviation 45.4 fL (36.4-46.3); Red Blood Count 3.11 M/uL (4.2-5.4); White Blood Count 6.82 K/uL (4.8-10.8)
[2020-05-06 06:37] LABS: Albumin Globulin Ratio 0.5 (0.9-2); Albumin Level 2.2 gm/dl (3.4-5.0); BUN Creatinine Ratio 7.1 (10-20); Bilirubin,Total 0.2 mg/dl (0.2-1); Calcium 8.3 mg/dl (8.5-10.1); Creatinine Clr Calc Pharmacy 108.4 ml/min; Est GFR (African American) 119.8; Est GFR (Non-African American) 103.4; Globulin 4.3 gm/dl (2.5-4.0); Total Protein 6.5 gm/dl (6.4-8.2)
[2020-05-06] MEDS: predniSONE 20 MG TAB PO SCH ×2 (07:55→19:37)
[2020-05-06] MEDS: DULOXETINE HCL 30 MG CAP PO SCH (07:56)
[2020-05-06] MEDS: DULOXETINE HCL 60 MG CAP PO SCH (07:56)
[2020-05-06] MEDS: BuPROPion SR 100 MG TABCR PO SCH (07:56)
[2020-05-06] MEDS: PANTOprazole 40 MG TAB PO SCH (07:56)
[2020-05-06] MEDS: HEPARIN 100 UNIT/ML 5ML FLUSH FLUSH PRN ×2 (08:51→21:19)
--- NOTE | 2020-05-06 09:08 | XRay Report ---
XR chest 2V PA/lateral CLINICAL HISTORY: Shortness of breath. Follow up infiltrates. COMPARISON STUDY: Chest radiograph May 01, 2020. Chest CT May 04, 2020. FINDINGS: Right internal jugular [id number] is in place. There is no pneumothorax. Interstitial th ickening and bilateral opacities has slightly improved since prior CT. There are trace bilateral pleu ral effusions. Cardiac size is normal. Mediastinal contours are unremarkable. IMPRESSION: 1. Interstitial thickening and bilateral opacities, mildly improved since prior chest CT. 2. Trace bilateral pleural effusions. ACT 112: Negative or not required by law. Electronically signed by: Enrrique Stratton M.D. 05/06/2020 9:06 AM
--- NOTE | 2020-05-06 09:53 | Pulmonology Progress Note ---
Date of Service May 06, 2020 Assessment & Plan (1) Acute respiratory failure with hypoxia: 60-year-old female with a past medical history of juvenile idiopathic arthritis on Remicade, methotrexate and prednisone, history of anal cancer status post chemotherapy and radiation in 2013 presenting with acute hypoxemic respiratory failure. She is status post bronchoscopy yesterday. Bronchoscopy culture smears so far have been negative. Fungal cultures and AFB cultures will take several weeks to finalize. We are awaiting cytology. The cell count generally was unrevealing. Beta glucan via the serum is pending. Aspergillus galactomannan in the BAL pending as well. Continue treatment for presumptive PCP. She will need 21 days of Bactrim and 21-day prednisone taper. 40 mg p.o. twice daily for 5 days, 40 mg daily for 5 days and finally 20 mg for 11 days. Other etiologies include pulmonary toxicity from Remicade and/or methotrexate. ESR and CRP elevated. LDH elevated as well. Findings are nonspecific. She will need a follow-up CT chest in 6 weeks. (2) Abnormal CT scan, chest: (3) Immunocompromised state: (4) Juvenile idiopathic arthritis: Admission and Anticipated Discharge Date Admission Date: May 01, 2020 Subjective Patient doing well this morning. She has some mild cough that is very mildly productive. No hemoptysis. No fevers overnight. She is still short of breath with minimal exertion. She is saturating 92% on 3 L nasal cannula. Appetite is decent. No nausea or vomiting. Review of Systems Review of Systems: All systems reviewed & are unremarkable except as noted in HPI & below Physical Exam Constitutional: Patient is thin and frail-appearing. Mildly tachypneic. Eyes: PERRL, conjunctivae normal, anicteric sclerae ENMT: external ear and nose normal, oropharynx normal Neck: normal visual inspection Respiratory: normal respiratory effort, lungs clear to auscultation + tachypneic Cardiovascular: Rate/Rhythm: regular rhythm and + tachycardic Palpation: normal PMI Extremities: no edema Gastrointestinal (Abdomen): normal bowel sounds, soft, nontender, no hepatosplenomegaly Musculoskeletal: no cyanosis or clubbing, extremities motor strength 5/5 Skin: no rashes, warm and dry Neurologic: PERRL, EOMI, accommodation nl, no face palsy, no dysarthria Psychiatric: A+Ox3, euthymic affect Results & Data Results & Data ([facility]) Vital Signs (Past 12 Hours) Vital Signs Temp Pulse Pulse Resp BP BP Pulse Ox 05/06/20 08:00 69 05/06/20 07:18 98.1 F 83 18 95/59 L 92 05/06/20 04:46 97.9 F 89 20 115/75 96 05/05/20 23:41 99.1 F 97 H 24 95/62 L 92 05/05/20 23:40 94 H I reviewed vital signs, Labs and chest imaging PG Care Time/CCT Total # of Minutes Spent Total Time Spent with Patient: Total time spent is greater than 50% in c oordination of care (as documented) at patient's floor/unit and/or counseling patient: Coding Level of Care Code 94692 Subseq Hosp Care Lvl 3 Diagnoses Acute respiratory failure with hypoxia J96.[address] scan, chest R93.89 Immunocompromised state D89.9 Juvenile idiopathic arthritis M08.80
--- NOTE | 2020-05-06 14:54 | Hospitalist Progress Note ---
Date of Service May 06, 2020 Assessment & Plan (1) Acute respiratory failure with hypoxia: required 4L nasal canula, increased work of breathing on 05/04 CT chest on 05/04, no PE but does have bilateral interstitial lung changes appreciate differential from Dr. Morales will treat with Bactrim for possible PCP pneumonia, add Prednisone 40mg BID plan for 21 days of Bactrim and taper Prednisone over 21 days bronchoscopy 05/05 with lavage, microscopy brushings await results of BAL, fungal, bacterial cultures will try to wean oxygen as tolerated but may need supplemental oxygen on discharge down to 2L today, breathing easier at rest, profound dyspnea on exertion will get therapy anticipate her needed 2 step prior to discharge (2) Abnormal CT scan, chest: bilateral interstitial lung changes with either infection, inflammation, pulmonary edema bronchoscopy 05/05 follow up culture results Bactrim and Prednisone for presumed severe PCP pneumonia (3) Immunocompromised state: long standing use of Remicade, Prednisone, Methotrexate taking for decades for her RA start on Bactrim for possible PCP pneumonia, add Prednisone 40 BID today urine culture with Gardnerella, on Rocephin (4) Acute blood loss anemia: Hb stable at 9.6 no transfusions required, BP stable no signs of bleeding EGD 05/03 with gastritis, no bleeding Protonix 40mg PO daily hold on colonoscopy as Hb is stable, no signs of bleeding and her lung work up will take priority (5) Acute GI bleeding: stop PPI drip as no concerning findings on EGD no signs of active bleeding Protonix PO, continue this as she will be on high dose Prednisone (6) Leukocytosis: no fever could be related to immunocompromised state, opportunistic infection WBC is normal Ceftriaxone for Gardnerella UTI Bactrim for possible PCP pneumonia (7) Rheumatoid arthritis: Patient has history of RA--> she typically sees rheumatology taking methotrexate, prednisone , and Remicade hold MTX, Remicade for now (8) Lyme disease: With reports of fevers to 101, HAs, myalgias within the last week, severe fatigue. Lyme IgM positive but has been positive in the past and can remain positive for years (even the IgM) -Nonetheless, continue IV ceftriaxone 2 g daily in hindsight, fevers more likely due to infection in lungs, awaiting culture results (9) Chronic steroid use: increase Prednisone to 40mg BID due to possible PCP pneumonia (10) Depression: continue Wellbutrin and Cymbalta (11) Hyponatremia: Na 134 today (12) History of DVT (deep vein thrombosis): in 2000 after a surgery no chemical DVT proph due to bleeding SCDs (13) Hypokalemia: up to 4.1 today after 60mEq IV via port yesterday repeat tomorrow (14) Metabolic acidosis: HCO3 22 today, likely from volume depletion, non AG resolved (15) DVT prophylaxis: DVT prevention is SCDs given her bleeding Dispo --Continued stay on PCU, PT/OT evaluations two step prior to discharge possible discharge in two days Admission and Anticipated Discharge Date Admission Date: May 01, 2020 Subjective patient breathing a little easier this morning appetite is okay, not great she c/o some abdominal bloating, no nausea or vomiting she has a cough with white phlegm discussed with Dr. Morales, appreciate his recommendations in regards to PCP pneumonia reviewed labs, WBC 6k, Hb 9.6, BMP stable still with dyspnea on exertion, she walked from hallway to her bed, extremely winded after 10 feet will get therapy to see her CXR today with some mild improvement in the interstitial markings Review of Systems Review of Systems: All systems reviewed & are unremarkable except as noted in Subjective Respiratory: + cough, + dyspnea, + dyspnea on exertion (severe) and + sputum production; no hemoptysis and no wheezing Cardiovascular: no chest pain and no edema Gastrointestinal: no abdominal pain, no nausea, no vomiting, no constipation and no diarrhea/loose stools Physical Exam Constitutional: WD/WN, vitals as above Eyes: PERRL, conjunctivae normal, anicteric sclerae ENMT: external ear and nose normal, oropharynx normal Neck: trachea midline, no thyromegaly Respiratory: normal respiratory effort, lungs clear to auscultation Cardiovascular: RRR, no murmur, no edema Gastrointestinal (Abdomen): normal bowel sounds, soft, nontender, no hepatosplenomegaly Musculoskeletal: no cyanosis or clubbing, extremities motor strength 5/5 Skin: no rashes, warm and dry Neurologic: patellar DTR's 2+ bilat, sensation intact and PERRL, EOMI, accommodation nl, no face palsy, no dysarthria Psychiatric: A+Ox3, euthymic affect Lymphatic: no cervical or axillary lymphadenopathy Results & Data Results & Data ([facility]) Vital Signs (Past 12 Hours) Vital Signs Temp Pulse Pulse Resp BP Pulse Ox 05/06/20 14:25 96 05/06/20 10:55 36.6 C 86 19 102/66 92 05/06/20 08:00 69 05/06/20 07:18 36.7 C 83 18 95/59 L 92 05/06/20 04:46 36.6 C 89 20 115/75 96 Laboratory Results Laboratory Results - last 24 hr 05/06/20 05/06/20 05:39 05:39 WBC 6.82 RBC 3.11 L Hgb 9.6 L Hct 28.3 L MCV 91.0 MCH 30.9 MCHC 33.9 RDW Std Deviation 45.4 RDW Coeff of Gabrielle 13.8 Plt Count 438 H MPV 8.2 Immature Gran % (Auto) 0.3 Neut % (Auto) 95.3 Lymph % (Auto) 3.8 Teller % (Auto) 0.6 Eos % (Auto) 0.0 Baso % (Auto) 0.0 Neut # (Auto) 6.50 Lymph # (Auto) 0.26 L Teller # (Auto) 0.04 L Eos # (Auto) 0.00 Baso # (Auto) 0.00 Immature Gran # (Auto) 0.02 Sodium 134 L Potassium 4.0 D Chloride 104 Carbon Dioxide 22 Anion Gap 8.0 BUN 4 L Creatinine 0.55 L Est Cr Clr Drug Dosing 108.4 Est GFR ( Amer) 119.8 Est GFR (Non-Af Amer) 103.4 BUN/Creatinine Ratio 7.1 L Glucose 124 H Calcium 8.3 L Total Bilirubin 0.2 AST 25 ALT 25 Alkaline Phosphatase 98 Total Protein 6.5 Albumin 2.2 L Globulin 4.3 H Albumin/Globulin Ratio 0.5 L Diagnostic Findings XR chest 2V PA/lateral CLINICAL HISTORY: Shortness of breath. Follow up infiltrates. COMPARISON STUDY: Chest radiograph May 01, 2020. Chest CT May 04, 2020. FINDINGS: Right internal jugular [id number] is in place. There is no pneumothorax. Interstitial thickening and bilateral opacities has slightly improved since prior CT. There are trace bilateral pleural effusions. Cardiac size is normal. Mediastinal contours are unremarkable. IMPRESSION: 1. Interstitial thickening and bilateral opacities, mildly improved since prior chest CT. 2. Trace bilateral pleural effusions. Medications Administered Current Inpatient Medications Acetaminophen (Acetaminophen 325 Mg Tab) 650 mg PO Q4H PRN PRN Reason: Pain or Fever Stop: 05/31/20 18:17 Last Admin: 05/03/20 09:12 Dose: 650 mg Documented by: Bupropion HCl (Bupropion Sr 100 Mg Tabcr) 100 mg PO QAM [facility] Stop: 06/01/20 08:59 Last Admin: 05/06/20 07:56 Dose: 100 mg Documented by: Duloxetine HCl (Duloxetine Hcl 30 Mg Cap) 30 mg PO DAILY [facility] Stop: 06/01/20 08:59 Last Admin: 05/06/20 07:56 Dose: 30 mg Documented by: Duloxetine HCl (Duloxetine Hcl 60 Mg Cap) 60 mg PO DAILY [facility] Stop: 06/01/20 08:59 Last Admin: 05/06/20 07:56 Dose: 60 mg Documented by: Heparin Sodium (Porcine) (Heparin 100 Unit/Ml 5ml Flush) 5 ml FLUSH PRN PRN PRN Reason: Flush Stop: 06/01/20 00:02 Last Admin: 05/06/20 08:51 Dose: 5 ml Documented by: Ceftriaxone Sodium 2,000 mg/ (Dextrose) 50 mls @ 100 mls/hr IV Q24H [facility]; Protocol Stop: 05/11/20 18:59 Last Infusion: 05/05/20 19:02 Dose: Infused Documented by: Promethazine HCl 12.5 mg/ (Sodium Chloride) 50.5 mls @ 202 mls/hr IV Q6H PRN PRN Reason: Nausea And Vomiting Stop: 06/02/20 14:07 Last Infusion: 05/04/20 08:22 Dose: Infused Documented by: Trimethoprim/Sulfamethoxazole (240 mg/ Dextrose) 515 mls @ 333 mls/hr IV Q6H [facility]; Protocol Stop: 05/25/20 15:59 Last Admin: 05/06/20 13:31 Dose: 333 mls/hr Documented by: Lorazepam (Lorazepam 0.5 Mg Tab) 0.5 mg PO Q6H PRN PRN Reason: Anxiety Stop: 05/31/20 18:17 Last Admin: 05/04/20 18:15 Dose: 0.5 mg Documented by: Morphine Sulfate (Morphine Sulfate 2 Mg/Ml Carp) 2 mg IV Q4 PRN PRN Reason: Pain Stop: 05/15/20 18:17 Morphine Sulfate (Morphine Sulfate 4 Mg/Ml 1 Ml Carp\Vial) 4 mg IV Q4 PRN PRN Reason: Pain Stop: 05/15/20 18:17 Ondansetron HCl (Ondansetron Inj 2 Mg/Ml 2 Ml Vial) 4 mg IV Q6H PRN PRN Reason: Nausea Stop: 05/31/20 18:17 Oxycodone HCl (Oxycodone Hcl Ir 5 Mg Tab (Immediate Release)) 10 mg PO Q6H PRN PRN Reason: Moderate Pain Stop: 05/15/20 18:17 Pantoprazole Sodium (Pantoprazole 40 Mg Tab) 40 mg PO QAM [facility] Stop: 06/03/20 16:29 Last Admin: 05/06/20 07:56 Dose: 40 mg Documented by: Prednisone (Prednisone 20 Mg Tab) 40 mg PO BID [facility] Stop: 06/04/20 08:59 Last Admin: 05/06/20 07:55 Dose: 40 mg Documented by: Simethicone (Simethicone 80 Mg Chew) 80 mg PO Q6H PRN PRN Reason: Gas or Constipation Stop: 06/05/20 14:52 PG Care Time/CCT Total # of Minutes Spent Total Time Spent with Patient: Total time spent is greater than 50% in coordination of care (as documented) at patient's floor/unit and/or counseling patient: Coding Level of Care Code 59293 Subseq Hosp Care Lvl 3 Diagnoses Acute respiratory failure with hypoxia J96.[address] scan, chest R93.89 Immunocompromised state D89.9 Acute blood loss anemia D62 Acute GI bleeding K92.2 Leukocytosis D72.829 Rheumatoid arthritis M06.9 Lyme disease A69.20 Chronic steroid use Depression F32.9 Hyponatremia E87.1 History of DVT (deep vein thrombosis) Z86.718 Hypokalemia E87.6 Metabolic acidosis E87.2 DVT prophylaxis Z29.9
[2020-05-06] MEDS: SIMETHICONE 80 MG CHEW PO PRN ×2 (15:31→21:19)
[2020-05-06] MEDS: cefTRIAXone SODIUM 2,000 MG in DEXTROSE 5% 50 ML IV SCH (18:12)
[2020-05-07] MEDS: SULFA IV SCH ×2 (01:03→07:35)
[2020-05-07] MEDS: TRIMETH IV SCH ×2 (01:03→07:35)
[2020-05-07] MEDS: DEXTROSE 5% IV SCH ×2 (01:03→07:35)
[2020-05-07] MEDS: LORazepam 0.5 MG TAB PO PRN (01:03)
[2020-05-07] MEDS: DULOXETINE HCL 60 MG CAP PO SCH (07:38)
[2020-05-07] MEDS: predniSONE 20 MG TAB PO SCH (07:38)
[2020-05-07] MEDS: PANTOprazole 40 MG TAB PO SCH (07:38)
[2020-05-07] MEDS: DULOXETINE HCL 30 MG CAP PO SCH (07:38)
[2020-05-07] MEDS: BuPROPion SR 100 MG TABCR PO SCH (07:38)
[2020-05-07 07:55] LABS: Hematocrit (blood only) 30.2 % (37-47); Hemoglobin 10.1 g/dL (12.0-16.0); Immature Granulocytes # (auto) 0.05 K/uL (0.00-0.02); Immature Granulocytes % (auto) 0.4 %; Lymphocytes # (auto) 0.73 K/uL (1.2-3.4); Lymphocytes % (auto) 5.9 %; Mean Corpuscular Hemoglobin 30.1 pg (25-34); Mean Corpuscular Hgb Conc 33.4 g/dL (32-36); Mean Corpuscular Volume 90.1 fL (80-100); Mean Platelet Volume 8.5 fL (7.4-10.4); Monocytes # (auto) 0.48 K/uL (0.11-0.59); Monocytes % (auto) 3.9 %; Neutrophils # (auto) 11.16 K/uL (1.4-6.5); Neutrophils % (auto) 89.8 %; Platelet Count 559 K/uL (130-400); RDW Coefficient of Variation 13.7 % (11.5-14.5); RDW Standard Deviation 45.2 fL (36.4-46.3); Red Blood Count 3.35 M/uL (4.2-5.4); White Blood Count 12.42 K/uL (4.8-10.8)
[2020-05-07 08:24] LABS: Albumin Level 2.5 gm/dl (3.4-5.0); BUN Creatinine Ratio 10.4 (10-20); Calcium 8.6 mg/dl (8.5-10.1); Creatinine Clr Calc Pharmacy 90.4 ml/min; Est GFR (African American) 112.9; Est GFR (Non-African American) 97.4; Potassium 3.7 mmol/L (3.5-5.1)
[2020-05-07 08:27] LABS: Albumin Globulin Ratio 0.6 (0.9-2); Bilirubin,Total 0.2 mg/dl (0.2-1); Globulin 4.4 gm/dl (2.5-4.0); Total Protein 6.9 gm/dl (6.4-8.2)
[2020-05-07] MEDS ORDERED: FOLIC ACID 1 MG TAB PO SCH (09:00)
--- NOTE | 2020-05-07 09:58 | Pulmonology Progress Note ---
Date of Service May 07, 2020 Assessment & Plan (1) Acute respiratory failure with hypoxia: 60-year-old female with a past medical history of juvenile idiopathic arthritis on Remicade, methotrexate and prednisone, history of anal cancer status post chemotherapy and radiation in 2014 presenting with acute hypoxemic respiratory failure. Patient is feeling much better today. Bronchoscopy culture smears so far have been negative. Fungal cultures and AFB cultures will take several weeks to finalize. Cytology negative for malignancy. Apparently, GMS stain and Zaragoza stains were not completed. I called the lab and they said they would will perform the stains. The stains are very important to evaluate for fungal elements and parasites. The cell count generally was unrevealing. Beta glucan via the serum is pending. Aspergillus galactomannan in the BAL pending as well. Continue treatment for presumptive PCP. She will need 21 days of Bactrim and 21-day prednisone taper. 40 mg p.o. twice daily for 5 days, 40 mg daily for 5 days and finally 20 mg for 11 days. Other etiologies include pulmonary toxicity from Remicade and/or methotrexate. ESR and CRP elevated. LDH elevated as well. Findings are nonspecific. She will need a follow-up CT chest in 6 weeks. Follow-up in the pulmonary clinic in 1 to 2 weeks. Okay for discharge home today. Evaluate for home oxygen. (2) Abnormal CT scan, chest: (3) Immunocompromised state: (4) Juvenile idiopathic arthritis: Admission and Anticipated Discharge Date Admission Date: May 01, 2020 Subjective Patient feeling much less short of breath today. No significant cough. She still has some hoarseness of her voice after the bronchoscopy. Denies any nausea or vomiting. Able to ambulate without any significant shortness of breath. She had some trouble sleeping last night which she relates to the prednisone. She is feeling much more energetic. Physical Exam Eyes: PERRL, conjunctivae normal, anicteric sclerae ENMT: Mallampati Class: II Neck: normal visual inspection Respiratory: normal respiratory effort, lungs clear to auscultation Cardiovascular: Rate/Rhythm: regular rhythm and + tachycardic Palpation: normal PMI Extremities: no edema Gastrointestinal (Abdomen): normal bowel sounds, soft, nontender, no hepatosplenomegaly Musculoskeletal: no cyanosis or clubbing, extremities motor strength 5/5 Skin: no rashes, warm and dry Neurologic: PERRL, EOMI, accommodation nl, no face palsy, no dysarthria Psychiatric: A+Ox3, euthymic affect Results & Data Results & Data ([facility]) Vital Signs (Past 12 Hours) Vital Signs Temp Pulse Pulse Pulse Pulse Pulse Resp 05/07/20 09:46 113 H 105 H 102 H 05/07/20 08:56 20 05/07/20 08:00 98.1 F 82 20 05/07/20 07:53 88 05/07/20 04:01 97.9 F 73 20 05/06/20 23:55 98.2 F 81 20 05/06/20 23:11 71 Resp Resp Resp BP Pulse Ox Pulse Ox Pulse Ox 05/07/20 09:46 20 20 20 89 L 92 05/07/20 08:56 93 05/07/20 08:00 100/65 93 05/07/20 07:53 05/07/20 04:01 104/62 93 05/06/20 23:55 99/63 L 94 05/06/20 23:11 Pulse Ox 05/07/20 09:46 91 05/07/20 08:56 05/07/20 08:00 05/07/20 07:53 05/07/20 04:01 05/06/20 23:55 05/06/20 23:11 I reviewed vital signs, Labs and imaging PG Care Time/CCT Total # of Minutes Spent Total Time Spent with Patient: Total time spent is greater than 50% in coordination of care (as documented) at patient's floor/unit and/or counseling patient: Coding Level of Care Code 31395 Subseq Hosp Care Lvl 3 Diagnoses Acute respiratory failure with hypoxia J96.[address] scan, chest R93.89 Immunocompromised state D89.9 Juvenile idiopathic arthritis M08.80
[2020-05-09 02:06] LABS: Aspergillus Ag, BAL Not Detected (Not Detected)
[2020-05-09 18:11] LABS: Fungitell (1-3)-B-D-Glucan <31
--- NOTE | 2020-05-10 19:30 | Discharge Summary ---
Date of Service May 07, 2020 Admission HPI Per Admitting Provider 60-year-old female who presents the ER for weakness. She notes that she has been weak for the past 2 weeks. She has a history of colon cancer and is in remission and nearly discharged from that service. She notes about 2 weeks ago on Sunday she felt like she could not get warm. Since then she has been feeling more weak. She notes that she does not really want to eat or drink. She followed up today with [facility] and was referred in as she was found to be a little tachycardic. Patient denies any headache, change in vision, sore throat, loss of taste or smell, cough, shortness of breath, chest pain, nausea, vomiting, diarrhea. No dysuria urgency or frequency. No open wounds or sores. She does admit to taking methotrexate, steroids for her rheumatoid arthritis. Principal Diagnosis Acute hypoxic respiratory failure, interstitial lung disease Discharge Exam Constitutional WD/WN, vitals as above Eyes PERRL, conjunctivae normal, anicteric sclerae ENMT external ear and nose normal, oropharynx normal Neck trachea midline, no thyromegaly Respiratory normal respiratory effort, lungs clear to auscultation Cardiovascular RRR, no murmur, no edema Gastrointestinal (Abdomen) normal bowel sounds, soft, nontender, no hepatosplenomegaly Musculoskeletal no cyanosis or clubbing, extremities motor strength 5/5 Skin no rashes, warm and dry Neurologic patellar DTR's 2+ bilat, sensation intact and PERRL, EOMI, accommodation nl, no face palsy, no dysarthria Psychiatric A+Ox3, euthymic affect Lymphatic no cervical or axillary lymphadenopathy Discharge Data Allergies Allergy/AdvReac Type Severity Reaction Status Date / Time doxycycline Allergy Intermediate RASH Verified 04/26/20 11:01 buspirone AdvReac Intermediate nightmares Verified 04/26/20 11:01 mirtazapine AdvReac Mild weight gain Verified 04/26/20 11:01 Consultations 05/01/20 16:27 ED Decision to Admit Stat 05/01/20 18:18 Consult Gastroenterology Routine 05/04/20 13:25 Consult Pulmonology Routine Procedures Performed Operation Date: 05/03/20 16:30 Actual Procedures p Esophagogastroduodenoscopy - Angel Luis Cortes Operation Date: 05/05/20 08:30 Actual Procedures p Bronchoscopy (Bilateral) - Anmol Morales MD Operation Date: 05/05/20 16:00 <No data on this case meets the specified criteria> Ordered Studies 05/04/20 09:56 CT angio chest PE protocol Urgent Hospital Course (1) Acute respiratory failure with hypoxia: required 4L nasal canula, increased work of breathing on 05/04 CT chest on 05/04, no PE but does have bilateral interstitial lung changes appreciate differential from Dr. Morales will treat with Bactrim for possible PCP pneumonia, add Prednisone 40mg BID plan for Bactrim DS BID x 21 days total Prednisone 40mg BID x 5 days, 40mg daily x 5 days then 20mg daily x 11 days bronchoscopy 05/05 with lavage, microscopy brushings await results of BAL, fungal, bacterial cultures will follow up closely with Dr. Morales 2 step performed on day of discharge, no oxygen required patient admits she is breathing easier (2) Abnormal CT scan, chest: bilateral interstitial lung changes with either infection, inflammation, pulmonary edema bronchoscopy 05/05 follow up culture results Bactrim and Prednisone for presumed severe PCP pneumonia follow up with Dr. Morales (3) Immunocompromised state: long standing use of Remicade, Prednisone, Methotrexate taking for decades for her RA start on Bactrim for possible PCP pneumonia, add Prednisone 40 BID today urine culture with Gardnerella, on Rocephin, continue on Bactrim will not take Methotrexate or Remicade until lung diagnosis is determined (4) Acute blood loss anemia: Hb stable at 10 no transfusions required, BP stable no signs of bleeding EGD 05/03 with gastritis, no bleeding Protonix 40mg PO daily, continue this for gastric protection while on high dose steroids hold on colonoscopy as Hb is stable, no signs of bleeding and her lung work up will take priority (5) Acute GI bleeding: stop PPI drip as no concerning findings on EGD no signs of active bleeding Protonix PO, continue this as she will be on high dose Prednisone (6) Leukocytosis: no fever could be related to immunocompromised state, opportunistic infection WBC is now normal Ceftriaxone for Gardnerella UTI, treatment completed Bactrim for possible PCP pneumonia (7) Rheumatoid arthritis: Patient has history of RA--> she typically sees rheumatology taking methotrexate, prednisone , and Remicade hold MTX, Remicade as they may be cause of toxicity in lungs (8) Chronic steroid use: increase Prednisone to 40mg BID due to possible PCP pneumonia (9) Depression: continue Wellbutrin and Cymbalta (10) Hyponatremia: stable (11) History of DVT (deep vein thrombosis): in 2000 after a surgery no chemical DVT proph due to bleeding SCDs (12) Hypokalemia: resolved after several days of IV replacement (13) Metabolic acidosis: HCO3 now normal, likely from volume depletion, non AG resolved (14) DVT prophylaxis: DVT prevention is SCDs given her bleeding Dispo - discharge to home on Prednisone, Bactrim, follow up with Dr. Morales Total Time Total Time Spent Total Time Spent (In Minutes): 35 minutes Total Time Includes: Examination of the Patient, Discharge Planning, Medication Reconciliation and Communication With Other Providers (Dr. Morales) Discharge Plan Discharge Items Patient Disposition: Home - Self-Care Reason For Visit: ACUTE BLOOD LOSS ANEMIA Discharge Diagnosis: Interstitial lung disease, suspected PCP pneumonia Immunosuppression from Remicade, Methotrexate, Prednisone Anemia, no evidence of GI bleeding Acute hypoxic respiratory failure, resolved, no home oxygen needs Condition on Discharge: Good Goals: complete 21 days of Bactrim, taper steroids follow up with Dr. Morales, pulmonology Activity: Resume your previous activity Driving/Machine Use: Resume 3 days after discharge Weightbearing: Full weightbearing Non-emergency contact: Primary Care Provider Call non-emergency contact if: you have any medication questions Follow-up/Referrals: Anmol Morales MD [Physician] - 05/14/20 1:00 pm (1-2 weeks, follow up from bronch, possible PCP pneumonia) Miguel Arreola DO [Primary Care Provider] - 05/12/20 11:30 am (one week) Diet: Regular Addtl Attending Provider Instructions: Medications: - BACTRIM: take twice a day for 21 days to treat possible PCP pneumonia - PREDNISONE: will taper over 21 days, also to treat possible PCP pneumonia, inf lammatory lung disease 40mg twice a day for three more days, then 40mg daily x 5 days then 20mg daily for [address] Morales for Prednisone dosing after you complete the 11 days of 20mg - PROTONIX: 40mg daily, treats gastritis, protects agains ulcers while on steroids Hold Methotrexate and Remicade as your lung disease may be pulmonary toxicity from these medications Acute hypoxia, interstitial lung disease on CT scan bronchoscopy done, cultures sent, still pending, Dr. Morales will have results when you see him take Bactrim and Prednisone as described above 2 step performed today, no need for home oxygen gradually increase activity as tolerated Anemia: hemoglobin continues to trend up, no evidence of bleeding in GI tract Pending Studies at Discharge: Yes Studies:: cultures from bronchoscopy Stand-Alone Forms: [facility], Smoking Cessation Medications and DC Order Prescriptions: New prednisone 20 mg Tablet 40 mg PO UD 20 Days Qty: 40 RF: 0 pantoprazole 40 mg Tablet,Delayed Release (Dr/Ec) 40 mg PO QAM 30 Days Qty: 30 RF: 1 sulfamethoxazole-trimethoprim 800-160 mg tablet 1 tab PO BID 21 Days Qty: 42 RF: 0 Continued folic acid 1 mg Tablet 1 mg PO QAM 90 Days Qty: 90 RF: 1 duloxetine 30 mg capsule,delayed release(DR/EC) See Rx Instructions .ROUTE .COMPLEX Qty: 30 RF: 11 bupropion HCl 100 mg tablet sustained-release 12 hr 100 mg PO QAM Qty: 30 RF: 2 duloxetine 60 mg capsule,delayed release(DR/EC) 60 mg PO DAILY Qty: 90 RF: 1 ibuprofen 200 mg Tablet 200 - 400 mg PO Q8 PRN (Reason: Pain) RF: 0 cholecalciferol (vitamin D3) 1,000 unit Capsule 1,000 unit PO QAM RF: 0 Discontinued prednisone 5 mg Tablet 5 mg PO .TAPER UD Qty: 0 RF: 0 infliximab 100 mg Recon Soln 500 mg IV [id number] Qty: 0 RF: 0 methotrexate sodium 2.5 mg Tablet 6 tab PO WK RF: 0 Discharge Orders: Discharge Order (Routine); Ordered 05/07/20 Ordered By: Luigi Stone/Other Patient Handouts: Pantoprazole tablets, Sulfamethoxazole Trimethoprim [id number] tablets, Prednisone tablets Admission Data Admit Date/Time: 05/01/20 17:17 Attending Provider: Luigi Jacobo Admit Provider: Donnell Brown Primary Care Provider: Miguel Arreola Other Providers: Donnell Brown ; Yadiel Obregon ; Anmol Morales Other Interventions: Discharge Summary Assessment (RN) Last Done: 05/07/20 10:03 Coding Level of Care Code D/C Day Management >30 mins Diagnoses Acute respiratory failure with hypoxia J96.[address] scan, chest R93.89 Immunocompromised state D89.9 Acute blood loss anemia D62 Acute GI bleeding K92.2 Leukocytosis D72.829 Rheumatoid arthritis M06.9 Chronic steroid use Depression F32.9 Hyponatremia E87.1 History of DVT (deep vein thrombosis) Z86.718 Hypokalemia E87.6 Metabolic acidosis E87.2 DVT prophylaxis Z29.9
== END 2020-05-07 11:28 | disposition home or self-care (01) | DRG 177 ==
LOC: ED 14:10 → SUATTDRO 17:17 → 2S 17:17

== ENCOUNTER 2020-08-25 21:40 | Inpatient (IN) ==
[2020-08-25] MEDS ORDERED: ONDANSETRON INJ 2 MG/ML 2 ML VIAL IV STA (22:13)
[2020-08-25] MEDS ORDERED: LORazepam 0.5 MG/1 ML VIAL IV STA (22:13)
[2020-08-25] MEDS ORDERED: SODIUM CHLORIDE 0.9% 1000ML 1,000 ML IV SCH (22:15)
[2020-08-25 22:54] LABS: Basophils # (auto) 0.01 K/uL (0-0.2); Basophils % (auto) 0.1 %; Eosinophils # (auto) 0.02 K/uL (0-0.5); Eosinophils % (auto) 0.1 %; Hematocrit (blood only) 42.2 % (37-47); Hemoglobin 14.8 g/dL (12.0-16.0); Immature Granulocytes % (auto) 0.6 %; Lymphocytes # (auto) 0.44 K/uL (1.2-3.4); Lymphocytes % (auto) 2.7 %; Mean Corpuscular Hemoglobin 29.2 pg (25-34); Mean Corpuscular Hgb Conc 35.1 g/dL (32-36); Mean Corpuscular Volume 83.2 fL (80-100); Mean Platelet Volume 9.2 fL (7.4-10.4); Monocytes # (auto) 0.52 K/uL (0.11-0.59); Monocytes % (auto) 3.2 %; Neutrophils # (auto) 14.97 K/uL (1.4-6.5); Neutrophils % (auto) 93.3 %; Platelet Count 447 K/uL (130-400); RDW Coefficient of Variation 13.9 % (11.5-14.5); RDW Standard Deviation 42.1 fL (36.4-46.3); Red Blood Count 5.07 M/uL (4.2-5.4); White Blood Count 16.06 K/uL (4.8-10.8)
[2020-08-25 23:02] LABS: INR 1.2 (0.9-1.1); Partial Thromboplastin Ratio 1.5; Partial Thromboplastin Time 42.7 Seconds (21.0-31.0); Prothrombin Time 12.9 Seconds (9.0-12.0)
[2020-08-25 23:06] LABS: Alanine Aminotransferase 39 U/L (12-78); Albumin Level 2.3 gm/dl (3.4-5.0); Aspartate Aminotransferase 43 U/L (15-37); BUN Creatinine Ratio 12.3 (10-20); Blood Urea Nitrogen 17 mg/dl (7-18); Carbon Dioxide 18 mmol/L (21-32); Chloride 94 mmol/L (98-107); Creatinine Clr Calc Pharmacy 41.9 ml/min; Est GFR (African American) 49.2; Est GFR (Non-African American) 42.4; Glucose 114 mg/dl (70-99); Lipase 44 U/L (73-393); Magnesium 1.8 mg/dl (1.8-2.4); Sodium 128 mmol/L (136-145)
[2020-08-25 23:17] LABS: Albumin Globulin Ratio 0.5 (0.9-2); Alkaline Phosphatase 172 U/L (45-117); Globulin 4.6 gm/dl (2.5-4.0); Total Protein 6.9 gm/dl (6.4-8.2); Troponin I < 0.015 ng/ml (0-0.045)
--- NOTE | 2020-08-25 23:23 | Emergency Department Note ---
History of Present Illness General Chief complaint: Abdominal Pain Stated complaint: AB PAIN Time Seen by Provider: 08/25/20 22:05 History of Present Illness Maximum Pain Intensity: 10 This is a 60-year-old female that presents to the emergency department via private vehicle with complaints "abdominal pain". The patient notes that since August 12 she has been experiencing epigastric abdominal pain. She also notes nausea and vomiting. She states that she has not been able to eat secondary to the nausea and vomiting as well as abdominal pain. She feels very weak overall. She notes that this all began when she was transitioned from Remicade to Xeljanz and had 1 dose and notes that her symptoms have persisted. She is no longer taking the Xeljanz and will likely be transitioning back to Remicade for her RA. Patient does note a history of anal cancer in the past. Patient has been seen here several times since her initial visit for the nausea and vomiting on August 13. The patient denies any fevers or chills but does have associated minor chest discomfort and shortness of breath. Patient rates her current discomfort at this time is a 06/12. Home Medications Medication Instructions Recorded Confirmed Type folic acid 1 mg PO QAM 90 Days #90 tab 01/03/17 08/25/20 History cholecalciferol (vitamin D3) 1,000 unit PO QAM 07/08/18 08/25/20 History pantoprazole 40 mg tablet,delayed 40 mg PO QAM 90 Days #90 tab 06/08/20 08/25/20 Rx release prednisone 5 mg tablet 5 mg PO QAM 06/14/20 08/25/20 History duloxetine [Cymbalta] 60 mg PO DAILY 06/23/20 08/25/20 History bupropion HCl 100 mg tablet,12 hr 100 mg PO BID #180 ea 07/14/20 08/25/20 Rx sustained-release dicyclomine 20 mg PO TID PRN #9 tab 08/16/20 08/25/20 Rx duloxetine 30 mg PO DAILY 08/25/20 08/25/20 History prednisone 10 mg PO DAILY 08/25/20 08/25/20 History Allergies Allergy/AdvReac Type Severity Reaction Status Date / Time doxycycline Allergy Intermediate RASH Verified 08/25/20 23:12 buspirone AdvReac Intermediate nightmares Verified 08/25/20 23:12 mirtazapine AdvReac Mild weight gain Verified 08/25/20 23:12 Past Med/Surg History Medical History Abnormal CT scan, chest Acute hypotension 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, chemo, radiation Atrial tachycardia Deep vein thrombosis hx of after back surgery---no blood thinners Degenerative disc disease Detached retina Diverticulosis Dyspnea on exertion Immunocompromised state Juvenile idiopathic arthritis Lyme disease Normocytic anemia Pneumonia Rheumatoid arthritis Spinal stenosis Symptomatic anemia Vitamin D deficiency Warts, genital Surgical History H/O hemorrhoidectomy History of arthroscopy of left knee History of colonoscopy Recommend repeat 2023 History of detached retina repair left History of esophagogastroduodenoscopy (EGD) History of lumbar discectomy History of lumbar fusion hardware in place History of right elbow replacement History of total left knee replacement (TKR) History of vascular access device Aport right side Hx of cholecystectomy Family History Sister Family history of reaction to anesthesia trouble waking up after anesthesia Type 2 diabetes mellitus Breast cancer Mother Cardiac disorder Hypertension Type 2 diabetes mellitus Grandfather (Paternal) Family hx of colon cancer Father Bladder cancer Grandfather Osteoarthritis Grandmother Osteoarthritis Social History Smoking Status: Never smoker Tobacco Type: Cigarettes Age Started Using Tobacco: 17; Age Quit Using Tobacco: 40; packs per day: 1; Years Smoked: 23; Second Hand Exposure: No; Hx Alcohol Use: No Hx Substance Use: No Preferred Language: Guinean Communication Ability: Effective Visual Impairment: Diminished Hearing Ability: Normal Pile Operator Required: No Beliefs That Will Affect Care: None marital status: Single Current Living Situation: Alone current occupational status: disabled Feels Safe at Home: Yes Childhood Exposure to Second-Hand Smoke: Yes caffeine: Yes Dental Care, Regularly: Yes Physical Activity Frequency: 1-2 Times per Week Physical Activity Frequency Comment: walk Seatbelt Use: always Sunscreen Use: Yes Review of Systems A total of 10 systems reviewed and were otherwise negative Physical Exam Vital Signs Vital Signs - 24 hr 08/25/20 21:47 08/25/20 21:49 08/25/20 23:31 Temperature 36.5 C Temperature Source Oral Pulse Rate 102 H 100 H 107 H Pulse Rate [Left Radial] Pulse Rate from SpO2 Sensor 100 H Pulse Rhythm Regular Pulse Rhythm [Left Radial] Pulse Strength Normal Pulse Strength [Left Radial] Respiratory Rate 25 H 13 26 H Respiratory Effort / Characteristics Labored Respiratory Depth Normal Respiratory Pattern Regular Blood Pressure 139/108 H 139/108 H 120/72 Blood Pressure [Left Arm] Blood Pressure Mean 118 114 108 Blood Pressure Mean [Left Arm] Blood Pressure Position Sitting Blood Pressure Position [Left Arm] Pulse Oximetry 100 99 95 Oxygen Delivery Method Room Air Room Air Room Air Oxygen Flow Rate Sepsis Recent Fever Within 48 Hours No Sepsis New/Unexplained Change in Mental Status No Sepsis Action Taken by Nursing No Action Required 08/26/20 00:00 08/26/20 01:01 08/26/20 01:31 Temperature Temperature Source Pulse Rate 106 H 106 H 110 H Pulse Rate [Left Radial] Pulse Rate from SpO2 Sensor Pulse Rhythm Pulse Rhythm [Left Radial] Pulse Strength Pulse Strength [Left Radial] Respiratory Rate 24 18 18 Respiratory Effort / Characteristics Respiratory Depth Respiratory Pattern Blood Pressure 130/92 168/90 H 135/95 Blood Pressure [Left Arm] Blood Pressure Mean 104 100 111 Blood Pressure Mean [Left Arm] Blood Pressure Position Blood Pressure Position [Left Arm] Pulse Oximetry 94 Oxygen Delivery Method Room Air Oxygen Flow Rate Sepsis Recent Fever Within 48 Hours Sepsis New/Unexplained Change in Mental Status Sepsis Action Taken by Nursing 08/26/20 02:17 08/26/20 02:31 08/26/20 06:00 Temperature 36.6 C Temperature Source Oral Pulse Rate 102 H 97 H Pulse Rate [Left Radial] 115 H Pulse Rate from SpO2 Sensor Pulse Rhythm Pulse Rhythm [Left Radial] Regular Pulse Strength Pulse Strength [Left Radial] Normal Respiratory Rate 23 20 13 Respiratory Effort / Characteristics Non-Labored Respiratory Depth Normal Respiratory Pattern Regular Blood Pressure 145/84 H 106/84 Blood Pressure [Left Arm] 133/108 H Blood Pressure Mean 104 91 Blood Pressure Mean [Left Arm] 116 Blood Pressure Position Blood Pressure Position [Left Arm] Lying Pulse Oximetry 95 96 99 Oxygen Delivery Method Room Air Room Air Oxymask Oxygen Flow Rate 8 Sepsis Recent Fever Within 48 Hours Sepsis New/Unexplained Change in Mental Status Sepsis Action Taken by Nursing 08/26/20 06:10 08/26/20 06:20 08/26/20 06:30 Temperature 36.6 C 36.6 C 36.6 C Temperature Source Oral Oral Oral Pulse Rate Pulse Rate [Left Radial] 116 H 117 H 117 H Pulse Rate from SpO2 Sensor Pulse Rhythm Pulse Rhythm [Left Radial] Regular Regular Regular Pulse Strength Pulse Strength [Left Radial] Normal Normal Normal Respiratory Rate 16 16 16 Respiratory Effort / Characteristics Non-Labored Non-Labored Non-Labored Respiratory Depth Normal Normal Normal Respiratory Pattern Regular Regular Regular Blood Pressure Blood Pressure [Left Arm] 140/98 131/105 H 134/109 H Blood Pressure Mean Blood Pressure Mean [Left Arm] 112 113 117 Blood Pressure Position Blood Pressure Position [Left Arm] Lying Lying Lying Pulse Oximetry 98 98 98 Oxygen Delivery Method Oxymask Oxymask Oxymask Oxygen Flow Rate 8 3 3 Sepsis Recent Fever Within 48 Hours Sepsis New/Unexplained Change in Mental Status Sepsis Action Taken by Nursing 08/26/20 06:40 08/26/20 06:50 08/26/20 07:00 Temperature 36.6 C 36.6 C 36.6 C Temperature Source Oral Oral Oral Pulse Rate Pulse Rate [Left Radial] 117 H 117 H 116 H Pulse Rate from SpO2 Sensor Pulse Rhythm Pulse Rhythm [Left Radial] Regular Regular Regular Pulse Strength Pulse Strength [Left Radial] Normal Normal Normal Respiratory Rate 18 18 18 Respiratory Effort / Characteristics Non-Labored Non-Labored Non-Labored Respiratory Depth Normal Normal Normal Respiratory Pattern Regular Regular Regular Blood Pressure Blood Pressure [Left Arm] 143/108 H 141/114 H 141/102 H Blood Pressure Mean Blood Pressure Mean [Left Arm] 119 123 115 Blood Pressure Position Blood Pressure Position [Left Arm] Lying Lying Lying Pulse Oximetry 97 97 96 Oxygen Delivery Method Nasal Cannula Nasal Cannula Nasal Cannula Oxygen Flow Rate 2 2 2 Sepsis Recent Fever Within 48 Hours Sepsis New/Unexplained Change in Mental Status Sepsis Action Taken by Nursing 08/26/20 07:10 08/26/20 07:21 Temperature 36.6 C 36.6 C Temperature Source Oral Oral Pulse Rate Pulse Rate [Left Radial] 115 H 118 H Pulse Rate from SpO2 Sensor Pulse Rhythm Pulse Rhythm [Left Radial] Regular Regular Pulse Strength Pulse Strength [Left Radial] Normal Normal Respiratory Rate 17 17 Respiratory Effort / Characteristics Non-Labored Non-Labored Respiratory Depth Normal Normal Respiratory Pattern Regular Regular Blood Pressure Blood Pressure [Left Arm] 126/92 120/105 H Blood Pressure Mean Blood Pressure Mean [Left Arm] 103 110 Blood Pressure Position Blood Pressure Position [Left Arm] Lying Lying Pulse Oximetry 96 96 Oxygen Delivery Method Nasal Cannula Nasal Cannula Oxygen Flow Rate 2 2 Sepsis Recent Fever Within 48 Hours Sepsis New/Unexplained Change in Mental Status Sepsis Action Taken by Nursing VITAL SIGNS - Vital signs and nursing notes were reviewed. Overall stable, afebrile. GENERAL -60-year-old female appearing her stated age who does appear to be displaying increased work of breathing, has her eyes closed and appears to be in pain. Patient appears ill. She communicates in very soft-spoken tone. SKIN - Without rashes. No meningeal or petechial rash. HEAD - NC/AT. EYES - PERRL with EOMI bilaterally. Sclera anicteric. EARS - No deformities of external structures noted on gross examination bilaterally. NOSE - Midline and without cyanosis. No epistaxis or purulent drainage noted. MOUTH/OROPHARYNX - Without perioral cyanosis. Buccal mucosa pink and moist and w ithout leukoplakia. Tongue midline with equal elevation of palate bilaterally. No tonsillar hypertrophy, erythema, or exudates noted. Fair dentition noted. NECK - Neck with FROM. No nuchal rigidity. LUNGS - Chest wall symmetric without accessory muscle use, intercostals retractions, or central cyanosis. Normal vesicular breath sounds CTA B/L. No wheezes, rales, or rhonchi appreciated. CARDIAC - RRR with S1/S2. No murmur, rubs, or gallops appreciated. ABDOMEN - Abdominal contour normal without pulsations or visible masses. BS normoactive all four quadrants. Abdomen is quite tender throughout. EXTREMITIES - No clubbing or peripheral cyanosis. +5/5 strength noted in UE/LE bilaterally. NEUROLOGIC - Cranial nerves II through XII grossly intact. Sensory intact to light touch throughout. PSYCH - A&O, and cooperates fully with examiner. Pt is very pleasant and interacts well with examiner. Course Administered Medications Discontinued Medications Bacitracin (Bacitracin Oint 15 Gm Tube) Confirm Administered Dose 45 appln .ROUTE .[employer] ONE Stop: 08/26/20 03:08 Last Admin: 08/26/20 03:55 Dose: 45 appln Documented by: [id number] Bupivacaine HCl (Bupivacaine 0.5 % 5 Mg/1 Ml Mpf 30ml Vial) Confirm Administered Dose 30 ml .ROUTE .SpamLionMED ONE Stop: 08/26/20 03:08 Last Admin: 08/26/20 03:56 Dose: 20 ml Documented by: [id number] Lorazepam (Ativan) 0.5 mg in 1 mls @ 1 mls/min IV NOW STA Stop: 08/25/20 22:14 Last Admin: 08/25/20 22:40 Dose: 1 mls/min Documented by: [id number] Sodium Chloride (Nss 1000ml) 1,000 mls @ 500 mls/hr IV .Q2H CADENCE Stop: 08/26/20 00:14 Last Infusion: 08/26/20 01:21 Dose: 0 mls/hr Documented by: [id number] Admin: 08/25/20 22:40 Dose: 500 mls/hr Documented by: [id number] Potassium Chloride (K Reinaldo / Wtr) 10 meq in 100 mls @ 100 mls/hr IV ONE ONE Stop: 08/26/20 00:53 Last Infusion: 08/26/20 01:37 Dose: 0 mls/hr Documented by: [id number] Admin: 08/26/20 00:37 Dose: 100 mls/hr Documented by: [id number] Piperacillin Sod/Tazobactam Sod (Zosyn) 4.5 gm in 120 mls @ 240 mls/hr IV NOW ONE Stop: 08/26/20 01:58 Last Infusion: 08/26/20 02:20 Dose: 0 mls/hr Documented by: [id number] Admin: 08/26/20 01:43 Dose: 240 mls/hr Documented by: [id number] Sodium Chloride (Nss 1000ml) 1,000 mls @ 999 mls/hr IV .Q1H1M CADENCE Stop: 08/26/20 02:30 Last Infusion: 08/26/20 02:51 Dose: 0 mls/hr Documented by: [id number] Admin: 08/26/20 01:43 Dose: 999 mls/hr Documented by: [id number] Vancomycin HCl (Vancomycin Hcl) 1,000 mg in 270 mls @ 200 mls/hr IV NOW STA; Protocol Stop: 08/26/20 03:37 Last Admin: 08/26/20 02:49 Dose: 200 mls/hr Documented by: [id number] Ioversol (Optiray 320 125ml) 125 ml IV ONCE ONE Stop: 08/26/20 00:53 Last Admin: 08/26/20 00:53 Dose: 118 ml Documented by: [id number] Lidocaine HCl (Lidocaine Hcl 1% 20 Ml Vial) Confirm Administered Dose 20 ml .ROUTE .STK-MED ONE Stop: 08/26/20 03:08 Last Admin: 08/26/20 03:56 Dose: 20 ml Documented by: [id number] Ondansetron HCl (Ondansetron Inj 2 Mg/Ml 2 Ml Vial) 4 mg IV NOW STA Stop: 08/25/20 22:14 Last Admin: 08/25/20 22:40 Dose: 4 mg Documented by: [id number] Vancomycin HCl (Vancomycin Hcl 1000mg/20ml Vial) Confirm Administered Dose 50 mg .ROUTE .STK-MED ONE Stop: 08/26/20 04:37 Last Admin: 08/26/20 04:43 Dose: 50 mg Documented by: [id number] Critical Care Time Critical Care Time: Yes Total Critical Care Time: 38 I have personally spent about 38 minutes of critical care time in the direct management of this patient. This includes bedside care, interpretation of diagnostic studies, and testing, discussion with consultants, patient, and family members, and other required patient management activities. This 38 minutes is in excess of all separately billable procedures. Medical Decision Making Laboratory Data Result diagrams: 08/25/20 22:35 08/25/20 22:35 Lab Results 08/25/20 08/25/20 08/25/20 Range/Units 22:35 22:35 22:35 WBC 16.06 H (4.8-10.8) K/uL RBC 5.07 (4.2-5.4) M/uL Hgb 14.8 (12.0-16.0) g/dL Hct 42.2 (37-47) % MCV 83.2 (80-100) fL MCH 29.2 (25-34) pg MCHC 35.1 (32-36) g/dL RDW Std Deviation 42.1 (36.4-46.3) fL RDW Coeff of Gabrielle 13.9 (11.5-14.5) % Plt Count 447 H (130-400) K/uL MPV 9.2 (7.4-10.4) fL Immature Gran % (Auto) 0.6 % Neut % (Auto) 93.3 % Lymph % (Auto) 2.7 % [place] % (Auto) 3.2 % Eos % (Auto) 0.1 % Baso % (Auto) 0.1 % Neut # (Auto) 14.97 H (1.4-6.5) K/uL Lymph # (Auto) 0.44 L (1.2-3.4) K/uL [place] # (Auto) 0.52 (0.11-0.59) K/uL Eos # (Auto) 0.02 (0-0.5) K/uL Baso # (Auto) 0.01 (0-0.2) K/uL Immature Gran # (Auto) 0.10 H (0.00-0.02) K/uL PT 12.9 H (9.0-12.0) Seconds INR 1.2 H (0.9-1.1) APTT 42.7 H (21.0-31.0) Seconds PTT Ratio 1.5 Sodium 128 L (136-145) mmol/L Potassium 3.0 L (3.5-5.1) mmol/L Chloride 94 L (98-107) mmol/L Carbon Dioxide 18 L (21-32) mmol/L Anion Gap 16.0 H (3-11) BUN 17 (7-18) mg/dl Creatinine 1.37 H (0.6-1.2) mg/dl Est Cr Clr Drug Dosing 41.9 ml/min Est GFR ( Amer) 49.2 Est GFR (Non-Af Amer) 42.4 BUN/Creatinine Ratio 12.3 (10-20) Glucose 114 H (70-99) mg/dl POC Glucose (70-99) mg/dl Lactate (0.4-2.0) mmol/L Calcium 9.0 (8.5-10.1) mg/dl Magnesium 1.8 (1.8-2.4) mg/dl Total Bilirubin 1.0 (0.2-1) mg/dl AST 43 H (15-37) U/L ALT 39 (12-78) U/L Alkaline Phosphatase 172 H (45-117) U/L Troponin I < 0.015 (0-0.045) ng/ml Total Protein 6.9 (6.4-8.2) gm/dl Albumin 2.3 L (3.4-5.0) gm/dl Globulin 4.6 H (2.5-4.0) gm/dl Albumin/Globulin Ratio 0.5 L (0.9-2) Lipase 44 L (73-393) U/L Procalcitonin (0-0.5) ng/ml TSH 3.550 (0.300-4.500) uIu/ml COVID-19 Eval Order SARS-CoV-2, RNA, NAAT (NEGATIVE) SARS-CoV-2 Ag (Rapid) (Negative) 08/25/20 08/25/20 08/26/20 Range/Units 22:35 22:35 00:39 WBC (4.8-10.8) K/uL RBC (4.2-5.4) M/uL Hgb (12.0-16.0) g/dL Hct (37-47) % MCV (80-100) fL MCH (25-34) pg MCHC (32-36) g/dL RDW Std Deviation (36.4-46.3) fL RDW Coeff of Gabrielle (11.5-14.5) % Plt Count (130-400) K/uL MPV (7.4-10.4) fL Immature Gran % (Auto) % Neut % (Auto) % Lymph % (Auto) % [place] % (Auto) % Eos % (Auto) % Baso % (Auto) % Neut # (Auto) (1.4-6.5) K/uL Lymph # (Auto) (1.2-3.4) K/uL [place] # (Auto) (0.11-0.59) K/uL Eos # (Auto) (0-0.5) K/uL Baso # (Auto) (0-0.2) K/uL Immature Gran # (Auto) (0.00-0.02) K/uL PT (9.0-12.0) Seconds INR (0.9-1.1) APTT (21.0-31.0) Seconds PTT Ratio Sodium (136-145) mmol/L Potassium (3.5-5.1) mmol/L Chloride (98-107) mmol/L Carbon Dioxide (21-32) mmol/L Anion Gap (3-11) BUN (7-18) mg/dl Creatinine (0.6-1.2) mg/dl Est Cr Clr Drug Dosing ml/min Est GFR ( Amer) Est GFR (Non-Af Amer) BUN/Creatinine Ratio (10-20) Glucose (70-99) mg/dl POC Glucose (70-99) mg/dl Lactate 2.1 H* 1.3 (0.4-2.0) mmol/L Calcium (8.5-10.1) mg/dl Magnesium (1.8-2.4) mg/dl Total Bilirubin (0.2-1) mg/dl AST (15-37) U/L ALT (12-78) U/L Alkaline Phosphatase (45-117) U/L Troponin I (0-0.045) ng/ml Total Protein (6.4-8.2) gm/dl Albumin (3.4-5.0) gm/dl Globulin (2.5-4.0) gm/dl Albumin/Globulin Ratio (0.9-2) Lipase (73-393) U/L Procalcitonin 38.27 H (0-0.5) ng/ml TSH (0.300-4.500) uIu/ml COVID-19 Eval Order SARS-CoV-2, RNA, NAAT (NEGATIVE) SARS-CoV-2 Ag (Rapid) (Negative) 08/26/20 08/26/20 08/26/20 Range/Units 01:53 01:53 02:06 WBC (4.8-10.8) K/uL RBC (4.2-5.4) M/uL Hgb (12.0-16.0) g/dL Hct (37-47) % MCV (80-100) fL MCH (25-34) pg MCHC (32-36) g/dL RDW Std Deviation (36.4-46.3) fL RDW Coeff of Gabrielle (11.5-14.5) % Plt Count (130-400) K/uL MPV (7.4-10.4) fL Immature Gran % (Auto) % Neut % (Auto) % Lymph % (Auto) % [place] % (Auto) % Eos % (Auto) % Baso % (Auto) % Neut # (Auto) (1.4-6.5) K/uL Lymph # (Auto) (1.2-3.4) K/uL [place] # (Auto) (0.11-0.59) K/uL Eos # (Auto) (0-0.5) K/uL Baso # (Auto) (0-0.2) K/uL Immature Gran # (Auto) (0.00-0.02) K/uL PT (9.0-12.0) Seconds INR (0.9-1.1) APTT (21.0-31.0) Seconds PTT Ratio Sodium (136-145) mmol/L Potassium (3.5-5.1) mmol/L Chloride (98-107) mmol/L Carbon Dioxide (21-32) mmol/L Anion Gap (3-11) BUN (7-18) mg/dl Creatinine (0.6-1.2) mg/dl Est Cr Clr Drug Dosing ml/min Est GFR ( Amer) Est GFR (Non-Af Amer) BUN/Creatinine Ratio (10-20) Glucose (70-99) mg/dl POC Glucose (70-99) mg/dl Lactate (0.4-2.0) mmol/L Calcium (8.5-10.1) mg/dl Magnesium (1.8-2.4) mg/dl Total Bilirubin (0.2-1) mg/dl AST (15-37) U/L ALT (12-78) U/L Alkaline Phosphatase (45-117) U/L Troponin I (0-0.045) ng/ml Total Protein (6.4-8.2) gm/dl Albumin (3.4-5.0) gm/dl Globulin (2.5-4.0) gm/dl Albumin/Globulin Ratio (0.9-2) Lipase (73-393) U/L Procalcitonin (0-0.5) ng/ml TSH (0.300-4.500) uIu/ml COVID-19 Eval [facility] SARS-[facility]-2, RNA, NAAT NEGATIVE (NEGATIVE) SARS-CoV-2 Ag (Rapid) Negative (Negative) 08/26/20 Range/Units 02:39 WBC (4.8-10.8) K/uL RBC (4.2-5.4) M/uL Hgb (12.0-16.0) g/dL Hct (37-47) % MCV (80-100) fL MCH (25-34) pg MCHC (32-36) g/dL RDW Std Deviation (36.4-46.3) fL RDW Coeff of Gabrielle (11.5-14.5) % Plt Count (130-400) K/uL MPV (7.4-10.4) fL Immature Gran % (Auto) % Neut % (Auto) % Lymph % (Auto) % [place] % (Auto) % Eos % (Auto) % Baso % (Auto) % Neut # (Auto) (1.4-6.5) K/uL Lymph # (Auto) (1.2-3.4) K/uL [place] # (Auto) (0.11-0.59) K/uL Eos # (Auto) (0-0.5) K/uL Baso # (Auto) (0-0.2) K/uL Immature Gran # (Auto) (0.00-0.02) K/uL PT (9.0-12.0) Seconds INR (0.9-1.1) APTT (21.0-31.0) Seconds PTT Ratio Sodium (136-145) mmol/L Potassium (3.5-5.1) mmol/L Chloride (98-107) mmol/L Carbon Dioxide (21-32) mmol/L Anion Gap (3-11) BUN (7-18) mg/dl Creatinine (0.6-1.2) mg/dl Est Cr Clr Drug Dosing ml/min Est GFR ( Amer) Est GFR (Non-Af Amer) BUN/Creatinine Ratio (10-20) Glucose (70-99) mg/dl POC Glucose 95 (70-99) mg/dl Lactate (0.4-2.0) mmol/L Calcium (8.5-10.1) mg/dl Magnesium (1.8-2.4) mg/dl Total Bilirubin (0.2-1) mg/dl AST (15-37) U/L ALT (12-78) U/L Alkaline Phosphatase (45-117) U/L Troponin I (0-0.045) ng/ml Total Protein (6.4-8.2) gm/dl Albumin (3.4-5.0) gm/dl Globulin (2.5-4.0) gm/dl Albumin/Globulin Ratio (0.9-2) Lipase (73-393) U/L Procalcitonin (0-0.5) ng/ml TSH (0.300-4.500) uIu/ml COVID-19 Eval Order SARS-CoV-2, RNA, NAAT (NEGATIVE) SARS-CoV-2 Ag (Rapid) (Negative) Imaging Data Radiologist's Impression: CTA CHEST: No acute pulmonary embolism is visualized. There is a small right pleural effusion with mild atelectasis in the right greater than left lower lobes posteriorly as well as within the right middle lobe medially. No focal consolidation. Right sided Port-A-Cath terminates in the right atrium. The thoracic aorta is unremarkable. Moderate perihepatic fluid. Radiologist: Eliana Vera M.D. Study ready at 00:42 and initial results transmitted at 00:58 CT ABDOMEN & PELVIS With Contrast: Comparison CT abdomen and pelvis 08/13/2020 Small volume ascites with numerous small locules of extraluminal air scattered throughout the abdomen and pelvis, concerning for perforation of hollow viscus. Numerous diverticula of the sigmoid colon are present with associated thickening of the bowel wall and small amount of surrounding fluid which may indicate acute diverticulitis and is suspected to be the source of pneumoperitoneum. Large diverticula containing an air-fluid level versus possible intermural abscess adjacent to the anterior margin of the sigmoid colon is seen on series 5 image 79/96 A reactive ileus is present. Redemonstration of an ill-defined approximate 3 cm lesion superior posterior right hepatic lobe Status post cholecystectomy with mild diffuse intrahepatic and extra hepatic biliary dilatation similar to the previous exam. Previous posterior spinal fusion L4-S1. Radiologist: Eliana Vera M.D. Study ready at 00:42 and initial results transmitted at 01:20 Communications: Clear Time Type Notes 08/26/20 01:35 Call Doctor Regarding Bowel Perforation with Free Air, called Dr. Herrera on 08/26 01:35 (-05:00) [facility] Narrative Patient was seen and evaluated as above in room C04. Review was performed of nursing notes and vital signs. I did review pertinent previous visits and patient history. After obtaining a thorough history and physical examination the above work up was performed. She presents to us today with abdominal pain. I did see this patient on her initial presentation on 08/13 and she appeared well at that time. This evening, patient appears to be quite ill and appears very fatigued. There has been a significant change since I initially saw her on the . She now is holding the abdomen and pain and does have increased work of breathing. Patient did request something to help her breathing as she felt as though she was perhaps somewhat anxious. A small dose of IV Ativan was ordered pending work-up. I did order fluids pending workup over concern for possible infectious process despite overall reassuring CT scans of the abd/pelvis in the recent past. Patient notes that she noticed a great decline in status and worsening of symptoms today. IV access was established. Labs were drawn. There is leukocytosis 16.06 without anemia. There is hyponatremia, hypokalemia, hypochloremia, with an elevated anion gap. Creatinine 1.37. Troponin negative. Patient does have a significantly elevated procalcitonin at 38.27. Patient's lactic acid initially was elevated but after fluid hydration did return to normal limits. Covid testing is negative at this time. Although the patient did have 2 CT scans of the abdomen pelvis in the recent past it was felt that given her significant clinical decline since I last saw her that a repeat CT is warranted. CT scan was obtained and does have concerning findings for that of perforation with potential abscess formation. I discussed this with the attending physician as well as the general surgeon (Dr. Saravia) who was in the emergency department at the time of me receiving results. He immediately evaluated the patient. He will take the patient to the operative suite for further evaluation and management. Please refer to further documentation regarding her stay. She was covered empirically here with antibiotics and I did replete her potassium here she was hydrated with IV fluids. Please refer to further documentation regarding her stay. Patient was reevaluated during her stay here and was resting comfortably after medication but had stable vitals. Case was discussed with the attending physician. EKG reveals sinus tachycardia rate of [address] elevation. QTc 433. Patient was seen during the COVID-19 pandemic. An order was placed for continuous cardiac monitoring. The monitor shows a rate of 110 with sinus tachycardia. GCS: 15 In the evaluation and treatment of this patient the following differential diagnoses were entertained: AL, PE, pericarditis, costochondritis, Covid, pneumonia, perforation, abscess, obstruction, among others. Impression & Plan Perforated abdominal viscus, Ileus, Abdominal pain Discharge Plan Visit Data Chief Complaint: Abdominal Pain Stated Complaint: AB PAIN ED Provider: Fede Harmon ED Midlevel Provider: Javier Victoria Discharge Problem: Perforated abdominal viscus, Ileus, Abdominal pain Patient Disposition: Admitted As Inpatient Discharge Instructions Interventions: ED Discharge Assessment Last Done: 08/26/20 02:59
[2020-08-25] MEDS ORDERED: POTASSIUM CHLORIDE / WTR 10 MEQ/100 ML PLCT IV ONE (23:54)
[2020-08-26] MEDS ORDERED: OPTIRAY 320 125ml IV ONE (00:52)
[2020-08-26] MEDS ORDERED: PIPERACILL/TAZOBAC CONSULT ACTIVE PRN ×2 (01:29→08:11)
[2020-08-26] MEDS ORDERED: PIPERACILLIN/TAZOBACTAM 4.5 GM/120 ML BAG IV ONE (01:29)
[2020-08-26] MEDS ORDERED: SODIUM CHLORIDE 0.9% 1000ML 1,000 ML IV SCH (01:30)
[2020-08-26] MEDS ORDERED: VANCOMYCIN HCL 1,000 MG/270 ML BAG IV STA (02:17)
[2020-08-26] MEDS ORDERED: VANCOMYCIN CONSULT ACTIVE PRN ×2 (02:17→08:11)
--- NOTE | 2020-08-26 02:17 | History & Physical Bridge Note ---
Date of Service August 26, 2020 History & Physical Bridge Note I have examined the patient, reviewed the History & Physical and in the interval since the performance of the History & Physical I have noted the following changes of clinical significance: no changes noted
--- NOTE | 2020-08-26 02:17 | Surgery Consultation ---
Date of Consultation August 26, 2020 Assessment & Plan (1) Abdominal pain: (2) Perforation of sigmoid colon due to diverticulitis: pt is a 60 year-old female who presents to ER wit 10 days history abdominal pain, IMP: acute abdominal pain, perforated sigmoid diverticulitis, sepsis, Plan, I recommend to do emergent exploratory laparotomy, possible bowel resection, stoma, D/W benefits, risks and alternatives of the surgery, the risks - infection, bleeding, abscess, sepsis, multiple organs failure, DVT, MD, stroke, incisional hernia, , pt understood, she agrees with the surgery, I answered all questions, IV antibiotic, IV fluid resuscitation, Present on Admission?: Yes History of Present Illness History of Present Illness History of Present Illness General Chief complaint: Abdominal Pain Stated complaint: AB PAIN Time Seen by Provider: 08/25/20 22:05 History of Present Illness Maximum Pain Intensity: 10 This is a 60-year-old female that presents to the emergency department via private vehicle with complaints "abdominal pain". The patient notes that since August 12 she has been experiencing epigastric abdominal pain. She also notes nausea and vomiting. She states that she has not been able to eat secondary to the nausea and vomiting as well as abdominal pain. She feels very weak overall. She notes that this all began when she was transitioned from Remicade to Xeljanz and had 1 dose and notes that her symptoms have persisted. She is no longer taking the Xeljanz and will likely be transitioning back to Remicade for her RA. Patient does note a history of anal cancer in the past. Patient has been seen here several times since her initial visit for the nausea and vomiting on August 13. The patient denies any fevers or chills but does have associated minor chest discomfort and shortness of breath. Patient rates her current discomfort at this time is a 06/12. I ( Rudy Saravia MD) got a call for consult free air intra-abdominal cavity possible perforated diverticulitis, I reviewed pt's H/P, labs, CT scan with pt, pt is still have severe abdominal pain, Home Medications Medication Instructions Recorded Confirmed Type folic acid 1 mg PO QAM 90 Days #90 tab 01/03/17 08/25/20 History cholecalciferol (vitamin D3) 1,000 unit PO QAM 07/08/18 08/25/20 History pantoprazole 40 mg tablet,delayed 40 mg PO QAM 90 Days #90 tab 06/08/20 08/25/20 Rx release prednisone 5 mg tablet 5 mg PO QAM 06/14/20 08/25/20 History duloxetine [Cymbalta] 60 mg PO DAILY 06/23/20 08/25/20 History bupropion HCl 100 mg tablet,12 hr 100 mg PO BID #180 ea 07/14/20 08/25/20 Rx sustained-release dicyclomine 20 mg PO TID PRN #9 tab 08/16/20 08/25/20 Rx duloxetine 30 mg PO DAILY 08/25/20 08/25/20 History prednisone 10 mg PO DAILY 08/25/20 08/25/20 History Allergies Allergy/AdvReac Type Severity Reaction Status Date / Time doxycycline Allergy Intermediate RASH Verified 08/25/20 23:12 buspirone AdvReac Intermediate nightmares Verified 08/25/20 23:12 mirtazapine AdvReac Mild weight gain Verified 08/25/20 23:12 Past Med/Surg History Medical History Abnormal CT scan, chest Acute hypotension 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, chemo, radiation Atrial tachycardia Deep vein thrombosis hx of after back surgery---no blood thinners Degenerative disc disease Detached retina Diverticulosis Dyspnea on exertion Immunocompromised state Juvenile idiopathic arthritis Lyme disease Normocytic anemia Pneumonia Rheumatoid arthritis Spinal stenosis Symptomatic anemia Vitamin D deficiency Warts, genital Surgical History H/O hemorrhoidectomy History of arthroscopy of left knee History of colonoscopy Recommend repeat 2023 History of detached retina repair left History of esophagogastroduodenoscopy (EGD) History of lumbar discectomy History of lumbar fusion hardware in place History of right elbow replacement History of total left knee replacement (TKR) History of vascular access device Aport right side Hx of cholecystectomy Family History Sister Family history of reaction to anesthesia trouble waking up after anesthesia Type 2 diabetes mellitus Breast cancer Mother Cardiac disorder Hypertension Type 2 diabetes mellitus Grandfather (Paternal) Family hx of colon cancer Father Bladder cancer Grandfather Osteoarthritis Grandmother Osteoarthritis Social History Smoking Status: Never smoker Tobacco Type: Cigarettes Age Started Using Tobacco: 17; Age Quit Using Tobacco: 40; packs per day: 1; Years Smoked: 23; Second Hand Exposure: No; Hx Alcohol Use: No Hx Substance Use: No Preferred Language: Kinyarwanda Communication Ability: Effective Visual Impairment: Diminished Hearing Ability: Normal Merchandise Supervisor Required: No Beliefs That Will Affect Care: None marital status: Single Current Living Situation: Alone current occupational status: disabled Feels Safe at Home: Yes Childhood Exposure to Second-Hand Smoke: Yes caffeine: Yes Dental Care, Regularly: Yes Physical Activity Frequency: 1-2 Times per Week Physical Activity Frequency Comment: walk Seatbelt Use: always Sunscreen Use: Yes Review of Systems A total of 10 systems reviewed and were otherwise negative Allergies Allergy/AdvReac Type Severity Reaction Status Date / Time doxycycline Allergy Intermediate RASH Verified 08/25/20 23:12 buspirone AdvReac Intermediate nightmares Verified 08/25/20 23:12 mirtazapine AdvReac Mild weight gain Verified 08/25/20 23:12 Home Medications Medication Instructions Recorded Confirmed Type folic acid 1 mg PO QAM 90 Days #90 tab 01/03/17 08/25/20 History cholecalciferol (vitamin D3) 1,000 unit PO QAM 07/08/18 08/25/20 History pantoprazole 40 mg tablet,delayed 40 mg PO QAM 90 Days #90 tab 06/08/20 08/25/20 Rx release prednisone 5 mg tablet 5 mg PO QAM 06/14/20 08/25/20 History duloxetine [Cymbalta] 60 mg PO DAILY 06/23/20 08/25/20 History bupropion HCl 100 mg tablet,12 hr 100 mg PO BID #180 ea 07/14/20 08/25/20 Rx sustained-release dicyclomine 20 mg PO TID PRN #9 tab 08/16/20 08/25/20 Rx duloxetine 30 mg PO DAILY 08/25/20 08/25/20 History prednisone 10 mg PO DAILY 08/25/20 08/25/20 History Patient History Medical History Abnormal CT scan, chest Acute hypotension 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, chemo, radiation Atrial tachycardia Deep vein thrombosis hx of after back surgery---no blood thinners Degenerative disc disease Detached retina Diverticulosis Dyspnea on exertion Immunocompromised state Juvenile idiopathic arthritis Lyme disease Normocytic anemia Pneumonia Rheumatoid arthritis Spinal stenosis Symptomatic anemia Vitamin D deficiency Warts, genital Surgical History H/O hemorrhoidectomy History of arthroscopy of left knee History of colonoscopy Recommend repeat 2023 History of detached retina repair left History of esophagogastroduodenoscopy (EGD) History of lumbar discectomy History of lumbar fusion hardware in place History of right elbow replacement History of total left knee replacement (TKR) History of vascular access device Aport right side Hx of cholecystectomy Family History Sister Family history of reaction to anesthesia trouble waking up after anesthesia Type 2 diabetes mellitus Breast cancer Mother Cardiac disorder Hypertension Type 2 diabetes mellitus Grandfather (Paternal) Family hx of colon cancer Father Bladder cancer Grandfather Osteoarthritis Grandmother Osteoarthritis Social History Smoking Status: Never smoker Tobacco Type: Cigarettes Age Started Using Tobacco: 17; Age Quit Using Tobacco: 40; packs per day: 1; Years Smoked: 23; Second Hand Exposure: No; Hx Alcohol Use: No Hx Substance Use: No Preferred Language: Kinyarwanda Communication Ability: Effective Visual Impairment: Diminished Hearing Ability: Normal Merchandise Supervisor Required: No Beliefs That Will Affect Care: None marital status: Single Current Living Situation: Alone current occupational status: disabled Feels Safe at Home: Yes Childhood Exposure to Second-Hand Smoke: Yes caffeine: Yes Dental Care, Regularly: Yes Physical Activity Frequency: 1-2 Times per Week Physical Activity Frequency Comment: walk Seatbelt Use: always Sunscreen Use: Yes Review of Systems Review of Systems: All systems reviewed & are unremarkable except as noted in HPI & below Constitutional: as per Subjective / HPI Eyes: as per Subjective / HPI Ear, Nose, Mouth, Throat: as per Subjective / HPI Respiratory: as per Subjective / HPI dyspnea on exertion, pneumonia Cardiovascular: as per Subjective / HPI Gastrointestinal: as per Subjective / HPI and + abdominal pain Genitourinary: as per Subjective / HPI UTI Musculoskeletal: as per Subjective / HPI rheumatoid arthritis, chronic steroid use, Juvenile idiopathic arthritis Integumentary: as per Subjective / HPI Neurologic: as per Subjective / HPI Psychiatric: as per Subjective / HPI Endocrine: as per Subjective / HPI Hematologic / Lymphatic: as per Subjective / HPI Immunocompromised state Allergy / Immunological: as per Subjective / HPI Physical Exam Constitutional: WD/WN, vitals as above well developed, well nourished, + acute distress and + ill appearing Eyes: PERRL, conjunctivae normal, anicteric sclerae ENMT: external ear and nose normal, oropharynx normal Neck: trachea midline, no thyromegaly Respiratory: normal respiratory effort, lungs clear to auscultation + tachypneic Cardiovascular: RRR, no murmur, no edema Rate/Rhythm: regular rate and regular rhythm Gastrointestinal (Abdomen): Percussion/Palpation: + abdomen tender, + guardi ng, + abdomen rigid and abdomen soft tenderness at LLQ area, with rebound pain, no distend, BS - Musculoskeletal: no cyanosis or clubbing, extremities motor strength 5/5 Skin: no rashes, warm and dry Neurologic: awake Psychiatric: Orientation: alert and oriented x 3 Results & Data ([facility]) Vital Signs (Past 12 Hours) Vital Signs Temp Pulse Resp BP Pulse Ox 08/26/20 01:31 110 H 18 135/95 08/26/20 01:01 106 H 18 168/90 H 08/26/20 00:00 106 H 24 130/92 94 08/25/20 23:31 107 H 26 H 120/72 95 08/25/20 21:49 100 H 13 139/108 H 99 08/25/20 21:47 36.5 C 102 H 25 H 139/108 H 100 Laboratory Results Abnormal lab results 08/25/20 08/25/20 08/25/20 Range/Units 22:35 22:35 22:35 WBC 16.06 H (4.8-10.8) K/uL Plt Count 447 H (130-400) K/uL Neut # (Auto) 14.97 H (1.4-6.5) K/uL Lymph # (Auto) 0.44 L (1.2-3.4) K/uL Immature Gran # (Auto) 0.10 H (0.00-0.02) K/uL PT 12.9 H (9.0-12.0) Seconds INR 1.2 H (0.9-1.1) APTT 42.7 H (21.0-31.0) Seconds Sodium 128 L (136-145) mmol/L Potassium 3.0 L (3.5-5.1) mmol/L Chloride 94 L (98-107) mmol/L Carbon Dioxide 18 L (21-32) mmol/L Anion Gap 16.0 H (3-11) Creatinine 1.37 H (0.6-1.2) mg/dl Glucose 114 H (70-99) mg/dl Lactate (0.4-2.0) mmol/L AST 43 H (15-37) U/L Alkaline Phosphatase 172 H (45-117) U/L Albumin 2.3 L (3.4-5.0) gm/dl Globulin 4.6 H (2.5-4.0) gm/dl Albumin/Globulin Ratio 0.5 L (0.9-2) Lipase 44 L (73-393) U/L Procalcitonin (0-0.5) ng/ml 08/25/20 08/25/20 Range/Units 22:35 22:35 WBC (4.8-10.8) K/uL Plt Count (130-400) K/uL Neut # (Auto) (1.4-6.5) K/uL Lymph # (Auto) (1.2-3.4) K/uL Immature Gran # (Auto) (0.00-0.02) K/uL PT (9.0-12.0) Seconds INR (0.9-1.1) APTT (21.0-31.0) Seconds Sodium (136-145) mmol/L Potassium (3.5-5.1) mmol/L Chloride (98-107) mmol/L Carbon Dioxide (21-32) mmol/L Anion Gap (3-11) Creatinine (0.6-1.2) mg/dl Glucose (70-99) mg/dl Lactate 2.1 H* (0.4-2.0) mmol/L AST (15-37) U/L Alkaline Phosphatase (45-117) U/L Albumin (3.4-5.0) gm/dl Globulin (2.5-4.0) gm/dl Albumin/Globulin Ratio (0.9-2) Lipase (73-393) U/L Procalcitonin 38.27 H (0-0.5) ng/ml Diagnostic Findings CT scan, free air intra-abdominal cavity, sigmoid diverticulitis
[2020-08-26] MEDS ORDERED: HYDROmorphone INJ 1 MG/ML SYRINGE IV PRN (02:20)
[2020-08-26] MEDS ORDERED: fentaNYL citrate 100 MCG/2 ML VIAL IV PRN (02:20)
[2020-08-26] MEDS ORDERED: ATROPINE SULFATE 0.1 MG/ML 10ML SYR IV PRN (02:20)
[2020-08-26] MEDS ORDERED: ONDANSETRON INJ 2 MG/ML 2 ML VIAL IV PRN (02:20)
[2020-08-26] MEDS ORDERED: ePHEDrine sulfate 50 MG/ML AMP IV PRN (02:20)
[2020-08-26] MEDS ORDERED: fentaNYL citrate 100 MCG/2 ML VIAL ONE ×3 (02:24→04:50)
[2020-08-26] MEDS ORDERED: HYDROmorphone INJ 2 MG/ML SYR/VIAL ONE (02:24)
[2020-08-26] MEDS ORDERED: PROPOFOL IV EMULSION 10 MG/ML 20 ML VIAL IV ONE (02:24)
[2020-08-26] MEDS ORDERED: LIDOCAINE HCL 2% 2 ML VIAL/AMP(20MG/ML) INFIL ONE (02:31)
[2020-08-26] MEDS ORDERED: SUCCINYLCHOLINE CHLORIDE 20 MG/ML 10 ML VIAL IV ONE (02:31)
--- NOTE | 2020-08-26 02:43 | Anesthesiology Consultation ---
Date of Service August 26, 2020 Assessment & Plan (1) Encounter for pre-operative examination: Chart Review Chart Review: Acceptable Risk for Surgery Consults Requested none ASA [id number] Proposed Anesthesia Anesthesia Type: General Risk / Benefits Reviewed With: PT / POA / Parent / Guardian, Accepts Plan and Informed Consent Obtained History Surgery Operation Date: 08/26/20 03:00 Proposed Procedures p Exploratory Laparotomy - Rudy Saravia MD Height/Weight Height: 5 ft 6 in Weight: 69.1 kg Allergies Allergy/AdvReac Type Severity Reaction Status Date / Time doxycycline Allergy Intermediate RASH Verified 08/25/20 23:12 buspirone AdvReac Intermediate nightmares Verified 08/25/20 23:12 mirtazapine AdvReac Mild weight gain Verified 08/25/20 23:12 Medications Home Medications Medication Instructions Recorded Confirmed Last Taken folic acid 1 mg PO QAM 90 Days #90 tab 01/03/17 08/25/20 08/14/20 cholecalciferol (vitamin D3) 1,000 unit PO QAM 07/08/18 08/25/20 08/14/20 pantoprazole 40 mg tablet,delayed 40 mg PO QAM 90 Days #90 tab 06/08/20 08/25/20 08/14/20 release prednisone 5 mg tablet 5 mg PO QAM 06/14/20 08/25/20 08/14/20 duloxetine [Cymbalta] 60 mg PO DAILY 06/23/20 08/25/20 08/14/20 bupropion HCl 100 mg tablet,12 hr 100 mg PO BID #180 ea 07/14/20 08/25/20 08/14/20 sustained-release dicyclomine 20 mg PO TID PRN #9 tab 08/16/20 08/25/20 Unknown duloxetine 30 mg PO DAILY 08/25/20 08/25/20 Unknown prednisone 10 mg PO DAILY 08/25/20 08/25/20 Unknown Active Medications Generic Name Dose Route Start Last Admin Trade Name Freq PRN Reason Stop Dose Admin Vancomycin HCl 1,000 mg in 270 mls @ 200 mls/hr 08/26/20 02:17 08/26/20 02:49 Vancomycin Hcl IV 08/26/20 03:37 200 mls/hr NOW STA Administration Protocol NPO Date Last Intake of Fluids: 08/25/20 Time Last Intake of Fluids: 22:00 Last Intake of Fluids Comment: water Date Last Intake of Solids: 08/25/20 Time Last Intake of Solids: 08:00 Past Medical History Medical History Abnormal CT scan, chest Acute hypotension 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, chemo, radiation Atrial tachycardia Deep vein thrombosis hx of after back surgery---no blood thinners Degenerative disc disease Detached retina Diverticulosis Dyspnea on exertion Immunocompromised state Juvenile idiopathic arthritis Lyme disease Normocytic anemia Pneumonia Rheumatoid arthritis Spinal stenosis Symptomatic anemia Vitamin D deficiency Warts, genital Exercise / Class Metabolic Activity II 4-5 Yardwork/Stairs/Walk up hill Past Family History Family History Sister Family history of reaction to anesthesia trouble waking up after anesthesia Type 2 diabetes mellitus Breast cancer Mother Cardiac disorder Hypertension Type 2 diabetes mellitus Grandfather (Paternal) Family hx of colon cancer Father Bladder cancer Grandfather Osteoarthritis Grandmother Osteoarthritis Past Surgical History Surgical History H/O hemorrhoidectomy History of arthroscopy of left knee History of colonoscopy Recommend repeat 2023 History of detached retina repair left History of esophagogastroduodenoscopy (EGD) History of lumbar discectomy History of lumbar fusion hardware in place History of right elbow replacement History of total left knee replacement (TKR) History of vascular access device Aport right side Hx of cholecystectomy Past Anesthesia History No Hx of Anesthesia Complications and No Family Hx of Anesthesia Complications History of PONV No Hx of PONV and No Hx of Motion Sickness Social History Smoking Status: Never smoker tobacco type: cigarettes Hx Alcohol Use: No Hx Substance Use: No substance use type: does not use Physical Exam Vital Signs Last Vital Signs Temp 97.7 F 08/25/20 21:47 Pulse 97 H 08/26/20 02:31 Resp 20 08/26/20 02:31 BP 106/84 08/26/20 02:31 Pulse Ox 96 08/26/20 02:31 ENMT Mouth: no dentition abnormality Thyromental Distance: > or= 3.5 Finger Breadths Mallampati Class: II Neck normal visual inspection Respiratory normal respiratory effort Auscultation: lungs clear to auscultation bilaterally Cardiovascular Rate/Rhythm: regular rate and regular rhythm Testing Laboratory Results 12/23/20 22:35 08/25/20 22:35 PT 12.9 Seconds (9.0-12.0) H 08/25/20 22:35 INR 1.2 (0.9-1.1) H 08/25/20 22:35 APTT 42.7 Seconds (21.0-31.0) H 08/25/20 22:35 08/26/20 02:39 POC Glucose 95 Electrocardiogram Date: 08/16/20 Findings: + NSR @ (68 bpm) Chest X-Ray Date: 08/13/20 IMPRESSION: 1. A few bibasilar linear densities. This is consistent with subsegmental atelectasis. 2. Mild diffuse interstitial thickening which is likely chronic. Echocardiogram Date: 05/05/20 Normal LV size and systolic function. EF 55-60%. No regional wall motion abnormalities. No LVH. No significant diastolic dysfunction.
[2020-08-26] MEDS ORDERED: BACITRACIN OINT 15 GM TUBE ONE (03:07)
[2020-08-26] MEDS ORDERED: LIDOCAINE HCL 1% 20 ML VIAL ONE (03:07)
[2020-08-26] MEDS ORDERED: BUPIVACAINE 0.5 % 5 MG/1 ML MPF 30ML VIAL ONE (03:07)
[2020-08-26] MEDS ORDERED: ONDANSETRON INJ 2 MG/ML 2 ML VIAL ONE (04:10)
[2020-08-26] MEDS ORDERED: VANCOMYCIN HCL 1000MG/20ML VIAL ONE (04:36)
[2020-08-26] MEDS ORDERED: NEOSTIGMINE METHYLSULFATE 5 MG/5 ML SYR ONE (05:25)
[2020-08-26] MEDS ORDERED: GLYCOPYRROLATE 0.2 MG/ML VIAL ONE (05:25)
--- NOTE | 2020-08-26 05:43 | Post Operative Brief Note ---
Immediate Post Op Note v1 Date of Surgery August 26, 2020 Pre & Post Diagnosis Operation Date: 08/26/20 03:00 Pre-Op Diagnosis: Abdominal Pain, Perforation of sigmoid colon, sepsis, peritonitis, Diverticulitis Post-Op Diagnosis: Abdominal Pain, Perforation of sigmoid colon tumor, peritonitis I identified the patient and participated in the time-out.: Yes Procedure Operation Date: 08/26/20 03:00 Actual Procedures p Exploratory Laparotomy, Creation of Loop Colostomy(Not Applicable) - Rudy Saravia MD Surgeon Rudy Saravia MD [employer] surgical technology instructor Estimated Blood Loss 30 Findings Consistent with Post-Op Diagnosis rectal-sigmoid junction tumor with perforation, unresectable, leak stool, severe contaminate, IV Fluids 1700ml Specimens peritonal fluid culture Drains Cheema Catheter and Bubba-Mueller Drain (10 flat) Anesthesia Type General Complications none Disposition Accompanied Patient To Recovery: Yes Disposition: Recovery Room Overlapping Procedure I was immediately available: during the entire case.
[2020-08-26] MEDS ORDERED: ROCURONIUM BROMIDE 10 MG/ML 5 ML VIAL IV ONE (05:52)
--- NOTE | 2020-08-26 06:44 | Anesthesiology Progress Note ---
Date of Service August 26, 2020 Anesthesia Post Procedure Vital Signs Vital Signs: Temp Pulse Pulse Resp BP BP Pulse Ox 08/26/20 06:30 97.9 F 117 H 16 134/109 H 98 08/26/20 06:20 97.9 F 117 H 16 131/105 H 98 08/26/20 06:10 97.9 F 116 H 16 140/98 98 08/26/20 06:00 97.9 F 115 H 13 133/108 H 99 08/26/20 02:31 97 H 20 106/84 96 08/26/20 02:17 102 H 23 145/84 H 95 08/26/20 01:31 110 H 18 135/95 08/26/20 01:01 106 H 18 168/90 H 08/26/20 00:00 106 H 24 130/92 94 08/25/20 23:31 107 H 26 H 120/72 95 08/25/20 21:49 100 H 13 139/108 H 99 08/25/20 21:47 97.7 F 102 H 25 H 139/108 H 100 Pain Intensity Abdomen: Pain Intensity: 2 Transfer of Care Handoff Completed per policy Notes Mental Status: alert / awake / arousable and participated in evaluation Patient Amnestic to Procedure: Yes Nausea / Vomiting: adequately controlled Pain: adequately controlled Airway Patency, RR, SpO2: stable & adequate BP & HR: stable & adequate Hydration State: stable & adequate Anesthetic Complications: no major complications apparent and Pt Satisfied with anesthetic care
--- NOTE | 2020-08-26 07:30 | Operative Report (OR) ---
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 OPERATION: Exploratory laparotomy, create loop colostomy, GABRIELA drainage x1. SURGEON: Rudy Saravia MD ANESTHESIA: General. ESTIMATED BLOOD LOSS: About 30 mL. FINDINGS: Peritonitis, significant contamination, tumor of junction of rectal and sigmoid colon with perforation of the bowel, the tumor is unresectable. COMPLICATIONS: None. INDICATIONS FOR THE PROCEDURE: This is a 60-year-old female who presented to the ED with 10 days' history of abdominal pain and the patient had a CT scan diagnosis of free air in intraabdominal cavity and possible perforated bowel. I saw the patient in the ER and reviewed all the patient's history and labs and CT scan with the patient. I recommended to do emergency exploratory laparotomy, possible bowel resection, stoma. I did talk to the patient about the benefits, the risks, and alternate procedures. I indicated the risks may include, but not limited such as bleeding, infection, abscess, sepsis, multiple organ failure, DVT, myocardial infarction, stroke, bowel obstruction, incisional hernia, even . The patient understands. She signed informed consent. She agreed to proceed with the procedure. I answered all questions. DETAILS OF PROCEDURE: We brought in the patient to the OR, put the patient in the supine position. The patient received SCDs on bilateral legs to prevent DVT. Also, the patient received 1 g vancomycin IV for prophylactic antibiotic and also the patient received 3.375 grams Zosyn IV in the ED. The patient received general anesthesia without difficulty. Before we prepped the abdomen, the patient received Cheema catheter insertion and NG tube insertion. Then the patient's abdomen was prepped and draped in routine sterile fashion. After timeout, I made a midline incision and got into the abdomen without difficulty. Once we got in the abdomen, significant contaminated peritoneal flow was yellow in color. We sent the peritoneal flow for bacterial culture. We suctioned all the flow out and we mobilized the omentum and the small bowel. Then we found the patient had a significantly larger tumor on the junction of rectal and sigmoid colon with perforation with stool leak, severe contamination. We tried to mobilize the tumor, but the tumor was stuck on the back wall, was not resectable. The tumor size was about 4 x 6 cm length, most likely it was obstructed tumor. Also, patient had perforated bowel on the tumor side. Based on the significant large tumor, we could not resect the tumor. At this moment, we can do the best for damage control. I put a GABRIELA drainage near the perforation of the bowel to create the sigmoid colon loop colostomy. I immobilized the sigmoid colon and made sure enough of the sigmoid colon was pulled out. Then I created sigmoid colostomy on the abdominal wall on the left side of the abdomen and then we pulled out the sigmoid colon. We used a bridge to hold the sigmoid colon on the skin. We used 0 nylon to fix the bridge on the skin. At this moment, we used warm normal saline with 1 g vancomycin, flushed the abdomen and suctioned all fluid out to made sure to clean out the abdomen and the flow. Then I used 0 Vicryl to fix the colon on the fascial layer interruptedly. Hemostasis was obtained. I used 0 PDS and closed the fascial layer, continuous running. Closed subcutaneous layer by using 2-0 Vicryl continuous running. Closed skin by using staple. Then we used Bovie to make an opening on the sigmoid colon and to create a loop colostomy. Then I used 0 Vicryl sutures for sigmoid colostomy to the skin interruptedly and the colostomy looked pink, good blood circulation. No tension. Then we put all dressing on and put the bag on the colostomy. The patient tolerated the procedure well. All instrument, needle, and sponge counts were correct x2 at the end of the case. The patient transferred to recovery room in stable condition. I attest to the content of the Intraoperative Record and any orders documented therein. Any exception s are noted below.
--- NOTE | 2020-08-26 07:45 | CT Scan Report ---
CT ANGIOGRAM OF THE CHEST; CT SCAN OF THE ABDOMEN AND PELVIS WITH IV CONTRAST CLINICAL HISTORY: Dyspnea. Atypical chest pain. Generalized abdominal pain. History of anal carcinoma . COMPARISON STUDY: Chest CT scans dated 05/04/2020 07/10/2014. Abdominal CT dated 08/16/2020 and 07/10/20. TECHNIQUE: Following the IV administration of 117 of Optiray 320, CT angiogram of the chest is perfor med from the upper abdomen to the thoracic inlet utilizing the pulmonary embolus protocol. Images are reviewed in the axial, sagittal, coronal planes. 3-D MIPS images are created and assessed. Subsequen tly, CT scan of the abdomen and pelvis was performed from the lung bases to the proximal femora. Imag es are reviewed in the axial, sagittal, and coronal planes. IV contrast was administered without comp lication. A dose lowering technique was utilized adhering to the principles of ALARA. CT DOSE: 628.79 mGy.cm FINDINGS: CHEST: Thyroid: Imaged portions of the thyroid gland are normal in size and attenuation. Thoracic aorta: The thoracic aorta is normal in caliber and demonstrates standard 3-vessel arch anato my. No dissection is seen. Pulmonary vasculature: The pulmonary trunk is normal in caliber. There are no filling defects identif ied in the main, lobar, or segmental pulmonary arteries to indicate pulmonary embolus. Heart: A right internal jugular central venous infusion port is in place. The heart is normal in size and configuration, and without pericardial effusion. Lungs and pleural spaces: Evaluation of the lung parenchyma is compromised by motion artifact. Emphys ematous change is again noted. There is no airspace consolidation typical for pneumonia. Foci of scar ring/atelectasis are present throughout both lungs. There is a small right pleural effusion with asso ciated atelectasis. The trachea and central airways are clear. Mediastinum: There is no mediastinal lymphadenopathy. Sharon: Clear. Axillae: There is no axillary lymphadenopathy. Bony thorax: The skeletal structures are osteopenic. No lytic or blastic lesions are identified. ABDOMEN AND PELVIS: Liver: The contrast-enhanced liver is normal in size and contour. Attenuation is heterogeneous. There is mild intrahepatic biliary ductal dilatation. The hepatic veins and portal veins are patent. A 3.8 cm right hepatic lobe mass is unchanged dating back to 2013 and likely represents a hemangioma. An 8 mm cyst is noted in the left lobe. Gallbladder: Surgically absent noting clips in the gallbladder fossa. Spleen: Normal in size and attenuation. Pancreas: Atrophic and grossly unremarkable. Adrenal glands: Degenerative glands appear hyperemic. Kidneys: The contrast enhanced kidneys demonstrate mild cortical atrophy and are without hydronephros is. There is heterogeneous enhancement of both kidneys. Abdominal vasculature: The abdominal aorta is normal in course and caliber noting moderate to advance d atherosclerotic calcification. Bowel: There is moderate fecal retention in the sigmoid colon, with liquid stool seen throughout the remainder of the colon. There is significant soft tissue infiltration throughout the pelvis, with wal l thickening of the rectosigmoid colon. There is no evidence of bowel obstruction. There is nonspecif ic hyperemia of the small bowel which may be related to volume status. The appendix is normal as vis ualized. There is circumferential wall thickening seen in the lower rectum. There is diverticulosis o f the left colon. Peritoneum: There are numerous small foci of intraperitoneal free air scattered throughout the abdome n. A small volume of abdominopelvic ascites is new from 08/16/2020. There are loculated and periphera lly enhancing fluid collections in the pelvis. A fluid collection between the uterus and rectum on im age #413 and measures 3.3 x 2.7 x 2.6 cm. A fluid collection in the left ventral pelvis on image #389 measures 3.4 x 3.0 x 2.7 cm. A delayed fluid collection the right ventral pelvis on image #366 measu res 6.3 x 3.6 x 3.0 cm. Lymphadenopathy: None. Pelvic viscera: The bladder, uterus, and adnexa are normal as visualized. Skeletal structures: The skeletal structures are osteopenic. There is postoperative change from spina l fusion seen at L3-L5. No lytic or blastic lesions are seen. IMPRESSION: 1. There is no evidence of pulmonary embolus in the main, lobar, or segmental pulmonary arteries. 2. Emphysema. 3. A small right pleural effusion is new from 08/16/2020. 4. There is evidence of visceral perforation, with numerous small foci of intraperitoneal free air, a small volume of abdominopelvic ascites, and evidence of peritonitis. 5. There is significant wall thickening seen involving the rectosigmoid colon. A lower colonic perfor ation is suspected, which could be related to diverticular disease or possibly a perforated tumor giv en the history of an anal carcinoma. Surgical consultation is advised. 6. There are at least 3 peripherally enhancing/loculated fluid collections identified in the pelvis c onsistent with developing abscesses. 7. There is no bowel obstruction. 8. There is nonspecific hyperemia of the small bowel mucosal and adrenal glands suggesting hypovolemi a. 8. There is heterogeneous enhancement of both kidneys, which could also be related to volume status. Correlation with urinalysis and serum creatinine levels is recommended. 9. Additional findings as above. ACT 112: Negative or not required by law. Electronically signed by: Varinder Morrissey M.D. 08/26/2020 7:44 AM
[2020-08-26] MEDS ORDERED: VANCOMYCIN HCL 1,000 MG in SODIUM CHLORIDE 0.9% 250 ML IV SCH (08:11)
--- NOTE | 2020-08-26 08:26 | Electrocardiogram Report ---
Test Reason : Blood Pressure : / mmHG Vent. Rate : 110 BPM Atrial Rate : 110 BPM P-R Int : 084 ms QRS Dur : 080 ms QT Int : 320 ms P-R-T Axes : 014 069 074 degrees QTc Int : 433 ms Poor data quality, interpretation may be adversely affected Sinus tachycardia with short IL Left atrial enlargement Nonspecific ST abnormality Inferior leads Abnormal ECG When compared with ECG of 16-AUG-2020 16:31, Vent. rate has increased BY [address] now depressed in Inferior leads Confirmed by Gilbert Unger ([id number]) on 08/26/2020 8:25:52 AM Referred By: REFERRED SELF Confirmed By:Gilbert Unger
[2020-08-26] MEDS ORDERED: VANCOMYCIN HCL 750 MG in SODIUM CHLORIDE 0.9% 250 ML IV ONE (08:45)
[2020-08-26] MEDS: D5NSS + 20MEQ KCL 20 MEQ/1,000 ML BAG IV SCH ×2 (08:53→17:59)
[2020-08-26] MEDS: FAMOTIDINE 20 MG in SYRINGE 3 ML IV SCH ×2 (08:53→21:00)
[2020-08-26] MEDS ORDERED: PANTOprazole 40 MG in SYRINGE 0 ML IV SCH (09:00)
[2020-08-26] MEDS ORDERED: PANTOprazole 40 MG TAB PO SCH (09:00)
[2020-08-26] MEDS: PIPERACILLIN/TAZOBACTAM 3.375 GM in DEXTROSE 5% 100 ML IV SCH ×2 (09:23→17:59)
[2020-08-26 09:34] LABS: Creatinine Clr Calc Pharmacy 43.2 ml/min; Est GFR (African American) 50.9
--- NOTE | 2020-08-26 10:07 | Pharmacy Report ---
Pharmacy Abx Initial Consult - Date of Service August 26, 2020 - Pharmacy Dosing Scope Date of Consult: 08/26 Consultation requested by: Dr. Saravia Pharmacy is consulted to initiate vanco/zosyn dosing therapy, order appropriate labs and adjust drug dose/frequency. - Subjective The patient is a 60 year old F admitted on 08/26/20 05:49. - Objective Height: 5 ft 6 in Weight: 69.1 kg Vital Signs (Past 12hrs): Vital Signs Temp Pulse Pulse Resp BP BP Pulse Ox 08/26/20 09:26 115 H 22 119/83 96 08/26/20 09:00 35.6 C L 114 H 18 95 08/26/20 08:08 36.4 C L 120 H 22 108/91 2 L 08/26/20 08:00 121 H 08/26/20 07:21 36.6 C 118 H 17 120/105 H 96 08/26/20 07:10 36.6 C 115 H 17 126/92 96 08/26/20 07:00 36.6 C 116 H 18 141/102 H 96 08/26/20 06:50 36.6 C 117 H 18 141/114 H 97 08/26/20 06:40 36.6 C 117 H 18 143/108 H 97 08/26/20 06:30 36.6 C 117 H 16 134/109 H 98 08/26/20 06:20 36.6 C 117 H 16 131/105 H 98 08/26/20 06:10 36.6 C 116 H 16 140/98 98 08/26/20 06:00 36.6 C 115 H 13 133/108 H 99 08/26/20 02:31 97 H 20 106/84 96 08/26/20 02:17 102 H 23 145/84 H 95 08/26/20 01:31 110 H 18 135/95 08/26/20 01:01 106 H 18 168/90 H 08/26/20 00:00 106 H 24 130/92 94 08/25/20 23:31 107 H 26 H 120/72 95 Lab Results (24hrs): Laboratory Tests (24 Hours) 08/26/20 08/25/20 08/25/20 09:06 22:35 22:35 WBC Neut # (Auto) Creatinine 1.33 H 1.37 H Est Cr Clr Drug Dosing 43.2 41.9 Procalcitonin 38.27 H 08/25/20 22:35 WBC 16.06 H Neut # (Auto) 14.97 H Creatinine Est Cr Clr Drug Dosing Procalcitonin Micro Results: 08/26/20 Unknown Gram Stain - Final Abdomen Aerobic and Anaerobic Culture - Pending 08/25/20 22:35 Aerobic Blood Culture - Pending Blood Anaerobic Blood Culture - Pending 08/25/20 22:30 Aerobic Blood Culture - Pending Blood Anaerobic Blood Culture - Pending - Assessment & Plan Assessment 60 year old F with perforation of sigmoid colon due to diverticulitis. Taken to OR today for exploratory laparotomy. Blood cultures pending. Pharmacy consulted for vancomycin/zosyn Plan Vancomycin IV * Received 1 gm iv vancomycin early this AM (~14 mg/kg) - will given an additional 750 mg x 1 to make up full loading dose (~25 mg/kg total) * Will dose with vancomycin 1 gm iv q 18 hrs - Scr elevated from baseline therefore utilized estimated kinetics to determine dosing * Estimated t1/2~17 hrs, ke~0.04 hrs, crcl ~43 * Will order trough if continued >48 hrs Piperacillin/tazobactam - 3.375 gm iv q 8 hrs - appropriate for crcl >20 / no change Pharmacy will continue to follow and will adjust dose/frequency as necessary. Thank you.
[2020-08-26 12:04] LABS: Albumin Globulin Ratio 0.5 (0.9-2); BUN Creatinine Ratio 14.8 (10-20); Bilirubin,Total 0.8 mg/dl (0.2-1); Calcium 7.9 mg/dl (8.5-10.1); Creatinine Clr Calc Pharmacy 43.5 ml/min; Est GFR (African American) 51.4; Est GFR (Non-African American) 44.4; Globulin 4.1 gm/dl (2.5-4.0); Potassium 3.6 mmol/L (3.5-5.1); Total Protein 6.1 gm/dl (6.4-8.2)
[2020-08-26] MEDS: CHOLECALCIFEROL 1,000 UNITS 25 MCG TAB PO SCH (12:25)
[2020-08-26] MEDS: FOLIC ACID 1 MG TAB PO SCH (12:25)
[2020-08-26] MEDS: predniSONE 10 MG TABLET PO SCH (12:25)
[2020-08-26] MEDS: predniSONE 5 MG TAB PO SCH (12:25)
[2020-08-26] MEDS: DULoxetine HCL 30 MG CAP PO SCH (12:25)
[2020-08-26] MEDS: DULoxetine HCL 60 MG CAP PO SCH (12:25)
[2020-08-26] MEDS: buPROPion SR 100 MG TABCR PO SCH ×2 (12:26→21:00)
[2020-08-26 12:45] LABS: Appearance Urine Clear (Clear); Bacteria Urine Automated Negative (Negative); Blood Urine 3+ (Negative); Color Urine Dark Yellow; Epithelial Cell Urine Auto >30 /lpf (0-5); Glucose Urine UA Negative (Negative); Ketones Urine Trace (Negative); Leukocyte Esterase Urine Trace (Negative); Nitrite Urine Negative (Negative); Protein Urine 2+ (Negative); Specific Gravity Urine > 1.045 (1.000-1.030); Urobilinogen Urine Negative (Negative)
--- NOTE | 2020-08-26 12:52 | Hospitalist Consultation ---
Date of Consultation August 26, 2020 Assessment & Plan (1) Perforated abdominal viscus: s/p ex lap with creation of colostomy with Dr. Saravia Management per primary (2) UTI (urinary tract infection): Heterogenous enhancement of kidneys on CT Urinalysis pending On Zosyn/vanc for above - continue (3) Depression: Continue duloxetine, bupropion (4) Hyponatremia: Chronic, Improving - on admission was 128, now 131 Recheck am (5) Transaminitis: Mild elevation of AST at 39, Alk phos 152 - both trending down, continue to follow (6) Rheumatoid arthritis: With history of juvenile arthritis Sees rheumatology - on chronic prednisone - monitor for need for stress dosing but at present mildly hypertensive History of Present Illness Attending Physician: Rudy Saravia MD History of Present Illness Ms. Miller was drowsy when I saw her this morning and unable to say more than yes and no due to discomfort from her NG tube. Allergies Allergy/AdvReac Type Severity Reaction Status Date / Time doxycycline Allergy Intermediate RASH Verified 08/25/20 23:12 buspirone AdvReac Intermediate nightmares Verified 08/25/20 23:12 mirtazapine AdvReac Mild weight gain Verified 08/25/20 23:12 Home Medications Medication Instructions Recorded Confirmed Type folic acid 1 mg PO QAM 90 Days #90 tab 01/03/17 08/25/20 History cholecalciferol (vitamin D3) 1,000 unit PO QAM 07/08/18 08/25/20 History pantoprazole 40 mg tablet,delayed 40 mg PO QAM 90 Days #90 tab 06/08/20 08/25/20 Rx release prednisone 5 mg tablet 5 mg PO QAM 06/14/20 08/25/20 History duloxetine [Cymbalta] 60 mg PO DAILY 06/23/20 08/25/20 History bupropion HCl 100 mg tablet,12 hr 100 mg PO BID #180 ea 07/14/20 08/25/20 Rx sustained-release dicyclomine 20 mg PO TID PRN #9 tab 08/16/20 08/25/20 Rx duloxetine 30 mg PO DAILY 08/25/20 08/25/20 History prednisone 10 mg PO DAILY 08/25/20 08/25/20 History Patient History Medical History Abnormal CT scan, chest Acute hypotension Anal cancer diagnosed-2015--sx, chemo, radiation Atrial tachycardia Deep vein thrombosis hx of after back surgery---no blood thinners Degenerative disc disease Detached retina Diverticulosis Dyspnea on exertion Immunocompromised state Juvenile idiopathic arthritis Lyme disease Normocytic anemia Pneumonia Rheumatoid arthritis Spinal stenosis Symptomatic anemia Vitamin D deficiency Warts, genital Surgical History H/O hemorrhoidectomy History of arthroscopy of left knee History of colonoscopy Recommend repeat 2023 History of detached retina repair left History of esophagogastroduodenoscopy (EGD) History of lumbar discectomy History of lumbar fusion hardware in place History of right elbow replacement History of total left knee replacement (TKR) History of vascular access device Aport right side Hx of cholecystectomy Family History Sister Family history of reaction to anesthesia trouble waking up after anesthesia Type 2 diabetes mellitus Breast cancer Mother Cardiac disorder Hypertension Type 2 diabetes mellitus Grandfather (Paternal) Family hx of colon cancer Father Bladder cancer Grandfather Osteoarthritis Grandmother Osteoarthritis Social History Smoking Status: Never smoker Tobacco Type: Cigarettes Age Started Using Tobacco: 17; Age Quit Using Tobacco: 40; packs per day: 1; Years Smoked: 23; Second Hand Exposure: No; Hx Alcohol Use: No Hx Substance Use: No Preferred Language: Lao Communication Ability: Effective Visual Impairment: Diminished Hearing Ability: Normal 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 Beliefs That Will Affect Care: None marital status: Single Current Living Situation: Alone current occupational status: disabled Feels Safe at Home: Yes Childhood Exposure to Second-Hand Smoke: Yes caffeine: Yes Dental Care, Regularly: Yes Physical Activity Frequency: 1-2 Times per Week Physical Activity Frequency Comment: walk Seatbelt Use: always Sunscreen Use: Yes Assistive Devices: Oxygen - Continuous Review of Systems Constitutional: no fever, no chills and no body aches Respiratory: no cough and no dyspnea Cardiovascular: no chest pain and no palpitations Gastrointestinal: + abdominal pain; no nausea and no vomiting Genitourinary: no dysuria and no urinary hesitancy Musculoskeletal: no back pain and no joint pain Integumentary: no rash Physical Exam Physical Exam: General: no distress Eyes: normal inspection, PERLL Respiratory: chest non tender, clear to auscultation, normal breath sounds, no respiratory distress, no accessory muscle use Cardiac: regular rate and rhythm, no rub or gallop, no murmur, no edema, no jvd GI/: active bowel sounds, no abd pain or tenderness, soft, non distended Extremities: normal range of motion, normal strength, non tender Neuro/Psych: alert and oriented x 3, normal mood and affect Skin: normal color, dry Results & Data Results & Data ([facility]) Vital Signs (Past 12 Hours) Vital Signs Temp Pulse Pulse Resp BP BP Pulse Ox 08/26/20 11:48 36.5 C 118 H 19 149/93 H 95 08/26/20 10:15 36.7 C 109 H 22 116/88 96 08/26/20 09:26 115 H 22 119/83 96 08/26/20 09:00 35.6 C L 114 H 18 95 08/26/20 08:08 36.4 C L 120 H 22 108/91 2 L 08/26/20 08:00 121 H 08/26/20 07:21 36.6 C 118 H 17 120/105 H 96 08/26/20 07:10 36.6 C 115 H 17 126/92 96 08/26/20 07:00 36.6 C 116 H 18 141/102 H 96 08/26/20 06:50 36.6 C 117 H 18 141/114 H 97 08/26/20 06:40 36.6 C 117 H 18 143/108 H 97 08/26/20 06:30 36.6 C 117 H 16 134/109 H 98 08/26/20 06:20 36.6 C 117 H 16 131/105 H 98 08/26/20 06:10 36.6 C 116 H 16 140/98 98 08/26/20 06:00 36.6 C 115 H 13 133/108 H 99 08/26/20 02:31 97 H 20 106/84 96 08/26/20 02:17 102 H 23 145/84 H 95 08/26/20 01:31 110 H 18 135/95 08/26/20 01:01 106 H 18 168/90 H PG Care Time/CCT Total # of Minutes Spent Total Time Spent with Patient: Total time spent is greater than 50% in coordination of care (as documented) at patient's floor/unit and/or counseling patient: Coding Level of Care Code 82923 Inpt Consult Level 4 Diagnoses Perforated abdominal viscus R19.8 UTI (urinary tract infection) N39.0; R31.9 Hematuria presence: with hematuria Urinary tract infection type: site unspecified Depression F32.9 Hyponatremia E87.1 Transaminitis R74.01 Rheumatoid arthritis M06.9 (1) UTI (urinary tract infection) Hematuria presence: with hematuria Urinary tract infection type: site unspecified Qualified Code(s): N39.0 - Urinary tract infection, site not speci fied; R31.9 - Hematuria, unspecified
[2020-08-26 12:53] LABS: Bilirubin Urine Negative (Negative); Ictotest Urine Negative (Negative)
[2020-08-26] MEDS: ONDANSETRON INJ 2 MG/ML 2 ML VIAL IV PRN ×2 (13:38→20:01)
[2020-08-26] MEDS: MoRPHine SULFATE 2 MG/ML CARP IV PRN ×2 (13:38→20:01)
[2020-08-26] MEDS ORDERED: Nursing to Pharmacy Communication SCH (14:15)
[2020-08-26] MEDS: HYDROmorphone INJ 1 MG/ML SYRINGE IV PRN (18:03)
[2020-08-27] MEDS: PIPERACILLIN/TAZOBACTAM 3.375 GM in DEXTROSE 5% 100 ML IV SCH ×3 (00:54→16:27)
[2020-08-27] MEDS: MoRPHine SULFATE 2 MG/ML CARP IV PRN ×3 (00:59→16:42)
[2020-08-27] MEDS: D5NSS + 20MEQ KCL 20 MEQ/1,000 ML BAG IV SCH ×2 (01:58→10:04)
[2020-08-27] MEDS ORDERED: VANCOMYCIN HCL 1,000 MG in SODIUM CHLORIDE 0.9% 250 ML IV SCH (04:00)
[2020-08-27 06:24] LABS: Basophils # (auto) 0.01 K/uL (0-0.2); Basophils % (auto) 0.1 %; Eosinophils # (auto) 0.08 K/uL (0-0.5); Eosinophils % (auto) 0.6 %; Hematocrit (blood only) 34.5 % (37-47); Hemoglobin 11.5 g/dL (12.0-16.0); Immature Granulocytes # (auto) 0.07 K/uL (0.00-0.02); Immature Granulocytes % (auto) 0.6 %; Lymphocytes # (auto) 0.46 K/uL (1.2-3.4); Lymphocytes % (auto) 3.7 %; Mean Corpuscular Hemoglobin 27.9 pg (25-34); Mean Corpuscular Hgb Conc 33.3 g/dL (32-36); Mean Corpuscular Volume 83.7 fL (80-100); Mean Platelet Volume 8.6 fL (7.4-10.4); Monocytes # (auto) 0.64 K/uL (0.11-0.59); Monocytes % (auto) 5.1 %; Neutrophils # (auto) 11.24 K/uL (1.4-6.5); Neutrophils % (auto) 89.9 %; Platelet Count 327 K/uL (130-400); RDW Coefficient of Variation 13.9 % (11.5-14.5); RDW Standard Deviation 42.2 fL (36.4-46.3); Red Blood Count 4.12 M/uL (4.2-5.4)
[2020-08-27 07:02] LABS: BUN Creatinine Ratio 30.8 (10-20); Calcium 7.2 mg/dl (8.5-10.1); Creatinine Clr Calc Pharmacy 95.7 ml/min; Est GFR (African American) 116.4; Est GFR (Non-African American) 100.5; Potassium 3.6 mmol/L (3.5-5.1)
[2020-08-27] MEDS: FAMOTIDINE 20 MG in SYRINGE 3 ML IV SCH ×2 (08:02→21:00)
[2020-08-27] MEDS: ENOXAPARIN INJ 30 MG/0.3 ML SYR SQ SCH (08:03)
[2020-08-27] MEDS: predniSONE 10 MG TABLET PO SCH (08:03)
[2020-08-27] MEDS: DULoxetine HCL 60 MG CAP PO SCH (08:03)
[2020-08-27] MEDS: CHOLECALCIFEROL 1,000 UNITS 25 MCG TAB PO SCH (08:03)
[2020-08-27] MEDS: DULoxetine HCL 30 MG CAP PO SCH (08:03)
[2020-08-27] MEDS: FOLIC ACID 1 MG TAB PO SCH (08:03)
[2020-08-27] MEDS: buPROPion SR 100 MG TABCR PO SCH ×2 (08:03→21:01)
[2020-08-27] MEDS: predniSONE 5 MG TAB PO SCH (08:03)
[2020-08-27] MEDS ORDERED: D5W AND 1/2NSS + 20MEQ KCL 20 MEQ/1,000 ML BAG IV SCH (10:45)
--- NOTE | 2020-08-27 10:45 | Surgery Progress Note ---
Date of Service August 27, 2020 Assessment & Plan (1) Perforated abdominal viscus: POD#1 Exploratory laparotomy, creation of loop colostomy, abdominal washout for perforated rectosigmoid cancer -Keep NPO, no need to replace NGT at this point unless she starts with emesis -Will switch IVF to D5 1/2 NSS with K+ as she is hyperchloremic this AM -Remove Cheema if UOP remains adequate today -Hospitalist team is ordering CXR and ABG to investigate her dyspnea, her O2 saturations are ok on RA, will follow up results Admission and Anticipated Discharge Date Admission Date: August 26, 2020 Subjective Pt seen and examined. Afebrile. Has been confused last evening and today. She c/o dyspnea and nausea. No colostomy function. No emesis. NGT was removed by patient last evening. Physical Exam Constitutional: Mild distress, answers questions appropriately Gastrointestinal (Abdomen): Inspection/Auscultation: + abdomen distended Percussion/Palpation: + abdomen tender (appropraiately) and abdomen soft; no guarding Incision with tonya, no erythema or warmth +Colostomy, pink with no output Results & Data ([facility]) Vital Signs (Past 12 Hours) Vital Signs Temp Pulse Resp BP Pulse Ox 08/27/20 07:36 36.8 C 104 H 24 136/89 95 08/27/20 04:05 36.7 C 101 H 18 133/86 95 08/27/20 00:04 36.8 C 114 H 20 126/87 94 PG Care Time/CCT Total # of Minutes Spent Total Time Spent with Patient: Total time spent is greater than 50% in coordination of care (as documented) at patient's floor/unit and/or counseling patient: Coding Level of Care Code None Diagnoses Perforated abdominal viscus R19.8
[2020-08-27 10:47] LABS: Base Excess ABG -2.1 mEq/L (-9-1.8); HCO3 ABG 21 mmol/L (19-24); PCO2 ABG 31 mmHg (35-46); PO2 ABG 75 mmHg (80-95); pH ABG 7.45 (7.35-7.45)
[2020-08-27 10:48] LABS: Allen Test Pos (Pos)
--- NOTE | 2020-08-27 10:54 | XRay Report ---
XR chest 1V portable CLINICAL HISTORY: tachypnea COMPARISON STUDY: 08/13/2020 FINDINGS: The cardiac and mediastinal contours remain stable. There is a right-sided A-Port catheter. There is no failure. There are minor basilar opacities. While likely atelectatic, an infectious/infl ammatory process could appear similar IMPRESSION: 1. Mild basilar opacities. While likely atelectatic, an infectious/inflammatory processes could appea r similar. ACT 112: Negative or not required by law. Electronically signed by: Clarke Walker M.D. 08/27/2020 10:53 AM
[2020-08-27] MEDS: VANCOMYCIN HCL 1,000 MG in SODIUM CHLORIDE 0.9% 250 ML IV SCH ×2 (12:13→20:59)
[2020-08-27] MEDS: D5W AND 1/2NSS + 20MEQ KCL 20 MEQ/1,000 ML BAG IV SCH ×2 (12:49→22:43)
--- NOTE | 2020-08-27 13:40 | XRay Report ---
XR KUB/Abdomen 1 view CLINICAL HISTORY: abd distention COMPARISON STUDY: CT scan dated 08/26/2020 FINDINGS: Postsurgical changes are visualized. There are anterior skin tonya. There is a surgical d rain within the pelvis. There is surgical clips within the right upper quadrant consistent with a gayle or cholecystectomy. There are postsurgical changes involve the lumbar spine. There are mildly dilated small bowel loops. Given the history of recent surgery this likely represents an ileus. IMPRESSION: 1. Interval surgery with placement of a pelvic drain 2. Dilated small bowel loops. Although nonspecific given the history of recent surgery this likely re presents an ileus. Clinical follow-up is advocated. ACT 112: Negative or not required by law. Electronically signed by: Clarke Walker M.D. 08/27/2020 1:39 PM
--- NOTE | 2020-08-27 14:08 | Hospitalist Progress Note ---
Date of Service August 27, 2020 Assessment & Plan (1) Perforated abdominal viscus: s/p ex lap with creation of colostomy with Dr. Saravia Management per primary (2) Bacteremia: Growing gram negative bacillus in one anaerobic bottle and gram positive bacillus in one anaerobic bottle. Patient is also growing gram negative bacilli in her surgical abdomen culture Continue Zosyn and vancomycin for broad spectrum coverage and await further identification Consulted infectious disease (3) Sepsis: Secondary to above Continue broad spectrum abx and follow cultures Continue IVF - D5w and 1/2nss +20K at 100 mls/hr Lactate today 1.4 ABG shows low pCO2 likely secondary to hyperventilating, pH is normal at 7.45 CXR without acute finding 08/27 - tachypnea/tachycardia likely due to sepsis (4) Ileus: On KUB 08/27 - continue NPO for now, patient pulled her NG tube out last evening (5) Transaminitis: Mild elevation of AST at 39, Alk phos 152 - both trending down, continue to follow (6) Hyponatremia: Chronic, Improving - on admission was 128, now 131 Recheck am (7) Rheumatoid arthritis: With history of juvenile arthritis Sees rheumatology - on chronic prednisone - will divide her equivalent dose of hydrocortisone in tid and administer until taking adequate po (8) UTI (urinary tract infection): Ruled out Heterogenous enhancement of kidneys on CT however urine growing less than 1000 colonies (9) Depression: Continue duloxetine, bupropion Admission and Anticipated Discharge Date Admission Date: August 26, 2020 Supervising Physician Co-Signing Physician Notes I supervised Belen Vasquez NP on this patient's care. I examined the patient today independently of her. I discussed the plan of care with her with the plan being as written in her note except for any following changes/exceptions: None. Delirious today, likely from infection. Labs/imaging don't indicate new surgical issue, but definitely a guarded prognosis given multiple bugs in her bloodstream. Will continue abx and monitor closely. Subjective Ms. Miller is quite confused today. She can answer some questions appropriately but others are non sensical. She feels that she can't catch her breath. She is tachypneic as we talk. Her pain is under control and she denies other discomfort. No nausea or vomiting. Sister Deb updated over the phone. Review of Systems Constitutional: no fever, no chills and no body aches Respiratory: no cough and no dyspnea Cardiovascular: no chest pain and no palpitations Gastrointestinal: no abdominal pain, no nausea and no vomiting Genitourinary: no dysuria and no urinary hesitancy (howard catheter ) Musculoskeletal: no back pain and no joint pain Integumentary: no rash Neurologic: + confusion Physical Exam Physical Exam: General: no distress Eyes: normal inspection, PERLL Respiratory: chest non tender, clear to auscultation, normal breath sounds, tachypneic Cardiac: regular rate and rhythm, no rub or gallop, no murmur, no edema, no jvd GI/: active bowel sounds, no abd pain or tenderness, soft, non distended Extremities: normal range of motion, normal strength, non tender Neuro/Psych: alert and oriented to person and place, anxious Skin: normal color, dry Results & Data Results & Data ([facility]) Vital Signs (Past 12 Hours) Vital Signs Temp Pulse Resp BP Pulse Ox 08/27/20 11:43 36.7 C 100 H 28 H 125/80 95 08/27/20 07:36 36.8 C 104 H 24 136/89 95 08/27/20 04:05 36.7 C 101 H 18 133/86 95 PG Care Time/CCT Total # of Minutes Spent Total Time Spent with Patient: Total time spent is greater than 50% in coordination of care (as documented) at patient's floor/unit and/or counseling patient: Coding Level of Care Code 67519 Subseq Hosp Care Lvl 3 Diagnoses Perforated abdominal viscus R19.8 Bacteremia R78.81 Sepsis A41.9 Ileus K56.7 Transaminitis R74.01 Hyponatremia E87.1 Rheumatoid arthritis M06.9 UTI (urinary tract infection) N39.0; R31.9 Hematuria presence: with hematuria Urinary tract infection type: site unspecified Depression F32.9 (1) UTI (urinary tract infection) Hematuria presence: with hematuria Urinary tract infection type: site unsp ecified Qualified Code(s): N39.0 - Urinary tract infection, site not specified; R31.9 - Hematuria, unspecified
[2020-08-27] MEDS: HYDROCORTISONE SOD 20 MG in SYRINGE 0 ML IV SCH ×2 (16:28→23:47)
[2020-08-28] MEDS: PIPERACILLIN/TAZOBACTAM 3.375 GM in DEXTROSE 5% 100 ML IV SCH ×3 (01:09→16:41)
[2020-08-28] MEDS ORDERED: VANCOMYCIN TROUGH ONE (03:30)
[2020-08-28 04:18] LABS: Eosinophils # (auto) 0.01 K/uL (0-0.5); Eosinophils % (auto) 0.1 %; Hematocrit (blood only) 28.2 % (37-47); Hemoglobin 9.5 g/dL (12.0-16.0); Immature Granulocytes # (auto) 0.05 K/uL (0.00-0.02); Immature Granulocytes % (auto) 0.5 %; Lymphocytes # (auto) 0.44 K/uL (1.2-3.4); Lymphocytes % (auto) 4.7 %; Mean Corpuscular Hemoglobin 28.3 pg (25-34); Mean Corpuscular Hgb Conc 33.7 g/dL (32-36); Mean Corpuscular Volume 83.9 fL (80-100); Mean Platelet Volume 8.7 fL (7.4-10.4); Monocytes # (auto) 0.55 K/uL (0.11-0.59); Monocytes % (auto) 5.9 %; Neutrophils # (auto) 8.31 K/uL (1.4-6.5); Neutrophils % (auto) 88.8 %; Platelet Count 290 K/uL (130-400); RDW Coefficient of Variation 13.8 % (11.5-14.5); RDW Standard Deviation 42.1 fL (36.4-46.3); Red Blood Count 3.36 M/uL (4.2-5.4); White Blood Count 9.36 K/uL (4.8-10.8)
[2020-08-28] MEDS: VANCOMYCIN HCL 1,000 MG in SODIUM CHLORIDE 0.9% 250 ML IV SCH ×3 (04:29→20:52)
[2020-08-28 04:40] LABS: Albumin Globulin Ratio 0.5 (0.9-2); Albumin Level 1.7 gm/dl (3.4-5.0); BUN Creatinine Ratio 24.3 (10-20); Bilirubin,Total 0.5 mg/dl (0.2-1); Calcium 7.2 mg/dl (8.5-10.1); Creatinine Clr Calc Pharmacy 122.1 ml/min; Est GFR (African American) 126.2; Est GFR (Non-African American) 108.9; Globulin 3.6 gm/dl (2.5-4.0); Potassium 3.6 mmol/L (3.5-5.1); Total Protein 5.3 gm/dl (6.4-8.2)
--- NOTE | 2020-08-28 07:06 | Surgery Progress Note ---
Date of Service August 28, 2020 Assessment & Plan (1) Perforated abdominal viscus: POD #2 ex lap with washout and colostomy for perforated CA -continue NPO until improved bowel function -hydration with IVF -confusion reported by staff: -pt. current alert to time, place, and person (know what year it is, know we just celebrated xmas, know she is in hospital) -continue to monitor -encourage ambulation Admission and Anticipated Discharge Date Admission Date: August 26, 2020 Supervising Physician Co-Signing Physician Notes I personally saw and evaluated the patient with Elias Ordaz PA-C and agree with the assessment and plan. 60 yo female POD#2 ex lap, creation of loop colostomy -Continue NPO until has colostomy function -ABX -Remove Cheema Subjective Pt. resting in bed. She notes only minor incisional pain. No N/V. No BM but passing flatus. She denies SOB. Discussed with aid at bedside--pt. is on 1:1 as periods of confusion noted. Physical Exam Constitutional: well developed and well nourished; no acute distress Neck: trachea midline Respiratory: normal respiratory effort; no respiratory distress and no labored breathing Cardiovascular: Rate/Rhythm: regular rate and regular rhythm Gastrointestinal (Abdomen): Inspection/Auscultation: abdomen not distended Percussion/Palpation: + abdomen tender (minor tenderness at surgical incision) and abdomen soft BS are hypoactive Neurologic: moves all extremities Psychiatric: Orientation: alert and oriented x 3 Results & Data ([facility]) Vital Signs (Past 12 Hours) Vital Signs Temp Pulse Resp BP Pulse Ox 08/28/20 06:51 36.3 C L 86 16 117/75 97 08/28/20 03:04 36.7 C 91 H 20 133/84 95 08/27/20 23:12 36.7 C 91 H 18 114/77 98 PG Care Time/CCT Total # of Minutes Spent Total Time Spent with Patient: Total time spent is greater than 50% in coordination of care (as documented) at patient's floor/unit and/or counseling patient: Coding Level of Care Code None Diagnoses Perforated abdominal viscus R19.8
[2020-08-28] MEDS: ENOXAPARIN INJ 30 MG/0.3 ML SYR SQ SCH (07:47)
[2020-08-28] MEDS: D5W AND 1/2NSS + 20MEQ KCL 20 MEQ/1,000 ML BAG IV SCH ×2 (07:47→16:42)
[2020-08-28] MEDS: HYDROCORTISONE SOD 20 MG in SYRINGE 0 ML IV SCH ×2 (07:48→16:42)
[2020-08-28] MEDS: buPROPion SR 100 MG TABCR PO SCH ×2 (07:49→20:45)
[2020-08-28] MEDS: FOLIC ACID 1 MG TAB PO SCH (07:50)
[2020-08-28] MEDS: DULoxetine HCL 60 MG CAP PO SCH (07:50)
[2020-08-28] MEDS: DULoxetine HCL 30 MG CAP PO SCH (07:50)
[2020-08-28] MEDS: CHOLECALCIFEROL 1,000 UNITS 25 MCG TAB PO SCH (07:51)
[2020-08-28] MEDS: FAMOTIDINE 20 MG in SYRINGE 3 ML IV SCH ×2 (07:54→20:52)
--- NOTE | 2020-08-28 09:52 | Pharmacy Report ---
Pharmacy Abx Dose Short Note - Date of Service August 28, 2020 - Assessment & Plan Assessment 60 year old F receiving Vancomycin and Zosyn for treatment of intraabdominal infection * Day #3 of antimicrobial therapy * Patient presented on 08/26 with perforated abdominal viscus * She is now POD #2 s/p exploratory laparotomy * Anaerobic blood cultures growing gram negative bacilli and gram positive bacilli. Abdominal cultures from OR growing gram negative bacilli. * Afebrile. Renal fxn stable. Leukocytosis improving (12.5k--9.4k). Plan Vancomycin * Trough level of 18.1 mcg/mL is therapeutic * Continue dose of 1000 mg IV every 8 hours * Goal trough level: 15 mcg/mL * Trough level ordered for morning of 08/29 to ensure patient is not accumulating vancomycin. Zosyn * 3.375 grams IV every 8 hours * Appropriate per indication, renal fxn and BMI Pharmacy will continue to follow and will adjust dose/frequency as necessary. Thank you.
[2020-08-28] MEDS ORDERED: HYDROCORTISONE SOD 50 MG in SYRINGE 0 ML IV SCH (14:30)
[2020-08-28] MEDS: HYDROmorphone INJ 1 MG/ML SYRINGE IV PRN (17:08)
--- NOTE | 2020-08-28 17:47 | Hospitalist Progress Note ---
Date of Service August 28, 2020 Assessment & Plan (1) Perforated abdominal viscus: S/p ex lap with creation of colostomy with Dr. Saravia on 08/26/2020. - Management per primary - Drain still in place, but output has definitely decreased from yesterday. (2) Bacteremia: Blood from 08/25 growing Gram(+) and Gram(-) bacilli. - Abdominal culture from 08/26 growing Gram(-) bacilli. - Continue Zosyn and vancomycin for broad spectrum coverage and await further identification. - Consulted infectious disease - Pending for Sunday (3) Ileus: On KUB 08/27. - Continue NPO for now; surgery will make determination on when to start diet (4) Sepsis: Secondary to above. - Resolved (5) Rheumatoid arthritis: With history of juvenile arthritis. Sees rheumatology. - On chronic prednisone - will give her equivalent dose of hydrocortisone until taking adequate PO. - Continue hydrocortisone 20 mg IV TID (6) Depression: - Continue duloxetine, bupropion (7) DVT prophylaxis: Lovenox 30 mg SQ Q24h Admission and Anticipated Discharge Date Admission Date: August 26, 2020 Subjective Feeling better today. Notes minimal abdominal pain, only slightly in the RLQ. Much more oriented today. Reports no fevers/chills, chest pain, shortness of breath, nausea, or vomiting. Physical Exam Constitutional: WD/WN, vitals as above Eyes: EOM intact bilaterally; no conjunctival abnormality ENMT: external ear and nose normal, oropharynx normal Neck: trachea midline, no thyromegaly normal visual inspection Respiratory: normal respiratory effort, lungs clear to auscultation no respiratory distress Cardiovascular: RRR, no murmur, no edema Gastrointestinal (Abdomen): Inspection/Auscultation: abdomen normal to inspection; abdomen not distended Musculoskeletal: no cyanosis or clubbing, extremities motor strength 5/5 Skin: no rashes, warm and dry Neurologic: moves all extremities and awake Psychiatric: Orientation: alert, oriented to person and cooperative Results & Data Results & Data ([facility]) Vital Signs (Past 12 Hours) Vital Signs Temp Pulse Pulse Pulse Resp BP Pulse Ox 08/28/20 16:37 36.7 C 89 20 115/73 91 08/28/20 15:20 99 H 08/28/20 11:39 36.8 C 86 16 119/77 92 08/28/20 08:00 87 12/26/20 06:51 36.3 C L 86 16 117/75 97 PG Care Time/CCT Total # of Minutes Spent Total Time Spent with Patient: Total time spent is greater than 50% in coordination of care (as documented) at patient's floor/unit and/or counseling patient: Coding Level of Care Code 34073 Subseq Hosp Care Lvl 3 Diagnoses Perforated abdominal viscus R19.8 Bacteremia R78.81 Ileus K56.7 Sepsis A41.9 Rheumatoid arthritis M06.9 Depression F32.9 DVT prophylaxis Z29.9
[2020-08-29] MEDS: PIPERACILLIN/TAZOBACTAM 3.375 GM in DEXTROSE 5% 100 ML IV SCH ×3 (00:31→16:46)
[2020-08-29] MEDS: HYDROCORTISONE SOD 20 MG in SYRINGE 0 ML IV SCH ×4 (00:32→23:00)
[2020-08-29] MEDS: D5W AND 1/2NSS + 20MEQ KCL 20 MEQ/1,000 ML BAG IV SCH ×3 (02:56→22:36)
[2020-08-29] MEDS ORDERED: VANCOMYCIN TROUGH ONE (03:30)
[2020-08-29 03:52] LABS: Hematocrit (blood only) 29.3 % (37-47); Hemoglobin 9.9 g/dL (12.0-16.0); Mean Corpuscular Hemoglobin 28.4 pg (25-34); Mean Corpuscular Hgb Conc 33.8 g/dL (32-36); Mean Corpuscular Volume 84.2 fL (80-100); Mean Platelet Volume 8.7 fL (7.4-10.4); Platelet Count 326 K/uL (130-400); RDW Coefficient of Variation 14.1 % (11.5-14.5); RDW Standard Deviation 43.3 fL (36.4-46.3); Red Blood Count 3.48 M/uL (4.2-5.4); White Blood Count 12.63 K/uL (4.8-10.8)
[2020-08-29 04:11] LABS: Albumin Level 1.8 gm/dl (3.4-5.0); BUN Creatinine Ratio 14.5 (10-20); Calcium 7.7 mg/dl (8.5-10.1); Creatinine Clr Calc Pharmacy 119.6 ml/min; Est GFR (African American) 125.3; Est GFR (Non-African American) 108.1; Potassium 3.5 mmol/L (3.5-5.1)
[2020-08-29 04:22] LABS: Albumin Globulin Ratio 0.5 (0.9-2); Bilirubin,Total 0.5 mg/dl (0.2-1); Total Protein 5.8 gm/dl (6.4-8.2)
[2020-08-29] MEDS: VANCOMYCIN HCL 1,000 MG in SODIUM CHLORIDE 0.9% 250 ML IV SCH ×3 (04:26→20:21)
--- NOTE | 2020-08-29 06:38 | Surgery Progress Note ---
Date of Service August 29, 2020 Assessment & Plan (1) Perforated abdominal viscus: POD #3 ex lap with colostomy -continue to go slow with diet -will need to replace Ph -mobilize -continue abx--zosyn/vanco for postive blood cultures as well as surgical specimen Admission and Anticipated Discharge Date Admission Date: August 26, 2020 Supervising Physician Co-Signing Physician Notes I personally saw and evaluated the patient with Elias Ordaz PA-C and agree with the assessment and plan. 60 yo female POD#3 ex lap, creation of loop colostomy -Start clears, has some ostomy function -Replace Phos -ABX -Remove Cheema Subjective Pt. denies worsening abdominal pain. No N/V. She notes she does not have much of an apatite. Physical Exam Constitutional: well developed and well nourished; no acute distress Gastrointestinal (Abdomen): soft, non-distended; colostomy is viable with small amount of brown stool in collection bag Neurologic: moves all extremities Psychiatric: Orientation: alert and oriented x 3 Results & Data ([facility]) Vital Signs (Past 12 Hours) Vital Signs Temp Pulse Pulse Pulse Resp BP BP 08/29/20 04:26 36.6 C 82 21 145/81 H 08/28/20 23:43 83 08/28/20 22:35 36.7 C 87 18 124/79 08/28/20 19:41 36.5 C 93 H 20 126/77 Pulse Ox 08/29/20 04:26 99 08/28/20 23:43 08/28/20 22:35 96 08/28/20 19:41 95 PG Care Time/CCT Total # of Minutes Spent Total Time Spent with Patient: Total time spent is greater than 50% in coordination of care (as documented) at patient's floor/unit and/or counseling patient: Coding Level of Care Code None Diagnoses Perforated abdominal viscus R19.8
[2020-08-29] MEDS ORDERED: POTASSIUM PHOS 3 MMOL/1 ML INFUSION IV STA (06:49)
[2020-08-29] MEDS ORDERED: POTASSIUM PHOSPHATE 21 MMOL in SODIUM CHLORIDE 0.9% 500 ML IV ONE (07:15)
[2020-08-29] MEDS: ENOXAPARIN INJ 30 MG/0.3 ML SYR SQ SCH (07:42)
[2020-08-29] MEDS: CHOLECALCIFEROL 1,000 UNITS 25 MCG TAB PO SCH (07:43)
[2020-08-29] MEDS: buPROPion SR 100 MG TABCR PO SCH ×2 (07:43→20:21)
[2020-08-29] MEDS: DULoxetine HCL 60 MG CAP PO SCH (07:43)
[2020-08-29] MEDS: DULoxetine HCL 30 MG CAP PO SCH (07:43)
[2020-08-29] MEDS: FOLIC ACID 1 MG TAB PO SCH (07:44)
[2020-08-29] MEDS: FAMOTIDINE 20 MG in SYRINGE 3 ML IV SCH ×2 (07:47→20:20)
--- NOTE | 2020-08-29 08:26 | Pharmacy Report ---
Pharmacy Abx Dose Short Note - Date of Service August 29, 2020 - Assessment & Plan Assessment 60 year old F receiving Vancomycin and Zosyn for treatment of intraabdominal infection * Day #4 of antimicrobial therapy * Patient presented on 08/26 with perforated abdominal viscus * She is now POD #3 s/p exploratory laparotomy * Anaerobic blood cultures growing gram negative bacilli and gram positive bacilli. Abdominal cultures from OR growing gram negative bacilli. * ID consult pending for Sunday. Awaiting speciation prior to de-escalation. * Afebrile. Renal fxn stable. Slight increase in WBCs today (12.5k--9.4k--12.6k ), unsure of cause Plan Vancomycin * Trough level of 18.2 mcg/mL is therapeutic * Continue dose of 1000 mg IV every 8 hours * Goal trough level: ~ 15 mcg/mL * Will extend trough monitoring given two consecutive therapeutic troughs and stable renal fxn. Next trough level due Sunday. Pharmacy will continue to follow and will adjust dose/frequency as necessary. Thank you.
[2020-08-29] MEDS: MoRPHine SULFATE 2 MG/ML CARP IV PRN (11:43)
--- NOTE | 2020-08-29 13:22 | Hospitalist Progress Note ---
Date of Service August 29, 2020 Assessment & Plan (1) Perforated abdominal viscus: S/p ex lap with creation of colostomy with Dr. Saravia on 08/26/2020. - Management per primary - Drain still in place, but output has definitely decreased from yesterday. Also more serous today. Pain is controlled. Incision looks good. (2) Bacteremia: Blood from 08/25 growing Gram(+) and Gram(-) bacilli. - Abdominal culture from 08/26 growing lemus-sensitive Pseudomonas. Given improvement, don't feel double-coverage with abx is necessary right now. - Continue Zosyn and vancomycin for broad spectrum coverage and await further identification. - Consulted infectious disease - Pending for Sunday (3) Ileus: On KUB 08/27. Now having some ostomy output as of 08/29. - Continue NPO for now; surgery will make determination on when to start diet (4) Sepsis: Secondary to above. - Resolved (5) Rheumatoid arthritis: With history of juvenile arthritis. Sees rheumatology. - On chronic prednisone - will give her equivalent dose of hydrocortisone until taking adequate PO. - Continue hydrocortisone 20 mg IV TID (6) Depression: - Continue duloxetine, bupropion (7) DVT prophylaxis: Lovenox 30 mg SQ Q24h Admission and Anticipated Discharge Date Admission Date: August 26, 2020 Subjective Notes she had some pain earlier this morning, but now feeling better after pain meds. Some ostomy output in the bag. Reports no fevers/chills, chest pain, shortness of breath, nausea, or vomiting. Physical Exam Constitutional: WD/WN, vitals as above Eyes: EOM intact bilaterally; no conjunctival abnormality ENMT: external ear and nose normal, oropharynx normal Neck: trachea midline, no thyromegaly normal visual inspection Respiratory: normal respiratory effort, lungs clear to auscultation no respiratory distress Cardiovascular: RRR, no murmur, no edema Gastrointestinal (Abdomen): Inspection/Auscultation: + abdominal surgical incision (Stapled. Clean. Drain present.) and + abdominal surgical drain present (Serous output.); abdomen not distended Percussion/Palpation: abdomen soft; abdomen nontender, no guarding and abdomen not rigid Musculoskeletal: no cyanosis or clubbing, extremities motor strength 5/5 Skin: no rashes, warm and dry Neurologic: moves all extremities and awake Psychiatric: Orientation: alert, oriented to person and cooperative Results & Data Results & Data ([facility]) Vital Signs (Past 12 Hours) Vital Signs Temp Pulse Pulse Pulse Resp BP BP 08/29/20 08:00 80 08/29/20 07:49 36.6 C 90 16 156/90 H 08/29/20 04:26 36.6 C 82 21 145/81 H Pulse Ox 08/29/20 08:00 08/29/20 07:49 91 08/29/20 04:26 99 PG Care Time/CCT Total # of Minutes Spent Total Time Spent with Patient: Total time spent is greater than 50% in coordination of care (as documented) at patient's floor/unit and/or counseling patient: Coding Level of Care Code 23666 Subseq Hosp Care Lvl 3 Diagnoses Perforated abdominal viscus R19.8 Bacteremia R78.81 Ileus K56.7 Sepsis A41.9 Rheumatoid arthritis M06.9 Depression F32.9 DVT prophylaxis Z29.9
[2020-08-29] MEDS: HYDROmorphone INJ 1 MG/ML SYRINGE IV PRN ×2 (16:44→22:36)
[2020-08-29] MEDS: ONDANSETRON INJ 2 MG/ML 2 ML VIAL IV PRN ×2 (16:44→22:36)
[2020-08-30] MEDS: PIPERACILLIN/TAZOBACTAM 3.375 GM in DEXTROSE 5% 100 ML IV SCH ×2 (00:16→07:57)
[2020-08-30] MEDS: VANCOMYCIN HCL 1,000 MG in SODIUM CHLORIDE 0.9% 250 ML IV SCH (04:00)
[2020-08-30] MEDS: HYDROmorphone INJ 1 MG/ML SYRINGE IV PRN ×2 (05:55→11:51)
[2020-08-30] MEDS: ONDANSETRON INJ 2 MG/ML 2 ML VIAL IV PRN ×3 (05:55→18:02)
[2020-08-30] MEDS: MoRPHine SULFATE 2 MG/ML CARP IV PRN ×3 (07:50→23:29)
[2020-08-30] MEDS: FAMOTIDINE 20 MG in SYRINGE 3 ML IV SCH ×2 (07:51→20:04)
[2020-08-30] MEDS: HYDROCORTISONE SOD 20 MG in SYRINGE 0 ML IV SCH ×3 (07:51→23:47)
[2020-08-30] MEDS: D5W AND 1/2NSS + 20MEQ KCL 20 MEQ/1,000 ML BAG IV SCH (07:53)
[2020-08-30] MEDS: DULoxetine HCL 60 MG CAP PO SCH (07:54)
[2020-08-30] MEDS: buPROPion SR 100 MG TABCR PO SCH ×2 (07:54→20:04)
[2020-08-30] MEDS: FOLIC ACID 1 MG TAB PO SCH (07:54)
[2020-08-30] MEDS: ENOXAPARIN INJ 30 MG/0.3 ML SYR SQ SCH (07:55)
[2020-08-30] MEDS: CHOLECALCIFEROL 1,000 UNITS 25 MCG TAB PO SCH (07:55)
[2020-08-30] MEDS: DULoxetine HCL 30 MG CAP PO SCH (07:55)
[2020-08-30] MEDS ORDERED: HYDROCORTISONE SOD 20 MG in SYRINGE 0 ML IV SCH (08:30)
--- NOTE | 2020-08-30 08:50 | Surgery Progress Note ---
Date of Service F/U S/P exploratory laparotomy, loop colostomy for perforated viscus POD 4 pt feels better, tolerated clear diet, colostomy is working, no nausea, no vomiting, no fever, culture reviewed, Spec: [id number] Collected: 08/26/20-UNK Received: 08/26/20-[address]: Rudy Saravia MD Source: Abdomen OV Order: Ordered: Aer/Lucila Cult/Sm Procedure Result Verified Site Gram Stain Final 08/26/20-947 Gram Stain Result Moderate Polys No Organisms Seen Aero/Lucila Cult Preliminary 08/29/20-1340 Organism 1 Pseudomonas aeruginosa Quantity Rare Sens Sensitivities to Follow +MixWound Plus Low Counts of Probable Skin [place] Organism 2 Bacteroides fragilis Quantity Few Sens No Sensitivities to Follow P aerugino RX M.I.C. --- --------- Amikacin S <=16 Aztreonam S <=4 Cefepime S <=4 Ceftazidime S <=1 Ciprofloxacin S <=1 Gentamicin S <=4 Levofloxacin S <=2 Meropenem S <=1 Tobramycin S <=4 Pip/Tazo S <=16 S = SENSITIVE I = INTERMEDIATE R = RESISTANT August 30, 2020 Assessment & Plan (1) Abdominal pain: (2) Perforation of sigmoid colon due to diverticulitis: pt is a 60 year-old female who presents to ER wit 10 days history abdominal pain, IMP: acute abdominal pain, perforated sigmoid diverticulitis, sepsis, Plan, I recommend to do emergent exploratory laparotomy, possible bowel resection, stoma, D/W benefits, risks and alternatives of the surgery, the risks - infection, bleeding, abscess, sepsis, multiple organs failure, DVT, CA, stroke, incisional hernia, , pt understood, she agrees with the surgery, I answered all questions, IV antibiotic, IV fluid resuscitation, 08/30/2020 8:52AM 60 yo female POD#4 ex lap, creation of loop colostomy, I update pt about OR finding and the procedure pt had. pt understood, I answered all questions, -Start clears, has some ostomy function -add on cipro + flagyl -ABX - still clera diet today, - consult GI for possible sigmoidoscopy to biopsy junction of sigmoid- rectal mass, -repeat labs in am, - OOB Admission and Anticipated Discharge Date Admission Date: August 26, 2020 Supervising Physician Co-Signing Physician Notes I personally saw and evaluated the patient with Elias Ordaz PA-C and agree with the assessment and plan. 60 yo female POD#3 ex lap, creation of loop colostomy -Start clears, has some ostomy function -Replace Phos -ABX -Remove Cheema Subjective Notes she had some pain earlier this morning, but now feeling better after pain meds. Some ostomy output in the bag. Reports no fevers/chills, chest pain, shortness of breath, nausea, or vomiting. Review of Systems Constitutional: as per Subjective / HPI Eyes: as per Subjective / HPI Ear, Nose, Mouth, Throat: as per Subjective / HPI Respiratory: as per Subjective / HPI dyspnea on exertion, pneumonia Cardiovascular: as per Subjective / HPI Gastrointestinal: as per Subjective / HPI and + abdominal pain Genitourinary: as per Subjective / HPI UTI Musculoskeletal: as per Subjective / HPI rheumatoid arthritis, chronic steroid use, Juvenile idiopathic arthritis Integumentary: as per Subjective / HPI Neurologic: as per Subjective / HPI Psychiatric: as per Subjective / HPI Endocrine: as per Subjective / HPI Hematologic / Lymphatic: as per Subjective / HPI Immunocompromised state Allergy / Immunological: as per Subjective / HPI Physical Exam Constitutional: WD/WN, vitals as above well developed and well nourished Eyes: PERRL, conjunctivae normal, anicteric sclerae ENMT: external ear and nose normal, oropharynx normal Neck: trachea midline, no thyromegaly Respiratory: normal respiratory effort, lungs clear to auscultation + tachypneic Cardiovascular: RRR, no murmur, no edema Rate/Rhythm: regular rate and regular rhythm Gastrointestinal (Abdomen): Percussion/Palpation: abdomen soft mild distend, no significant tenderness, the incision intact, no redness, no drainage, BS +, loop colostomy is working, some stool in bag, colostomy is pink color. GABRIELA drainage 35ml yellow color, Musculoskeletal: no cyanosis or clubbing, extremities motor strength 5/5 Skin: no rashes, warm and dry Neurologic: awake Psychiatric: Orientation: alert and oriented x 3 Results & Data ([facility]) Vital Signs (Past 12 Hours) Vital Signs Temp Pulse Pulse Pulse Resp BP Pulse Ox 08/30/20 07:42 79 08/30/20 07:00 36.4 C L 78 20 163/107 H 93 08/30/20 02:56 36.4 C L 78 18 155/93 H 91 08/30/20 01:00 81 08/29/20 21:52 36.4 C L 81 20 137/85 94
[2020-08-30 09:33] LABS: Hematocrit (blood only) 33.9 % (37-47); Hemoglobin 11.2 g/dL (12.0-16.0); Mean Corpuscular Hemoglobin 28.1 pg (25-34); Mean Corpuscular Volume 85.2 fL (80-100); Mean Platelet Volume 8.7 fL (7.4-10.4); Platelet Count 363 K/uL (130-400); RDW Coefficient of Variation 14.3 % (11.5-14.5); RDW Standard Deviation 44.5 fL (36.4-46.3); Red Blood Count 3.98 M/uL (4.2-5.4); White Blood Count 16.43 K/uL (4.8-10.8)
[2020-08-30 09:47] LABS: BUN Creatinine Ratio 9.3 (10-20); Calcium 8.2 mg/dl (8.5-10.1); Creatinine Clr Calc Pharmacy 107.6 ml/min; Est GFR (African American) 116.4; Est GFR (Non-African American) 100.5; Potassium 3.1 mmol/L (3.5-5.1)
[2020-08-30 09:48] LABS: Phosphorus 2.5 mg/dl (2.5-4.9)
--- NOTE | 2020-08-30 11:32 | Gastrointestinal Consultation ---
Date of Consultation August 30, 2020 Assessment & Plan (1) Abnormal CT scan, colon: Discussed with Dr. Riley. To reduce the risk of perforation, would allow 4-6 weeks after this acute episode and surgical intervention prior to endoscopic evaluation & biopsy. Thank you for allowing us to participate in the care of this patient. Supervising Physician Co-Signing Physician Notes I personally evaluated the patient and agree with the findings as documented by Cynthia Briceno, PAC Exam: abd: soft, moderate tenderness, nd s/p acute surgery after perforation. would allow 4-6 weeks before performing diagnostic sigmoidoscopy/colonoscopy. patient can follow up with Dr. Obregon as an outpatient. 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 Rios of colorectal surgery at [facility] during a routine hemorrhoidectomy. She reports to me that she was treated with chemo, surgery, & radiation at that time. She underwent a colonoscopy in 2019 that indicated a polyp in the ascending colon along with internal hemorrhoids & diverticulosis. She notes that she recently had a significant change in her bowel habits. Per nursing documentation, it appears that she contacted our outpatient clinic and was advised to have an appointment for further assessment. Patient reported that she was looking for a medication recommendation over the phone and declined to proceed with further work-up/evaluation. She did seek advice on 08/23 through her primary care for constipation medication. Unfortunately, her abdominal pain worsened and she presented to the ED. Surgical intervention was requested when the patient was noted to have free air in the abdominal cavity possibly related to a perforated diverticulitis. The patient was admitted and underwent an ex lap with loop colostomy. CT imaging on 08/25/2020 suggested moderate fecal retention of the sigmoid colon with liquid stool throughout the rest of the colon. There was a concern of soft tissue infiltration throughout the pelvis and wall thickening of the rectosigmoid colon. There was a wall thickening of the lower rectum and free air throughout the abdomen. GI has been consulted for further evaluation of a possible sigmoid mass noted during surgery. It does not appear tissue samples were obtained during surgery. Attending Physician: Rudy Saravia MD Allergies Allergy/AdvReac Type Severity Reaction Status Date / Time doxycycline Allergy Intermediate RASH Verified 08/25/20 23:12 buspirone AdvReac Intermediate nightmares Verified 08/25/20 23:12 mirtazapine AdvReac Mild weight gain Verified 08/25/20 23:12 Home Medications Medication Instructions Recorded Confirmed Type folic acid 1 mg PO QAM 90 Days #90 tab 01/03/17 08/25/20 History cholecalciferol (vitamin D3) 1,000 unit PO QAM 07/08/18 08/25/20 History pantoprazole 40 mg tablet,delayed 40 mg PO QAM 90 Days #90 tab 06/08/20 08/25/20 Rx release prednisone 5 mg tablet 5 mg PO QAM 06/14/20 08/25/20 History duloxetine [Cymbalta] 60 mg PO DAILY 06/23/20 08/25/20 History bupropion HCl 100 mg tablet,12 hr 100 mg PO BID #180 ea 07/14/20 08/25/20 Rx sustained-release dicyclomine 20 mg PO TID PRN #9 tab 08/16/20 08/25/20 Rx duloxetine 30 mg PO DAILY 08/25/20 08/25/20 History prednisone 10 mg PO DAILY 08/25/20 08/25/20 History Patient History Medical History Abnormal CT scan, chest Acute hypotension 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, chemo, radiation Atrial tachycardia Deep vein thrombosis hx of after back surgery---no blood thinners Degenerative disc disease Detached retina Diverticulosis Dyspnea on exertion Immunocompromised state Juvenile idiopathic arthritis Lyme disease Normocytic anemia Pneumonia Rheumatoid arthritis Spinal stenosis Symptomatic anemia Vitamin D deficiency Warts, genital Surgical History H/O hemorrhoidectomy History of arthroscopy of left knee History of colonoscopy Recommend repeat 2023 History of detached retina repair left History of esophagogastroduodenoscopy (EGD) History of lumbar discectomy History of lumbar fusion hardware in place History of right elbow replacement History of total left knee replacement (TKR) History of vascular access device [place] right side Hx of cholecystectomy Family History Sister Family history of reaction to anesthesia trouble waking up after anesthesia Type 2 diabetes mellitus Breast cancer Mother Cardiac disorder Hypertension Type 2 diabetes mellitus Grandfather (Paternal) Family hx of colon cancer Father Bladder cancer Grandfather Osteoarthritis Grandmother Osteoarthritis Social History Smoking Status: Never smoker Tobacco Type: Cigarettes Age Started Using Tobacco: 17; Age Quit Using Tobacco: 40; packs per day: 1; Years Smoked: 23; Second Hand Exposure: No; Hx Alcohol Use: No Hx Substance Use: No Preferred Language: Georgian Communication Ability: Effective Visual Impairment: Diminished Hearing Ability: Normal Child Custody Evaluator Required: No Beliefs That Will Affect Care: None marital status: Single Current Living Situation: Alone current occupational status: disabled Other Information That Helps Us Care for You: No Feels Safe at Home: Yes Safety Concerns: Feels Safe At This Time Childhood Exposure to Second-Hand Smoke: Yes caffeine: Yes Dental Care, Regularly: Yes Physical Activity Frequency: 1-2 Times per Week Physical Activity Frequency Comment: walk Seatbelt Use: always Sunscreen Use: Yes Assistive Devices: None Review of Systems Constitutional: no fever and no chills Respiratory: no cough and no dyspnea Cardiovascular: no chest pain Gastrointestinal: + abdominal pain and + change in bowel habits Musculoskeletal: no problem reported Integumentary: no problem reported Psychiatric: no problem reported Hematologic / Lymphatic: no unexplained weight loss Physical Exam Constitutional: well developed ENMT: Ears: no hearing impairment Neck: normal visual inspection Respiratory: normal respiratory effort Cardiovascular: Extremities: no edema Gastrointestinal (Abdomen): Percussion/Palpation: + abdomen tender Musculoskeletal: Head/Neck/Chest: normocephalic Skin: no rashes Neurologic: Speech / Cognition: normal speech Psychiatric: A+Ox3, euthymic affect Results & Data ([facility]) Vital Signs (Past 12 Hours) Vital Signs Temp Pulse Pulse Pulse Resp BP Pulse Ox 08/30/20 07:42 79 08/30/20 07:00 36.4 C L 78 20 163/107 H 93 08/30/20 02:56 36.4 C L 78 18 155/93 H 91 08/30/20 01:00 81
[2020-08-30] MEDS: POTASSIUM CHLORIDE / WTR 10 MEQ/100 ML PLCT IV SCH ×2 (11:48→12:40)
[2020-08-30] MEDS: CIPROFLOXACIN / D5W 400 MG/200 ML BAG IV SCH ×2 (13:45→20:04)
[2020-08-30] MEDS: metroNIDAZOLE 500 MG/100 ML BAG IV SCH ×2 (13:47→21:09)
--- NOTE | 2020-08-30 16:22 | Hospitalist Progress Note ---
Date of Service August 30, 2020 Assessment & Plan (1) Acute respiratory distress: suspect some element of volume overload / edema causing symptoms. 15 liters + since admission. cxr obtained- effusions. lasix 20mg IV x 1 STAT - 1500cc UOP w/ such. IV fluids stopped. purewick placed for accurate output. had provoked DVT following surgery years ago. 08/25 CTA chest neg for PE but keep VTE in mind if no improvement. (2) Volume overload: CXR now lasix now stop IV fluids hypoalbuminemia not helping (<2 on 08/29) (3) Perforated abdominal viscus: POD #4 - S/p ex lap with creation of colostomy with Dr. Saravia on 08/26/2020. Management per primary surg team (4) Bacteremia: SEPTICEMIA. Blood cxs from 08/25 --prevotella, eubacterium. Intra-abdominal culture from 08/26 lemus-sensitive Pseudomonas and bacteroides. ID consult - zosyn --> cipro/flagyl. Appears gen surg made those changes today. (5) Sepsis: 2nd peritonitis. resolving. repeat blood cx's to ensure sterility. (6) Rheumatoid arthritis: With history of juvenile arthritis. Sees rheumatology. - On chronic prednisone - will give her equivalent dose of hydrocortisone until taking adequate PO. - Continue hydrocortisone 20 mg IV TID (7) Depression: duloxetine, bupropion (8) Hypokalemia: replace PO and IV bmp in am (9) DVT prophylaxis: Lovenox - increase to 40mg - renal fx normal did have ZACARIAS - resolved Admission and Anticipated Discharge Date Admission Date: August 26, 2020 Subjective upon arrival patient c/o dyspnea and BONILLA with minimal exertion. just rolling in the bed makes her SOB. walking to BR causes extreme dyspnea. on clears - tolerating so far. no chest pain. mouth is dry. some orthopnea. mild abd pain. Review of Systems Constitutional: + fatigue and + anorexia; no fever and no chills Respiratory: + dyspnea and + dyspnea on exertion; no cough Cardiovascular: no edema Gastrointestinal: + bloating Physical Exam Constitutional: + acute distress (tachypneic; intermittent retractions); no altered mental status ENMT: Mouth: + dry oral mucous membranes Respiratory: + respiratory distress Auscultation: + diminished lung sounds and + crackles (bases); no wheezes Cardiovascular: Rate/Rhythm: regular rate and regular rhythm Heart Sounds: normal S1 and normal S2; no murmur Vessels: + JVD Extremities: no edema Gastrointestinal (Abdomen): Inspection/Auscultation: + abdomen distended and normal bowel sounds Percussion/Palpation: + abdomen tender Skin: midline incision clean, tonya intact; ostomy LLQ - minimal brown stool in bag Psychiatric: Orientation: alert Affect: + anxious affect Results & Data Results & Data ([facility]) Vital Signs (Past 12 Hours) Vital Signs Temp Pulse Pulse Resp BP BP Pulse Ox 08/30/20 15:25 36.6 C 85 18 152/91 H 93 08/30/20 11:00 36.3 C L 86 18 158/98 H 94 08/30/20 07:42 79 08/30/20 07:00 36.4 C L 78 20 163/107 H 93 Laboratory Results Laboratory Results - last 24 hr 08/30/20 08/30/20 08:46 08:46 WBC 16.43 H RBC 3.98 L Hgb 11.2 L Hct 33.9 L MCV 85.2 MCH 28.1 MCHC 33.0 RDW Std Deviation 44.5 RDW Coeff of Gabrielle 14.3 Plt Count 363 MPV 8.7 Sodium 139 Potassium 3.1 L Chloride 109 H Carbon Dioxide 22 Anion Gap 9.0 BUN 6 L Creatinine 0.60 Est Cr Clr Drug Dosing 107.6 Est GFR ( Amer) 116.4 Est GFR (Non-Af Amer) 100.5 BUN/Creatinine Ratio 9.3 L Glucose 118 H Calcium 8.2 L Phosphorus 2.5 D PG Care Time/CCT Total # of Minutes Spent Total Time Spent with Patient: Total time spent is greater than 50% in coordination of care (as documented) at patient's floor/unit and/or counseling patient: Coding Level of Care Code 79286 Subseq Hosp Care Lvl 3 Diagnoses Acute respiratory distress R06.03 Volume overload E87.70 Perforated abdominal viscus R19.8 Bacteremia R78.81 Sepsis A41.9 Rheumatoid arthritis M06.9 Depression F32.9 Hypokalemia E87.6 DVT prophylaxis Z29.9
[2020-08-30] MEDS ORDERED: FUROSEMIDE 20 MG in SYRINGE 0 ML IV ONE (16:30)
[2020-08-30] MEDS: POTASSIUM CHLORIDE CRTAB 20 MEQ TABCR PO SCH (16:40)
--- NOTE | 2020-08-30 17:36 | XRay Report ---
XR chest 1V portable CLINICAL HISTORY: dyspnea, pulm edema/effusions? COMPARISON STUDY: Chest CT August 26, 2020. Chest radiograph August 27, 2020. FINDINGS: Right internal jugular [id number] is in place. Small right and trace left pleural effusi ons have increased. There is no evidence for pulmonary edema. There is no pneumothorax. Cardiac size is normal. Mediastinal contours are normal. Prominent gas-filled loops of bowel are noted within visu alized portions of the upper abdomen. Bibasilar opacities are again noted. IMPRESSION: 1. Increase in small right and trace left pleural effusions with bibasilar opacities which favor atel ectasis. 2. No evidence for pulmonary edema. ACT 112: Negative or not required by law. Electronically signed by: Enrrique Stratton M.D. 08/30/2020 5:34 PM
[2020-08-30] MEDS: DICYCLOMINE HCL 20 MG TAB PO PRN (19:15)
[2020-08-30] MEDS: HEPARIN 100 UNIT/ML 5ML FLUSH FLUSH PRN (22:02)
[2020-08-31] MEDS: ONDANSETRON INJ 2 MG/ML 2 ML VIAL IV PRN ×3 (00:49→21:47)
[2020-08-31] MEDS: HYDROmorphone INJ 1 MG/ML SYRINGE IV PRN ×3 (03:04→21:47)
[2020-08-31] MEDS ORDERED: VANCOMYCIN TROUGH ONE (03:30)
[2020-08-31 04:44] LABS: Hemoglobin 10.5 g/dL (12.0-16.0); Mean Corpuscular Hemoglobin 27.9 pg (25-34); Mean Corpuscular Hgb Conc 32.8 g/dL (32-36); Mean Corpuscular Volume 84.9 fL (80-100); Mean Platelet Volume 8.5 fL (7.4-10.4); Platelet Count 341 K/uL (130-400); RDW Coefficient of Variation 14.3 % (11.5-14.5); RDW Standard Deviation 44.4 fL (36.4-46.3); Red Blood Count 3.77 M/uL (4.2-5.4); White Blood Count 17.07 K/uL (4.8-10.8)
[2020-08-31 05:03] LABS: Albumin Level 1.9 gm/dl (3.4-5.0); BUN Creatinine Ratio 6.1 (10-20); Creatinine Clr Calc Pharmacy 76.9 ml/min; Est GFR (African American) 88.8; Est GFR (Non-African American) 76.6; Magnesium 1.8 mg/dl (1.8-2.4); Potassium 3.3 mmol/L (3.5-5.1)
[2020-08-31 05:06] LABS: Albumin Globulin Ratio 0.5 (0.9-2); Bilirubin,Total 0.4 mg/dl (0.2-1); Globulin 3.5 gm/dl (2.5-4.0); Total Protein 5.4 gm/dl (6.4-8.2)
[2020-08-31 05:07] LABS: Basophils # (auto) 0.02 K/uL (0-0.2); Basophils % (auto) 0.1 %; Eosinophils % (auto) 0.6 %; Immature Granulocytes # (auto) 1.21 K/uL (0.00-0.02); Immature Granulocytes % (auto) 7.1 %; Lymphocytes # (auto) 1.91 K/uL (1.2-3.4); Lymphocytes % (auto) 11.2 %; Monocytes # (auto) 0.75 K/uL (0.11-0.59); Monocytes % (auto) 4.4 %; Neutrophils # (auto) 13.08 K/uL (1.4-6.5); Neutrophils % (auto) 76.6 %
[2020-08-31] MEDS: metroNIDAZOLE 500 MG/100 ML BAG IV SCH ×3 (06:21→21:50)
[2020-08-31] MEDS: HYDROCORTISONE SOD 20 MG in SYRINGE 0 ML IV SCH ×3 (07:45→23:54)
[2020-08-31] MEDS: POTASSIUM CHLORIDE CRTAB 20 MEQ TABCR PO SCH ×3 (07:57→18:01)
[2020-08-31] MEDS ORDERED: FUROSEMIDE 20 MG in SYRINGE 0 ML IV ONE (08:45)
[2020-08-31] MEDS: CIPROFLOXACIN / D5W 400 MG/200 ML BAG IV SCH ×2 (09:25→21:42)
[2020-08-31] MEDS: FAMOTIDINE 20 MG in SYRINGE 3 ML IV SCH ×2 (09:34→21:47)
[2020-08-31] MEDS: CHOLECALCIFEROL 1,000 UNITS 25 MCG TAB PO SCH (09:58)
[2020-08-31] MEDS: ENOXAPARIN INJ 40 MG/0.4 ML SYR SQ SCH (09:58)
[2020-08-31] MEDS: FOLIC ACID 1 MG TAB PO SCH (09:58)
[2020-08-31] MEDS: DULoxetine HCL 60 MG CAP PO SCH (09:59)
[2020-08-31] MEDS: DULoxetine HCL 30 MG CAP PO SCH (09:59)
[2020-08-31] MEDS: buPROPion SR 100 MG TABCR PO SCH ×2 (09:59→21:42)
--- NOTE | 2020-08-31 12:04 | Surgery Progress Note ---
Date of Service clinically pt said she feels better, pt wants to go home, tolerated diet, no nausea, no vomiting, no significant abdominal pain, pt denies fever. GABRIELA 40 fluid, colostomy working well, some stool in bag. but WBC 17,000. August 31, 2020 Assessment & Plan (1) Abdominal pain: (2) Perforation of sigmoid colon due to diverticulitis: pt is a 60 year-old female who presents to ER wit 10 days history abdominal pain, IMP: acute abdominal pain, perforated sigmoid diverticulitis, sepsis, Plan, I recommend to do emergent exploratory laparotomy, possible bowel resection, stoma, D/W benefits, risks and alternatives of the surgery, the risks - infection, bleeding, abscess, sepsis, multiple organs failure, DVT, PR, stroke, incisional hernia, , pt understood, she agrees with the surgery, I answered all questions, IV antibiotic, IV fluid resuscitation, 08/30/2020 8:52AM 60 yo female POD#4 ex lap, creation of loop colostomy, I update pt about OR finding and the procedure pt had. pt understood, I answered all questions, -Start clears, has some ostomy function -add on cipro + flagyl -ABX - still clera diet today, - consult GI for possible sigmoidoscopy to biopsy junction of sigmoid- rectal mass, -repeat labs in am, - OOB 08/31/2020 12:01PM 60 yo female POD#4 ex lap, creation of loop colostomy, pt feels better, tolerated diet, but WBC 17,000, continue iv antibiotic, add on cefepime, full liquid diet, repeat labs in am, possible CT scan abd + pelvis for WBC is still go up, pt agrees with the plan, I answered all questions, Admission and Anticipated Discharge Date Admission Date: August 26, 2020 Supervising Physician Co-Signing Physician Notes I personally evaluated the patient and agree with the findings as documented by Cynthia Briceno, PAC Exam: abd: soft, moderate tenderness, nd s/p acute surgery after perforation. would allow 4-6 weeks before performing diagnostic sigmoidoscopy/colonoscopy. patient can follow up with Dr. Obregon as an outpatient. Subjective upon arrival patient c/o dyspnea and BONILLA with minimal exertion. just rolling in the bed makes her SOB. walking to BR causes extreme dyspnea. on clears - tolerating so far. no chest pain. mouth is dry. some orthopnea. mild abd pain. Review of Systems Constitutional: as per Subjective / HPI Eyes: as per Subjective / HPI Ear, Nose, Mouth, Throat: as per Subjective / HPI Respiratory: as per Subjective / HPI dyspnea on exertion, pneumonia Cardiovascular: as per Subjective / HPI Gastrointestinal: as per Subjective / HPI and + abdominal pain Genitourinary: as per Subjective / HPI UTI Musculoskeletal: as per Subjective / HPI rheumatoid arthritis, chronic steroid use, Juvenile idiopathic arthritis Integumentary: as per Subjective / HPI Neurologic: as per Subjective / HPI Psychiatric: as per Subjective / HPI Endocrine: as per Subjective / HPI Hematologic / Lymphatic: as per Subjective / HPI Immunocompromised state Allergy / Immunological: as per Subjective / HPI Physical Exam Constitutional: WD/WN, vitals as above well developed and well nourished Eyes: PERRL, conjunctivae normal, anicteric sclerae ENMT: external ear and nose normal, oropharynx normal Neck: trachea midline, no thyromegaly Respiratory: normal respiratory effort, lungs clear to auscultation + tachypneic Cardiovascular: RRR, no murmur, no edema Rate/Rhythm: regular rate and regular rhythm Gastrointestinal (Abdomen): normal bowel sounds, soft, nontender, no hepatosplenomegaly Percussion/Palpation: abdomen soft no distend, no redness on incision site, BS +, GABRIELA drainage intact, colostomy working well, some stool in the bag. Musculoskeletal: no cyanosis or clubbing, extremities motor strength 5/5 Skin: no rashes, warm and dry Neurologic: awake Psychiatric: Orientation: alert and oriented x 3 Results & Data ([facility]) Vital Signs (Past 12 Hours) Vital Signs Temp Pulse Pulse Resp BP BP Pulse Ox 08/31/20 11:34 36.5 C 91 H 18 146/89 H 93 08/31/20 07:00 36.4 C L 85 20 154/86 H 93 08/31/20 04:00 36.5 C 79 20 150/89 H 93 08/31/20 03:15 36.5 C 86 18 164/96 H 96
[2020-08-31] MEDS: CEFEPIME 1,000 MG in SYRINGE 0 ML IV SCH ×2 (14:09→22:38)
[2020-08-31] MEDS: HEPARIN 100 UNIT/ML 5ML FLUSH FLUSH PRN ×2 (15:36→23:53)
[2020-08-31] MEDS: DICYCLOMINE HCL 20 MG TAB PO PRN (21:43)
--- NOTE | 2020-08-31 23:39 | Hospitalist Progress Note ---
Date of Service August 31, 2020 Assessment & Plan (1) Acute respiratory distress: 2nd volume overload / edema. distress resolved s/p diuresis last pm, stopping IV fluids, etc. 15 liters + since admission. give lasix again this am. follow I's and O's. BMP in am. had provoked DVT following surgery years ago. 08/25 CTA chest neg for PE however thus VTE not suspected at this time. (2) Volume overload: improved s/p diuresis overnight give additional IV lasix this am cont off IV fluids hypoalbuminemia not helping (<2 on 08/29) (3) Perforated abdominal viscus: POD #5 - S/p ex lap with creation of colostomy with Dr. Saravia on 08/26/2020. Management per primary surg team Large mass seen at colorectal junction GI consult appreciated - to have diagnostic endoscopy post-d/c vs during this admit?? (4) Bacteremia: SEPTICEMIA. Blood cxs from 08/25 --prevotella, eubacterium. Intra-abdominal culture from 08/26 lemus-sensitive Pseudomonas and bacteroides. ID consult - zosyn --> cipro/flagyl. repeat blood cx's 08/30 thus far negative. (5) Sepsis: 2nd peritonitis. sepsis was severe. resolving. repeat blood cx's thus far negative to ensure sterility. (6) Rheumatoid arthritis: With history of juvenile arthritis. Sees rheumatology. - On chronic prednisone - will give her equivalent dose of hydrocortisone until taking adequate PO. 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 GI consult for endoscopic confirmation/biopsy requested today by gen surg (12) ZACARIAS (acute kidney injury): 2nd to sepsis resolved Cr today 0.8 (13) Status post osteotomy: creation during ex lap this admission (14) DVT prophylaxis: Lovenox 40mg daily Admission and Anticipated Discharge Date Admission Date: August 26, 2020 Subjective tele stable overnight after receiving IV lasix last pm she diuresed at least 1500-2000cc and her breathing improved received additional lasix this am and also diuresed well she has less BONILLA w/ walking to bathroom, less orthopnea, and overall feels better tolerating liquids no new complaints otherwise Review of Systems Constitutional: + fatigue and + weakness; no fever and no chills Respiratory: + dyspnea on exertion; no cough Cardiovascular: no chest pain Gastrointestinal: + abdominal pain Physical Exam Constitutional: no acute distress and no altered mental status looks much better today ENMT: Mouth: + dry oral mucous membranes Respiratory: no respiratory distress Auscultation: + diminished lung sounds (Bases) and + crackles (bases - but much improved today); no wheezes Cardiovascular: Rate/Rhythm: regular rate and regular rhythm Heart Sounds: normal S1 and normal S2; no murmur Vessels: + JVD (Improved today) Extremities: no edema (I) Gastrointestinal (Abdomen): Inspection/Auscultation: normal bowel sounds Percussion/Palpation: abdomen nontender and no hepatosplenomegaly ostomy bagw/ brown stool ;drain in place; midline incision w/ tonya intact Psychiatric: Orientation: alert and oriented x 3 Results & Data Results & Data ([facility]) Vital Signs (Past 12 Hours) Vital Signs Temp Pulse Pulse Resp BP Pulse Ox 08/31/20 19:57 36.7 C 98 H 20 135/95 94 08/31/20 15:36 36.6 C 88 18 128/82 94 08/31/20 14:20 85 Laboratory Results Laboratory Results - last 24 hr 08/31/20 08/31/20 04:24 04:24 WBC 17.07 H RBC 3.77 L Hgb 10.5 L Hct 32.0 L MCV 84.9 MCH 27.9 MCHC 32.8 RDW Std Deviation 44.4 RDW Coeff of Gabrielle 14.3 Plt Count 341 MPV 8.5 Immature Gran % (Auto) 7.1 Neut % (Auto) 76.6 Lymph % (Auto) 11.2 [place] % (Auto) 4.4 Eos % (Auto) 0.6 Baso % (Auto) 0.1 Neut # (Auto) 13.08 H Lymph # (Auto) 1.91 [place] # (Auto) 0.75 H Eos # (Auto) 0.10 Baso # (Auto) 0.02 Immature Gran # (Auto) 1.21 H Sodium 136 Potassium 3.3 L Chloride 104 Carbon Dioxide 28 Anion Gap 4.0 BUN 5 L Creatinine 0.84 Est Cr Clr Drug Dosing 76.9 Est GFR ( Amer) 88.8 Est GFR (Non-Af Amer) 76.6 BUN/Creatinine Ratio 6.1 L Glucose 101 H Calcium 8.0 L Magnesium 1.8 Total Bilirubin 0.4 AST 24 ALT 20 Alkaline Phosphatase 92 Total Protein 5.4 L Albumin 1.9 L Globulin 3.5 Albumin/Globulin Ratio 0.5 L PG Care Time/CCT Total # of Minutes Spent Total Time Spent with Patient: Total time spent is greater than 50% in coordination of care (as documented) at patient's floor/unit and/or counseling patient: Coding Level of Care Code 98053 Subseq Hosp Care Lvl 3 Diagnoses Acute respiratory distress R06.03 Volume overload E87.70 Hypervolemia type: unspecified Perforated abdominal viscus R19.8 Bacteremia R78.81 Sepsis A41.9 Rheumatoid arthritis M06.9 Depression F32.9 Hypokalemia E87.6 Septic encephalopathy G93.41 Anal cancer C21.0 Rectal mass K62.89 ZACARIAS (acute kidney injury) N17.9 Status post osteotomy Z98.890 DVT prophylaxis Z29.9 (1) Volume overload Hypervolemia type: unspecified Qualified Code(s): E87.70 - Fluid overload, unspecified
[2020-09-01] MEDS: HYDROmorphone INJ 1 MG/ML SYRINGE IV PRN ×4 (00:43→22:04)
[2020-09-01] MEDS: HEPARIN 100 UNIT/ML 5ML FLUSH FLUSH PRN ×4 (00:44→22:05)
[2020-09-01] MEDS: CEFEPIME 1,000 MG in SYRINGE 0 ML IV SCH ×3 (05:41→22:02)
[2020-09-01] MEDS: metroNIDAZOLE 500 MG/100 ML BAG IV SCH ×3 (05:42→21:00)
[2020-09-01 05:57] LABS: Hematocrit (blood only) 30.6 % (37-47); Hemoglobin 10.2 g/dL (12.0-16.0); Mean Corpuscular Hemoglobin 28.3 pg (25-34); Mean Corpuscular Hgb Conc 33.3 g/dL (32-36); Platelet Count 378 K/uL (130-400); RDW Coefficient of Variation 14.4 % (11.5-14.5); RDW Standard Deviation 44.6 fL (36.4-46.3); White Blood Count 17.31 K/uL (4.8-10.8)
[2020-09-01 06:16] LABS: Basophils # (auto) 0.03 K/uL (0-0.2); Basophils % (auto) 0.2 %; Eosinophils # (auto) 0.08 K/uL (0-0.5); Eosinophils % (auto) 0.5 %; Immature Granulocytes # (auto) 1.54 K/uL (0.00-0.02); Immature Granulocytes % (auto) 8.9 %; Lymphocytes # (auto) 1.16 K/uL (1.2-3.4); Lymphocytes % (auto) 6.7 %; Monocytes # (auto) 1.51 K/uL (0.11-0.59); Monocytes % (auto) 8.7 %; Neutrophils # (auto) 12.99 K/uL (1.4-6.5); RBC Morphology Unremarkable
[2020-09-01 06:29] LABS: Albumin Level 1.9 gm/dl (3.4-5.0); BUN Creatinine Ratio 10.4 (10-20); Calcium 8.3 mg/dl (8.5-10.1); Creatinine Clr Calc Pharmacy 88.5 ml/min; Est GFR (African American) 105.2; Est GFR (Non-African American) 90.8; Magnesium 1.8 mg/dl (1.8-2.4); Potassium 3.6 mmol/L (3.5-5.1)
[2020-09-01 06:31] LABS: Albumin Globulin Ratio 0.5 (0.9-2); Bilirubin,Total 0.5 mg/dl (0.2-1); Globulin 3.6 gm/dl (2.5-4.0); Total Protein 5.5 gm/dl (6.4-8.2)
[2020-09-01] MEDS: POTASSIUM CHLORIDE CRTAB 20 MEQ TABCR PO SCH ×3 (08:11→16:02)
[2020-09-01] MEDS: HYDROCORTISONE SOD 20 MG in SYRINGE 0 ML IV SCH ×3 (08:11→23:53)
[2020-09-01] MEDS: CIPROFLOXACIN / D5W 400 MG/200 ML BAG IV SCH ×2 (08:11→20:04)
[2020-09-01] MEDS: DULoxetine HCL 30 MG CAP PO SCH (08:11)
[2020-09-01] MEDS: buPROPion SR 100 MG TABCR PO SCH ×2 (08:12→20:04)
[2020-09-01] MEDS: DULoxetine HCL 60 MG CAP PO SCH (08:12)
[2020-09-01] MEDS: FOLIC ACID 1 MG TAB PO SCH (08:12)
[2020-09-01] MEDS: DICYCLOMINE HCL 20 MG TAB PO PRN (08:12)
[2020-09-01] MEDS: CHOLECALCIFEROL 1,000 UNITS 25 MCG TAB PO SCH (08:12)
[2020-09-01] MEDS: ENOXAPARIN INJ 40 MG/0.4 ML SYR SQ SCH (08:14)
[2020-09-01] MEDS: FAMOTIDINE 20 MG in SYRINGE 3 ML IV SCH ×2 (08:21→20:04)
--- NOTE | 2020-09-01 09:12 | Surgery Progress Note ---
Date of Service pt said she feels better, no abdominal pain, no nausea, no vomiting, no fever, GABRIELA 10 ml, but WBC 17,000. September 01, 2020 Assessment & Plan (1) Abdominal pain: (2) Perforation of sigmoid colon due to diverticulitis: pt is a 60 year-old female who presents to ER wit 10 days history abdominal pain, IMP: acute abdominal pain, perforated sigmoid diverticulitis, sepsis, Plan, I recommend to do emergent exploratory laparotomy, possible bowel resection, stoma, D/W benefits, risks and alternatives of the surgery, the risks - infection, bleeding, abscess, sepsis, multiple organs failure, DVT, OK, stroke, incisional hernia, , pt understood, she agrees with the surgery, I answered all questions, IV antibiotic, IV fluid resuscitation, 08/30/2020 8:52AM 60 yo female POD#4 ex lap, creation of loop colostomy, I update pt about OR finding and the procedure pt had. pt understood, I answered all questions, -Start clears, has some ostomy function -add on cipro + flagyl -ABX - still clera diet today, - consult GI for possible sigmoidoscopy to biopsy junction of sigmoid- rectal mass, -repeat labs in am, - OOB 08/31/2020 12:01PM 60 yo female POD#4 ex lap, creation of loop colostomy, pt feels better, tolerated diet, but WBC 17,000, continue iv antibiotic, add on cefepime, full liquid diet, repeat labs in am, possible CT scan abd + pelvis for WBC is still go up, pt agrees with the plan, I answered all questions, 09/01/2020 9:10AM doing better, but WBC 17,000, I recommend to do CT scan abd + pelvis to R/O abscess, D/W benefits, risks and alternatives of CT scan, pt agrees with the CT scan, will F/U Admission and Anticipated Discharge Date Admission Date: August 26, 2020 Supervising Physician Co-Signing Physician Notes I personally evaluated the patient and agree with the findings as documented by Cynthia Briceno, PAC Exam: abd: soft, moderate tenderness, nd s/p acute surgery after perforation. would allow 4-6 weeks before performing diagnostic sigmoidoscopy/colonoscopy. patient can follow up with Dr. Obregon as an outpatient. Subjective tele stable overnight after receiving IV lasix last pm she diuresed at least 1500-2000cc and her breathing improved received additional lasix this am and also diuresed well she has less BONILLA w/ walking to bathroom, less orthopnea, and overall feels better tolerating liquids no new complaints otherwise Review of Systems Constitutional: as per Subjective / HPI Eyes: as per Subjective / HPI Ear, Nose, Mouth, Throat: as per Subjective / HPI Respiratory: as per Subjective / HPI dyspnea on exertion, pneumonia Cardiovascular: as per Subjective / HPI Gastrointestinal: as per Subjective / HPI and + abdominal pain Genitourinary: as per Subjective / HPI UTI Musculoskeletal: as per Subjective / HPI rheumatoid arthritis, chronic steroid use, Juvenile idiopathic arthritis Integumentary: as per Subjective / HPI Neurologic: as per Subjective / HPI Psychiatric: as per Subjective / HPI Endocrine: as per Subjective / HPI Hematologic / Lymphatic: as per Subjective / HPI Immunocompromised state Allergy / Immunological: as per Subjective / HPI Physical Exam Constitutional: WD/WN, vitals as above well developed and well nourished Eyes: PERRL, conjunctivae normal, anicteric sclerae ENMT: external ear and nose normal, oropharynx normal Neck: trachea midline, no thyromegaly Respiratory: normal respiratory effort, lungs clear to auscultation + tachypneic Cardiovascular: RRR, no murmur, no edema Rate/Rhythm: regular rate and regular rhythm Gastrointestinal (Abdomen): normal bowel sounds, soft, nontender, no hepatosplenomegaly Percussion/Palpation: abdomen soft colostomy working well,some stool in bag, GABRIELA intact, incision heals well, no redness, Musculoskeletal: no cyanosis or clubbing, extremities motor strength 5/5 Skin: no rashes, warm and dry Neurologic: awake Psychiatric: Orientation: alert and oriented x 3 Results & Data ([facility]) Vital Signs (Past 12 Hours) Vital Signs Temp Pulse Pulse Resp BP BP Pulse Ox 09/01/20 07:51 36.5 C 83 18 135/88 93 09/01/20 07:00 76 09/01/20 04:03 36.6 C 81 20 150/83 H 94 09/01/20 01:43 36.5 C 87 20 149/94 H 98 08/31/20 23:57 36.5 C 87 18 154/94 H 95 08/31/20 22:19 85 Laboratory Results Abnormal lab results 09/01/20 09/01/20 Range/Units 05:02 05:02 WBC 17.31 H (4.8-10.8) K/uL RBC 3.60 L (4.2-5.4) M/uL Hgb 10.2 L (12.0-16.0) g/dL Hct 30.6 L (37-47) % Neut # (Auto) 12.99 H (1.4-6.5) K/uL Lymph # (Auto) 1.16 L (1.2-3.4) K/uL [place] # (Auto) 1.51 H (0.11-0.59) K/uL Immature Gran # (Auto) 1.54 H (0.00-0.02) K/uL Sodium 135 L (136-145) mmol/L Calcium 8.3 L (8.5-10.1) mg/dl Total Protein 5.5 L (6.4-8.2) gm/dl Albumin 1.9 L (3.4-5.0) gm/dl Albumin/Globulin Ratio 0.5 L (0.9-2)
--- NOTE | 2020-09-01 09:56 | CT Scan Report ---
CT SCAN OF THE ABDOMEN AND PELVIS WITHOUT CONTRAST CLINICAL HISTORY: Abdominal pain COMPARISON STUDY: 08/26/2020 TECHNIQUE: CT scan of the abdomen and pelvis was performed from the lung bases to the proximal femurs . Images are reviewed in the axial, sagittal, and coronal planes. IV contrast was not administered fo r this examination. A dose lowering technique was utilized adhering to the principles of ALARA. CT DOSE: 545.80 mGy.cm FINDINGS: Lower chest: There are small bilateral pleural effusions. There is lower lobe atelectasis/consolidati on with air bronchograms. There are scattered groundglass opacities within the right middle lobe and both upper lobes. A viral infection cannot be excluded. Liver: There is perihepatic fluid present. The previously described right hepatic mass is more diffic ult to visualize on this noncontrast study. Gallbladder: Surgically absent Spleen: Normal in size and attenuation. Pancreas: Unremarkable. Adrenal glands: Unremarkable. Kidneys: The unenhanced kidneys are normal in size without hydronephrosis. There is no contour deform ing renal mass lesion. No renal calculi are identified. Bowel: There is evidence for interval surgery. There is a double barrel left lower quadrant colostomy . There is colonic diverticulosis. There are multiple dilated small bowel loops with air-fluid levels . No pneumatosis is visualized. Distal small bowel loops are normal caliber. The findings are suggest geoff of a small bowel obstruction although a post surgical ileus could appear similar. Peritoneum: There is a surgical drain present within the pelvis. There are small pelvic fluid collect ions. Vasculature: The abdominal aorta is normal in course and caliber. Adenopathy: None. Pelvic viscera: There is gas present within the bladder, statistically iatrogenic Skeletal structures: Postsurgical changes are present within the spine IMPRESSION: 1. Examination is limited in that no intravenous or oral contrast was administered 2. Small bilateral pleural effusions with bilateral lower lobe atelectasis/consolidation with air bro nchograms 3. Patchy groundglass airspace opacities within both upper lobes the right middle lobe. A viral pneum onia cannot be excluded 4. Interval surgery with creation of a left lower quadrant double barrel colostomy. 5. Dilated proximal small bowel loops with normal caliber mid to distal ileum. The findings are sugge stive of a small bowel obstruction although a postsurgical ileus could potentially appear similar 6. Interval placement of a surgical drain terminating in the pelvis 7. Persistent perihepatic fluid collections. Small amount of fluid within the pelvis. The sterility o f these collections cannot be determined. ACT 112: Negative or not required by law. Electronically signed by: Clarke Walker M.D. 09/01/2020 9:55 AM
--- NOTE | 2020-09-01 22:26 | Hospitalist Progress Note ---
Date of Service September 01, 2020 Assessment & Plan (1) Acute respiratory distress: 2nd volume overload / edema. distress resolved s/p diuresis last pm, stopping IV fluids, etc. 15 liters + since admission. will closely follow Is and Os had provoked DVT following surgery years ago. 08/25 CTA chest neg for PE however thus VTE not suspected at this time. (2) Volume overload: improved s/p diuresis overnight give additional IV lasix this am cont off IV fluids hypoalbuminemia not helping (<2 on 08/29) (3) Perforated abdominal viscus: POD #5 - S/p ex lap with creation of colostomy with Dr. Saravia on . Management per primary surg team Large mass seen at colorectal junction GI consult appreciated - to have diagnostic endoscopy post-d/c vs during this admit?? (4) Bacteremia: SEPTICEMIA. Blood cxs from 08/25 --prevotella, eubacterium. Intra-abdominal culture from 08/26 lemus-sensitive Pseudomonas and bacteroides. ID consult - zosyn --> cipro/flagyl. repeat blood cx's 08/30 thus far negative. WBC is elevated. will check procal. Fluid found on ct scan of abd. may be drained (5) Sepsis: 2nd peritonitis. sepsis was severe. resolving. repeat blood cx's thus far negative to ensure sterility. (6) Rheumatoid arthritis: With history of juvenile arthritis. Sees rheumatology. - On chronic prednisone - will give her equivalent dose of hydrocortisone until taking adequate PO. 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 GI consult for endoscopic confirmation/biopsy requested today by gen surg (12) ZACARIAS (acute kidney injury): 2nd to sepsis resolved Cr today 0.8 (13) Status post osteotomy: creation during ex lap this admission (14) DVT prophylaxis: Lovenox 40mg daily Admission and Anticipated Discharge Date Admission Date: August 26, 2020 Subjective Patient reports no new symptoms. Review of Systems Review of Systems: All systems reviewed & are unremarkable except as noted in HPI & below Physical Exam Physical Exam: Constitutional: no acute distress and no altered mental status looks much better today ENMT: Mouth: + dry oral mucous membranes Respiratory: no respiratory distress Auscultation: + diminished lung sounds (Bases) and + crackles (bases - but much improved today); no wheezes Cardiovascular: Rate/Rhythm: regular rate and regular rhythm Heart Sounds: normal S1 and normal S2; no murmur Vessels: + JVD (Improved today) Extremities: no edema (I) Gastrointestinal (Abdomen): Inspection/Auscultation: normal bowel sounds Percussion/Palpation: abdomen nontender and no hepatosplenomegaly ostomy bagw/ brown stool ;drain in place; midline incision w/ tonya intact Psychiatric: Orientation: alert and oriented x 3 Results & Data Results & Data ([facility]) Vital Signs (Past 12 Hours) Vital Signs Temp Pulse Pulse Resp BP BP Pulse Ox 09/01/20 19:48 36.6 C 87 17 136/83 93 09/01/20 14:20 87 09/01/20 11:24 36.6 C 91 H 16 154/93 H 96 PG Care Time/CCT Total # of Minutes Spent Total Time Spent with Patient: Total time spent is greater than 50% in coordination of care (as documented) at patient's floor/unit and/or counseling patient: Coding Level of Care Code 60907 Subseq Hosp Care Lvl 3 Diagnoses Acute respiratory distress R06.03 Volume overload E87.70 Hypervolemia type: unspecified Perforated abdominal viscus R19.8 Bacteremia R78.81 Sepsis A41.9 Rheumatoid arthritis M06.9 Depression F32.9 Hypokalemia E87.6 Septic encephalopathy G93.41 Anal cancer C21.0 Rectal mass K62.89 ZACARIAS (acute kidney injury) N17.9 Status post osteotomy Z98.890 DVT prophylaxis Z29.9 Time Spent (min) 35 (1) Volume overload Hypervolemia type: unspecified Qualified Code(s): E87.70 - Fluid overload, unspecified
[2020-09-02 05:01] LABS: Hematocrit (blood only) 28.6 % (37-47); Hemoglobin 9.7 g/dL (12.0-16.0); Mean Corpuscular Hemoglobin 28.6 pg (25-34); Mean Corpuscular Hgb Conc 33.9 g/dL (32-36); Mean Corpuscular Volume 84.4 fL (80-100); Mean Platelet Volume 8.7 fL (7.4-10.4); Platelet Count 345 K/uL (130-400); RDW Coefficient of Variation 14.6 % (11.5-14.5); RDW Standard Deviation 44.4 fL (36.4-46.3); Red Blood Count 3.39 M/uL (4.2-5.4); White Blood Count 17.93 K/uL (4.8-10.8)
[2020-09-02 05:19] LABS: Albumin Level 1.8 gm/dl (3.4-5.0); BUN Creatinine Ratio 8.6 (10-20); Bilirubin Direct 0.1 mg/dl (0-0.2); Calcium 8.6 mg/dl (8.5-10.1); Creatinine Clr Calc Pharmacy 85.7 ml/min; Est GFR (African American) 105.2; Est GFR (Non-African American) 90.8; Potassium 3.5 mmol/L (3.5-5.1)
[2020-09-02 05:22] LABS: Bilirubin,Total 0.4 mg/dl (0.2-1); Total Protein 5.3 gm/dl (6.4-8.2)
[2020-09-02] MEDS: CEFEPIME 1,000 MG in SYRINGE 0 ML IV SCH ×3 (05:34→22:29)
[2020-09-02] MEDS: metroNIDAZOLE 500 MG/100 ML BAG IV SCH ×3 (05:35→22:29)
[2020-09-02 05:37] LABS: Basophils # (auto) 0.01 K/uL (0-0.2); Basophils % (auto) 0.1 %; Eosinophils # (auto) 0.05 K/uL (0-0.5); Eosinophils % (auto) 0.3 %; Immature Granulocytes # (auto) 1.03 K/uL (0.00-0.02); Immature Granulocytes % (auto) 5.7 %; Lymphocytes # (auto) 2.29 K/uL (1.2-3.4); Lymphocytes % (auto) 12.8 %; Monocytes # (auto) 0.33 K/uL (0.11-0.59); Monocytes % (auto) 1.8 %; Neutrophils # (auto) 14.22 K/uL (1.4-6.5); Neutrophils % (auto) 79.3 %; Toxic Vacuolation Occasional
[2020-09-02] MEDS: HYDROCORTISONE SOD 20 MG in SYRINGE 0 ML IV SCH ×2 (07:44→16:18)
[2020-09-02] MEDS: POTASSIUM CHLORIDE CRTAB 20 MEQ TABCR PO SCH ×3 (07:45→16:18)
[2020-09-02] MEDS: CIPROFLOXACIN / D5W 400 MG/200 ML BAG IV SCH ×2 (08:05→20:24)
[2020-09-02] MEDS: FOLIC ACID 1 MG TAB PO SCH (08:09)
[2020-09-02] MEDS: DULoxetine HCL 30 MG CAP PO SCH (08:10)
[2020-09-02] MEDS: buPROPion SR 100 MG TABCR PO SCH ×2 (08:10→20:25)
[2020-09-02] MEDS: CHOLECALCIFEROL 1,000 UNITS 25 MCG TAB PO SCH (08:10)
[2020-09-02] MEDS: ENOXAPARIN INJ 40 MG/0.4 ML SYR SQ SCH (08:11)
[2020-09-02] MEDS: DULoxetine HCL 60 MG CAP PO SCH (08:14)
[2020-09-02] MEDS: FAMOTIDINE 20 MG in SYRINGE 3 ML IV SCH ×2 (08:44→20:39)
[2020-09-02] MEDS: HEPARIN 100 UNIT/ML 5ML FLUSH FLUSH PRN ×2 (10:06→14:43)
--- NOTE | 2020-09-02 13:42 | Surgery Progress Note ---
Date of Service stable, no significant abdominal pain, no nausea, no vomiting, tolerated diet, GABRIELA 10 ml, September 02, 2020 Assessment & Plan (1) Abdominal pain: (2) Perforation of sigmoid colon due to diverticulitis: pt is a 60 year-old female who presents to ER wit 10 days history abdomin al pain, IMP: acute abdominal pain, perforated sigmoid diverticulitis, sepsis, Plan, I recommend to do emergent exploratory laparotomy, possible bowel resection, stoma, D/W benefits, risks and alternatives of the surgery, the risks - infection, bleeding, abscess, sepsis, multiple organs failure, DVT, WI, stroke, incisional hernia, , pt understood, she agrees with the surgery, I answered all questions, IV antibiotic, IV fluid resuscitation, 08/30/2020 8:52AM 60 yo female POD#4 ex lap, creation of loop colostomy, I update pt about OR finding and the procedure pt had. pt understood, I answered all questions, -Start clears, has some ostomy function -add on cipro + flagyl -ABX - still clera diet today, - consult GI for possible sigmoidoscopy to biopsy junction of sigmoid- rectal mass, -repeat labs in am, - OOB 08/31/2020 12:01PM 60 yo female POD#4 ex lap, creation of loop colostomy, pt feels better, tolerated diet, but WBC 17,000, continue iv antibiotic, add on cefepime, full liquid diet, repeat labs in am, possible CT scan abd + pelvis for WBC is still go up, pt agrees with the plan, I answered all questions, 09/01/2020 9:10AM doing better, but WBC 17,000, I recommend to do CT scan abd + pelvis to R/O abscess, D/W benefits, risks and alternatives of CT scan, pt agrees with the CT scan, will F/U, I did update CT finding to the pt, pt understood, I answered all questions, 09/02/2020 2:17PM stable, but WBC 17,000, I recommend to do percutaneous drainage abdominal fluid collection by interventional radiologist,I recommend to transfer to [facility] I did talk to Russell Zuñiga who will find the bed for pt, D/W benefits, risks and alternatives of the transfer, pt understood, she agrees with the transfer. Admission and Anticipated Discharge Date Admission Date: August 26, 2020 Supervising Physician Co-Signing Physician Notes I personally evaluated the patient and agree with the findings as documented by Cynthia Briceno, PAC Exam: abd: soft, moderate tenderness, nd s/p acute surgery after perforation. would allow 4-6 weeks before performing diagnostic sigmoidoscopy/colonoscopy. patient can follow up with Dr. Obregon as an outpatient. Subjective tele stable overnight after receiving IV lasix last pm she diuresed at least 1500-2000cc and her breathing improved received additional lasix this am and also diuresed well she has less BONILLA w/ walking to bathroom, less orthopnea, and overall feels better tolerating liquids no new complaints otherwise Review of Systems Constitutional: as per Subjective / HPI Eyes: as per Subjective / HPI Ear, Nose, Mouth, Throat: as per Subjective / HPI Respiratory: as per Subjective / HPI dyspnea on exertion, pneumonia Cardiovascular: as per Subjective / HPI Gastrointestinal: as per Subjective / HPI and + abdominal pain Genitourinary: as per Subjective / HPI UTI Musculoskeletal: as per Subjective / HPI rheumatoid arthritis, chronic steroid use, Juvenile idiopathic arthritis Integumentary: as per Subjective / HPI Neurologic: as per Subjective / HPI Psychiatric: as per Subjective / HPI Endocrine: as per Subjective / HPI Hematologic / Lymphatic: as per Subjective / HPI Immunocompromised state Allergy / Immunological: as per Subjective / HPI Physical Exam Constitutional: WD/WN, vitals as above well developed and well nourished Eyes: PERRL, conjunctivae normal, anicteric sclerae ENMT: external ear and nose normal, oropharynx normal Neck: trachea midline, no thyromegaly Respiratory: normal respiratory effort, lungs clear to auscultation normal respiratory effort Cardiovascular: RRR, no murmur, no edema Rate/Rhythm: regular rate and regular rhythm Gastrointestinal (Abdomen): normal bowel sounds, soft, nontender, no hepatosplenomegaly Percussion/Palpation: abdomen soft colostomy is working, some stool in bag, incision heal well, no redness, Musculoskeletal: no cyanosis or clubbing, extremities motor strength 5/5 Skin: no rashes, warm and dry Neurologic: awake Psychiatric: Orientation: alert and oriented x 3 Results & Data ([facility]) Vital Signs (Past 12 Hours) Vital Signs Temp Pulse Pulse Resp BP Pulse Ox 09/02/20 11:00 37.0 C 92 H 16 148/93 H 94 09/02/20 08:00 36.5 C 85 18 153/92 H 92 09/02/20 07:00 78 09/02/20 04:00 36.7 C 83 18 149/87 H 93
[2020-09-02] MEDS: HYDROmorphone INJ 1 MG/ML SYRINGE IV PRN ×2 (14:40→20:32)
[2020-09-02 16:52] VITALS: BP 125/83
[2020-09-02] MEDS ORDERED: D5W AND 1/2NSS + 20MEQ KCL 20 MEQ/1,000 ML BAG IV SCH (18:00)
[2020-09-02 20:12] VITALS: PULSE 87; TEMP 97.9; O2SAT 93
--- NOTE | 2020-09-06 23:51 | Discharge Summary (DS) ---
ADMITTING DIAGNOSES: Peritonitis, sepsis, possible perforation of the sigmoid colon. DISCHARGE DIAGNOSES: Peritonitis, sepsis, perforated sigmoid colon with sigmoid colon mass. OPERATION: Exploratory laparotomy, creation of a loop colostomy. SURGEON: Rudy Saravia MD DETAILS OF DISCHARGE SUMMARY: This is a 60-year-old female who presented to ED with severe abdominal pain. The patient had a CT scan diagnosis of perforated bowel and with free air. We took the patient to the OR. We did exploratory laparotomy and during procedure we found the patient had a large sigmoid mass on the junction of the sigmoid and rectal. The mass was not resectable at that moment. We put a drainage to drain the sigmoid area, the perforation area, and then we created loop colostomy. The patient tolerated the procedure well. After procedure, the patient was transferred to regular floor. The patient was doing fine and after postoperative day #3 and the patient's colostomy started working passing stool, we started to give the patient clear diet and full liquid diet and later on patient tolerated a diet. However, the last couple of days, the patient developed white count of 17,000 and otherwise the patient was stable. We rescanned the patient on 09/01/[address] scan showed there was some fluid collection on the pelvis and around the liver area and high suspicion for abscess. I recommended to do percutaneous drainage of the fluid collection on the pelvis and around the liver by the interventional radiology and based on this hospital not having interventional radiology, we recommended to transfer to the higher level for further diagnosis and treatment. I did talk to the [facility] colorectal surgeon. They accepted the patient. The patient will be transferred to [place] soon. PHYSICAL EXAMINATION: VITAL SIGNS: Temperature is 36.6, heart rate is 87, respiratory rate 18, blood pressure is 125/83, O2 saturation 93% on room air. GENERAL: The patient is alert, awake, oriented x3. HEENT: Within normal limitation. NEUROLOGIC: Intact. NECK: No JVD. CHEST: Bilateral lung sounds clear. HEART: Normal S1, S2. No murmur. ABDOMEN: Soft and nondistended. Colostomy is working. The midline incision has no redness, no drainage, no infection sign. Mild tenderness on the lower abdomen. EXTREMITIES: No edema. I recommended to transfer to a higher level and I did talk to the patient about the benefits, the risks, and alternatives to transfer. The patient understood and she agreed to transfer to higher level. I answered all questions.
== END 2020-09-02 23:40 | disposition short-term general hospital (02) | DRG 853 ==
LOC: ED 21:40 → OR 08-26 02:59 → 2N 08-26 05:49

== ENCOUNTER 2023-07-09 05:59 | Inpatient (IN) ==
--- NOTE | 2023-07-03 08:46 | Anesthesiology Consultation ---
Date of Service July 03, 2023 Assessment & Plan (1) Encounter for pre-operative examination: Plan - Per property assessment monitor on 06/27/2023: No known infectious disease contacts, current infectious disease symptoms in past 10 days or COVID positive test result in the past 90 days. Chart Review Chart Review: Acceptable Risk for Surgery and Patient NOT seen in Pre Admission Testing History Surgery Operation Date: 07/09/23 08:20 Proposed Procedures p Laparoscopic Ventral Hernia Repair, Robot if Approved and Available - Dayton Eugene DO Height/Weight Height: 5 ft 6 in Weight: 63.503 kg Allergies Allergy/AdvReac Type Severity Reaction Status Date / Time doxycycline Allergy Unknown RASH Verified 06/27/23 11:00 buspirone AdvReac Unknown nightmares Verified 06/27/23 11:00 mirtazapine AdvReac Unknown weight gain Verified 06/27/23 11:00 Medications Home Medications Medication Instructions Recorded Confirmed Last Taken ipratropium 18 mcg-albuterol 103 1 spray inhalation QID PRN 09/29/20 06/27/23 Unknown mcg/actuation aerosol inhaler Shortness Of Breath multivitamin 1 tab PO QAM 09/29/20 06/27/23 02/27/21 zoledronic acid 5 mg/100 mL in 1 ea IV YEARLY 08/10/21 06/27/23 03/22/02 mannitol 5 %-water intravenous piggybck (Reclast) acetaminophen 500 mg tablet 1,000 mg PO Q8H PRN Pain #30 tabs 01/12/22 06/27/23 Unknown bupropion HCl 100 mg tablet,12 hr 100 mg PO BID anxiety #180 ea 08/14/22 06/27/23 06/26/23 sustained-release duloxetine 30 mg capsule,delayed 30 mg PO QAM #90 caps 12/04/22 06/27/23 06/27/23 08:00 release prednisone 10 mg tablet 10 mg PO QAM 04/13/23 06/27/23 06/27/23 08:00 abatacept 50 mg/0.4 mL 125 mg subcut WK 06/06/23 06/27/23 06/20/23 subcutaneous syringe (Orencia) hydroxychloroquine 100 mg tablet 200 mg PO QAM 06/19/23 06/27/23 06/26/23 21:00 tramadol 50 mg tablet 50 mg PO UD PRN Pain 06/19/23 06/27/23 06/26/23 duloxetine 60 mg capsule,delayed 60 mg PO QAM #90 caps 06/21/23 06/27/23 06/27/23 08:00 release (Cymbalta) Past Medical History Medical History Abnormal CT scan, 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 Chronic diarrhea Deep vein thrombosis hx of after back surgery---no blood thinners Degenerative disc disease Detached retina cant see from left eye after having the surgery Diverticulosis hx History of anesthesia reaction sister is slower to wake up sometimes. History of chemotherapy History of colon cancer History of DVT (deep vein thrombosis) Immunocompromised state Interstitial lung disease rarely needs inhaler Juvenile idiopathic arthritis Lyme disease hx Perforation of sigmoid colon due to diverticulitis (~2020) Pleural effusion hx Pneumonia hx Restless leg occurs off and on/no med for. Rheumatoid arthritis Spinal stenosis Past Family History Family History Sister Family history of reaction to anesthesia trouble waking up after anesthesia Type 2 diabetes mellitus Breast cancer Diabetes Mother Cardiac disorder Hypertension Type 2 diabetes mellitus Diabetes Grandfather (Paternal) Family hx of colon cancer Father Bladder cancer Grandfather Osteoarthritis Grandmother Osteoarthritis Aunt Breast cancer Past Surgical History Surgical History H/O hemorrhoidectomy History of arthroscopy of left knee History of cataract surgery left History of colonoscopy Recommend repeat 2023 History of colostomy History of colostomy reversal (~2020) Dr. Elena History of detached retina repair left History of esophagogastroduodenoscopy (EGD) History of lumbar discectomy History of lumbar fusion hardware in place History of removal of Port-a-Cath History of right elbow replacement History of total left knee replacement (TKR) History of vascular access device Aport right side Hx of cholecystectomy Social History Smoking Status: Never smoker tobacco type: cigarettes Do You Dip or Chew Tobacco: No Smoking End Date: quit 25 yrs ago Hx Alcohol Use: No Hx Substance Use: No substance use type: does not use Lab Results Anesthesia Preop Results Results Anesthesia Widget: WBC 8.43 K/ul (4.8-10.8) 07/02/23 Hgb 11.5 g/dl (12.0-16.0) L 07/02/23 Hct 37.5 % (37.0-47.0) 07/02/23 Plt 268 K/uL (130-400) 07/02/23 Na 139 mmol/L (136-145) 07/02/23 K 3.9 mmol/L (3.5-5.1) 07/02/23 Cl 105 mmol/L (98-107) 07/02/23 CO2 27 mmol/L (21-32) 07/02/23 BUN 11 mg/dl (6-23) 07/02/23 Creat 0.85 mg/dl (0.6-1.2) 07/02/23 Glucose Level 84 mg/dl (70-99(Fasting)) 07/02/23 Testing Electrocardiogram Date: 07/02/23 NSR, rate 64 bpm Echocardiogram Date: 05/05/20 EF 55-60% No regional wall motion abnormalities No LVH No significant diastolic dysfunction No significant valvular abnormalities Pulmonary Function Test Date: 03/09/23 Moderate airflow obstruction with no significant postbronchodilator response. Lung volumes unremarkable. Diffusion mildly reduced. Findings consistent with COPD. Other Testing Abdomen pelvis CT 04/09/23 1. There is a bowel containing hernia within the left lower quadrant ostomy defect as described above. However, no evidence for a bowel obstruction. 2. A few colonic diverticula. No evidence for acute diverticulitis. 3. Postoperative changes as described above. 4. There is enhancement within the synovial lining some of the bilateral hips with trace hip effusions. This is consistent with a nonspecific synovitis. This is likely chronic. 5. Additional findings as described above.
[~2023-07-09 05:59] MED LIST changes: -CYM30 PO; -FOLI1TAB8 PO; -LORA-741 PO; -MULT-506 PO; -PRED-301 PO; -RMCI; -ZOLE5INJ; +[UNRECOGNIZED DRUG - REMARK] SCH; -methotrexate
[2023-07-09] MEDS ORDERED: LR 15ML/HR IV SCH (06:00)
[2023-07-09] MEDS ORDERED: ceFAZolin 2000MG 2,000 MG/15 ML SYR IV SCH (06:00)
[2023-07-09] MEDS ORDERED: LACTATED RINGER'S 1,000 ML IV SCH (06:00)
[2023-07-09] MEDS ORDERED: HEPARIN SOD 5,000 UNIT/0.5 ML VIAL SQ SCH (06:00)
[2023-07-09] MEDS ORDERED: LIDOCAINE 2% 2 ML VIAL/AMP(20MG/ML) INFIL ONE (06:49)
[2023-07-09] MEDS ORDERED: PROPOFOL IV EMULSION 10 MG/ML 20 ML VIAL IV ONE (06:49)
[2023-07-09] MEDS ORDERED: DEXAMETHASONE SOD INJ 4 MG/ML VIAL ONE (06:49)
[2023-07-09] MEDS ORDERED: fentaNYL citrate PF 100 MCG/2 ML VIAL ONE ×2 (06:49→08:37)
[2023-07-09] MEDS ORDERED: ONDANSETRON INJ 2 MG/ML 2 ML VIAL ONE ×2 (06:49→09:08)
[2023-07-09] MEDS ORDERED: ROCURONIUM BROMIDE 10 MG/ML 5 ML VIAL IV ONE (06:50)
[2023-07-09] MEDS ORDERED: MIDAZOLAM HCL 1 MG/ML 2ML VIAL ONE (06:50)
[2023-07-09] MEDS ORDERED: PROMETHAZINE HCL 6.25 MG in SODIUM CHLORIDE 0.9% 50 ML IV PRN (06:53)
[2023-07-09] MEDS ORDERED: ONDANSETRON INJ 2 MG/ML 2 ML VIAL IV PRN ×2 (06:53→11:20)
[2023-07-09] MEDS ORDERED: fentaNYL citrate PF 100 MCG/2 ML VIAL IV PRN (06:53)
[2023-07-09] MEDS ORDERED: KETOROLAC 30 MG/ML VIAL IV PRN (06:53)
[2023-07-09] MEDS ORDERED: ATROPINE SULFATE 0.1 MG/ML 10ML SYR IV PRN (06:53)
[2023-07-09] MEDS ORDERED: ACETAMINOPHEN 1000 MG/100 ML IV IV ONE (06:59)
--- NOTE | 2023-07-09 07:04 | History & Physical Report ---
Date of Service July 09, 2023 Assessment & Plan (1) Ventral hernia without obstruction or gangrene: Plan Patient presents today for robotic ventral hernia repair. Consent is on the chart with appropriate signatures. History of Present Illness Chief Complaint: Hernia/bulge at abdomen Primary Care Provider: Miguel Arreola DO Bynum is a 63-year-old female who presents for robotic repair of a ventral hernia. She has a history of sigmoidectomy for diverticulitis, reversal of loop colostomy and ghost ileostomy on December 26, 2021. She was noted to have multiple small midline hernias at that time as well as a known parastomal hernia. The colostomy site was temporized with primary closure without mesh due to the colon resection being done at the time and expecting there will be need for a more permanent future repair. Today Misa says that she has noticed a hernia in the area for quite some time by the presence of bowel protruding through the hernia intermittently. She does state that this is reducible. Sofia mitlokesh guardado Misa has begun to develop diarrhea starting back in October of this year that is not necessarily associated with certain foods or eating at all. She denies bloody stools and states that as of this week she has not had diarrhea. Misa is under the care of her colorectal team and is scheduled for a colonoscopy at the end of this month. Misa's last colonoscopy was performed on March 02, 2021 at which time multiple small mouth diverticula were found in the sigmoid colon, nonbleeding internal hemorrhoids, no tumor. Detailed HPI: Misa has a past medical history of rheumatoid arthritis with chronic steroid use, DVT and high degree anal squamous dysplasia in 2013 who had been admitted for a perforation of the sigmoid colon back in August 2020 at which time she underwent a loop colostomy for suspected perforated tumor on August 26, 2020. Ultimately colonoscopy performed in October 2020 determined there was no tumor and that the patient has diverticular disease and likely this was an episode of diverticulitis. Allergies Allergy/AdvReac Type Severity Reaction Status Date / Time doxycycline Allergy Unknown RASH Verified 07/09/23 06:26 buspirone AdvReac Unknown nightmares Verified 07/09/23 06:26 mirtazapine AdvReac Unknown weight gain Verified 07/09/23 06:26 Home Medications Medication Instructions Recorded Confirmed Type ipratropium 18 mcg-albuterol 103 1 spray inhalation QID PRN 09/29/20 07/09/23 History mcg/actuation aerosol inhaler Shortness Of Breath multivitamin 1 tab PO QAM 09/29/20 07/09/23 History zoledronic acid 5 mg/100 mL in 1 ea IV YEARLY 08/10/21 07/09/23 History mannitol 5 %-water intravenous piggybck (Reclast) acetaminophen 500 mg tablet 1,000 mg (2 x 500 mg) PO Q8H PRN 01/12/22 07/09/23 Rx Pain #30 tabs prednisone 10 mg tablet 10 mg PO QAM 04/13/23 07/09/23 History abatacept 50 mg/0.4 mL 125 mg subcut WK 06/06/23 07/09/23 History subcutaneous syringe (Orencia) hydroxychloroquine 100 mg tablet 200 mg PO QAM 06/19/23 07/09/23 History tramadol 50 mg tablet 50 mg PO UD PRN Pain 06/19/23 07/09/23 History duloxetine 60 mg capsule,delayed 60 mg PO QAM #90 caps 06/21/23 07/09/23 Rx release (Cymbalta) bupropion HCl 100 mg tablet,12 hr 100 mg PO DAILY anxiety 07/09/23 07/09/23 History sustained-release (Wellbutrin SR) duloxetine 30 mg capsule,delayed 30 mg PO QAM 07/09/23 07/09/23 History release (Cymbalta) Past Med/Surg History Medical History Abnormal CT scan, 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 Chronic diarrhea Deep vein thrombosis hx of after back surgery---no blood thinners Degenerative disc disease Detached retina cant see from left eye after having the surgery Diverticulosis hx History of anesthesia reaction sister is slower to wake up sometimes. History of chemotherapy History of colon cancer History of DVT (deep vein thrombosis) Immunocompromised state Interstitial lung disease rarely needs inhaler Juvenile idiopathic arthritis Lyme disease hx Perforation of sigmoid colon due to diverticulitis (~2020) Pleural effusion hx Pneumonia hx Restless leg occurs off and on/no med for. Rheumatoid arthritis Spinal stenosis Surgical History H/O hemorrhoidectomy History of arthroscopy of left knee History of cataract surgery left History of colonoscopy Recommend repeat 2023 History of colostomy History of colostomy reversal (~2020) Dr. Elena History of detached retina repair left History of esophagogastroduodenoscopy (EGD) History of lumbar discectomy History of lumbar fusion hardware in place History of removal of Port-a-Cath History of right elbow replacement History of total left knee replacement (TKR) History of vascular access device Aport right side Hx of cholecystectomy Family History Sister Family history of reaction to anesthesia trouble waking up after anesthesia Type 2 diabetes mellitus Breast cancer Diabetes Mother Cardiac disorder Hypertension Type 2 diabetes mellitus Diabetes Grandfather (Paternal) Family hx of colon cancer Father Bladder cancer Grandfather Osteoarthritis Grandmother Osteoarthritis Aunt Breast cancer Social History Smoking Status: Never smoker Tobacco Type: Cigarettes Age Started Using Tobacco: 17; Age Quit Using Tobacco: 40; packs per day: 1; Smoking End Date: quit 25 yrs ago; Second Hand Exposure: No; Do You Dip or Chew Tobacco: No; Tobacco Cessation Education Requested by Patient: No Hx Alcohol Use: No Hx Substance Use: No Preferred Language: Surinamese Communication Ability: Effective Visual Impairment: Diminished Hearing Ability: Normal Formula Checker Required: No Beliefs That Will Affect Care: None marital status: Single Current Living Situation: Alone current occupational status: disabled How many Children do You have: 1 Other Information That Helps Us Care for You: No Feels Safe at Home: Yes Safety Concerns: Feels Safe At This Time Childhood Exposure to Second-Hand Smoke: Yes Diet: regular caffeine: Yes during the past year weight has: decreased > 10 lbs Dental Care, Regularly: Yes Physical Activity Frequency: 1-2 Times per Week Physical Activity Frequency Comment: walk Seatbelt Use: always Sunscreen Use: Yes Assistive Devices: Glasses Review of Systems Constitutional: no fever, no chills, no malaise and no weakness Respiratory: no chest congestion, no dyspnea, no hemoptysis and no wheezing Cardiovascular: no chest pain, no palpitations, no lightheadedness and no syncope Gastrointestinal: no abdominal pain, no heartburn, no nausea and no melena Physical Exam Constitutional: healthy appearing; not ill appearing, not in distress and not diaphoretic Respiratory: normal respiratory effort; no respiratory distress, no labored breathing and does not use accessory muscles Cardiovascular: Rate/Rhythm: regular rate; not tachycardic Extremities: no calf tenderness and no edema Gastrointestinal (Abdomen): low midline incision Stoma sites b/l all well healed Results & Data Results & Data Vital Signs (Past 12 Hours) Vital Signs Temp Pulse Resp BP Pulse Ox O2 Del Method 07/09/23 06:31 36.7 C 96 H 18 106/67 96 Room Air PG Care Time/CCT Total # of Minutes Spent Total Time Spent with Patient: Total time spent is greater than 50% in coordination of care (as documented) at patient's floor/unit and/or counseling patient: Coding Level of Care Code None Diagnoses Ventral hernia without obstruction or gangrene K43.9
--- NOTE | 2023-07-09 07:12 | History & Physical Bridge Note ---
Date of Service July 09, 2023 History & Physical Bridge Note I have examined the patient, reviewed the History & Physical and in the interval since the performance of the History & Physical I have noted the following changes of clinical significance: no changes noted. Patient presents for robotic ventral hernia repair. The consnent is on the chart with appropriate signatures.
[2023-07-09] MEDS ORDERED: BUPIVACAINE LIPOSOME 1.3% 266 MG/20 ML VIAL ONE (07:48)
[2023-07-09] MEDS ORDERED: BUPIVACAINE 0.5 % 5 MG/1 ML MPF 30ML VIAL ONE (07:48)
[2023-07-09] MEDS ORDERED: PHENYLEPHRINE 100MCG/ML 5ML SYR ONE (08:16)
[2023-07-09] MEDS ORDERED: LABETALOL HCL IV 5 MG/ML 20ML IV ONE (08:16)
[2023-07-09] MEDS ORDERED: HYDROCORTISONE SOD SUCCINATE 100 MG/2 ML VIAL ONE (08:17)
[2023-07-09] MEDS ORDERED: SUGAMMADEX SODIUM 200 MG/2 ML VIAL IV ONE (08:56)
--- NOTE | 2023-07-09 10:20 | Operative Report ---
PG Post Operative Report Pre & Post Diagnosis Operation Date: 07/09/23 07:30 Pre-Op Diagnosis: Ventral Hernia Post-Op Diagnosis: Ventral Hernia I identified the patient and participated in the time-out.: Yes Procedure Operation Date: 07/09/23 07:30 Actual Procedures p Open Colostomy Site Hernia Repair, Repair of Small Bowel Perforation,(Not Applicable) - Dayton Eugene DO s Laparoscopic Lysis of Adhesions(Not Applicable) - Dayton Eugene DO Surgeon Dayton Eugene DO Bag Bailer DENYS Wagner Estimated Blood Loss 5 Findings See Below Densely adhered small bowel to the anterior abdominal wall Specimens None Anesthesia Type General Complications None Indications Colostomy site hernia. Description of Procedure The patient was brought back to the operating room and placed on the table in supine position. SCDs were applied to bilateral lower extremities. The patient was connected to cardiac and oxygen monitoring. General anesthesia was admi nistered and a secured airway was established. The abdomen was prepped and draped in typical sterile fashion. A timeout was conducted. Local anesthetic was injected into the skin at the right upper quadrant. A right upper quadrant small stab incision was made and a Veress needle was used to gain intra- abdominal access. An 8 mm port was inserted under direct visualization using a 5 mm laparoscope and Visiport obturator. Pneumoperitoneum was established and set to a goal pressure of 15 mmHg. The endoscope was used to inspect the intra- abdominal space. 2 loops of small bowel were noted densely adhesed to the anterior abdominal wall along the midline and very adjacent to the known left lower quadrant hernia of the colostomy site. After injecting additional local anesthetic, 2 additional stab incisions were made along the right side of the abdomen through which 2 trocars were placed under direct visualization. Adhesions were lysed to separate the bowel from the anterior abdominal wall due to the densely scarred and bowel wall had along these loop the small bowel wall was compromised. At this point the decision was made to open the colostomy site to perform repair of this small perforation and perform a primary open repair of the colostomy site. The colostomy site was open. The small bowel that was compromised was brought through this site and the small perforation was repaired using 4-0 Vicryl suture and 3 oh silks sutures as a Lembert stitch. This was irrigated with saline and replaced into the abdomen. The peritoneum was away from the muscle at the colostomy site using cautery. The peritoneum was closed using 2-0 Vicryl suture. The muscle was very thin. This was closed using 1-0 Ethibond sutures in an interrupted fashion. Additional local anesthetic was injected into all 4 incision sites. 3-0 Vicryl suture was used to reapproximate the dermis. 4-0 Vicryl suture was used to close the skin at this location as well as the 3 trocar port sites. The patient tolerated the procedure well. She was awakened from anesthesia, the secure airway was removed and she was transferred to recovery in stable condition. I attest to the content of the Intraoperative Record and any orders documented therein. Any exceptions are noted below.
[2023-07-09] MEDS ORDERED: traMADol HCL 50 MG TABLET PO PRN ×2 (11:20)
[2023-07-09] MEDS ORDERED: MoRPHine SULFATE 2 MG/ML CARP IV PRN (11:20)
[2023-07-09] MEDS ORDERED: ACETAMINOPHEN 325 MG TAB PO PRN (11:20)
--- NOTE | 2023-07-09 11:20 | Anesthesiology Progress Note ---
Date of Service July 09, 2023 Anesthesia Post Procedure Vital Signs Vital Signs: Temp Pulse Pulse Resp BP Pulse Ox O2 Del Method 07/09/23 10:50 36.6 C 59 L 15 101/61 95 Room Air 07/09/23 10:35 36.6 C 57 L 14 96/62 L 94 Room Air 07/09/23 10:25 56 L 12 94/66 L 94 Room Air 07/09/23 10:15 65 16 96/63 L 94 Room Air 07/09/23 10:05 60 14 94/67 L 98 Oxymask 07/09/23 09:55 60 16 106/69 98 Oxymask 07/09/23 09:47 36.8 C 62 17 107/68 97 Oxymask 07/09/23 06:31 36.7 C 96 H 18 106/67 96 Room Air O2 Flow Rate 07/09/23 10:50 07/09/23 10:35 07/09/23 10:25 07/09/23 10:15 07/09/23 10:05 5 07/09/23 09:55 5 07/09/23 09:47 5 07/09/23 06:31 Pain Intensity Generalized: Pain Intensity: 6 Transfer of Care Handoff Completed per policy Notes Mental Status: alert / awake / arousable Patient Amnestic to Procedure: Yes Nausea / Vomiting: adequately controlled Pain: adequately controlled Airway Patency, RR, SpO2: stable & adequate BP & HR: stable & adequate Hydration State: stable & adequate Anesthetic Complications: no major complications apparent
[2023-07-09] MEDS: LACTATED RINGER'S 1,000 ML IV SCH (11:31)
[2023-07-09] MEDS ORDERED: ALBUTEROL HFA 8 GM INHALER INH PRN (12:09)
[2023-07-09] MEDS ORDERED: IPRATROPIUM BROMIDE HFA INHALER INH PRN (12:09)
[2023-07-09] MEDS: MoRPHine SULFATE 4 MG/ML 1 ML CARP\\VIAL IV PRN ×3 (14:15→22:16)
[2023-07-10] MEDS: LACTATED RINGER'S 1,000 ML IV SCH (00:57)
[2023-07-10 07:05] LABS: Basophils # (auto) 0.04 K/uL (0.00-0.20); Basophils % (auto) 0.7 %; Eosinophils # (auto) 0.15 K/uL (0.00-0.50); Eosinophils % (auto) 2.5 %; Hematocrit (blood only) 31.1 % (37.0-47.0); Hemoglobin 9.5 g/dl (12.0-16.0); Immature Granulocytes # (auto) 0.02 K/uL (0.01-0.20); Immature Granulocytes % (auto) 0.3 %; Lymphocytes # (auto) 1.33 K/uL (1.20-3.40); Lymphocytes % (auto) 22.1 %; Mean Corpuscular Hgb Conc 30.5 g/dL (32.0-36.0); Mean Corpuscular Volume 81.8 fL (80.0-100.0); Mean Platelet Volume 9.3 fL (9.4-12.4); Monocytes # (auto) 0.52 K/uL (0.11-0.59); Monocytes % (auto) 8.7 %; Neutrophils # (auto) 3.95 K/uL (1.40-6.50); Neutrophils % (auto) 65.7 %; Platelet Count 224 K/uL (130-400); RDW Coefficient of Variation 18.6 % (11.5-14.5); RDW Standard Deviation 55.5 fL (36.4-46.3); White Blood Count 6.01 K/ul (4.8-10.8)
[2023-07-10 07:46] LABS: Calcium 8.4 mg/dl (8.6-10.3); Creatinine Clr Calc Pharmacy 73.7 ml/min; Est GFR (African American) 99.7 ml/min; Potassium 3.7 mmol/L (3.5-5.1)
[2023-07-10] MEDS ORDERED: predniSONE 10 MG TABLET PO SCH (09:00)
[2023-07-10] MEDS ORDERED: DULoxetine HCL 60 MG CAP PO SCH (09:00)
[2023-07-10] MEDS ORDERED: DULoxetine HCL 30 MG CAP PO SCH (09:00)
[2023-07-10] MEDS ORDERED: buPROPion SR 100 MG TABCR PO SCH (09:00)
--- NOTE | 2023-07-10 11:53 | Surgery Progress Note ---
<Statement entered by Dayton Eugene DO - 07/11/23 15:06> I have seen and examined this patient and agreed with the plan Date of Service July 10, 2023 Assessment & Plan (1) Small bowel perforation: Plan: POD 1 from Laparoscopic lysis of adhesions , open colostomy hernia site repair, repair of small bowel perforation 07/09/23 Patient tolerating clear liquids Denies flatus, BM, N/V Cp SOB VSS Encouraged ambulation in halls Will D/C IV fluids since tolerating PO Pain tolerable Abdominal binder removed, three port sites and hernia repair site covered with dermabond, CDI. Reapplied gauze and tape to hernia site for comfort and reapplied abdominal binder. no s/s of infection noted. WBC 6 Once passing gas may increase diet to fulls (2) S/P hernia repair: Admission and Anticipated Discharge Date Admission Date: July 09, 2023 Subjective Patient tolerating clear liquids Denies flatus, BM, N.V Cp SOB Review of Systems Constitutional: no fever, no chills and no sweats Respiratory: no dyspnea Cardiovascular: no chest pain Gastrointestinal: + abdominal pain Rates it 3/10 Genitourinary: no problem reported Physical Exam Constitutional: cooperative and comfortable; no acute distress Respiratory: normal respiratory effort and able to speak in complete sentences; no respiratory distress Cardiovascular: Rate/Rhythm: + bradycardic (58) Gastrointestinal (Abdomen): Inspection/Auscultation: + abdominal surgical incision (CDI, dermabond to three port sites, dermabond to left colostomy hernia site) Results & Data Vital Signs (Past 12 Hours) Vital Signs Temp Pulse Resp BP Pulse Ox O2 Del Method 07/10/23 07:33 98.2 F 58 L 16 109/68 92 Room Air 07/10/23 02:49 98.1 F 65 16 102/66 93 Room Air PG Care Time/CCT Total # of Minutes Spent Total Time Spent with Patient: Total time spent is greater than 50% in coordination of care (as documented) at patient's floor/unit and/or counseling patient: Coding Level of Care Code 82117 Post Operative Follow-Up Diagnoses Small bowel perforation K63.1 S/P hernia repair Z98.890; Z87.19
--- NOTE | 2023-07-10 14:10 | Discharge Summary ---
Date of Service July 10, 2023 Admission HPI Per Admitting Provider Misa is a 63-year-old female who presents for robotic repair of a ventral hernia. She has a history of sigmoidectomy for diverticulitis, reversal of loop colostomy and ghost ileostomy on December 26, 2021. She was noted to have multiple small midline hernias at that time as well as a known parastomal hernia. The colostomy site was temporized with primary closure without mesh due to the colon resection being done at the time and expecting there will be need for a more permanent future repair. Today Misa says that she has noticed a hernia in the area for quite some time by the presence of bowel protruding through the hernia intermittently. She does state that this is reducible. Sofia mitlokesh only Misa has begun to develop diarrhea starting back in October of this year that is not necessarily associated with certain foods or eating at all. She denies bloody stools and states that as of this week she has not had diarrhea. Misa is under the care of her colorectal team and is scheduled for a colonoscopy at the end of this month. Misa's last colonoscopy was performed on March 02, 2021 at which time multiple small mouth diverticula were found in the sigmoid colon, nonbleeding internal hemorrhoids, no tumor. Detailed HPI: Misa has a past medical history of rheumatoid arthritis with chronic steroid use, DVT and high degree anal squamous dysplasia in 2013 who had been admitted for a perforation of the sigmoid colon back in August 2020 at which time she underwent a loop colostomy for suspected perforated tumor on August 26, 2020. Ultimately colonoscopy performed in October 2020 determined there was no tumor and that the patient has diverticular disease and likely this was an episode of diverticulitis. Principal Diagnosis Open Colostomy Site Hernia Repair, Repair of Small Bowel Perforation, Laparoscopic Lysis of Adhesions Discharge Exam Constitutional cooperative and comfortable; no acute distress Respiratory normal respiratory effort and able to speak in complete sentences; no respiratory distress Cardiovascular Rate/Rhythm: + bradycardic (58) Gastrointestinal (Abdomen) Inspection/Auscultation: + abdominal surgical incision (CDI, dermabond to three port sites, dermabond to left colostomy hernia site) Percussion/Palpation: abdomen soft abdominal binder Discharge Data Allergies Allergy/AdvReac Type Severity Reaction Status Date / Time doxycycline Allergy Unknown RASH Verified 07/09/23 06:26 buspirone AdvReac Unknown nightmares Verified 07/09/23 06:26 mirtazapine AdvReac Unknown weight gain Verified 07/09/23 06:26 Procedures Performed Operation Date: 07/09/23 07:30 Actual Procedures p Open Colostomy Site Hernia Repair, Repair of Small Bowel Perforation,(Not Applicable) - Dayton Eugene DO s Laparoscopic Lysis of Adhesions(Not Applicable) - Dayton Eugene DO Hospital Course (1) Small bowel perforation: The patient underwent an elective robotic ventral hernia repair on 07/09/[address] Eugene. During the procedure "adhesions were lysed to separate the bowel from the anterior abdominal wall however due to the densely scarred, bowel wall had along these loop the small bowel wall was compromised. At this point the decision was made to open the colostomy site to perform repair of this small perforation and perform a primary open repair of the colostomy site. The colostomy site was open. The small bowel that was compromised was brought through this site and the small perforation was repaired using 4-0 Vicryl suture and 3-0 silks sutures as a Lembert stitch" (from operative note). The hernia site and port sites were then closed and dermabond was applied. An abdominal binder was then placed. The patient was kept in the hospital over night for observation. On post operative day one the patient reported tolerating clear liquids, pain controlled ,passing flatus and ambulating. The diet was advanced to full liquids. The patient verbalized post discharge return precautions and diet advancement for home. The patients labs and VSS were monitored and she remained in stable condition throughout her stay. She was instructed to follow up in the office with Dr. Eugene in 2 weeks. (2) S/P hernia repair: Total Time Total Time Spent Total Time Spent (In Minutes): 30 Discharge Plan Discharge Items Patient Disposition: Home - Self-Care Reason For Visit: Ventral Hernia Discharge Diagnosis: Open Colostomy Site Hernia Repair, Repair of Small Bowel Perforation, Laparoscopic Lysis of Adhesions Activity: As commented below Lifting: No more than 10 pounds Bathing Comment: you can shower no baths or pools for 2 weeks Exercise/Sports: Wait until after follow-up appointment Driving/Machine Use: no driving while taking narcotic pain medication Non-emergency contact: Surgeon Call non-emergency contact if: you have any medication questions, your pain is worsening, your temperature is above 101.5, your wound has increased redness, your wound has increased drainage and your wound pain has increased Follow-up/Referrals: Miguel Arreola DO [Primary Care Provider] - Dayton Eugene DO [Physician] - 07/24/23 10:00 am (call office for a follow up in 2 weeks ) Diet: Full liquid Addtl Attending Provider Instructions: You have surgical glue called dermabond on your surgical site incisions. You may shower with this on. This will tend to come off within a couple of weeks. Do not pick at it. You may purchase Tylenol and/or Ibuprofen over the counter if needed for additional pain control over the next few days. Take per manufacturers instructions. Continue at home on full liquids for two days. Tomorrow will count at day one. is day two. If no issues and still passing gas, can start a low fiber diet on Sunday eating small, frequent meals (light grazing). Not eat a large meal at once. Continue to wear abdominal binder when up and about. Pending Studies at Discharge: No Stand-Alone Forms: My [facility], Pain - Opioid Pain Management Medications and DC Order Prescriptions: New tramadol 50 mg tablet 50 mg PO Q6H MDD 6 tabs PRN (Reason: pain) Qty: 10 0RF Rx Instructions: Take one tab by mouth every 6 hours as needed for pain. Continued acetaminophen 500 mg tablet 1,000 mg PO Q8H PRN (Reason: Pain) Qty: 30 0RF duloxetine [Cymbalta] 60 mg capsule,delayed release(DR/EC) 60 mg PO QAM Qty: 90 3RF Rx Instructions: TAKES WITH 30MG CAP FOR A TOTAL OF 90MG DAILY ipratropium-albuterol 18-103 mcg/actuation aerosol 1 spray inhalation QID PRN (Reason: Shortness Of Breath) multivitamin Tablet 1 tab PO QAM prednisone 10 mg tablet 10 mg PO QAM Orencia 50 mg/0.4 mL syringe 125 mg subcut WK Patient Comments: wednesdays zoledronic [id number] [Reclast] 5 mg/100 mL piggyback 1 ea IV YEARLY Patient Comments: ? last dose March 2023. tramadol 50 mg Tablet 50 mg PO UD PRN (Reason: Pain) hydroxychloroquine 100 mg Tablet 200 mg PO QAM Patient Comments: 50 mg dose ? bupropion HCl [Wellbutrin SR] 100 mg tablet sustained-release 12 hr 100 mg PO DAILY duloxetine [Cymbalta] 30 mg capsule,delayed release(DR/EC) 30 mg PO QAM Rx Instructions: TAKES WITH 60MG CAP FOR A TOTAL OF 90MG DAILY Discharge Orders: Discharge Order (Routine); Ordered 07/10/23 Ordered By: Montana Stone/Other Patient Handouts: Low-Fiber Diet, Full Liquid Diet Dc Admission Data Admit Date/Time: 07/09/23 09:48 Attending Provider: Dayton Eugene Admit Provider: Dayton Eugene Primary Care Provider: Miguel Arreola Other Interventions: Discharge Summary Assessment (RN) Last Done: 07/10/23 14:22 Coding Level of Care Code 11623 IN/OBS DISCH 30 MIN/LESS Diagnoses Small bowel perforation K63.1 S/P hernia repair Z98.890; Z87.19
--- NOTE | 2023-07-11 17:11 | Coding Query ---
CODING QUERY To promote full compliance with coding requirements relating to patient care, provider participation is requested in all cases of fermentation manager uncertainty. Please assist us with the question(s) below: Coding Question(s): During the hernia repair, small bowel perforation is documented. The perforation is repaired with sutures. Was the small bowel perforation a complication of the procedure, integral to the procedure, not clinically significant or other? Physician's Response(s): Thank you Jess Mercado! This is a known potential aspect of such a procedure which is not a complication if addressed as part of the procedure. I would say other. CEASARD
--- OUTSIDE RECORDS SUMMARY | 2023-07-13 15:29 | External Medical Summary | Continuity of Care Document ---
Author Name Unknown Organization [address] [place], [place] [id number] Care Team Providers Care Cyber Reverse Engineer Name Role Phone Miguel Arreola Primary Care Physician [phone] [id number] Date(s): 05/15/23 - 05/15/[address] [address] [phone] Encounter Diagnosis Body mass index [BMI] 23.0-23.9, adult(Discharge Diagnosis) - 05/15/23 Diarrhea(Discharge Diagnosis) - 05/15/23 Discharge Disposition: Home or Self Care Attending Physician: MD Antunez Audrey Referring Physician: MD Antunez Audrey Allergies, Adverse Reactions, Alerts Substance Reaction Severity Status doxycycline rash Active Assessment and Plan Extracted from: Title:Clinical Document Author:MD Antunez Aud rey Date:05/15/23 COLORECTAL OUTPATIENT NOTE Name: SERA ABRAMS Patient Number: [id number] : 1960 Date of Service: 05/15/2023 Chief Complaint: Diarrhea HPI: 63-year-old female with a history of sigmoidectomy with anastomosis and ghost ileostomy as well as primary repair of ventral and parastomal hernias for her diverticular disease which had previously been managed with antibiotics and a loop descending colostomy. She recovered well and as of a year ago had a completely healed wound and was having fairly normal bowel movements. However, in November she developed rather sudden onset refractory diarrhea that has been ongoing since that time. She has seen both her primary care doctor as well as our gastroenterology group here. A CT scan showed a hernia at her old stoma site, which she does note clinically and says that is always able to be reduced. This does not seem to correlate with her diarrhea. She also notes that she had stool studies done, such as for C. difficile, and that these were negative. She has not had a colonoscopy since before her stoma reversal. She has had an 18 pound weight loss since the diarrhea began in November. The diarrhea will happen just about every day and happens about 6 times per day without any warning. The anastomosis on the CT did appear patent and intact and no other abnormalities were noted. Current Home Meds: (Last Updated 05/15 13:03) DULoxetine (DULoxetine 30 mg oral delayed release capsule) TAKE 1 CAPSULE DAILY WITH A 60MG CAPSULE 90MG DULoxetine (DULoxetine 60 mg oral delayed release capsule) 60 mg PO Daily abatacept (Orencia Prefilled Syringe 50 mg/0.4 mL SQ solution) INJECT 1 SYRINGE (50 MG) UNDER THE SKIN EVERY 7 DAYS acetaminophen (acetaminophen 500 mg oral tablet) 1,000 mg PO q8h albuterol-ipratropium (DuoNeb) 3 mL NEB q4h PRN: Wheezing buPROPion (buPROPion 100 mg/12 hours (SR) oral tablet, extended release) 100 mg PO bid cholecalciferol (Vitamin D3 1000 intl units oral capsule) 1,000 Int_Unit PO Daily ondansetron (Zofran ODT 4 mg oral tablet, disintegrating) 4 mg PO tid PRN: as needed for nausea/vomiting predniSONE (predniSONE 5 mg oral tablet) 5 mg PO Daily traMADol (traMADol 50 mg oral tablet) 50 mg PO q4h PRN: as needed for pain zoledronic acid (Reclast 5 mg/100 mL intravenous solution) Yearly Allergies and Sensitivities: doxycycline(rash) Past Medical History: Problems: Moderate protein-calorie malnutrition Bilateral pleural effusion Abdominal pain Pneumonia Parapneumonic effusion Intraabdominal fluid collection S/P colostomy Perforated sigmoid colon Rectal cancer Rheumatoid arthritis Rectal bleeding OBJECTIVE Vitals: Last Updated 05/15/23 13:03 Date Temp BP Location Pulse RR SpO2 Pain 05/15/23 0 03/28/22 1 03/14/22 90/60 Right Arm Vital Signs are the last 3 documented. No Orthostatic Data Available Height and Weight: Last Updated 05/15/23 13:04 Date BMI Wt(kg) Wt(lb) Method Ht(cm) (ft-in) Method 05/15/23 23.52 65.6 144 Standing Scale 167 5-5 Patient stated 03/28/22 24.85 69.3 152 Standing Scale 167 5-5 Patient stated 02/14/22 24.56 68.5 151 Standing Scale 167 5-5 Patient stated Heights and Weights are the last 3 documented. Physical Exam General: Well-appearing, no acute distress HEENT: Anicteric sclera, MMM Resp: Nonlabored respirations CV: Nontachycardic Abdomen: Nondistended Extremities: Warm and well perfused Neuro: No gross deficits. Appropriately answers questions. 30 Day Labs: No 30 Day Lab Data. ASSESSMENT: 63 year old female with new onset diarrhea in the setting of a previous sigmoid resection. Regarding her ongoing diarrhea, in the absence of any positive findings on stool studies, I would reconsider a repeat colonoscopy with biopsies for microscopic colitis. This will also endoscopically evaluate the anastomosis to ensure no issues with that. Otherwise, I believe that she can likely trial imodium. Regarding her hernia, although I do not think that this is contributing to her symptoms, it still warrants potential repair given that it has a narrow neck and the potential for strangulation. She would like to be referred to the [facility] general surgery group for consideration of repair, and believes that Dr. Arreola, her PCP, will be able to refer to them as he is in the [facility] system. She will keep us updated with her progress. 31 minutes were spent in chart review, counseling, and coordinati on of care, including discussion of diagnosis, upcoming further imaging and laboratory modalities, as well as treatment plan and approach with the patient and available support members. Medications acetaminophen 500 mg oral tablet Start: 09/18/20 10:30:00 EST, 2 tab, PO, q8h Start Date: 09/18/20 Status: Ordered buPROPion 100 mg/12 hours (SR) oral tablet, extended release Start: 03/02/20 11:30:00 EDT, 1 tab, PO, bid Start Date: 03/02/20 Status: Ordered DULoxetine 30 mg oral delayed release capsule TAKE 1 CAPSULE DAILY WITH A 60MG CAPSULE 90MG Start Date: 06/07/21 Status: Ordered DULoxetine 60 mg oral delayed release capsule Start: 06/07/21 12:13:00 EDT, 1 cap, PO, Daily Start Date: 06/07/21 Status: Ordered DuoNeb Start: 09/18/20 10:30:00 EST, 3 mL, NEB, q4h, PRN: Wheezing Start Date: 09/18/20 Status: Ordered Orencia Prefilled Syringe 50 mg/0.4 mL SQ solution Start: 05/15/23 13:02:00 EDT, See instructions, mL, INJECT 1 SYRINGE (50 MG) UNDER THE SKIN EVERY 7DAYS Start Date: 05/15/23 Status: Ordered predniSONE 5 mg oral tablet Start: 12/14/21 12:59:00 EDT, 1 tab, PO, Daily Start Date: 12/14/21 Status: Ordered Reclast 5 mg/100 mL intravenous solution Start: 10/14/21 13:51:00 EST, Yearly Start Date: 10/14/21 Status: Ordered traMADol 50 mg oral tablet Start: 01/17/22 11:10:00 EDT, 1 tab, PO, q4h, Disp# 20 tab, PRN: as needed for pain, Pharmacy: [facility]/pharmacy #[id number] Start Date: 01/17/22 Status: Ordered Vitamin D3 1000 intl units oral capsule Start: 12/17/18 10:56:00 EDT, 1 cap, PO, Daily Start Date: 12/17/18 Status: Ordered Zofran ODT 4 mg oral tablet, disintegrating Start: 01/10/22 14:45:00 EDT, 1 tab, PO, tid, Disp# 15 tab, PRN: as needed for nausea/vomiting, Pharmacy: [facility] Start Date: 01/10/22 Status: Ordered Mental Status 05/15/23 Barriers to Learning one year None evide nt Mandatory Health Literacy Documentation Yes Health Literacy Communication Barriers N ever Primary Language Czech Problem List Condition Confirmation Course Effective Dates Status H ealth Status Informant Abdominal pain Confirmed Active Bilateral pleural effusion Confirmed Active S/P colostomy Confirmed Active Intraabdominal fluid collection Confirmed Active Rectal cancer Confirmed Active Moderate protein-calorie malnutrition Confirmed Active Perforated sigmoid colon Confirmed Active Parapneumonic effusion Confirmed Active Pneumonia Confirmed Active Rectal bleeding Confirmed Active Rheumatoid arthritis Confirmed Active Diagnosis Diagnosis Type Effective Dates Health Status Cl inical Service Informant Body mass index [BMI] 23.0-23.9, adult Discharge Diagnosis 05/15/23 Non-Specified Diarrhea Discharge Diagnosis 05/15/23 Procedures Procedure Date Related Diagnosis Body Site Status KUB X-ray 1 01/04/22 Completed Chest X-ray 2 01/01/22 Completed KUB X-ray 3 12/28/21 Completed Exploratory laparotomy, with loop colostomy 4 08/26/20 Completed Removal and insertion of imp lantable venous access port 02/06/20 Completed Revision of implantable veno us access port- stripping of sheath 10/24/19 Comple ramona infusion port insertion 05/02/19 C ompleted Colonoscopy 5 12/31/18 Completed Colonoscopy 6 12/31/18 Completed Removal of Port-a-cath 04/23/17 Co mpleted Insertion of Port-a-cath 08/11/14 Completed Back fusion 2013 Completed Hemorrhoidectomy 2013 Complete d Cataracts, bilateral 2001 Comp leted Anesthesia for total knee replacement 2000 Completed Herniated disc 2000 Completed Repair of elbow 2000 Completed Entire gallbladder removal 1996 Completed 11) Gastric termination of nasogastric tubes as outlined above. 2) Air-filled distended small bowel loops, incompletely visualized. Diagnostic considerations include small bowel obstruction with ileus. Consideration should be given to acute abdominal series 2No acute abnormality 31) Enteric tube with tip in the gastric fundus. 2) Distended air-filled loops of small bowel 4Peritonitis, significant contamination, tumor at junction of rectal and sigmoid colon with perforation of the bowel, the tumor is unresectable. 5One 4 mm polyp in the ascending colon, removed with a cold snare. Resected and retrieved. Diverticulosis in the sigmoid colon. Non-bleeding internal hemorrhoids. Pathology results: Colon, ascending, polypectomy: tubular adenoma 6Colon, ascending, polypectomy: Tubular Adenoma Vital Signs Most recent to oldest [Reference Range]: 1 Height 167 cm (05/15/23 1:04 PM) Patient Weight 65.6 kg (05/15/23 1:04 PM) Body Mass Index 23.52 kg/m2 (05/15/23 1:04 PM) Social History Social History Type Response Smoking Status Former Smoker, quit > 1 yr Sex Female Colorectal Outpt Note * MD Harmony, Caitlin: PERFORM Event Display: Colorectal Outpt Note Authored Date: [id number] COLORECTAL OUTPATIENT NOTE Name: SERA ABRAMS Patient Number: [id number] : 1960 Date of Service: 05/15/2023 Chief Complaint: Diarrhea HPI: 63-year-old female with a history of sigmoidectomy with anastomosis and ghost ileostomy as well as primary repair of ventral and parastomal hernias for her diverticular disease which had previously been managed with antibiotics and a loop descending colostomy. She recovered well and as of a year ago had a completely healed wound and was having fairly normal bowel movements. However, in Novembershe developed rather sudden onset refractory diarrhea that has been ongoing since that time. She has seen both her primary care doctor as well as our gastroenterology group here. A CT scan showed a hernia at her old stoma site, which she does note clinically and says that is always able to be reduced. This does not seem to correlate with her diarrhea. She also notes that she had stool studies done, such as for C. difficile, and that these were negative. She has not had a colonoscopy since before her stoma reversal. She has had an 18 pound weight loss since the diarrhea began in November. The diarrhea will happen just about every day and happens about 6 times per day without any warning. The anastomosis on the CT did appear patent and intact and no other abnormalities were noted. Current Home Meds: (Last Updated 05/15 13:03) DULoxetine (DULoxetine 30 mg oral delayed release capsule) TAKE 1 CAPSULE DAILY WITH A 60MG [id number] DULoxetine (DULoxetine 60 mg oral delayed release capsule) 60 mg PO Daily abatacept (Orencia Prefilled Syringe 50 mg/0.4 mL SQ solution) INJECT 1 SYRINGE (50 MG) UNDER THE SKIN EVERY 7 DAYS acetaminophen (acetaminophen 500 mg oral tablet) 1,000 mg PO q8h albuterol-ipratropium (DuoNeb) 3 mL NEB q4h PRN: Wheezing buPROPion (buPROPion 100 mg/12 hours (SR) oral tablet, extended release) 100 mg PO bid cholecalciferol (Vitamin D3 1000 intl units oral capsule) 1,000 Int_Unit PO Daily ondansetron (Zofran ODT 4 mg oral tablet, disintegrating) 4 mg PO tid PRN: as needed for nausea/vomiting predniSONE (predniSONE 5 mg oral tablet) 5 mg PO Daily traMADol (traMADol 50 mg oral tablet) 50 mg PO q4h PRN: as needed for pain zoledronic acid (Reclast 5 mg/100 mL intravenous solution) Yearly Allergies and Sensitivities: doxycycline(rash) Past Medical History: Problems: Moderate protein-calorie malnutrition Bilateral pleural effusion Abdominal pain Pneumonia Parapneumonic effusion Intraabdominal fluid collection S/P colostomy Perforated sigmoid colon Rectal cancer Rheumatoid arthritis Rectal bleeding OBJECTIVE Vitals: Last Updated 05/15/23 13:03 Date Temp BP Location Pulse RR SpO2 Pain 05/15/23 0 03/28/22 1 03/14/22 90/60 Right Arm Vital Signs are the last 3 documented. No Orthostatic Data Available Height and Weight: Last Updated 05/15/23 13:04 Date BMI Wt(kg) Wt(lb) Method Ht(cm) (ft-in) Method 05/15/23 23.52 65.6 144 Standing Scale 167 5-5 Patient stated 03/28/22 24.85 69.3 152 Standing Scale 167 5-5 Patient stated 02/14/22 24.56 68.5 151 Standing Scale 167 5-5 Patient stated Heights and Weights are the last 3 documented. Physical Exam General: Well-appearing, no acute distress HEENT: Anicteric sclera, MMM Resp: Nonlabored respirations CV: Nontachycardic Abdomen: Nondistended Extremities: Warm and well perfused Neuro: No gross deficits. Appropriately answers questions. 30 Day Labs: No 30 Day Lab Data. ASSESSMENT: 63 year old female with new onset diarrhea in the setting of a previous sigmoid resection. Regarding her ongoing diarrhea, in the absence of any positive findings on stool studies, I would reconsider a repeat colonoscopy with biopsies for microscopic colitis. This will also endoscopically evaluate the anastomosis to ensure no issues with that. Otherwise, I believe that she can likely trial imodium. Regarding her hernia, although I do not think that this is contributing to her symptoms, it still warrants potential repair given that it has a narrow neck and the potential for strangulation. She would like to be referred to the [facility] general surgery group for consideration of repair, and believes that Dr. Arreola, her PCP, will be able to refer to them as he is in the [facility] system. She will keep us updated with her progress. 31 minutes were spent in chart review, counseling, and coordination of care, including discussion of diagnosis, upcoming further imaging and laboratory modalities, as well as treatment plan andapproach with the patient and available support members. Electronic Signature on File CC: Miguel Arreola DO [facility] Physician [address] [place] [address] * CC: Yadiel Obregon DO [address] [place] [address] * CC: RODERICK Schmid [address] [facility] [place] [address] * Electronically Reviewed/Signed by: Caitlin Antunez MD Author Signature Dt/Tm:05/15/2023 01:34 PM Division of Colorectal Surgery [place] Patient Care team information Care Team Personnel Name: RODERICK Dhillon Tara Position: Nurse Pract - Family Med Member Role: Lifetime Relationship Address: Address: [address] [place] [address] [place] Name: Torey Machuca Amy E Position: Pharmacist Member Role: Pharmacy - Lifetime Address: Address: [address] [address] [place] Name: Oralia Devine Position: HIS Supervisor_P Member Role: HIS Lifetime Name: Torey España Blaine Position: Pharmacist Member Role: Pharmacy - Lifetime Name: DAMIR Goode Lynn Position: Physician Psychiatric Specialist Exempt - Vasc Surg Member Role: Lifetime Relationship Address: Address: [address] [place] [address] [place] Name: DO Arreola Brian R Position: Referring Member Role: Primary Care Provider Address: Address: [facility] [address] [place] [address] [place] Name: MD Moore Eugene J Position: Physician - Vascular Surg Member Role: Lifetime Relationship Address: Address: [address] [place] [address] [place] Name: Torey Salinas Jason A Position: Pharmacist Member Role: Pharmacy - Lifetime Address: Address: [address] [address] [place] Care Team Related Persons Name: XOCHITL ABRAMS Name: MARYANN PALACIOS Address: [address] [id number]
--- OUTSIDE RECORDS SUMMARY | 2023-07-13 15:29 | External Medical Summary | Summary of Care ---
Author Name Unknown Organization [facility] Address [address] [place] [address] Phone [phone] Care Team Providers Care Principal Account Clerk Name Role Phone Miguel Arreola DO Primary Care Provider [phone] [phone] Encounter Details Date Type Department Care Team Description 05/04/2023 Specialty Pharmacy [facility], [address] [address] Medication, [place] Specialty Refill, [address] [address] Allergies Active Allergy Reactions Severity Noted Date Comments Buspirone High 08/14/2022 Other reaction(s): nightmares Doxycycline Monohydrate Rash 08/16/2010 Mirtazapine Low 08/14/2022 Other reaction(s): weight gain documented as of this encounter (statuses as of 05/16/2023) Medications Medication Sig Dispensed Refills Start Date End Date Status IBUPROFEN 600 MG PO TABSIndications: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 0 Active buPROPion extended release, SR, (WELLBUTRIN SR) 100 MG TB12 Take 1 Tablet by mouth in the morning. 0 12/03/2019 Active Acetaminophen 500 MG Oral Tablet (Tylenol) 2 Tablets. 0 09/18/2020 Active Hydroxychloroquine Sulfate 200 MG Oral Tablet (Plaquenil)Indicatio ns:KAMRAN (juvenile idiopathic arthritis) ([facility]),Encounter for long-term (current) use of medications Take 200mg daily alternating with 400mg daily 45 Tablet 5 09/12/2022 Active predniSONE 5 MG Oral Tablet (Deltasone) TAKE 1 TABLET BY MOUTH EVERY DAY 90 Tablet 1 11/06/2022 Active Abatacept 125 MG/ML Subcutaneous Solution Prefilled Syringe (Orencia)Indications :Rheumatoid arthritis involving multiple joints ([facility]) Inject 125mg under the skin once weekly 4 mL 6 02/19/2023 Active documented as of this encounter (statuses as of 05/16/2023) Active Problems Problem Noted Date Senile osteoporosis 09/11/2022 Senile osteoporosis 08/23/2021 Diverticulosis of large intestine withou t hemorrhage 10/06/2020 History of rectal cancer 03/05/2018 Osteoporosis without current pathologica l fracture 10/31/2017 KAMRAN (juvenile idiopathic arthritis) 04/01/2017 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 12/29/2015 Rectal cancer 12/29/2015 Serologic abnormality 12/26/2013 Sciatica 10/20/2011 Metatarsalgia 08/18/2011 Elbow joint replacement status 0 Joint pain, elbow 03/11/2010 Lyme disease 2009 Vitamin D deficiency 10/08/2008 Encounter for long-term (current) use of medications 02/06/2008 Overview: ICD-10 update of inactive term Major depressive disorder 03/22/2007 Overview: ICD-10 update of inactive term H ZOSTER COMPLICATED NOS 11/29/2006 LUMB-LUMBOSAC DISC DEGEN 02/27/2003 Retinal detachment 09/26/2002 Band-shaped keratopathy Vasculitis TERMINATED MEDICATION USAGE AGREEMENT Overview: + marijuana screen documented as of this encounter (statuses as of 05/16/2023) Resolved Problems Problem Noted Date Resolved Date MEDICATION USE AGREEMENT 09/24/2018 020 Encounter for long-term (current) use of medicat ions 12/29/2015 03/18/2019 Osteoporosis 08/17/2015 06/07/2022 POLYART JUV RHEUM ARTHR 06/07/20 22 documented as of this encounter (statuses as of 05/16/2023) Immunizations Name Administration Dates Next Due COVID-19 mRNA, LNP-s, No Pre serve, 2-Dose Series (Pfizer) 05/10/2021,10/29/2020,10/08/2020 PPD 01/30/2002 Pneumococcal Polysaccharide PPV23 (Pneumovax) 08/01/2012,06/27/2007 Seasonal Influenza, QUAD, wi th Preserv, 6 mons & Above, 0.5 mL, IM 07/02/2021 Seasonal Influenza, Quadriva lent, No Preserve, Mdck 06/12/2022 Seasonal Influenza, Split, I IV3, With Preserve, Inj 06/17/2020,08/03/2019,06/29/2016,06/07,06/19/2014,09/05/2013,08/01/2012 ,08/18/2011,07/04/2010,06/24/2009,06/03,06/27/2007,05/30/2002 documented as of this encounter Social History Tobacco Use Types Packs/Day Years Used Date Smoking Tobacco: Former Cigarettes Smokeless Tobacco: Never Comments:Quitn 15 years ago Alcohol Use Standard Drinks/Week Comments No 0 (1 standard drink = 0.6 oz pur e alcohol) Sex Assigned at Date Recorded Not on file Job Start Date Occupation Industry Not on file Not on file Not on file documented as of this encounter Progress Notes * MARQUITA Mosqueda - 05/16/2023 9:46 AM EDT [place] approved, spoke to pt, shipping 05/16. Omar Calderon CPhT Optical Engineer [facility] 05/16/2023,9:46 AM * Fabiola Crawford CPhT - 05/10/2023 4:39 PM EDT pa pending spoke to pt informed of delay Fabiola Crawford Optical Engineer [facility] 05/10/2023,4:39 PM * Barbra Mathew CPhT - 05/04/2023 1:58 PM EDT Prescribed medication: Medication: orencia Shipment date: 05/10 pending pa Delivery method: Specialty Mail Location Medication Delivered too? Prescription Address: [address] [place] [address] [place] [address] Barbra Mathew CPhT [facility] 05/04/2023,1:58 PM documented in this encounter Plan of Treatment Upcoming Encounters Date Type Specialty Care Team Description 08/02/2023 Office Visit Orthopedics Jero Billingsley PA-C [address] [place] [address] Health Maintenance Due Date Last Done Comments Lipid Panel 1962 Depression Screening 1974 HIV Screening 1977 DTaP,Tdap,and Td Vaccines (1 - Tdap) 1981 Zoster Vaccines (1 of 2) 1981 Pap Smear 1983 Cervical Cancer Screening 1992 HPV/Co-Test 1992 Mammogram 2002 Cologuard 2007 Colonoscopy 2007 Colorectal Cancer Screening 2007 Fecal Occult Blood Test 2007 Sigmoidoscopy 2007 Pneumococcal Vaccine: Pediatrics (0 to 5 Years) and At-Risk Patients (6 to 64 Years) (3 - PCV) 08/01/2013 08/01/2012, 06/27/2007 Influenza Vaccine (FLU shot) (#1) 2023 06/12/2022, 07/02/2021, 06/17/2020, Additional history exists DXA Scan 08/23/2023 08/23/2021, 06/04, 08/17/2015, Additional history exists Diabetes Screening 01/31/2026 01/31/2023, 0 10/19/2021, 08/10/2021, Additional history exists COVID-19 Vaccine Completed 06/12/2022, 03/2021, 10/29/2020, Additional history exists VITAMIN D LEVEL ONCE IN A LIFETIME-USE SMARTSET# [id number] Completed 09/13/2022, 08/31/2021, 03/19/2020, Additional history exists GARDASIL-HPV IMMUNIZATION SERIES Aged Out No longer eligible based on patient's age to complete this topic Hepatitis B Aged Out No longer eligi ble based on patient's age to complete this topic MENINGOCOCCAL (MENACTRA/MENVEO) Aged Out No longer eligible based on patient's age to complete this topic documented as of this encounter Medical Devices Implanted Type Area Planning And Analysis Manager Device Identifier Shelf Expiration Date Model / Serial / Lot Coonrad/Morrey Total Elbow Interchangeable Humeral Assesmbly Implanted:Qty: 1 on 03/23/2010 at [place] [facility] [place] Right: Elbow [employer] 06/03/2014 32-8105-25 -[id number] / / [id number] documented as of this encounter Advance Directives Latest Code Status on File Code Status Date Activated Date Inactivated Comments Full Code 03/23/2010 8:52 AM 03/24/2010 3:17 PM This order reflects the patients wishes and were consensually agreed upon. Code Status History Code Status Date Activated Date Inactivated Comments Full Code 03/23/2010 6:10 AM 03/23/2010 8:52 AM This order reflects the patients wishes and were consensually agreed upon. Care Teams Principal Account Clerk Relationship Specialty Start Date End Date Miguel Arreola DO [address] [place] [address] PCP - General Family Medicine 10/27/22 documented as of this encounter
--- OUTSIDE RECORDS SUMMARY | 2023-07-13 15:29 | External Medical Summary | Summary of Care ---
Author Name Unknown Organization [facility] Address [address] [place] [address] Phone [phone] Care Team Providers Care Personal Computer Network Engineer Name Role Phone Miguel Arreola DO Primary Care Provider [phone] [phone] Reason for Visit * Reason Onset Date Comments Medication Refill 06/05/2023 Encounter Details Date Type Department Care Team Description 06/05/2023 [facility] [address] [address] Miguel Hayden MD [address] [place] [address] [facility] [address] Allergies Active Allergy Reactions Severity Noted Date Comments Buspirone High 08/14/2022 Other reaction(s): nightmares Doxycycline Monohydrate Rash 08/16/2010 Mirtazapine Low 08/14/2022 Other reaction(s): weight gain documented as of this encounter (statuses as of 06/07/2023) Medications Medication Sig Dispensed Refills Start Date [...] Oral Tablet (Plaquenil)Indicatio ns:KAMRAN (juvenile idiopathic arthritis) ([facility]),Encounter for long-term (current) use of medications Take 200mg daily alternating with 400mg daily 45 Tablet 5 09/12/2022 Active predniSONE 5 MG Oral Tablet (Deltasone) TAKE 1 TABLET BY MOUTH EVERY DAY 90 Tablet 1 11/06/2022 Active Abatacept 125 MG/ML Subcutaneous Solution Prefilled Syringe (Orencia)Indications :Rheumatoid arthritis involving multiple joints (HCC) Inject 125mg under the skin once weekly 4 mL 6 02/19/2023 Active Leflunomide 10 MG Oral Tablet (Arava) Take 1 Tablet by mouth in the morning. 30 Tablet 5 05/08/2023 Active traMADol HCl 50 MG Oral Tablet (Ultram) Take 1 Tablet by mouth every 6 hours as needed for Pain, Severe. 60 Tablet 1 05/18/2023 Active documented as of this encounter (statuses as of 06/07/2023) Active Problems Problem Noted Date Senile osteoporosis 09/11/2022 Senile osteoporosis 08/23/2021 Diverticulosis of large intestine withou t hemorrhage 10/06/2020 History of rectal cancer 03/05/2018 Osteoporosis without current pathologica l fracture 10/31/2017 KAMRAN (juvenile idiopathic arthritis) 04/01/2017 senior care current use of systemic steroi ds 12/29/2015 [...] as of this encounter (statuses as of 06/07/2023) Resolved Problems Problem Noted Date Resolved Date MEDICATION USE AGREEMENT 09/24/2018 020 Encounter for long-term (current) use of medicat ions 12/29/2015 03/18/2019 Osteoporosis 08/17/2015 06/07/2022 POLYART JUV RHEUM ARTHR 06/07/20 documented as of this encounter (statuses as of 06/07/2023) Immunizations Name Administration Dates Next Due COVID-19 mRNA, LNP-s, No Pre serve, 2-Dose Series (Pfizer) 05/10/2021,10/29/2020,10/08/2020 Pneumococcal Polysaccharide PPV23 (Pneumovax) 08/01/2012,06/27/2007 Seasonal Influenza, QUAD, wi th Preserv, 6 mons & Above, 0.5 mL, IM 07/02/2021 Seasonal Influenza, Quadriva lent, No Preserve, Mdck 06/12/2022 Seasonal Influenza, Split, I IV3, With Preserve, Inj 06/17/2020,08/03/2019,06/29/2016,06/07,06/19/2014,09/05/2013,08/01/2012 ,08/18/2011,07/04/2010,06/24/2009,06/03,06/27/2007 documented as of this encounter Social History [...] on file documented as of this encounter Miscellaneous Notes * Telephone Encounter - Ann Vaughan [facility] - 06/07/2023 10:37 AM EDTRefused Prescriptions: Disp Refills Leflunomide 10 MG Oral Tablet (Arava) 90 Tab*2 Sig: Take 1 Tablet by mouth in the morning.Refused By: ANN VAUGHAN for Refusal: Other (comment below)------ * Telephone Encounter - Ann Vaughan [facility] - 06/07/2023 10:37 AM EDT Per 05/02/23 encounter, pt holding off on starting Arava. 90 day supply may be appropriate in the future if pt decides to take. Thanks, Ann Vaughan, PharmD [facility] Clinical Pharmacist Rheumatology Department [phone] 06/07/2023, 10:37 AM * Telephone Encounter - Elisha Rachel LPN - 06/05/2023 3:58 PM EDT 90 day Rx requested. documented in this encounter Plan of Treatment Upcoming Encounters Date Type Specialty Care Team Description 08/02/2023 Office Visit Orthopedics Jero Billingsley PA-C [address] [place] [address] Health Maintenance Due Date Last Done Comments [...] Years) (3 - PCV) 08/01/2013 08/01/2012, 06/27/2007 COVID-19 Vaccine (5 - 2022-24 season) 2023 06/12/2022, 05/10/2021, 10/29/2020, Additional history exists Influenza Vaccine (FLU shot) (#1) 2023 06/12/2022, 07/02/2021, 06/17/2020, Additional history exists DXA Scan 08/23/2023 08/23/2021, 06/04, 08/17/2015, Additional history exists Diabetes Screening 01/31/2026 01/31/2023, 0 10/19/2021, 08/10/2021, Additional history exists VITAMIN D LEVEL ONCE IN A LIFETIME-USE SMARTSET# [id number] Completed 09/13/2022, 08/31/2021, 03/19/2020, Additional history exists [...] this encounter Medical Devices Implanted Type Area Electrical Lineman Device Identifier Shelf Expiration Date Model / Serial / Lot Coonrad/Morrey Total Elbow Interchangeable Humeral Assesmbly Implanted:Qty: 1 on 03/23/2010 at OR [facility] [place] Right: Elbow [employer] 06/03/2014 [id number] -[id number] / / [id number] documented as of this encounter Advance Directives [...] and were consensually agreed upon. Care Teams Personal Computer Network Engineer Relationship Specialty Start Date End Date Miguel Arreola DO [address] [place] [address] PCP - General Family Medicine 10/27/22 documented as of this encounter
--- OUTSIDE RECORDS SUMMARY | 2023-07-13 15:29 | External Medical Summary | Summary of Care ---
Author Name Unknown Organization [facility] Address [address] [place] [address] Phone [phone] Care Team Providers Care Can Capper Name Role Phone Miguel Arreola DO Primary Care Provider [phone] [phone] Encounter Details Date Type Department Care Team ([facility] st Contact Info) Description 07/04/2023 Specialty Pharmacy [facility], [address], [address] [place] [address] Medication, Mt Specialty Refill, [facility] [address] [address] Allergies Active Allergy Reactions Criticality Noted Date Comments Buspirone High 08/14/2022 Other reaction(s): nightmares Doxycycline Monohydrate Rash 08/16/2010 Mirtazapine Low 08/14/2022 Other reaction(s): weight gain documented as of this encounter (statuses as of 07/04/2023) Medications Medication Sig Dispensed Refills Start Date End Date Status IBUPROFEN 600 MG PO TABSIndications: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 0 12/03/2019 Active Acetaminophen 500 MG Oral Tablet (Tylenol) 2 Tablets. 0 09/18/2020 Active Hydroxychloroquine Sulfate 200 MG Oral Tablet (Plaquenil)Indicati ons:KAMRAN (juvenile idiopathic arthritis) (HCC),Encounter for long-term (current) use of medications Take 200mg daily alternating with 400mg daily 45 Tablet 5 09/12/2022 Active predniSONE 5 MG Oral Tablet (Deltasone) TAKE 1 TABLET BY MOUTH EVERY DAY 90 Tablet 1 11/06/2022 Active Abatacept 125 MG/ML Subcutaneous Solution Prefilled Syringe (Orencia)Indication s:Rheumatoid arthritis involving multiple joints (HCC) Inject 125mg under the skin once weekly 4 mL 6 02/19/2023 Active Leflunomide 10 MG Oral Tablet (Arava) Take 1 Tablet by mouth in the morning. 30 Tablet 5 05/08/2023 Active traMADol HCl 50 MG Oral Tablet (Ultram) Take 1 Tablet by mouth every 6 hours as needed for Pain, Severe. 60 Tablet 1 05/18/2023 Active Cholecalciferol (VITAMIN D3) 125 MCG (5000 UT) Tablet Take 1 Tablet by mouth in the morning. 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 steroids 12/28 Rectal cancer 12/29/2015 Serologic abnormality 12/26/2013 Sciatica 10/20/2011 Metatarsalgia 08/18/2011 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 Joint pain, elbow 03/11/2010 Lyme disease 2009 Vitamin D deficiency 10/08/2008 Encounter for long-term (current) use of medicat ions 02/06/2008 Overview: ICD-10 update of inactive term Major depressive disorder 03/22/2007 Overview: ICD-10 update of inactive term H ZOSTER COMPLICATED NOS 11/29/2006 LUMB-LUMBOSAC DISC DEGEN 02/27/2003 Retinal detachment 09/26/2002 Band-shaped keratopathy Vasculitis TERMINATED MEDICATION USAGE AGREEMENT Overview: + marijuana screen documented as of this encounter (statuses as of 07/04/2023) Resolved Problems Problem Noted Date Diagnosed Date Resolved Date MEDICATION USE AGREEMENT 09/24/2018 Encounter for long-term (cur rent) use of medications 12/29/2015 03/18/2019 Osteoporosis 08/17/2015 06/07/2022 POLYART JUV RHEUM ARTHR 01/2022 documented as of this encounter (statuses as of 07/04/2023) Immunizations Name Administration Dates Next Due COVID-19 [...] = 0.6 oz pur e alcohol) Sex and Gender Information Value Date Recorded Sex Assigned at Not on file Gender Identity Not on file Sexual Orientation Not on file Job Start Date Occupation Industry Not on file Not on file Not on file documented as of this encounter Progress Notes * Martha Garcia CPhT - 07/04/2023 11:18 AM EDT Prescribed medication: Medication: Orencia Shipment date: 07/09 Delivery method: Specialty Mail Location Medication Delivered too? Prescription Address: [address] [place] [address] [place] [address] Martha Garcia CPhT [facility] 07/04/2023,11:18 AM documented in this encounter Plan of Treatment Upcoming Encounters Date Type Department Care Team (Late st Contact Info) Description 08/02/2023 9:00 AM EST Office Visit Orthopaedics [facility] [address] [place] [address] Jero Billingsley PA-C [address] [place] [address] Health Maintenance Due Date Last Done Comments [...] 08/01/2013 08/01/2012, 06/27/2007 COVID-19 Vaccine (5 - 2022- season) 2023 06/12/2022, 05/10/2021, 10/29/2020, Additional history exists Influenza Vaccine (FLU shot) (#1) 2023 06/12/2022, 07/02/2021, 06/17/2020, Additional history exists DXA Scan 08/23/2023 08/23/2021, 06/04, 08/17/2015, Additional history exists Diabetes Screening 01/31/2026 01/31/2023, 0 10/19/2021, 08/10/2021, Additional history exists VITAMIN D LEVEL ONCE IN A LIFETIME-USE SMARTSET# [id number] Completed 09/13/2022, 08/31/2021, 03/19/2020, Additional history exists [...] this encounter Medical Devices Implanted Type Area Hedis Coordinator Device Identifier Shelf Expiration Date Model / Serial / Lot Coonrad/Morrey Total Elbow Interchangeable Humeral Assesmbly Implanted:Qty: 1 on 03/23/2010 at OR [facility] [place] Right: Elbow [employer] 06/03/2014 32-8105-25 -[id number] / / [id number] documented as of this encounter Advance Directives [...] and were consensually agreed upon. Care Teams Can Capper Relationship Specialty Start Date End Date Miguel Arreola DO [address], [place] [address] PCP - General Family Medicine 10/27/22 documented as of this encounter
--- OUTSIDE RECORDS SUMMARY | 2023-07-13 15:29 | External Medical Summary | Summary of Care ---
Author Name Unknown Organization [facility] Address [address] [place] [address] Phone [phone] Care Team Providers Care Inspector Filter Tip Name Role Phone Miguel Arreola DO Primary Care Provider [phone] Encounter Details Date Type Department Care Team Description 05/04/2023 Specialty Pharmacy [facility], [address] [address] Medication, Mt Specialty Refill, [address] [address] Allergies Active Allergy Reactions Severity Noted Date Comments Buspirone High 08/14/2022 Other reaction(s): nightmares Doxycycline Monohydrate Rash 08/16/2010 Mirtazapine Low 08/14/2022 Other reaction(s): weight gain documented as of this encounter (statuses as of 05/10/2023) Medications Medication Sig Dispensed Refills Start Date [...] Tablet (Plaquenil)Indicatio ns:KAMRAN (juvenile idiopathic arthritis) ([facility]),Encounter for long-term (current) use of medications Take 200mg daily alternating with 400mg daily 45 Tablet 5 09/12/2022 Active predniSONE 5 MG Oral Tablet (Deltasone) TAKE 1 TABLET BY MOUTH EVERY DAY 90 Tablet 1 11/06/2022 Active Abatacept 125 MG/ML Subcutaneous Solution Prefilled Syringe (Orencia)Indications :Rheumatoid arthritis involving multiple joints ([facility]) Inject 125mg under the skin once weekly 4 mL 6 02/19/2023 Active documented as of this encounter (statuses as of 05/10/2023) Active Problems Problem Noted Date Senile osteoporosis 09/11/2022 Senile osteoporosis 08/23/2021 Diverticulosis of large intestine withou t hemorrhage 10/06/2020 History of rectal cancer 03/05/2018 Osteoporosis without current pathologica l fracture 10/31/2017 KAMRAN (juvenile idiopathic arthritis) 04/01/2017 senior living current use of systemic steroi ds 12/29/2015 [...] as of this encounter (statuses as of 05/10/2023) Resolved Problems Problem Noted Date Resolved Date MEDICATION USE AGREEMENT 09/24/201812/25/ 020 Encounter for long-term (current) use of medicat ions 12/29/2015 03/18/2019 Osteoporosis 08/17/2015 06/07/2022 POLYART JUV RHEUM ARTHR 06/07/20 22 documented as of this encounter (statuses as of 05/10/2023) Immunizations Name Administration Dates Next Due COVID-19 [...] as of this encounter Progress Notes * Fabiola Crawford CPhT - 05/10/2023 4:39 PM EDT tsering pending spoke to pt informed of delay Fabiola Crawford Surfacing Machine Operator [facility] 05/10/2023,4:39 PM * Barbra Mathew CPhT - 05/04/2023 1:58 PM EDT Prescribed medication: Medication: orencia Shipment date: 05/10 pending tsering Delivery method: Specialty Mail Location Medication Delivered too? Prescription Address: [address] [place] [id number] Barbra Mathew CPhT [facility] 05/04/2023,1:58 PM documented in this encounter Plan of Treatment Upcoming Encounters Date Type Specialty Care Team Description 08/02/2023 Office Visit Orthopedics Jero Billingsley PA-C [address] [place] [address] Health Maintenance Due Date Last Done Comments [...] Additional history exists DXA Scan 08/23/2023 08/23/2021, 1010/2017, 08/17/2015, Additional history exists Diabetes Screening 01/31/2026 01/31/2023, 0 10/19/2021, 08/10/2021, Additional history exists COVID-19 Vaccine Completed 06/12/2022, 03/2021, 10/29/2020, Additional history exists VITAMIN D LEVEL ONCE IN A LIFETIME-USE SMARTSET# [id number] Completed 09/13/2022, 08/31/2021, 03/19/2020, Additional history exists [...] this encounter Medical Devices Implanted Type Area Tufting Machine Fixer Device Identifier Shelf Expiration Date Model / Serial / Lot Coonrad/Morrey Total Elbow Interchangeable Humeral Assesmbly Implanted:Qty: 1 on 03/23/2010 at [facility] Right: Elbow [employer] 06/03/2014 32-8105-25 -[id number] / / [id number] documented as of this encounter Advance Directives [...] and were consensually agreed upon. Care Teams Inspector Filter Tip Relationship Specialty Start Date End Date Miguel Arreola DO [address] [place] [address] PCP - General Family Medicine 10/27/22 documented as of this encounter
--- OUTSIDE RECORDS SUMMARY | 2023-07-13 15:29 | External Medical Summary | Summary of Care ---
Author Name Unknown Organization [facility] Address [address] [place] [address] Phone [phone] Care Team Providers Care Body Repairer Name Role Phone Miguel Arreola DO Primary Care Provider [phone] Encounter Details Date Type Department Care Team Description 05/04/2023 Specialty Pharmacy [facility], [address] [address] Medication, [place] Specialty Refill, [address] [address] Allergies Active Allergy Reactions Severity Noted Date [...] Oral Tablet (Plaquenil)Indicatio ns:KAMRAN (juvenile idiopathic arthritis) ([facility]),Encounter for long-term (current) use of medications Take 200mg daily alternating with 400mg daily 45 Tablet 5 09/12/2022 Active predniSONE 5 MG Oral Tablet (Deltasone) TAKE 1 TABLET BY MOUTH EVERY DAY 90 Tablet 1 11/06/2022 Active Abatacept 125 MG/ML Subcutaneous Solution Prefilled Syringe (Orencia)Indications :Rheumatoid arthritis involving multiple joints ([facility]) Inject 125mg under the skin once weekly 4 mL 6 02/19/2023 Active documented as of this encounter (statuses as of 05/16/2023) Active Problems Problem Noted Date Senile osteoporosis 09/11/2022 Senile osteoporosis 08/23/2021 Diverticulosis of large intestine withou t hemorrhage 10/06/2020 History of rectal cancer 03/05/2018 Osteoporosis without current pathologica l fracture 10/31/2017 KAMRAN (juvenile idiopathic arthritis) 04/01/2017 wrapper and preserver current use of systemic steroi ds 12/29/2015 [...] EDT Pa approved, spoke to pt, shipping 05/17. Omar Calderon CPhT [facility] Speciality Rx 05/16/2023,9:46 AM * Fabiola Crawford CPhT - 05/10/2023 4:39 PM EDT pa pending spoke to pt informed of delay Fabiola Crawford [employer] Specialty Pharmacy 05/10/2023,4:39 PM * Barbra Mathew CPhT - 05/04/2023 1:58 PM EDT Prescribed medication: Medication: orencia Shipment date: 05/10 pending pa Delivery method: Specialty Mail Location Medication Delivered too? Prescription Address: [address] [place] [address] [place] [address] Barbra Mathew CPhT [facility] Specialty Pharmacy 05/04/2023,1:58 PM documented in this encounter Plan of Treatment Upcoming Encounters Date Type Specialty Care Team Description 08/02/2023 Office Visit Orthopedics Jero Billingsley PA-C [address] [place] [address] Health Maintenance Due Date Last Done Comments [...] D LEVEL ONCE IN A LIFETIME-USE SMARTSET# [id number] Completed 09/13/2022, 08/31/2021, 03/19/2020, Additional history exists [...] this encounter Medical Devices Implanted Type Area Fire Watchman Device Identifier Shelf Expiration Date Model / Serial / Lot Coonrad/Morrey Total Elbow Interchangeable Humeral Assesmbly [place]ed:[place] 1 on [place] [facility] [place] Elbow [employer] 06/03/2014 32-8105-25 -04 / / [id number] documented as of this encounter Advance Directives [...] and were consensually agreed upon. Care Teams Body Repairer Relationship Specialty Start Date End Date Miguel Arreola DO [address] [place] [address] PCP - General Family Medicine 10/27/22 documented as of this encounter
--- OUTSIDE RECORDS SUMMARY | 2023-07-13 15:29 | External Medical Summary | Summary of Care ---
Author Name Unknown Organization [facility] Address [address] [place] [address] Phone [phone] Care Team Providers Care Manufacturing Manager Name Role Phone Miguel Arreola DO Primary Care Provider [phone] Reason for Visit * Reason Onset Date Comments Precert Approved 05/06/2023 [facility] Encounter Details Date Type Department Care Team Description 05/06/2023 Telephone Rheumatology [facility] [address] [place] [address] Miguel Hayden MD [address] [place] [address] Precert Approved ([facility]) Allergies Active Allergy Reactions Severity Noted Date Comments Buspirone High 08/14/2022 Other reaction(s): nightmares Doxycycline Monohydrate Rash 08/16/2010 Mirtazapine Low 08/14/2022 Other reaction(s): weight gain documented as of this encounter (statuses as of 05/11/2023) Medications Medication Sig Dispensed Refills Start Date [...] Oral Tablet (Plaquenil)Indicatio ns:KAMRAN (juvenile idiopathic arthritis) ([facility]),Encounter for long-term (current) [...] as of this encounter (statuses as of 05/11/2023) Active Problems Problem Noted Date Senile osteoporosis 09/11/2022 Senile osteoporosis 08/23/2021 Diverticulosis of large intestine withou t hemorrhage 10/06/2020 History of rectal cancer 03/05/2018 Osteoporosis without current pathologica l fracture 10/31/2017 KAMRAN (juvenile idiopathic arthritis) 04/0 01/2017 terminal clerk current use of systemic steroi ds 12/29/2015 [...] as of this encounter (statuses as of 05/11/2023) Resolved Problems Problem Noted Date Resolved Date MEDICATION USE AGREEMENT 09/24/2018 020 Encounter for long-term (current) use of medicat ions 12/29/2015 03/18/2019 Osteoporosis 08/17/2015 06/07/2022 POLYART JUV RHEUM ARTHR 06/07/20 22 documented as of this encounter (statuses as of 05/11/2023) Immunizations Name Administration Dates Next Due COVID-19 mRNA, LNP-s, No Pre serve, 2-Dose Series (Philo) 05/10/2021,10/29/2020,10/08/2020 Pneumococcal Polysaccharide PPV23 (Pneumovax) 08/01/2012,06/27/2007 Seasonal [...] encounter Miscellaneous Notes * Telephone Encounter - Ashley Mcnair CPhT - 05/11/2023 11:09 AM EDT Rheumatology Pre-Certification Response Approved - Script on file Ashley Mcnair CPhT-Adv Strategic Sourcing Consultant II [facility] 05/11/2023,11:09 AM * Telephone Encounter - Fabiola Crawford CPhT - 05/06/2023 9:02 AM EDT New or re-auth: re-auth Patient Misa Miller needs a prior authorization for their Orencia through their [facility] [employer] insurance. ID: [id number] BIN:[id number] PCN:[id number] Target ship date is 05/10. Thank you very much, Fabiola Crawford Content Strategist [facility] 05/06/2023,9:03 AM documented in this encounter Plan of Treatment Upcoming Encounters Date Type Specialty Care Team Description 08/02/2023 Office Visit Orthopedics Jero Billingsley PA-C [address] [place] [address] Health Maintenance Due Date Last Done Comments [...] D LEVEL ONCE IN A LIFETIME-USE SMARTSET# [id number] Completed 09/13/2022, 08/31/2021, 03/19/2020, Additional history exists [...] this encounter Medical Devices Implanted Type Area Director Of Public Health Device Identifier Shelf Expiration Date Model / Serial / Lot Coonrad/Morrey Total Elbow Interchangeable Humeral Assesmbly Implanted:Qty: 1 on 03/23/2010 at [facility] Right: Elbow [employer] 06/03/2014 32-8105-25 -[id number] / / [id number] documented as of this encounter Advance Directives [...] and were consensually agreed upon. Care Teams Manufacturing Manager Relationship Specialty Start Date End Date Miguel Arreola DO [address] [place] [address] PCP - General Family Medicine 10/27/22 documented as of this encounter
--- OUTSIDE RECORDS SUMMARY | 2023-07-13 15:30 | External Medical Summary | Summary of Care ---
Author Name Unknown Organization [facility] Address [address] [place] [address] Phone [phone] Care Team Providers Care Speed Operator Name Role Phone Miguel Arreola DO Primary Care Provider [phone] Encounter Details Date Type Department Care Team Description 05/04/2023 Specialty Pharmacy [facility], [address] [address] Medication, [place] Specialty Refill, [address] [address] Allergies Active Allergy Reactions Severity Noted Date Comments Buspirone High 08/14/2022 Other reaction(s): nightmares Doxycycline Monohydrate Rash 08/16/2010 Mirtazapine Low 08/14/2022 Other reaction(s): weight gain documented as of this encounter (statuses as of 05/04/2023) Medications Medication Sig Dispensed Refills Start Date [...] idiopathic arthritis) ([facility]),Encounter for long-term (current) use of medications Take 200mg daily alternating with 400mg daily 45 Tablet 5 09/12/2022 Active predniSONE 5 MG Oral Tablet (Deltasone) TAKE 1 TABLET BY MOUTH EVERY DAY 90 Tablet 1 11/06/2022 Active Abatacept 125 MG/ML Subcutaneous Solution Prefilled Syringe (Orencia)Indications :Rheumatoid arthritis involving multiple joints ([facility]) Inject 125mg under the skin once weekly 4 mL 6 02/19/2023 Active documented as of this encounter (statuses as of 05/04/2023) Active Problems Problem Noted Date Senile osteoporosis 09/11/2022 Senile osteoporosis 08/23/2021 Diverticulosis of large intestine withou t hemorrhage 10/06/2020 History of rectal cancer 03/05/2018 Osteoporosis without current pathologica l fracture 10/31/2017 KAMRAN (juvenile idiopathic arthritis) 04/01/2017 care home current use of systemic steroi ds 12/29/2015 [...] as of this encounter (statuses as of 05/04/2023) Resolved Problems Problem Noted Date Resolved Date MEDICATION USE AGREEMENT 09/24/201812/25/ 020 Encounter for long-term (current) use of medicat ions 12/29/2015 03/18/2019 Osteoporosis 08/17/2015 06/07/2022 POLYART JUV RHEUM ARTHR 06/07/20 22 documented as of this encounter (statuses as of 05/04/2023) Immunizations Name Administration Dates Next Due COVID-19 [...] as of this encounter Progress Notes * Barbra Mathew CPhT - 05/04/2023 1:58 PM EDT Prescribed medication: Medication: orencia Shipment date: 05/10 pending tsering Delivery method: Specialty Mail Location Medication Delivered too? Prescription Address: [address] [place] [address] [place] [address] Barbra Mathew CPhT [facility] 05/04/2023,1:58 PM documented in this encounter Plan of Treatment Upcoming Encounters Date Type Specialty Care Team Description 08/02/2023 Office Visit Orthopedics Jero Billingsley PA-C [address] [place] [address] Health Maintenance Due Date Last Done Comments Lipid Panel 1962 Depression Screening, Annual for Pts 12 and Over 1974 HIV Screening 1977 DTaP,Tdap,and Td Vaccines [...] D LEVEL ONCE IN A LIFETIME-USE SMARTSET# [id number] Completed 09/13/2022, 08/31/2021, 03/19/2020, Additional history exists [...] this encounter Medical Devices Implanted Type Area Cryptozoologist Device Identifier Shelf Expiration Date Model / Serial / Lot Jamarcus/Vianey Total Elbow Interchangeable Humeral Assesmbly Implanted:Qty: 1 on 03/23/2010 [place] [facility] [place] Elbow [employer] 06/03/2014 32-8105-25 -04 / / [id number] documented as of this encounter Advance Directives [...] and were consensually agreed upon. Care Teams Speed Operator Relationship Specialty Start Date End Date Miguel Arreola DO [address] [place] [address] PCP - General Family Medicine 10/27/22 documented as of this encounter
--- OUTSIDE RECORDS SUMMARY | 2023-07-13 15:30 | External Medical Summary | Summary of Care ---
Author Name Unknown Organization [facility] Address [address] [place] [address] Phone [phone] Care Team Providers Care Coremaking Machine Operator Name Role Phone Miguel Arreola DO Primary Care Provider [phone] Reason for Visit * Reason Onset Date Comments Appointment 02/19/2023 Encounter Details Date Type Department Care Team Description 02/19/2023 Telephone [facility] [address], [place] [id number] [facility] [address] [place], [place] [id number] Appointment Allergies Active Allergy Reactions Severity Noted Date Comments Buspirone High 08/14/2022 Other reaction(s): nightmares Doxycycline Monohydrate Rash 08/16/2010 Mirtazapine Low 08/14/2022 Other reaction(s): weight gain documented as of this encounter (statuses as of 02/19/2023) Medications Medication Sig Dispensed Refills Start Date [...] (Orencia)Indication s:Rheumatoid arthritis involving multiple joints (HCC) INJECT 125 MG (1 SYRINGE) UNDER THE SKIN ONCE A WEEK 4 mL 6 10/26/2022 3 Discontinue d(Refill) documented as of this encounter (statuses as of 02/19/2023) Active Problems Problem Noted Date Senile osteoporosis 09/11/2022 Senile osteoporosis 08/23/2021 Diverticulosis of large intestine withou t hemorrhage 10/06/2020 History of rectal cancer 03/05/2018 Osteoporosis without current pathologica l fracture 10/31/2017 KAMRAN (juvenile idiopathic arthritis) 04/0 01/2017 custodial current use of systemic steroi ds 12/29/2015 [...] as of this encounter (statuses as of 02/19/2023) Resolved Problems Problem Noted Date Resolved Date MEDICATION USE AGREEMENT 09/24/2018 020 Encounter for long-term (current) use of medicat ions 12/29/2015 03/18/2019 Osteoporosis 08/17/2015 06/07/2022 POLYART JUV RHEUM ARTHR 06/07/20 22 documented as of this encounter (statuses as of 02/19/2023) Immunizations Name Administration Dates Next Due COVID-19 [...] encounter Miscellaneous Notes * Telephone Encounter - CYN Ying - 02/19/2023 2:23 PM EDT Pt is on a Recall List for Yoly. * Telephone Encounter - Cynthia Bustos RPh - 02/19/2023 11:32 AM EDT Patient needs follow-up appointment scheduled with . Thanks! documented in this encounter Plan of Treatment Upcoming Encounters Date Type Specialty Care Team Description 08/02/2023 Office Visit Orthopedics Jero Billingsley PA-C [address] [place] [address] Health Maintenance Due Date Last Done Comments Lipid Panel 1962 Depression Screening, Annual for Pts 12 and Over 1974 HIV Screening 1977 DTaP,Tdap,and Td Vaccines (1 - Tdap) 1981 Zoster Vaccines (1 of 2) 1981 Pap Smear 1992 Mammogram 2002 Cologuard 2007 Colonoscopy 2007 Colorectal Cancer Screening 2007 Fecal Occult Blood Test 2007 Sigmoidoscopy 2007 Pneumococcal Vaccine: Pediatrics (0 to 5 Years) and At-Risk Patients (6 to 64 Years) (3 - PCV) 08/01/2013 08/01/2012, 06/27/2007 DXA Scan 08/23/2023 08/23/2021, 06/04, 08/17/2015, Additional history exists Diabetes Screening 01/31/2026 01/31/2023, 0 10/19/2021, 08/10/2021, Additional history exists COVID-19 Vaccine Completed 06/12/2022, 03/2021, 10/29/2020, Additional history exists Influenza Vaccine (FLU shot) Completed 06/2022, 07/02/2021, 06/17/2020, Additional history exists VITAMIN D LEVEL ONCE IN A LIFETIME-USE SMARTSET# [id number] Completed 09/13/2022, 08/31/2021, 03/19/2020, Additional history exists [...] this encounter Medical Devices Implanted Type Area Global Engineering Manager Device Identifier Shelf Expiration Date Model / Serial / Lot Coonrad/Morrey Total Elbow Interchangeable Humeral Assesmbly Implanted:Qty: 1 on 03/23/2010 at [facility] Right: Elbow [employer] 06/03/2014 32-8105-25 -04 / / [id number] documented as of this encounter Advance Directives [...] and were consensually agreed upon. Care Teams Coremaking Machine Operator Relationship Specialty Start Date End Date Miguel Arreola DO [address], [place] [address] PCP - General Family Medicine 10/27/22 documented as of this encounter
--- OUTSIDE RECORDS SUMMARY | 2023-07-13 15:30 | External Medical Summary | Summary of Care ---
Author Name Unknown Organization [facility] Address [address] [place] [address] Phone [phone] Care Team Providers Care Assistant Professor Of Marine Biology Name Role Phone Miguel Arreola DO Primary Care Provider [phone] Reason for Visit * Reason Onset Date Comments Appointment 02/19/2023 Encounter Details Date Type Department Care Team Description 02/19/2023 Telephone [facility] [address] [place], [place] [phone] [facility] [address] [place], [place] [phone] Appointment Allergies Active Allergy Reactions Severity Noted [...] 10/31/2017 KAMRAN (juvenile idiopathic arthritis) 04/0 01/2017 snf current use of systemic steroi ds 12/29/2015 [...] encounter Miscellaneous Notes * Telephone Encounter - Cynthia Bustos, [facility] - 02/19/2023 3:48 PM EDT Noted, thank you * Telephone Encounter - CYN Ying - [...] Billingsley PA-C [address] [place] [address] Health Maintenance Due Date Last Done Comments [...] D LEVEL ONCE IN A LIFETIME-USE SMARTSET# [id number] Completed 09/13/2022, 08/31/2021, 03/19/2020, Additional history exists [...] this encounter Medical Devices Implanted Type Area Chief Solution Architect Device Identifier Shelf Expiration Date Model / Serial / Lot Coonrad/Morrey Total Elbow Interchangeable Humeral Assesmbly Implanted:Qty: 1 on 03/23/2010 [place] [facility] [place]: Elbow [employer] 06/03/2014 32-8105-25 -[id number] / / [id number] documented as of this encounter Advance Directives [...] and were consensually agreed upon. Care Teams Assistant Professor Of Marine Biology Relationship Specialty Start Date End Date Miguel Arreola DO [address] [address] PCP - General Family Medicine 10/27/22 documented as of this encounter
--- OUTSIDE RECORDS SUMMARY | 2023-07-13 15:30 | External Medical Summary | Summary of Care ---
Author Name Unknown Organization [facility] Address [address] [place] [address] Phone [phone] Care Team Providers Care Acid Wash Operator Name Role Phone Miguel Arreola DO Primary Care Provider [phone] [phone] Reason for Visit * Reason Comments Rheum Follow Up Dosage Adjustment Via Phone (anticoag Cl inic) Encounter Details Date Type Department Care Team Description 02/19[facility] [address] [place] [address] Agc5, Pharmacist Rheumatology [address] [place] [address] Rheumatoid arthritis involving multiple joints (HCC)* Allergies Active Allergy Reactions Severity Noted Date [...] once weekly 4 mL 6 02/19/2023 Active Abatacept 125 MG/ML Subcutaneous Solution Prefilled Syringe (Orencia)Indication s:Rheumatoid arthritis involving multiple joints (HCC) INJECT 125 MG (1 SYRINGE) UNDER THE SKIN ONCE A WEEK 4 mL 6 10/26/2022 3 Discontinue d(Refill) Meloxicam 15 MG Oral Tablet Take 1 Tablet by mouth in the morning. 30 Tablet 1 01/24/2023 3 Discontinue d(Medicatio n List Clean Up) documented as of this encounter (statuses as of 02/19/2023) Active Problems Problem Noted Date Senile osteoporosis 09/11/2022 Senile osteoporosis 08/23/2021 Diverticulosis of large intestine withou t hemorrhage 10/06/2020 History of rectal cancer 03/05/2018 Osteoporosis without current pathologica l fracture 10/31/2017 KAMRAN (juvenile idiopathic arthritis) 04/0 01/2017 termite helper current use of systemic steroi ds 12/29/2015 Rectal cancer 12/29/2015 Serologic abnormality 12/26/2013 Sciatica 10/20/2011 Metatarsalgia 08/18/2011 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 Patient was then informed that this was a telephone call only visit. The patient agreed to participate. Visit Disposition: Routine follow-up Total call duration was 15 minutes. Clinical Pharmacy Service (Rheumatology): Medication Management PHYSICIAN ACTION NEEDED: No action needed PROTOCOL IN PLACE Visit: status check ASSESSMENT There are no diagnoses linked to this encounter. Patient is on the following medication(s): Orencia 125mg subq weekly, hydroxychloroquine 200mg alternating with 400mg daily, prednisone 5mg daily Has not noticed much benefit from Orencia at this point - recommended continuing Orencia for 4-6 months to see if patient has any benefit in symptoms Patient reports diarrhea about 3 days after Orencia injection - is reaching out to regarding this. PLAN OF ACTION Medication Regimen: CONTINUE Orencia, hydroxychloroquine, prednisone Follow-Up Appointment(s): Pharmacist: no follow-up needed Physician: follow-up appointment needs scheduled - will send TE to manager service desk Misa Miller is a 62 year old year old female presently on a medication regimen of Orencia, hydroxychloroquine, prednisone. CURRENT MEDICATION REGIMEN Taking Orencia, hydroxychloroquine, prednisone Patient has been on Orencia for a few months, has not noticed much beenfit Patient account of regimen effectiveness: no improvement in condition/symptoms Patient reports side effects while being on medication: yes - diarrhea; pt is reaching out to to discuss this Chronic use of prednisone or NSAIDS: yes DISEASE ACTIVITY ASSESSMENT Morning stiffness lasting more than 30 minutes in the morning: yes Symptoms improve throughout the day: yes Any flares in the past month?: no Infections: no Swelling: yes LABORATORY VALUES Lab Results Component Value Date/Time WBC 8.1 11/17/1996 10:32 AM WBC 15.3 (H) 08/18/1996 10:17 AM WBC 12.4 (H) 05/19/1996 10:22 AM WBC AUTO - [facility] 10.63 01/31/2023 08:42 AM WBC AUTO - [facility] 5.57 09/24/2018 09:56 AM WBC AUTO - [facility] 5.76 03/05/2018 04:41 PM WBC AUTO - [facility] 8.92 10/08/2017 11:44 AM WBC, URINE - [facility] 1-4 09/05/2013 05:03 PM WBC, URINE - [facility] 1-4 01/03/2013 03:52 PM Lab Results Component Value Date/Time HGB 12.0 (L) 11/17/1996 10:32 AM HGB 12.2 (L) 08/18/1996 10:17 AM HGB 12.0 (L) 05/19/1996 10:22 AM HGB - [facility] 11.8 (L) 01/31/2023 08:42 AM HGB - [facility] 12.9 09/24/2018 09:56 AM HGB - [facility] 14.0 03/05/2018 04:41 PM HGB - [facility] 13.3 10/08/2017 11:44 AM Lab Results Component Value Date/Time HCT 37.4 (L) 11/17/1996 10:32 AM HCT 38.3 (L) 08/18/1996 10:17 AM HCT 36.8 (L) 05/19/1996 10:22 AM HCT - [facility] 37.3 01/31/2023 08:42 AM HCT - [facility] 39.8 09/24/2018 09:56 AM HCT - [facility] 41.9 03/05/2018 04:41 PM HCT - [facility] 41.1 10/08/2017 11:44 AM No results found for: PLT Lab Results Component Value Date/Time CREATININE 0.5 (L) 11/17/1996 10:32 AM CREATININE 0.6 (L) 08/18/1996 10:17 AM CREATININE - [facility] 0.8 01/31/2023 08:42 AM CREATININE - [facility] 0.8 09/13/2022 02:30 PM CREATININE - [facility] 1.0 10/19/2021 10:55 AM CREATININE - [facility] 0.8 03/19/2020 04:59 PM CREATININE - [facility] 0.8 02/14/2019 11:06 AM CREATININE - [facility] 0.8 09/24/2018 09:56 AM CREATININE DANII 114 09/24/2018 10:00 AM CREATININE-OUTSIDE LAB 0.85 08/10/2021 12:00 AM CREATININE-OUTSIDE LAB 0.78 03/04/2020 12:00 AM CREATININE-OUTSIDE LAB 0.88 01/19/2020 12:00 AM Lab Results Component Value Date/Time BUN 6 (L) 11/17/1996 10:32 AM BUN 9 (L) 08/18/1996 10:17 AM BUN - [facility] 13 01/31/2023 08:42 AM BUN - [facility] 16 10/19/2021 10:55 AM BUN - [facility] 15 03/19/2020 04:59 PM BUN - [facility] 17 02/14/2019 11:06 AM BUN - [facility] 12 09/24/2018 09:56 AM Lab Results Component Value Date/Time AST 18 11/17/1996 10:32 AM AST 10 (L) 08/18/1996 10:17 AM AST - [facility] 19 01/31/2023 08:42 AM AST - [facility] 25 09/24/2018 09:56 AM AST - [facility] 41 (H) 03/05/2018 04:41 PM AST - [facility] 22 10/08/2017 11:26 AM Lab Results Component Value Date/Time ALT 22 11/17/1996 10:32 AM ALT 8 (L) 08/18/1996 10:17 AM ALT - [facility] 19 01/31/2023 08:42 AM ALT - [facility] 22 09/24/2018 09:56 AM ALT - [facility] 33 03/05/2018 04:41 PM ALT - [facility] 20 10/08/2017 11:26 AM ALT-OUTSIDE LAB 35 01/19/2020 12:00 AM Cynthia Bustos [facility] Clinical Pharmacist Rheumatology Department 02/19/2023,11:27 AM documented in this encounter Plan of Treatment Upcoming Encounters Date Type Specialty Care Team Description 08/02/2023 Office Visit Orthopedics Jero Billingsley PA-C [address] [place] [address] Health Maintenance Due Date Last Done Comments [...] D LEVEL ONCE IN A LIFETIME-USE SMARTSET# [id number] Completed 09/13/2022, 08/31/2021, 03/19/2020, Additional history exists [...] this encounter Medical Devices Implanted Type Area Oracle Hrms Developer Device Identifier Shelf Expiration Date Model / Serial / Lot Coonrad/Morrey Total Elbow Interchangeable Humeral Assesmbly Implanted:Qty: 1 on 03/23/2010 at [facility] Right: Elbow [employer] 06/03/2014 32-8105-25 -04 / / [id number] documented as of this encounter Visit Diagnoses Diagnosis Rheumatoid arthritis involving multiple joints (HCC)- Primary documented in this encounter Advance Directives Latest Code Status [...] and were consensually agreed upon. Care Teams Acid Wash Operator Relationship Specialty Start Date End Date Miguel Arreola DO [address] [place] [address] PCP - General Family Medicine 10/27/22 documented as of this encounter
--- OUTSIDE RECORDS SUMMARY | 2023-07-13 15:30 | External Medical Summary | Summary of Care ---
Author Name Unknown Organization [facility] Address [address] [place] [address] Phone [phone] Care Team Providers Care Medical Tech Name Role Phone Miguel Arreola DO Primary Care Provider [phone] Reason for Visit * Reason Onset Date Comments Appointment 02/19/2023 Encounter Details Date Type Department Care Team Description 02/19/2023 Telephone [facility] [address], [place] [id number] [facility] [address] [place], [place] [id number] Appointment Allergies Active Allergy Reactions Severity Noted [...] * Telephone Encounter - Cynthia Bustos, [facility] - 02/19/2023 11:32 AM EDT Patient needs follow-up appointment scheduled with . Thanks! documented in this encounter Plan of Treatment Upcoming Encounters Date Type Specialty Care Team Description 08/02/2023 Office Visit Orthopedics Jero Billingsley PA-C [address] [place] [address] Health Maintenance Due Date Last Done Comments [...] D LEVEL ONCE IN A LIFETIME-USE SMARTSET# [id number] Completed 09/13/2022, 08/31/2021, 03/19/2020, Additional history exists [...] this encounter Medical Devices Implanted Type Area Ross Furnace Operator Device Identifier Shelf Expiration Date Model / Serial / Lot Coindio/Vianey Total Elbow Interchangeable Humeral Assesmbly Implanted:Qty: 1 on 03/23/2010 at [place] [facility] Right: Elbow [employer] 06/03/2014 32-8105-25 -04 / / [id number] documented as of this encounter Advance Directives [...] and were consensually agreed upon. Care Teams Medical Tech Relationship Specialty Start Date End Date Miugel Arreola DO [address] [facility] [address] [place] [address] PCP - General Family Medicine 10/27/22 documented as of this encounter
--- OUTSIDE RECORDS SUMMARY | 2023-07-13 15:30 | External Medical Summary | Summary of Care ---
Author Name Unknown Organization [facility] Address [address] [place] [address] Phone [phone] Care Team Providers Care Supervisor Functional Testing Name Role Phone Miguel Arreola DO Primary Care Provider [phone] Encounter Details Date Type Department Care Team Description 04/12/2023 Specialty Pharmacy [facility], [address] [address] Medication, [place] Specialty Refill, [address] [address] Allergies Active Allergy Reactions Severity Noted Date Comments Buspirone High 08/14/2022 Other reaction(s): nightmares Doxycycline Monohydrate Rash 08/16/2010 Mirtazapine Low 08/14/2022 Other reaction(s): weight gain documented as of this encounter (statuses as of 04/12/2023) Medications Medication Sig Dispensed Refills Start Date [...] Tablet (Plaquenil)Indicatio ns:KAMRAN (juvenile idiopathic arthritis) ([facility]),Encounter for long-term (current) use of medications Take 200mg daily alternating with 400mg daily 45 Tablet 5 09/12/2022 Active predniSONE 5 MG Oral Tablet (Deltasone) TAKE 1 TABLET BY MOUTH EVERY DAY 90 Tablet 1 11/06/2022 Active Abatacept 125 MG/ML Subcutaneous Solution Prefilled Syringe (Orencia)Indications :Rheumatoid arthritis involving multiple joints ([facility]) Inject 125mg under the skin once weekly 4 mL 6 02/19/2023 Active documented as of this encounter (statuses as of 04/12/2023) Active Problems Problem Noted Date Senile osteoporosis 09/11/2022 Senile osteoporosis 08/23/2021 Diverticulosis of large intestine withou t hemorrhage 10/06/2020 History of rectal cancer 03/05/2018 Osteoporosis without current pathologica l fracture 10/31/2017 KAMRAN (juvenile idiopathic arthritis) 04/0 01/2017 halfway current use of systemic steroi ds 12/29/2015 [...] as of this encounter (statuses as of 04/12/2023) Resolved Problems Problem Noted Date Resolved Date MEDICATION USE AGREEMENT 09/24/2018 020 Encounter for long-term (current) use of medicat ions 12/29/2015 03/18/2019 Osteoporosis 08/17/2015 06/07/2022 POLYART JUV RHEUM ARTHR 06/07/20 22 documented as of this encounter (statuses as of 04/12/2023) Immunizations Name Administration Dates Next Due COVID-19 [...] of this encounter Progress Notes * MARQUITA Camarena - 04/12/2023 4:20 PM EDT Prescribed medication: Medication: Orencia Shipment date: 04/16 Delivery method: Specialty Mail Location Medication Delivered too? Prescription Address: [address] [place] [address] MARQUITA Camarena [facility] 04/12/2023,4:21 PM documented in this encounter Plan of Treatment Upcoming Encounters Date Type Specialty Care Team Description 08/02/2023 Office Visit Orthopedics Jero Billingsley PA-C [address] [place] [address] Health Maintenance Due Date Last Done Comments [...] D LEVEL ONCE IN A LIFETIME-USE SMARTSET# [id number] Completed 09/13/2022, 08/31/2021, 03/19/2020, Additional history exists [...] this encounter Medical Devices Implanted Type Area Deputy Jailer Device Identifier Shelf Expiration Date Model / Serial / Lot Jamarcus/Vianey Total Elbow Interchangeable Humeral Assesmbly Implanted:Qty: 1 on 03/23/[address] [facility] Right: Elbow [employer] 06/03/2014 32-8105-25 -04 / / [id number] documented as of this encounter Advance Directives [...] and were consensually agreed upon. Care Teams Supervisor Functional Testing Relationship Specialty Start Date End Date Miguel Arreola DO [address] [place] [address] PCP - General Family Medicine 10/27/22 documented as of this encounter
--- OUTSIDE RECORDS SUMMARY | 2023-07-13 15:30 | External Medical Summary | Summary of Care ---
Author Name Unknown Organization [facility] Address [address] [place] [address] Phone [phone] Care Team Providers Care Grooving Lathe Tender Name Role Phone Miguel Arreola DO Primary Care Provider [phone] Encounter Details Date Type Department Care Team Description 03/19/2023 Specialty Pharmacy [facility], [address] [address] Medication, [place] Specialty Refill, [address] [address] Allergies Active Allergy Reactions Severity Noted Date Comments Buspirone High 08/14/2022 Other reaction(s): nightmares Doxycycline Monohydrate Rash 08/16/2010 Mirtazapine Low 08/14/2022 Other reaction(s): weight gain documented as of this encounter (statuses as of 03/19/2023) Medications Medication Sig Dispensed Refills Start Date [...] Oral Tablet (Plaquenil)Indicatio ns:KAMRAN (juvenile idiopathic arthritis) ([facility]),Encounter for long-term (current) use of medications Take 200mg daily alternating with 400mg daily 45 Tablet 5 09/12/2022 Active predniSONE 5 MG Oral Tablet (Deltasone) TAKE 1 TABLET BY MOUTH EVERY DAY 90 Tablet 1 11/06/2022 Active Abatacept 125 MG/ML Subcutaneous Solution Prefilled Syringe (Orencia)Indications :Rheumatoid arthritis involving multiple joints ([facility]) Inject 125mg under the skin once weekly 4 mL 6 02/19/2023 Active documented as of this encounter (statuses as of 03/19/2023) Active Problems Problem Noted Date Senile osteoporosis 09/11/2022 Senile osteoporosis 08/23/2021 Diverticulosis of large intestine withou t hemorrhage 10/06/2020 History of rectal cancer 03/05/2018 Osteoporosis without current pathologica l fracture 10/31/2017 KAMRAN (juvenile idiopathic arthritis) 04/01/2017 alf current use of systemic steroi ds 12/29/2015 [...] as of this encounter (statuses as of 03/19/2023) Resolved Problems Problem Noted Date Resolved Date MEDICATION USE AGREEMENT 09/24/201812/25/ 020 Encounter for long-term (current) use of medicat ions 12/29/2015 03/18/2019 Osteoporosis 08/17/2015 06/07/2022 POLYART JUV RHEUM ARTHR 06/07/20 22 documented as of this encounter (statuses as of 03/19/2023) Immunizations Name Administration Dates Next Due COVID-19 [...] as of this encounter Progress Notes * Jeanne Schneider CPhT - 03/19/2023 10:26 AM EDT Prescribed medication: Medication: Orencia Shipment date: 03/20 Delivery method: Specialty Mail Location Medication Delivered too? Prescription Address: [address] [place] [address] Jeanne Schneider CPhT [facility] 03/19/2023,10:26 AM documented in this encounter Plan of Treatment Upcoming Encounters Date Type Specialty Care Team Description 08/02/2023 Office Visit Orthopedics Jero Billingsley PA-C [address] [place] [address] Health Maintenance Due Date Last Done Comments [...] D LEVEL ONCE IN A LIFETIME-USE SMARTSET# [id number] Completed 09/13/2022, 08/31/2021, 03/19/2020, Additional history exists [...] this encounter Medical Devices Implanted Type Area Supervisor Real Estate Office Device Identifier Shelf Expiration Date Model / Serial / Lot Jamarcus/Vianey Total Elbow Interchangeable Humeral Assesmbly Implanted:Qty: 1 on 03/23/2010 at [facility] Right: Elbow [employer] 06/03/2014 32-8105-25 -04 / / [id number] documented as of this encounter Advance Directives [...] and were consensually agreed upon. Care Teams Grooving Lathe Tender Relationship Specialty Start Date End Date Miguel Arreola DO [address] [place] [address] PCP - General Family Medicine 10/27/22 documented as of this encounter
--- OUTSIDE RECORDS SUMMARY | 2023-07-13 15:31 | External Medical Summary | Summary of Care ---
Author Name Unknown Organization [facility] Address [address] [place] [address] Phone [phone] Care Team Providers Care Matchbook Assembler Name Role Phone Raymonkiran Miguel Kendrick Primary Care Provider [phone] Encounter Details Date Type Department Care Team Description 01/31/2023 Patient Reported Data Patient Survey Ortho [facility] Allergies Active Allergy Reactions Severity Noted Date Comments Buspirone High 08/14/2022 Other reaction(s): nightmares Doxycycline Monohydrate Rash 08/16/2010 Mirtazapine Low 08/14/2022 Other reaction(s): weight gain documented as of this encounter (statuses as of 01/31/2023) Medications Medication Sig Dispensed Refills Start Date [...] Oral Tablet (Plaquenil)Indicatio ns:KAMRAN (juvenile idiopathic arthritis) ([facility]),Encounter for long-term (current) use of medications Take 200mg daily alternating with 400mg daily 45 Tablet 5 09/12/2022 Active Abatacept 125 MG/ML Subcutaneous Solution Prefilled Syringe (Orencia)Indications :Rheumatoid arthritis involving multiple joints ([facility]) INJECT 125 MG (1 SYRINGE) UNDER THE SKIN ONCE A WEEK 4 mL 6 10/26/2022 10/26/2023 Active predniSONE 5 MG Oral Tablet (Deltasone) TAKE 1 TABLET BY MOUTH EVERY DAY 90 Tablet 1 11/06/2022 Active Meloxicam 15 MG Oral Tablet Take 1 Tablet by mouth in the morning. 30 Tablet 1 01/24/2023 02/23/2023 Active Additional Information Patient not taking.Reported on 01/31/2023 documented as of this encounter (statuses as of 01/31/2023) Active Problems Problem Noted Date Senile osteoporosis 09/11/2022 Senile osteoporosis 08/23/2021 Diverticulosis of large intestine withou t hemorrhage 10/06/2020 History of rectal cancer 03/05/2018 Osteoporosis without current pathologica l fracture 10/31/2017 KAMRAN (juvenile idiopathic arthritis) 04/01/2017 longterm current use of systemic steroi ds 12/29/2015 [...] as of this encounter (statuses as of 01/31/2023) Resolved Problems Problem Noted Date Resolved Date MEDICATION USE AGREEMENT 09/24/2018 020 Encounter for long-term (current) use of medicat ions 12/29/2015 03/18/2019 Osteoporosis 08/17/2015 06/07/2022 POLYART JUV RHEUM ARTHR 06/07/20 22 documented as of this encounter (statuses as of 01/31/2023) Immunizations Name Administration Dates Next Due COVID-19 [...] on file documented as of this encounter Plan of Treatment Health Maintenance Due Date Last Done Comments [...] 06/04, 08/17/2015, Additional history exists Diabetes Screening 10/19/2024 10/19/2021, 1 10/11/2020, 03/19/2020, Additional history exists COVID-19 Vaccine Completed 06/12/2022, 03/2021, 10/29/2020, Additional history exists Influenza Vaccine (FLU shot) Completed 06/2022, 07/02/2021, 06/17/2020, Additional history exists VITAMIN D LEVEL ONCE IN A LIFETIME-USE SMARTSET# [id number] Completed 09/13/2022, 08/31/2021, 03/19/2020, Additional history exists [...] this encounter Medical Devices Implanted Type Area Residential Plumber Device Identifier Shelf Expiration Date Model / Serial / Lot Coonrad/Morrey Total Elbow Interchangeable Humeral Assesmbly Implanted:Qty: 1 on 03/23/2010 at [place] [facility] [place] Right: Elbow [employer] 06/03/2014 32-8105-25 -04 / / [id number] documented as of this encounter Advance Directives [...] and were consensually agreed upon. Care Teams Matchbook Assembler Relationship Specialty Start Date End Date Miguel Arreola DO [address] [place] [place] [address] PCP - General Family Medicine 10/27/22 documented as of this encounter
--- OUTSIDE RECORDS SUMMARY | 2023-07-13 15:31 | External Medical Summary | Summary of Care ---
Author Name Unknown Organization [facility] Address [address] [place] [address] Phone [phone] Care Team Providers Care Manager Fine Dining Name Role Phone RaymonkiranMiguel DO Primary Care Provider +1 [phone] Reason for Visit * Reason Comments NEW PATIENT Left shoulder pain Encounter Details Date Type Department Care Team Description 01/31/2023 Office Visit Orthopaedics [facility] [address] [place] [address] Adin Nguyen MD [address] [place] [id number] Rheumatoid arthritis involving left shoulder, unspecified whether rheumatoid factor present ([facility]; Synovitis of left shoulder; Incomplete tear of right rotator cuff, unspecified whether traumatic Allergies Active Allergy Reactions Severity Noted Date Comments Buspirone High 08/14/2022 Other reaction(s): nightmares Doxycycline Monohydrate Rash 08/16/2010 Mirtazapine Low 08/14/2022 Other reaction(s): weight gain documented as of this encounter (statuses as of 02/07/2023) Medications Medication Sig Dispensed Refills Start Date [...] (Orencia)Indications :Rheumatoid arthritis involving multiple joints (HCC) INJECT 125 [...] Additional Information Patient not taking.Reported on 01/31/2023 Hospital, Clinic, or Other Facility Administered Medication Ordered Dose Route Frequency Start Date End Date Status lidocaine 1% 1 mL - triamcinolone acetonide 40 mg/mL 1 mL inj 2 mLIndications:Rheumatoid arthritis involving left shoulder, unspecified whether rheumatoid factor present (HCC),Synovitis of left shoulder 2 mL IJ ONCE 01/31/2023 01/31/2023 Ended documented as of this encounter (statuses as of 02/07/2023) Active Problems Problem Noted Date Senile osteoporosis 09/11/2022 Senile osteoporosis 08/23/2021 Diverticulosis of large intestine withou t hemorrhage 10/06/2020 History of rectal cancer 03/05/2018 Osteoporosis without current pathologica l fracture 10/31/2017 KAMRAN (juvenile idiopathic arthritis) 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 12/29/2015 [...] as of this encounter (statuses as of 02/07/2023) Resolved Problems Problem Noted Date Resolved Date MEDICATION USE AGREEMENT 09/24/2018 020 Encounter for long-term (current) use of medicat ions 12/29/2015 03/18/2019 Osteoporosis 08/17/2015 06/07/2022 POLYART JUV RHEUM ARTHR 06/07/20 22 documented as of this encounter (statuses as of 02/07/2023) Immunizations Name Administration Dates Next Due COVID-19 mRNA, LNP-s, No Pre serve, 2-Dose Series ([facility]) 05/10/2021,10/29/2020,10/08/2020 Pneumococcal Polysaccharide PPV23 (Pneumovax) 08/01/2012,06/27/2007 Seasonal [...] as of this encounter Progress Notes * Adin Nguyen MD - 01/31/2023 8:20 AM EDT CHIEF COMPLAINT: Chief Complaint Patient presents with NEW PATIENT Left shoulder pain Impression: M06.9 Rheumatoid arthritis involving left shoulder, unspecified whether rheumatoid factor present (HCC) (primary encounter diagnosis) M65.812 Synovitis of left shoulder M75.111 Incomplete tear of right rotator cuff, unspecified whether traumatic Plan: We discussed the diagnosis and treatment options with the patient today. We discussed patient's MRIscan findings and her symptoms with her today. The patient's symptoms are consistent with rheumatoid arthritis of the left shoulder. We would not recommend surgery provided or the partial-thickness rotator cuff tear at this time. Patient's risk factors include long-term cyst oral steroid use and glenohumeral degeneration from the rheumatoid arthritis. Patient will continue with a home exercise program. We feel she would benefit from a cortisone injection to the shoulder today to see if this helps with synovitis. There are no Patient Instructions on file for this visit. Follow Up: Return for follow up with Jero Billingsley in 6 months, Clinic Visit. | For: follow up with Jero Billingsley in 6 months, Clinic Visit HISTORY OF PRESENT ILLNESS: Misa Miller is a 62 year old right hand dominant female who presents to Sports Medicine for evaluation to us with a history of left shoulder pain . Patient states that 2 months ago she fell [place] with her arm outstretched. Since the fall she has had pain in the left shoulder. Patient was seen by Jero Billingsley and placed in physical therapy. She states she continues to have pain in the left shoulder. She was discharged from physical therapy to a home program. Patient states she continues with home program. She denies any paresthesias. She denies any significant weakness. She states that she has seen her therapy aide recently and is currently taking oral steroids to help with her symptoms. Wakes at night? yes. Physical Therapy? yes. Injections? no. Nursing Notes: Naye Be LPN 01/31/23 0802 Signed New patient left shoulder pain, fell caught self on 11/23/2022 MRI 01/15/2023 x-ray 11/23/2022 Completed physical therapy with minimal relief, ROM has improved did help level of pain Right handed Patient is taking prednisone 10 mg every day, for rheumatoid arthritis. Patient denies any injections or bracing or surgery Past Surgical History: Procedure Laterality Date ARTHROPLASTY KNEE TIBIAL PLATEAU W/DEBRIDEMENT synovectomy ARTHROPLASTY KNEE TOTAL left CATARACT SURGERY,COMPLEX left EGD, FLEXIBLE, DIAGNOSTIC 05/03/2020 [facility] PATIENT EDU, LAPAROSCOPIC CHOLECYS* REMOVE LUMBAR SPINE LAMINA, 3+ SEGS Lumbar Disk Excision REPLACE TOTAL ELBOW JOINT 03/23/2010 ARTHROPLASTY ELBOW TOTAL ELBOW performed by Chandrika MICHAEL at OR [facility] Review of patient's allergies indicates: Allergen Reactions Buspirone Other reaction(s): nightmares Doxycycline Monohydrate Rash Mirtazapine Other reaction(s): weight gain Current Outpatient Medications Medication Sig Dispense Refill IBUPROFEN 600 MG PO TABS 1 tab every 6 - 8 hr as needed 90 Tab 6 AMOXICILLIN 500 MG PO TABS 4 tabs one hour prior to dental procedure (Patient not taking: Reported on 12/14/2022) 29 Tab 3 CYMBALTA 60 MG PO CPEP one tab daily 30 Cap 12 CYMBALTA 30 MG PO CPEP one tab daily 30 Cap 12 Cholecalciferol (VITAMIN D3) 125 MCG (5000 UT) Tablet Take 1 Tablet by mouth in the morning. buPROPion extended release, SR, (WELLBUTRIN SR) 100 MG TB12 Take 1 Tablet by mouth in the morning. Acetaminophen 500 MG Oral Tablet (Tylenol) 2 Tablets. Hydroxychloroquine Sulfate 200 MG Oral Tablet (Plaquenil) Take 200mg daily alternating with 400mg daily 45 Tablet 5 Abatacept 125 MG/ML Subcutaneous Solution Prefilled Syringe (Orencia) INJECT 125 MG (1 SYRINGE)UNDER THE SKIN ONCE A WEEK 4 mL 6 predniSONE 5 MG Oral Tablet (Deltasone) TAKE 1 TABLET BY MOUTH EVERY DAY 90 Tablet 1 Meloxicam 15 MG Oral Tablet Take 1 Tablet by mouth in the morning. (Patient not taking: Reported on 01/31/2023) 30 Tablet 1 No current facility-administered medications for this visit. 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 Reviewed the x-rays of the left shoulder from 11/23/2022. The x-rays do not show any evidence fracture. No evidence of dislocation. No evidence of proximal humeral head migration. Difficult to assess mild to moderate degeneration based on the sequence of the x-rays. There is evidence of a posterior superior humeral head cyst which is well circumscribed without any evidence of bony destruction. MRI: Reviewed the MRI scan of the left shoulder from 01/15/2023. The MRI scans of poor quality. There is evidence of fluid in the subacromial space and interstitial rotator cuff tearing. Patient has a partial-thickness undersurface tear with severe tendinopathy. No evidence of a full-thickness tear. There is a large humeral head cyst consistent with the x-rays. Patient does have severe capsular synovitis and cartilage erosion consistent with rheumatoid arthritis. PHYSICAL EXAM: General: generally well-nourished and in no acute distress HEENT: normocephalic, atraumatic, EOMI, sclera anicteric. Psych: mood and affect normal , cooperative Card: Peripheral pulses: normal in affected extremity (s) Resp: equal chest rise, non-tachypneic, non-labored breathing Skin: no rash, normal Neuro: Coordination: normal; Sensation: normal on affected extremity (s) Skin: normal. C-Spine evaluation: Does patient have neck symptoms and/or numbness/tingling in upper extremities: no Inspection: bilateral and symmetrical without apparent abnormality Shoulder ROM: ABD (170') - Bilateral and equal ER (40') - Bilateral and equal Passive ER -Bilateral and equal IR (T10) - right T10 left T10 FF (180') - Bilateral and equal Scapular elevation with forward flexion:negativeBilateral Tenderness/Location: no Inspection AC Joint Prominence: normal Cross-arm maneuver: positive Impingement sign: positive Sulcus sign: negative Lift-off test: negative Apprehension:negative Northampton's test: negative Load and shift: negative Speed's test: negative Drop-arm test: negative Instability Testing: Shoulder instability testing: normal bilaterally negative scapular winging negative scapular dyskinesis Strength: ABD: Right - 5/5 Left - 5/5 ER: Right - 5/5 Left - 5/5 IR: Right - 5/5 Left - 5/5 Biceps: Right - 5/5 Left - 5/5 "Empty can": Right - 5/5 Left - 5/5 Neurovascular assessment: negative for deficit Neck ROM: Extension 10 Flexion to the chest Spurlings test: Right negative Left negative Lateral bending and rotation pain: right negative left negative TTP: negative Ligamentous laxity testing: negative Bilateral Injection Procedure Note: LEFT Shoulder: Time out: Prior to injection, a time out was called to confirm the administration of appropriate medicine, patient name, procedure and confirm to the best of our ability and knowledge the presence of any necessary risks and benefits. Patient verbalizes understanding. Consent obtained. Sterile techinique applied. Skin sterilized with Hibiclens swab. The left shoulder glenohumeral joint was injected using 1.5 inch, 25 gauge needle with 1 mL 0.5% ropivacaine, 1 mL 1% lidocaine and 1 mL Depo-Medrol 40 mg/mL. Skin cleansed with alcohol and Band-Aid placed. Patient tolerated procedurewith no significant bleeding or adverse reaction. Patient instructed to call or return to clinic for fever or warmth and redness at injection site for potential infection. Patient also advised as to potential for steroid flare reaction including increased pain and redness at injection site which should be treated with ice and resolve within 24 hours. Adin Nguyen MD Orthopaedics [facility] [address] [place] [address] Orthopedic Sports Medicine Surgery 01/31/2023 8:27 AM This chart was completed in part utilizing [employer] Speech Voice Recognition Software. Grammatical errors, random word insertions, pronoun errors, and incomplete sentences are an occasional consequence of this system due to software limitations, ambient noise, and hardware issues. Any formal questions or concerns about the content, text, or information contained within the body of this dictation should be directly addressed to the provider for clarification. documented in this encounter Nursing Notes * Naye Be LPN - 01/31/2023 7:59 AM EDT New patient left shoulder pain, fell caught self on 11/23/2022 MRI 01/15/2023 x-ray 11/23/2022 Completed physical therapy with minimal relief, ROM has improved did help level of pain Right handed Patient is taking prednisone 10 mg every day, for rheumatoid arthritis. Patient denies any injections or bracing or surgery documented in this encounter Plan of Treatment Upcoming Encounters Date Type Specialty Care Team Description 08/02/2023 Office Visit Orthopedics Jero Billingsley PA-C [address] [place] [address] Health Maintenance Due Date Last Done Comments [...] D LEVEL ONCE IN A LIFETIME-USE SMARTSET# 47332 Completed 09/13/2022, 08/31/2021, 03/19/2020, Additional history exists [...] this encounter Medical Devices Implanted Type Area Home Health Rn Device Identifier Shelf Expiration Date Model / Serial / Lot Jamarcus/Vianey Total Elbow Interchangeable Humeral Assesmbly Implanted:Qty: 1 on 03/23/2010 at [facility] Right: Elbow [employer] 06/03/2014 32-8105-25 -04 / / [id number] documented as of this encounter Visit Diagnoses Diagnosis Rheumatoid arthritis involving left shoulder, unspecified whether rheumatoid factor present (HCC)- Primary Synovitis of left shoulder Incomplete tear of right rotator cuff, unspecified whether traumatic documented in this encounter Administered Medications Inactive Administered Medications - up to 3 most recent administrations Medication Order MAR Action Action Date Dose Rate Site lidocaine 1% 1 mL - triamcinolone acetonide 40 mg/mL 1 mL inj 2 mL 2 mL, Injection, ONCE, On Sun01/31/23 at 0915, For 1 dose, Lidocaine 1% 1mL Triamcinolone Acetonide 40 mg/mL 1 mL (Final concentration = 20 mg/mL) REFRIGERATE and SHAKE WELL Given 01/31/2023 8:59 AM EDT 2 mL Shoulder Left documented in this encounter Advance Directives Latest [...] and were consensually agreed upon. Care Teams Manager Fine Dining Relationship Specialty Start Date End Date Miguel Arreola DO [address] [facility] [address] [place] [address] PCP - General Family Medicine 10/27/22 documented as of this encounter
--- OUTSIDE RECORDS SUMMARY | 2023-07-13 15:31 | External Medical Summary | Summary of Care ---
Author Name Unknown Organization [facility] Address [address] [place] [address] Phone [phone] Care Team Providers Care Production Statistical Clerk Name Role Phone Raymonkiran Miguel Kendrick Primary Care Provider [phone] Encounter Details Date Type Department Care Team [...] Oral Tablet (Plaquenil)Indicatio ns:KAMRAN (juvenile idiopathic arthritis) ([facility]),Encounter for long-term (current) use of medications Take 200mg daily alternating with 400mg daily 45 Tablet 5 09/12/2022 Active Abatacept 125 MG/ML Subcutaneous Solution Prefilled Syringe (Orencia)Indications :Rheumatoid arthritis involving multiple joints ([facility]) INJECT 125 MG (1 SYRINGE) UNDER THE SKIN ONCE A WEEK 4 mL 6 10/26/2022 10/26/2023 Active predniSONE 5 MG Oral Tablet (Deltasone) TAKE 1 TABLET BY MOUTH EVERY DAY 90 Tablet 1 11/06/2022 Active Meloxicam 15 MG Oral Tablet Take 1 Tablet by mouth in the morning. 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 Care Teams Production Statistical Clerk Relationship Specialty Start Date End Date Miguel Arreola DO [address] [address] PCP - General Family Medicine 10/27/22 documented as of this encounter
--- OUTSIDE RECORDS SUMMARY | 2023-07-13 15:31 | External Medical Summary | Summary of Care ---
Author Name Unknown Organization [facility] Address [address] [place] [address] Phone [phone] Care Team Providers Care Nurse Clinician Name Role Phone Raymonkiran Miguel Kendrick Primary Care Provider [phone] [phone] Encounter Details Date Type Department Care Team [...] Oral Tablet (Plaquenil)Indicatio ns:KAMRAN (juvenile idiopathic arthritis) ([facility]),Encounter for long-term (current) use of medications Take 200mg daily alternating with 400mg daily 45 Tablet 5 09/12/2022 Active Abatacept 125 MG/ML Subcutaneous Solution Prefilled Syringe (Orencia)Indications :Rheumatoid arthritis involving multiple joints ([facility]) INJECT 125 MG (1 SYRINGE) UNDER THE [...] D LEVEL ONCE IN A LIFETIME-USE SMARTSET# [id number] Completed 09/13/2022, 08/31/2021, 03/19/2020, Additional history exists [...] this encounter Medical Devices Implanted Type Area Frame Stylist Device Identifier Shelf Expiration Date Model / Serial / Lot Coonrad/Morrey Total Elbow Interchangeable Humeral Assesmbly Implanted:Qty: 1 on 03/23/[address] [facility] Right: Elbow [employer] 06/03/2014 32-8105-25 -04 / / [id number] documented as of this encounter Advance Directives [...] and were consensually agreed upon. Care Teams Nurse Clinician Relationship Specialty Start Date End Date Miguel Arreola DO [address] [place] [address] PCP - General Family Medicine 10/27/22 documented as of this encounter
--- OUTSIDE RECORDS SUMMARY | 2023-07-13 15:31 | External Medical Summary | Summary of Care ---
Author Name Unknown Organization [facility] Address [address] [place] [address] Phone [phone] Care Team Providers Care Oracle Consultant Name Role Phone Raymonkiran Miguel Kendrick Primary Care Provider [phone] [phone] Encounter Details Date Type Department Care Team [...] Tablet (Plaquenil)Indicatio ns:KAMRAN (juvenile idiopathic arthritis) ([facility]),Encounter for long-term (current) use of medications Take 200mg daily alternating with 400mg daily 45 Tablet 5 09/12/2022 Active Abatacept 125 MG/ML Subcutaneous Solution Prefilled Syringe (Orencia)Indications :Rheumatoid arthritis involving multiple joints ([facility]) INJECT 125 MG (1 SYRINGE) UNDER [...] fracture 10/31/2017 KAMRAN (juvenile idiopathic arthritis) 04/01/2017 intermediate current use of systemic steroi ds 12/29/2015 [...] D LEVEL ONCE IN A LIFETIME-USE SMARTSET# [id number] Completed 09/13/2022, 08/31/2021, 03/19/2020, Additional history exists [...] this encounter Medical Devices Implanted Type Area Manager Application Device Identifier Shelf Expiration Date Model / Serial / Lot Coonrad/Morrey Total Elbow Interchangeable Humeral Assesmbly [place]ed:Qty: 1 [place] [facility] [place] Elbow [employer] 06/03/2014 32-8105-25 -04 / / [id number] documented as of this encounter Advance Directives [...] and were consensually agreed upon. Care Teams Oracle Consultant Relationship Specialty Start Date End Date Miguel Arreola DO [address] [place] [address] PCP - General Family Medicine 10/27/22 documented as of this encounter
--- OUTSIDE RECORDS SUMMARY | 2023-07-13 15:31 | External Medical Summary | Summary of Care ---
Author Name Unknown Organization [facility] Address [address] [place] [address] Phone [phone] Care Team Providers Care Stone And Plate Preparer Apprentice Name Role Phone Raymonkiran Miguel Kendrick Primary Care Provider [phone] [phone] Encounter Details Date Type Department Care Team [...] Oral Tablet (Plaquenil)Indicatio ns:KAMRAN (juvenile idiopathic arthritis) ([facility]),Encounter for long-term (current) use of medications Take 200mg daily alternating with 400mg daily 45 Tablet 5 09/12/2022 Active Abatacept 125 MG/ML Subcutaneous Solution Prefilled Syringe (Orencia)Indications :Rheumatoid arthritis involving multiple joints ([facility]) INJECT 125 MG (1 SYRINGE) [...] fracture 10/31/2017 KAMRAN (juvenile idiopathic arthritis) 04/01/2017 long-term current use of systemic steroi ds 12/29/2015 [...] as of this encounter Plan of Treatment Upcoming Encounters Date Type Specialty Care Team Description 08/02/2023 Office Visit Orthopedics Jero Billingsley PA-C [address] [place] [address] Health Maintenance Due Date Last Done Comments [...] D LEVEL ONCE IN A LIFETIME-USE SMARTSET# [id number] Completed 09/13/2022, 08/31/2021, 03/19/2020, Additional history exists [...] this encounter Medical Devices Implanted Type Area Construction Pit Worker Device Identifier Shelf Expiration Date Model / Serial / Lot Coonrad/Morrey Total Elbow Interchangeable Humeral Assesmbly Implanted:Qty: 1 on [place] [facility] [place]: Elbow [employer] 06/03/2014 32-8105-25 -04 / / [id number] documented as of this encounter Advance Directives [...] and were consensually agreed upon. Care Teams Stone And Plate Preparer Apprentice Relationship Specialty Start Date End Date Miguel Arreola DO [address] [facility] [address] [place] [address] PCP - General Family Medicine 10/27/22 documented as of this encounter
--- OUTSIDE RECORDS SUMMARY | 2023-07-13 15:31 | External Medical Summary ---
Author Name Unknown Address Unknown Organization K01:[facility] [place] - [address] [place] [address] Laboratory Report Ordering Provider Test Date Status PHILIP PEÑA 01/31/2023 08:42:52 Final Observation Date Value Abnormality Reference (Units ) Status Erythrocyte sedimentation rate by Photometric method 01/31/2023 08:42:52 39 Above high normal <30 (mm/hour) Final Performing Location [facility] [place] - [address] [place] [address]
--- OUTSIDE RECORDS SUMMARY | 2023-07-13 15:31 | External Medical Summary | Summary of Care ---
Author Name Unknown Organization [facility] Address [address] [place] [address] Phone [phone] Care Team Providers Care Farmworker Grain Name Role Phone RaymonkiranMiguelmond Primary Care Provider +1 [phone] Encounter Details Date Type Department Care Team Description 01/23/2023 Orders Only Orthopaedics [facility] [address] [place] [address] Jero Billingsley PA-C [address] [place] [address] Allergies Active Allergy Reactions Severity Noted Date Comments Buspirone High 08/14/2022 Other reaction(s): nightmares Doxycycline Monohydrate Rash 08/16/2010 Mirtazapine Low 08/14/2022 Other reaction(s): weight gain documented as of this encounter (statuses as of 01/24/2023) Medications Medication Sig Dispensed Refills Start Date [...] (Plaquenil)Indicatio ns:KAMRAN (juvenile idiopathic arthritis) ([facility]),Encounter for long-term (current) use of [...] as of this encounter (statuses as of 01/24/2023) Active Problems Problem Noted Date Senile osteoporosis 09/11/2022 Senile osteoporosis 08/23/2021 Diverticulosis of large intestine withou t hemorrhage 10/06/2020 History of rectal cancer 03/05/2018 Osteoporosis without current pathologica l fracture 10/31/2017 KAMRAN (juvenile idiopathic arthritis) 01/2017 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 12/29/2015 [...] as of this encounter (statuses as of 01/24/2023) Resolved Problems Problem Noted Date Resolved Date MEDICATION USE AGREEMENT 09/24/2018 020 Encounter for long-term (current) use of medicat ions 12/29/2015 03/18/2019 Osteoporosis 08/17/2015 06/07/2022 POLYART JUV RHEUM ARTHR 06/07/20 documented as of this encounter (statuses as of 01/24/2023) Immunizations Name Administration Dates Next Due COVID-19 [...] Encounters Date Type Specialty Care Team Description 01/31/2023 Office Visit Orthopedics Adin Nguyen MD [address] [place] [address] Health Maintenance Due Date Last Done Comments [...] D LEVEL ONCE IN A LIFETIME-USE SMARTSET# [id number] Completed 09/13/2022, 08/31/2021, 03/19/2020, Additional history exists [...] this encounter Medical Devices Implanted Type Area Asian Studies Program Chair Device Identifier Shelf Expiration Date Model / Serial / Lot Coonrad/Vinrey Total Elbow Interchangeable Humeral Assesmbly Implanted:Qty: 1 on 03/23/[place] [facility] [place]: Elbow [employer] 06/03/2014 32-8105-25 -04 / / [id number] documented as of this encounter Advance Directives [...] and were consensually agreed upon. Care Teams Farmworker Grain Relationship Specialty Start Date End Date Miguel Arreola DO [address] [facility] [address] [place] [address] PCP - General Family Medicine 10/27/22 documented as of this encounter
--- OUTSIDE RECORDS SUMMARY | 2023-07-13 15:31 | External Medical Summary ---
Author Name Unknown Address Unknown Organization [facility] [address] [place] [address] Laboratory Report Ordering Provider Test Date Status CASEYMARILEE LUNAMONISHA 01/31/2023 08:42:52 Final Observation Date Value Abnormality Reference (Units ) Status SYNC LEUKOCYTES IN BLOOD BY AUTOMATED COUNT 01/31/2023 08:42:52 10.63 4.00-10.80 (K/uL) Final Segs 01/31/2023 08:42:52 70.0 40.0-75.0 (%) Final Lymphs % 01/31/2023 08:42:52 18.2 18.0-42.0 (%) Final Monos 01/31/2023 08:42:52 7.8 1.0-11.0 (%) Final Eosinophils 01/31/2023 08:42:52 3.2 0.0-6.0 (%) Final Basos 01/31/2023 08:42:52 0.8 0.0-2.0 (%) Final Absolute Segs 01/31/2023 08:42:52 7.44 1.80-7.70 (K/uL) Final Lymphs, absolute 01/31/2023 08:42:52 1.93 1.00-4.80 (K/ul) Final Monos, Abs 01/31/2023 08:42:52 0.83 0.00-1.10 (K/uL) Final Eos, Abs 01/31/2023 08:42:52 0.34 0.00-0.70 (K/uL) Final Basos, Abs 01/31/2023 08:42:52 0.09 0.00-0.20 (K/uL) Final Performing Location [facility] [address] [place] [address]
--- OUTSIDE RECORDS SUMMARY | 2023-07-13 15:31 | External Medical Summary ---
Author Name Unknown Address Unknown Organization [facility] [address] [place] [address] Laboratory Report Ordering Provider Test Date Status PHILIP PEÑA 01/31/2023 08:42:52 Final Observation Date Value Abnormality Reference (Units ) Status BUN 01/31/2023 08:42:52 13 6-20 (mg/dL) Final Creatinine 01/31/2023 08:42:52 0.8 0.5-1.0 (mg/dL) Final Glomerular filtration rate/1.73 sq M.predicted [Volume Rate/Area] in Serum, Plasma or Blood by Creatinine-based formula (CKD-EPI) 01/31/2023 08:42:52 90 >=60 (mL/min) Final eGFR is calculated based on the CKD-EPI 2020 equation SODIUM 01/31/2023 08:42:52 142 135-146 (m mol/L) Final Potassium 01/31/2023 08:42:52 4.0 3.5-5.1 (m mol/L) Final Cl 01/31/2023 08:42:52 105 98-107 (mm ol/L) Final CO2 01/31/2023 08:42:52 26 22-32 (mmo l/L) Final Anion gap 01/31/2023 08:42:52 11 7-15 (mmol /L) Final Glucose 01/31/2023 08:42:52 83 70-120 (mg /dL) Final Albumin 01/31/2023 08:42:52 3.9 3.8-5.0 (g /dL) Final AST (Aspartate aminotransferase) 01/31/2023 08:42:52 19 10-35 (U/L) Final Alk Phos 01/31/2023 08:42:52 69 35-130 (U/ L) Final Bilirubin, Total 01/31/2023 08:42:52 0.2 <=1 .2 (mg/dL) Final Calcium 01/31/2023 08:42:52 10.0 8.4-10.2 ( mg/dL) Final Protein 01/31/2023 08:42:52 7.0 6.0-8.3 (g /dL) Final ALT (Alanine aminotransferase) 01/31/2023 08:42:52 19 10-35 (U/L) Final Performing Location [facility] [address] [facility] [address]
--- OUTSIDE RECORDS SUMMARY | 2023-07-13 15:31 | External Medical Summary ---
Author Name Unknown Address Unknown Organization [facility] [address] [place] [address] Laboratory Report Ordering Provider Test Date Status PHILIP PEÑA 01/31/2023 08:42:52 Final Observation Date Value Abnormality Reference (Units ) Status WBC, Total 01/31/2023 08:42:52 10.63 4.00-10.8 0 (K/uL) Final RBC 01/31/2023 08:42:52 4.27 3.85-5.15 (M/uL) Final Hemoglobin 01/31/2023 08:42:52 11.8 Below low normal 12 .0-15.3 (g/dL) Final HCT 01/31/2023 08:42:52 37.3 36.0-45.2 (%) Final MCV 01/31/2023 08:42:52 87.4 81.5-97.5 (fL) Final MCH 01/31/2023 08:42:52 27.6 27.0-34.0 (pg) Final MCHC 01/31/2023 08:42:52 31.6 32.0-36.0 (g/dL) Final RDW 01/31/2023 08:42:52 13.7 11.5-15.5 (%) Final Platelets 01/31/2023 08:42:52 306 140-400 (K /uL) Final MPV 01/31/2023 08:42:52 9.3 6.6-11.1 ( fL) Final Performing Location [facility] [address] [place] [address]
--- OUTSIDE RECORDS SUMMARY | 2023-07-13 15:31 | External Medical Summary | Summary of Care ---
Author Name Unknown Organization [facility] Address [address] [place] [address] Phone [phone] Care Team Providers Care Matrix Plater Name Role Phone RaymonkiranMiguelmond Primary Care Provider [phone] [phone] Reason for Visit * Reason Comments Outpatient Testing Encounter Details Date Type Department Care Team Description 01/31/2023 Laboratory Laboratory, [facility] [address] [place] [address] [facility] [address] [place] [address] Rheumatoid arthritis involving multiple joints (HCC); Encounter for long-term (current) use of medications Allergies Active Allergy Reactions Severity Noted Date [...] Oral Tablet (Plaquenil)Indicatio ns:KAMRAN (juvenile idiopathic arthritis) ([facility]),Encounter for long-term (current) use of medications Take 200mg daily alternating with 400mg daily 45 Tablet 5 09/12/2022 Active Abatacept 125 MG/ML Subcutaneous Solution Prefilled Syringe (Orencia)Indications :Rheumatoid arthritis involving multiple joints ([facility]) INJECT 125 MG (1 SYRINGE) [...] left shoulder, unspecified whether rheumatoid factor present ([facility]),Synovitis of left shoulder 2 mL IJ ONCE 01/31/2023 01/31/2023 Ended documented as of this encounter (statuses as of 01/31/2023) Active Problems Problem Noted Date Senile osteoporosis 09/11/2022 Senile osteoporosis 08/23/2021 Diverticulosis of large intestine withou t hemorrhage 10/06/2020 History of rectal cancer 03/05/2018 Osteoporosis without current pathologica l fracture 10/31/2017 KAMRAN (juvenile idiopathic arthritis) 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 12/29/2015 [...] mRNA, LNP-s, No Pre serve, 2-Dose Series ([employer]) 05/10/2021,10/29/2020,10/08/2020 Pneumococcal Polysaccharide PPV23 (Pneumovax) 08/01/2012,06/27/2007 Seasonal [...] Billingsley PA-C [address] [place] [address] Pending Results Name Type Priority Associated Diagnoses Date /Time COMPREHENSIVE METABOLIC PANEL Lab Routine Rheumatoid arthritis involving multiple joints (HCC) Encounter for long-term (current) use of medications 01/31/2023 8:42 AM EDT ERYTHROCYTE SEDIMENTATION RATE (ESR) Lab Routine Rheumatoid arthritis involving multiple joints (HCC) Encounter for long-term (current) use of medications 01/31/2023 8:42 AM EDT Health Maintenance Due Date Last Done Comments [...] D LEVEL ONCE IN A LIFETIME-USE SMARTSET# [id number] Completed 09/13/2022, 08/31/2021, 03/19/2020, Additional history exists [...] this encounter Medical Devices Implanted Type Area Billing Spec Device Identifier Shelf Expiration Date Model / Serial / Lot Coonrad/Morrey Total Elbow Interchangeable Humeral Assesmbly Implanted:Qty: 1 on 03/23/2010 at [facility] Right: Elbow [employer] 06/03/2014 32-8105-25 -04 / / [id number] documented as of this encounter Visit Diagnoses Diagnosis Rheumatoid arthritis involving multiple joints (HCC) Encounter for long-term (current) use of medications Encounter for long-term (current) use of other medications documented in this encounter Advance Directives Latest [...] and were consensually agreed upon. Care Teams Matrix Plater Relationship Specialty Start Date End Date Miguel Arreola DO [address] [place] [address] PCP - General Family Medicine 10/27/22 documented as of this encounter
--- OUTSIDE RECORDS SUMMARY | 2023-07-13 15:31 | External Medical Summary | Summary of Care ---
Author Name Unknown Organization [facility] Address [address] [place] [address] Phone [phone] Care Team Providers Care Plating And Point Assembly Supervisor Name Role Phone Raymonkiran Miguel Kendrick Primary Care Provider [phone] [phone] Encounter Details Date Type Department Care Team [...] Tablet (Plaquenil)Indicatio ns:KAMRAN (juvenile idiopathic arthritis) ([facility]),Encounter for long-term (current) use of medications Take 200mg daily alternating with 400mg daily 45 Tablet 5 09/12/2022 Active Abatacept 125 MG/ML Subcutaneous Solution Prefilled Syringe (Orencia)Indications :Rheumatoid arthritis involving multiple joints ([facility]) INJECT 125 MG (1 SYRINGE) UNDER THE [...] fracture 10/31/2017 KAMRAN (juvenile idiopathic arthritis) 04/01/2017 assisted current use of systemic steroi ds 12/29/2015 [...] D LEVEL ONCE IN A LIFETIME-USE SMARTSET# [id number] Completed 09/13/2022, 08/31/2021, 03/19/2020, Additional history exists [...] this encounter Medical Devices Implanted Type Area Commercial Electrician Device Identifier Shelf Expiration Date Model / Serial / Lot Coonrad/Morrey Total Elbow Interchangeable Humeral Assesmbly Implanted:Qty: 1 on 03/23/2010 [place] [facility] [place] Right: Elbow [employer] 06/03/2014 32-8105-25 -04 / / [id number] documented as of this encounter Advance Directives [...] and were consensually agreed upon. Care Teams Plating And Point Assembly Supervisor Relationship Specialty Start Date End Date Miguel Arreola DO [address] [place] [address] PCP - General Family Medicine 10/27/22 documented as of this encounter
--- OUTSIDE RECORDS SUMMARY | 2023-07-13 15:32 | External Medical Summary | Summary of Care ---
Author Name Unknown Organization [facility] Address [address] [place] [address] Phone [phone] Care Team Providers Care Yarn Rewinder Name Role Phone Miguel Arreola DO Primary Care Provider [phone] Encounter Details Date Type Department Care Team Description 01/18/2023 Telemedicine Orthopaedics [facility] [address] [place] [address] Jero Billingsley PA-C [address] [facility] [place] [address] Incomplete tear of right rotator cuff, unspecified whether traumatic* Allergies Active Allergy Reactions Severity Noted Date Comments Buspirone High 08/14/2022 Other reaction(s): nightmares Doxycycline Monohydrate Rash 08/16/2010 Mirtazapine Low 08/14/2022 Other reaction(s): weight gain documented as of this encounter (statuses as of 01/18/2023) Medications Medication Sig Dispensed Refills Start Date [...] mouth in the morning. 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/29/2015 [...] as of this encounter (statuses as of 01/18/2023) Resolved Problems Problem Noted Date Resolved Date MEDICATION USE AGREEMENT 09/24/2018 020 Encounter for long-term (current) use of medicat ions 12/29/2015 03/18/2019 Osteoporosis 08/17/2015 06/07/2022 POLYART JUV RHEUM ARTHR 06/07/20 documented as of this encounter (statuses as of 01/18/2023) Immunizations Name Administration Dates Next Due COVID-19 [...] as of this encounter Progress Notes * Jero Billingsley PA-C - 01/18/2023 11:52 AM EDT After connecting to the patient via telephone, the patient was identified by name and date of . Patient was then informed that this was a telephone call only visit. The patient agreed to participate. Visit Disposition: Routine follow-up Total call duration was 5 minutes. Telephonic visit to discuss MRI results of the right shoulder. Patient continues have pain in his failed physical therapy. MRI reveals near full-thickness rotator cuff tear. I would like the patient to visit with Dr. Nguyen to discuss further treatment and determine if she is a surgical candidate. Patient is aware and willing proceed accordingly. Has no other questions concerns. Provided prescription meloxicam as well as ibuprofen is not providing her with any relief. Take with food and discontinue with any GI upset. Has no other questions concerns. Satisfied with today's phone call. Call sooner if needed. This chart was completed in part utilizing [employer] Speech Voice Recognition Software. Grammatical errors, random word insertions, prounoun errors, and incomplete sentences are an occasional consequence of this system due to software limitations, ambient noise, and hardware issues. Any formal questions or concerns about the content, text, or information contained within the body of this dictation should be directly addressed to the provider for clarification. documented in this encounter Plan of Treatment Health Maintenance [...] D LEVEL ONCE IN A LIFETIME-USE SMARTSET# [id number] Completed 09/13/2022, 08/31/2021, 03/19/2020, Additional history exists [...] this encounter Medical Devices Implanted Type Area Scroll Saw Operator Device Identifier Shelf Expiration Date Model / Serial / Lot Coonrad/Morrey Total Elbow Interchangeable Humeral Assesmbly Implanted:Qty: 1 on 03/23/2010 at [facility] Right: Elbow [employer] 06/03/2014 32-8105-25 -04 / / [id number] documented as of this encounter Visit Diagnoses Diagnosis Incomplete tear of right rotator cuff, unspecified whether traumatic- Primary documented in this encounter Advance Directives [...] and were consensually agreed upon. Care Teams Yarn Rewinder Relationship Specialty Start Date End Date Miguel Arreola DO [address] [place] [address] PCP - General Family Medicine 10/27/22 documented as of this encounter
--- OUTSIDE RECORDS SUMMARY | 2023-07-13 15:32 | External Medical Summary | Summary of Care ---
Author Name Unknown Organization [facility] Address [address] [place] [address] Phone [phone] Care Team Providers Care Plate Painter Name Role Phone RaymonkiranMiguelmond Primary Care Provider [phone] [phone] Reason for Visit * Reason Onset Date Comments Med Change Request 01/22/2023 Encounter Details Date Type Department Care Team Description 01/22/2023 Telephone Orthopaedics [facility] [address] [place] [address] Jero Billingsley PA-C [address] [place] [address] Med Change Request Allergies Active Allergy Reactions Severity Noted Date Comments Buspirone High 08/14/2022 Other reaction(s): nightmares Doxycycline Monohydrate Rash 08/16/2010 Mirtazapine Low 08/14/2022 Other reaction(s): weight gain documented as of this encounter (statuses as of 01/22/2023) Medications Medication Sig Dispensed Refills Start Date [...] EVERY DAY 90 Tablet 1 11/06/2022 Active documented as of this encounter (statuses as of 01/22/2023) Active Problems Problem Noted Date Senile osteoporosis 09/11/2022 Senile osteoporosis 08/23/2021 Diverticulosis of large intestine withou t hemorrhage 10/06/2020 History of rectal cancer 03/05/2018 Osteoporosis without current pathologica l fracture 10/31/2017 KAMRAN (juvenile idiopathic arthritis) 04/0 01/2017 director long term care current use of systemic steroi ds [...] as of this encounter (statuses as of 01/22/2023) Resolved Problems Problem Noted Date Resolved Date MEDICATION USE AGREEMENT 09/24/2018 020 Encounter for long-term (current) use of medicat ions 12/29/2015 03/18/2019 Osteoporosis 08/17/2015 06/07/2022 POLYART JUV RHEUM ARTHR 06/07/20 documented as of this encounter (statuses as of 01/22/2023) Immunizations Name Administration Dates Next Due COVID-19 mRNA, LNP-s, No Pre serve, 2-Dose Series ([employer]) 05/10/2021,10/29/2020,10/08/2020 PPD 01/30/2002 Pneumococcal Polysaccharide PPV23 (Pneumovax) [...] Miscellaneous Notes * Telephone Encounter - CYN Kauffman - 01/22/2023 4:20 PM EDT Patient called back and was inquiring to see if Jero had a chance to call in her meds. I explained to her he was in surgery all day and as soon as we get an answer we will let her know * Telephone Encounter - CYN Telles - 01/22/2023 8:50 AM EDT Patient called in today stating that Jero called her in Meloxicam for pain last week but she is unable to take this due to the other meds she is currently taking. Asking for something different to becalled in for the pain. States she mtz din /sunday last week but nothing has been called in yet, [facility] Please call patient if you should have any questions. documented in this encounter Plan of Treatment Upcoming Encounters Date Type Specialty Care Team Description 01/31/2023 Office Visit Orthopedics Adin Nguyen MD [address] [place] [address] Health Maintenance Due Date Last Done [...] D LEVEL ONCE IN A LIFETIME-USE SMARTSET# [id number] Completed 09/13/2022, 08/31/2021, 03/19/2020, Additional history exists [...] this encounter Medical Devices Implanted Type Area Senior Financial Device Identifier Shelf Expiration Date Model / Serial / Lot Coonrad/Morrey Total Elbow Interchangeable Humeral Assesmbly Implanted:Qty: 1 on 03/23/2010 at [facility] Right: Elbow [employer] 06/03/2014 32-8105-25 -04 / / [id number] documented as of this encounter Advance Directives [...] and were consensually agreed upon. Care Teams Plate Painter Relationship Specialty Start Date End Date Miguel Arreola DO [address] [place] [address] PCP - General Family Medicine 10/27/22 documented as of this encounter
--- OUTSIDE RECORDS SUMMARY | 2023-07-13 15:32 | External Medical Summary | Summary of Care ---
Author Name Unknown Organization [facility] Address [address] [place] [address] Phone [phone] Care Team Providers Care Playroom Attendant Name Role Phone RaymonkiranMiguelmond Primary Care Provider [phone] [phone] Reason for Visit * Reason Onset Date Comments Med Change Request 01/22/2023 Encounter Details Date Type Department Care Team Description 01/22/2023 Telephone Orthopaedics [facility] [address] [place] [address] Jero Billingsley PA-C [address] [place] [address] Med Change Request Allergies Active Allergy Reactions [...] 10/31/2017 KAMRAN (juvenile idiopathic arthritis) 04/0 01/2017 manager long term care current use of systemic [...] mRNA, LNP-s, No Pre serve, 2-Dose Series ([employer]) 05/10/2021,10/29/2020,10/08/2020 Pneumococcal Polysaccharide PPV23 (Pneumovax) 08/01/2012,06/27/2007 Seasonal [...] Miscellaneous Notes * Telephone Encounter - CYN Telles - [...] but nothing has been called in yet, [facility] Please call patient if you should have [...] D LEVEL ONCE IN A LIFETIME-USE SMARTSET# [id number] Completed 09/13/2022, 08/31/2021, 03/19/2020, Additional history exists [...] this encounter Medical Devices Implanted Type Area Distribution Sales Representative Device Identifier Shelf Expiration Date Model / Serial / Lot Coonrad/Morrey Total Elbow Interchangeable Humeral Assesmbly Implanted:Qty: 1 on 03/23/[address] [facility] Right: Elbow [employer] 06/03/2014 32-8105-25 -04 / / [id number] documented as of this encounter Advance Directives [...] and were consensually agreed upon. Care Teams Playroom Attendant Relationship Specialty Start Date End Date Miguel Arreola DO [address] [facility] [address] [place], [place] [address] PCP - General Family Medicine 10/27/22 documented as of this encounter
--- OUTSIDE RECORDS SUMMARY | 2023-07-13 15:32 | External Medical Summary | Summary of Care ---
Author Name Unknown Organization [facility] Address [address] [place] [place] [place] [address] Phone [phone] Care Team Providers Care Occupational Therapy Aide Name Role Phone Miguel Arreola DO Primary Care Provider [phone] Encounter Details Date Type Department Care Team Description 01/18/2023 Telemedicine Orthopaedics [facility] [address] [facility] [place] [address] Jero Billingsley PA-C [address] [facility] [place] [address] Incomplete tear of right rotator cuff, unspecified whether traumatic* Allergies Active Allergy Reactions Severity Noted Date Comments Buspirone High 08/14/2022 Other reaction(s): nightmares Doxycycline Monohydrate Rash 08/16/2010 Mirtazapine Low 08/14/2022 Other reaction(s): weight gain documented as of this encounter (statuses as of 01/18/2023) Medications Medication Sig Dispensed Refills Start Date End Date Status IBUPROFEN 600 MG PO TABSIndications:[place] polyarticular juvenile rheumatoid arthritis (HCC),Other osteoporosis 1 tab every 6 - 8 hr as needed 90 Tab 6 03/24/2010 Active AMOXICILLIN 500 MG PO TABSIndications:El bow joint replacement status 4 tabs one hour prior to dental procedure 29 Tab 3 06/02/2010 Active Additional Information Patient not taking.Reported on 12/14/2022 CYMBALTA 60 MG PO CPEPIndications:De pression one tab daily 30 Cap 12 10/20/2011 Active CYMBALTA 30 MG PO CPEPIndications:De pression one tab daily 30 Cap 12 10/20/2011 Active Cholecalciferol (VITAMIN D3) 125 MCG (5000 UT) Tablet Take 1 Tablet by mouth in the morning. 0 Active buPROPion extended release, SR, (WELLBUTRIN SR) 100 MG TB12 Take 1 Tablet by mouth in the morning. 0 12/03/2019 Active Acetaminophen 500 MG Oral Tablet (Tylenol) 2 Tablets. 0 09/18/2020 Active Hydroxychloroquine Sulfate 200 MG Oral Tablet (Plaquenil)Indicat ions:KMARAN (juvenile idiopathic arthritis) (HCC),Encounter for long-term (current) use of medications Take 200mg daily alternating with 400mg daily 45 Tablet 5 09/12/2022 Active Abatacept 125 MG/ML Subcutaneous Solution Prefilled Syringe (Orencia)Indicatio ns:Rheumatoid arthritis involving multiple joints (HCC) INJECT 125 MG (1 SYRINGE) UNDER THE SKIN ONCE A WEEK 4 mL 6 10/26/2022 10/26/19 24 Active predniSONE 5 MG Oral Tablet (Deltasone) TAKE 1 TABLET BY MOUTH EVERY DAY 90 Tablet 1 11/06/2022 Active Meloxicam 15 MG Oral Tablet Take 1 Tablet by mouth in the morning. 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 Has no other questions concerns. Has no other questions concerns. Satisfied with today's phone call. Call sooner if needed. This chart was completed in part utilizing [employer] Speech Voice Recognition Software. Grammatical errors, random word insertions, prounoun errors, and incomplete sentences are an occasional consequence of this system due to software limitations, ambient noise, and hardware issues. Any formal questions or concerns about the content, text, or information contained within the body of this dictation should be directly addressed to the provider for clarification. documented in this encounter Miscellaneous Notes * Addendum Note - Jero Billingsley PA-C - 01/18/2023 2:59 PM EDTAddended by: JERO BILLINGSLEY on: 01/18/2023 02:59 PM Modules accepted: Orders documented in this encounter Plan of Treatment Upcoming Encounters Date Type Specialty Care Team Description 01/31/2023 Office Visit Orthopedics Adin Nguyen MD [address] [place] [address] Health Maintenance Due Date Last Done [...] D LEVEL ONCE IN A LIFETIME-USE SMARTSET# [id number] Completed 09/13/2022, 08/31/2021, 03/19/2020, Additional history exists [...] this encounter Medical Devices Implanted Type Area Photographic Process Attendant Device Identifier Shelf Expiration Date Model / Serial / Lot Letyrad/Vianey Total Elbow Interchangeable Humeral Assesmbly Implanted:Qty: 1 on 03/23/2010 at [facility] Right: Elbow [employer] 06/03/2014 [id number] -[id number] / / [id number] documented as of this encounter Visit Diagnoses [...] and were consensually agreed upon. Care Teams Occupational Therapy Aide Relationship Specialty Start Date End Date Miguel Arreola DO [address] [place] [address] PCP - General Family Medicine 10/27/22 documented as of this encounter
== END 2023-07-10 15:36 | disposition home or self-care (01) | DRG 330 ==
LOC: ASU 05:59 → 3W 09:48

== ENCOUNTER 2023-11-24 13:07 | Inpatient (IN) ==
--- OUTSIDE RECORDS SUMMARY | 2023-11-24 13:31 | External Medical Summary | Summary of Care ---
Author Name Unknown Organization [facility] Address [address] [place] [place] [address] Phone [phone] Care Team Providers Care Substance Abuse Nurse Name Role Phone Miguel Arreola DO Primary Care Provider [phone] Reason for Visit * Reason Comments Rheum Follow Up Recheck RA Encounter Details Date Type Department Care Team (Late st Contact Info) Description 11/07/2023 8:00 AM EST Office Visit [facility] [address] [facility] [address] Fermin [facility]-C [address] [facility] [address] KAMRAN (juvenile idiopathic arthritis) ([facility])*; prison current use of systemic steroids; 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 ([facility]) Allergies Active Allergy Reactions Criticality Noted Date Comments Buspirone High 08/14/2022 Other reaction(s): nightmares Doxycycline Monohydrate Rash 08/16/2010 Mirtazapine Low 08/14/2022 Other reaction(s): weight gain documented as of this encounter (statuses as of 11/08/2023) Medications Medication Sig Dispensed Refills Start Date End Date Status CYMBALTA 60 MG PO CPEPIndications:D epression one tab daily 30 Cap 12 2 Active CYMBALTA 30 MG PO CPEPIndications:D epression one tab daily 30 Cap 12 2 Active buPROPion extended release, SR, (WELLBUTRIN SR) 100 MG TB12 Take 1 Tablet by mouth in the morning. 0 0 Active Acetaminophen 500 MG Oral Tablet (Tylenol) 2 Tablets. 0 1 Active predniSONE 5 MG Oral Tablet (Deltasone) Take 1-2 tabs daily for RA 180 Tablet 4 3 Active traMADol HCl 50 MG Oral Tablet (Ultram) Take 1 Tablet by mouth every 6 hours as needed for Pain, Severe. 60 Tablet 1 3 Active Orencia 125 MG/ML Subcutaneous Solution Prefilled Syringe (Abatacept)Indica tions:Rheumatoid arthritis involving multiple joints (HCC) Inject 125mg (1 syringe) under the skin once weekly 4 mL 5 4 Active hydrOXYzine HCl 10 MG Oral Tablet (Atarax) Take 1 Tablet by mouth 3 times a day as needed. As needed 0 Active Zoledronic Acid 5 MG/100ML Intravenous Solution (Reclast) Administer 5 mg intravenously once. 0 Active IBUPROFEN 600 MG PO TABSIndications:A cute polyarticular juvenile rheumatoid arthritis (HCC),Other osteoporosis 1 tab every 6 - 8 hr as needed 90 Tab 6 0 11/07/19 24 Discontinued Hospital, Clinic, or Other Facility Administered Medication Ordered Dose Route Frequency Start Date End Date Status methylPREDNISolone acetate (Depo-Medrol) 40 MG/ML inj 40 mgIndications:KAMRAN (juvenile idiopathic arthritis) (HCC),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 (HCC) 40 mg IX ONCE 11/07/2023 11/07/2023 E nded methylPREDNISolone acetate (Depo-Medrol) 40 MG/ML inj 40 mgIndications:KAMRAN (juvenile idiopathic arthritis) (HCC),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 (HCC) 40 mg IX ONCE 11/07/2023 11/07/2023 E nded Lidocaine (PF) 2 % (PF) inj 20 mgIndications:KAMRAN (juvenile idiopathic arthritis) (HCC),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 (HCC) 20 mg IX ONCE 11/07/2023 11/07/2023 E nded Lidocaine (PF) 2 % (PF) inj 20 mgIndications:KAMRAN (juvenile idiopathic arthritis) (HCC),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 (HCC) 20 mg IX ONCE 11/07/2023 11/07/2023 E nded documented as of this encounter (statuses as of 11/08/2023) Active Problems Problem Noted Date Diagnosed Date Arthritis, rheumatoid 07/04/2023 Senile osteoporosis 08/23/2021 Diverticulosis of large intestine without hemorr jasmyne 10/06/2020 History of rectal cancer 03/05/2018 Osteoporosis without current pathological fractu re 10/31/2017 KAMRAN (juvenile idiopathic arthritis) 12/06/2016 prison current use of systemic steroids 12/28 Rectal [...] as of this encounter (statuses as of 11/08/2023) Resolved Problems Problem Noted Date Diagnosed Date Resolved Date Senile osteoporosis 09/11/2022 07/23/20 23 MEDICATION USE AGREEMENT 09/24/2018 Encounter for long-term (cur rent) use of medications 12/29/2015 03/18/2019 Osteoporosis 08/17/2015 06/07/2022 POLYART JUV RHEUM ARTHR 01/2022 documented as of this encounter (statuses as of 11/08/2023) Immunizations Name Administration Dates Next Due COVID-19 mRNA, LNP-s, No Pre serve, 2-Dose Series ([employer]) 05/10/2021,10/29/2020,10/08/2020 Covid-19, Mrna, Lnp-s, Pf, B ivalent, 30 Mcg, IM, 12 yrs and above ([employer]) 06/12/2022 PPD 01/30/2002 Pneumococcal Polysaccharide PPV23 (Pneumovax) 08/01/2012,06/27/2007 Seasonal Influenza, QUAD, wi th Preserv, 6 mons & Above, 0.5 mL, IM 06/17/2023,07/02/2021 Seasonal Influenza, Quadriva lent, No Preserve, Mdck 06/12/2022 Seasonal Influenza, Recombin ant, RIV4, PF, ([employer]) 06/14/2020 Seasonal Influenza, Split, I IV3, With Preserve, Inj 06/17/2020,08/03/2019,06/29/2016,06/07,06/19/2014,09/05/2013,08/01/2012 ,08/18/2011,07/04/2010,06/24/2009,06/03,06/27/2007,05/30/2002 documented as of this encounter Social History Tobacco Use Types Packs/Day Years Used Date Smoking Tobacco: Former Cigarettes Smokeless Tobacco: Never Tobacco Cessation:Counseling Given: Not Answered Comments:Quitn 15 years ago Alcohol Use Standard Drinks/Week Comments No 0 (1 standard drink = 0.6 oz pur e alcohol) PHQ-2 Answer Date Recorded PHQ Adult Total Score 0 10/25/2023 Hunger Vital Sign Answer Date Recorded Within the past 12 months, y ou worried that your food would run out before you got the money to buy more. Never true 10/25/19 24 Within the past 12 months, t he food you bought just didn't last and you didn't have money to get more. Never true 10/25/2023 Sex and Gender Information Value Date Recorded Sex Assigned at Not on file Gender Identity Not on file Sexual Orientation Not on file Job Start Date Occupation Industry Not on file Not on file Not on file documented as of this encounter Last Filed Vital Signs Vital Sign Reading Time Taken Comments Blood Pressure 112/72 11/07/2023 8:09 AM EST Pulse - - Temperature 36.6 C (97.8 F) 11/07/2023 8:09 AM ES T Respiratory Rate - - Oxygen Saturation - - Inhaled Oxygen Concentration - - Weight 64.9 kg (143 lb) 11/07/2023 8:09 AM EST Height - - Body Mass Index 23.08 12/20/2022 8:48 AM EDT documented in this encounter Progress Notes * Fermin Donovan PA-C - 11/07/2023 7:58 AM ESTAssociated Order(s): LG Joint Inj/Arthro: bilateral subacromial bursa Post-Procedure Diagnose(s): KAMRAN (juvenile idiopathic arthritis) ([facility]); 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 ([facility]) Misa Miller is a 63 year old female patient. Presents for shoulder injections. Had bilateral subacromial in July which helped for three months. ICD-10-CM 1. KAMRAN (juvenile idiopathic arthritis) ([facility]) M08.80 2. prison current use of systemic steroids Z79.52 3. Senile osteoporosis M81.0 Past Medical History: Diagnosis Date Acute polyarticular juvenile rheumatoid arthritis ([facility]) Band-shaped keratopathy Displacement of lumbar intervertebral disc without myelopathy Incipient senile cataract Iridocyclitis chronic Joint pain, elbow 03/11/2010 Other osteoporosis steroid induced TERMINATED MEDICATION USAGE AGREEMENT + marijuana screen Vasculitis ([facility]) lymphocytic,cutaneous Blood pressure 112/72, temperature 36.6 C (97.8 F), temperature source Infrared , weight 64.9 kg (143 lb). LG Joint Inj/Arthro: bilateral subacromial bursa on 11/07/2023 8:39 AM Indications: pain Details: 25 G needle, posterior approach Medications (Right): (1 cc of lidocaine 2% and 40 mg of depomedrol ) Aspirate (Right): 0 mL Medications (Left): (1 cc of lidocaine 2% and 40 mg of depomedrol ) Aspirate (Left): 0 mL Outcome: tolerated well, no immediate complications No complications Procedure, treatment alternatives, risks and benefits explained, specific risks discussed. Consent was given by the patient. Immediately prior to procedure a time out was called to verify the correctpatient, procedure, equipment, desktop support technician and site/side marked as required. Patient was prepped and draped in the usual sterile fashion. Fermin Donovan PA-C 11/07/2023 I have reviewed the advanced practitioner's documentation on the date of service referenced in note, and I agree with, and take responsibility for the plan of care. Omar Meadows DO documented in this encounter Nursing Notes * Ludivina Joel LPN - 11/07/2023 8:07 AM EST Chief Complaint Patient presents with Rheum Follow Up Recheck RA documented in this encounter Plan of Treatment Upcoming Encounters Date Type Department Care Team (Late st Contact Info) Description 03/20/2024 9:20 AM EDT Office Visit Rheumatology [facility] [id number] [place] [address] Miguel Hayden MD [address] [place] [address] Scheduled Orders Name Type Priority Associated Diagnoses Orde r Schedule ARTHROCENT ASP &/OR INJ MAJOR JX/BURSA W/O US Procedures Routine KAMRAN (juvenile idiopathic arthritis) (HCC) 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 (HCC) Ordered: 11/07/2023 ARTHROCENT ASP &/OR INJ MAJOR JX/BURSA W/O US Procedures Routine KAMRAN (juvenile idiopathic arthritis) (HCC) 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 (HCC) Ordered: 11/07/2023 Health Maintenance Due Date Last Done Comments Lipid Panel 1962 HIV Screening 1977 DTaP,Tdap,and Td Vaccines (1 - Tdap) 1981 Zoster Vaccines (1 of 2) 1981 Pap Smear 1983 Cervical Cancer Screening 1992 HPV/Co-Test 1992 Mammogram 2002 Cologuard 2007 Fecal Occult Blood Test 2007 Sigmoidoscopy 2007 Pneumococcal Vaccine: Pediatrics (0 to 5 Years) and At-Risk Patients (6 to 64 Years) (3 of 3 - PCV) 08/01/2013 08/01/2012, 06/27/2007 Depression Screening 10/25/2024 10/25/2023 DXA Scan 10/10/2025 10/10/2023, 12/2 09/2020, 06/24/2018, Additional history exists Colonoscopy 06/27/2033 06/27/2023 Colorectal Cancer Screening 06/27/2033 Influenza Vaccine (FLU shot) Completed , 06/12/2022, 07/02/2021, Additional history exists COVID-19 Vaccine Completed 08/15/2023, 06/2022, 05/10/2021, Additional history exists VITAMIN D LEVEL ONCE IN A LIFETIME-USE SMARTSET# 60361 Completed 10/03/2023, 09/13/2022, 08/31/2021, Additional history exists GARDASIL-HPV IMMUNIZATION SERIES Aged Out No longer eligible based on patient's age to complete this topic Hepatitis B Aged Out No longer eligi ble based on patient's age to complete this topic MENINGOCOCCAL (MENACTRA/MENVEO) Aged Out No longer eligible based on patient's age to complete this topic documented as of this encounter Medical Devices Implanted Type Area Hand Heel Seat Fitter Device Identifier Shelf Expiration Date Model / Serial / Lot Cement Bone Lv G 1119-140-01 - [id number] Implanted:Qty: 1 on 03/23/2010 at [facility] Right: Elbow [employer] 09/03/2012 00-1119-14 0- [id number] Cement Bone Lv G 1119-140-01 - [id number] Implanted:Qty: 1 on 03/23/2010 at [facility] Right: Elbow [employer] 09/03/2012 00-1119-14 0- [id number] [place] Total Elbow Implanted:Qty: 1 on 03/23/2010 at [facility] Right: Elbow [employer] 07/04/2014 [id number] 3- / [id number] Description:[place]rey T otal Elbow Interchangable Ulnar Assembly Extra Small [place] Total Elbow Interchangeable Humeral Assesmbly Implanted:Qty: 1 on 03/23/2010 at [facility] Right: Elbow [employer] 06/03/2014 [id number] - / / [id number] documented as of this encounter Procedures Procedure Name Priority Date/Time Associated Diagnosis Comments [place] ARTHROCENTESIS ASPIR&/INJ MAJOR JT/BURSA W/O US Routine 11/07/2023 8:39 AM EST KAMRAN (juvenile idiopathic arthritis) (HCC) 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 ([facility]) documented in this encounter Results * [place] ARTHROCENTESIS ASPIR&/INJ MAJOR JT/BURSA W/O US (11/07/2023 8:39 AM EST) Narrative Omar Meadows, DO - 11/07/2023 8:39 AM EST Omar Meadows, DO 11/08/2023 4:09 PM LG Joint Inj/Arthro: bilateral subacromial bursa on 11/07/2023 8:39 AM Indications: pain Details: 25 G needle, posterior approach Medications (Right): (1 cc of lidocaine 2% and 40 mg of depomedrol ) Aspirate (Right): 0 mL Medications (Left): (1 cc of lidocaine 2% and 40 mg of depomedrol ) Aspirate (Left): 0 mL Outcome: tolerated well, no immediate complications No complications Procedure, treatment alternatives, risks and benefits explained, specific risks discussed. Consent was given by the patient. Immediately prior to procedure a time out was called to verify the correct patient, procedure, equipment, desktop support technician and site/side marked as required. Patient was prepped and draped in the usual sterile fashion. 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 Encounter for long-term (current) use of steroids 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 ([facility]) documented in this encounter Administered Medications Inactive Administered Medications - up to 3 most recent administrations Medication Order MAR Action Action Date Dose Rate Site Lidocaine (PF) 2 % (PF) inj 20 mg 20 mg, Intra-Articular, ONCE, On Sun11/07/23 at 0900, For 1 dose Given 11/07/2023 8:33 AM EST 20 mg S [place] Left Lidocaine (PF) 2 % (PF) inj 20 mg 20 mg, Intra-Articular, ONCE, On Sun11/07/23 at 0900, For 1 dose Given 11/07/2023 8:32 AM EST 20 mg S [place] Right methylPREDNISolone acetate (Depo-Medrol) 40 MG/ML inj 40 mg 40 mg, Intra-Articular, ONCE, On Sun11/07/23 at 0900, For 1 dose Given 11/07/2023 8:33 AM EST 40 mg S [place] Left methylPREDNISolone acetate (Depo-Medrol) 40 MG/ML inj 40 mg 40 mg, Intra-Articular, ONCE, On Sun11/07/23 at 0900, For 1 dose Given 11/07/2023 8:32 AM EST 40 mg S ma[place] Right documented in this encounter Advance Directives Latest [...] and were consensually agreed upon. Care Teams Substance Abuse Nurse Relationship Specialty Start Date End Date Miguel Arreola DO [address] [place] [address] PCP - General Family Medicine 10/27/22 documented as of this encounter
--- OUTSIDE RECORDS SUMMARY | 2023-11-24 13:31 | External Medical Summary | Summary of Care ---
Author Name Unknown Organization [facility] Address [address] [place] [address] Phone [phone] Care Team Providers Care Area Coordinator Name Role Phone Miguel Arreola DO Primary Care Provider [phone] Reason for Visit * Reason Comments Rheum Follow Up Recheck RA Encounter Details Date Type Department Care Team (Late st Contact Info) Description 11/07/2023 8:00 AM EST Office Visit [facility] [address] [facility] [address] Fermin Donovan PA-C [address] [facility] [address] KAMRAN (juvenile idiopathic arthritis) ([facility])*; pen[facility]entiary current use of systemic steroids; 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 ([facility]) Allergies Active Allergy Reactions Criticality Noted Date Comments Buspirone High 08/14/2022 Other reaction(s): nightmares Doxycycline Monohydrate Rash 08/16/2010 Mirtazapine Low 08/14/2022 Other reaction(s): weight gain documented as of this encounter (statuses as of 11/07/2023) Medications Medication Sig Dispensed Refills Start Date [...] as of this encounter (statuses as of 11/07/2023) Active Problems Problem Noted Date Diagnosed Date Arthritis, rheumatoid 07/04/2023 Senile osteoporosis 08/23/2021 Diverticulosis of large intestine without hemorr jasmyne 10/06/2020 History of rectal cancer 03/05/2018 Osteoporosis without current pathological fractu re 10/31/2017 KAMRAN (juvenile idiopathic arthritis) 12/06/2016 penitentiary current use of systemic steroids 12/28 Rectal [...] as of this encounter (statuses as of 11/07/2023) Resolved Problems Problem Noted Date Diagnosed Date Resolved Date Senile osteoporosis 09/11/2022 07/23/20 23 MEDICATION USE AGREEMENT 09/24/2018 Encounter for long-term (cur rent) use of medications 12/29/2015 03/18/2019 Osteoporosis 08/17/2015 06/07/2022 POLYART JUV RHEUM ARTHR 01/2022 documented as of this encounter (statuses as of 11/07/2023) Immunizations Name Administration Dates Next Due COVID-19 mRNA, LNP-s, No Pre serve, 2-Dose Series (Aqdot) 05/10/2021,10/29/2020,10/08/2020 Covid-19, Mrna, Lnp-s, Pf, B ivalent, 30 Mcg, IM, 12 yrs and above (Aqdot) 06/12/2022 Pneumococcal Polysaccharide PPV23 (Pneumovax) 08/01/2012,06/27/2007 Seasonal Influenza, [...] 8:48 AM EDT documented in this encounter Nursing Notes * Ludivina Joel LPN - 11/07/2023 8:07 AM EST Chief Complaint Patient presents with Rheum Follow Up Recheck RA documented in this encounter Plan of Treatment Upcoming Encounters Date Type Department Care Team (Late st Contact Info) Description 03/20/2024 9:20 AM EDT Office Visit Rheumatology [place] [address] [place] [address] Miguel Hayden MD [address] [place] [address] Pending Results Name Type Priority Associated Diagnoses Date /Time LG Joint Inj/Arthro: bilateral subacromial bursa Procedures Routine KAMRAN (juvenile idiopathic arthritis) (HCC) 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 (HCC) 11/07/2023 8:39 AM EST Scheduled Orders Name Type Priority Associated Diagnoses [...] Screening 10/25/2024 10/25/2023 DXA Scan 10/10/2025 10/10/2023, 1209/2020, 06/24/2018, Additional history exists Colonoscopy 06/27/2033 06/27/2023 Colorectal Cancer Screening 06/27/2033 Influenza Vaccine (FLU shot) Completed , 06/12/2022, 07/02/2021, Additional history exists COVID-19 Vaccine Completed 08/15/2023, 06/2022, 05/10/2021, Additional history exists VITAMIN D LEVEL ONCE IN A LIFETIME-USE SMARTSET# [id number] Completed 10/03/2023, 09/13/2022, 08/31/2021, Additional history exists [...] this encounter Medical Devices Implanted Type Area Cook Supervisor Device Identifier Shelf Expiration Date Model / Serial / Lot Cement Bone Lv G 1119-140-01 - [id number] Implanted:Qty: 1 on 03/23[place] [facility] [place]: Elbow [employer] 09/03/2012 00-1119-14 0- [id number] Cement Bone Lv G 1119-140-01 - [id number] Implanted:Qty: 1 on 03/23/2010 [place] [facility] [place] Right: Elbow [employer] 09/03/2012 00-1119-14 0- [id number] Coonrad/Morrey Total Elbow Implanted:Qty: 1 on 03/23/2010 at [place] [facility] [place] Right: Elbow [employer] 07/04/2014 32-8105-04 3- / [id number] Description:Jamarcus/Vianey T otal Elbow Interchangable Ulnar Assembly Extra Small Coonrad/Morrey Total Elbow Interchangeable Humeral Assesmbly Implanted:Qty: 1 on 03/23/2010 [place] [facility] [place] Right: Elbow [employer] 06/03/2014 32-8105-25 - / / [id number] documented as of this encounter Procedures Procedure Name Priority Date/Time Associated Diagnosis Comments PROCDOC LARGE JOINT INJECTION/ARTHROCENTES IS Routine 11/07/2023 8:39 AM EST KAMRAN (juvenile idiopathic arthritis) (HCC) 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 (HCC) documented in this encounter Visit Diagnoses Diagnosis KAMRAN (juvenile idiopathic arthritis) (HCC)- Primary Polyarticular juvenile rheumatoid arthritis, chronic or unspecified penitentiary current use of systemic steroids Encounter for long-term (current) use of steroids 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 (HCC) documented in this encounter Administered Medications Inactive Administered Medications - up to 3 most recent administrations Medication Order MAR Action Action Date Dose Rate Site Lidocaine (PF) 2 % (PF) inj 20 mg 20 mg, Intra-Articular, ONCE, On Sun11/07/23 at 0900, For 1 dose Given 11/07/2023 8:33 AM EST 20 mg S hosh[place] Left Lidocaine (PF) 2 % (PF) inj 20 mg 20 mg, Intra-Articular, ONCE, On Sun11/07/23 at 0900, For 1 dose Given 11/07/2023 8:32 AM EST 20 mg S maite Right methylPREDNISolone acetate (Depo-Medrol) 40 MG/ML inj 40 mg 40 mg, Intra-Articular, ONCE, On Sun11/07/23 at 0900, For 1 dose Given 11/07/2023 8:33 AM EST 40 mg S houlder Left methylPREDNISolone acetate (Depo-Medrol) 40 MG/ML inj [...] and were consensually agreed upon. Care Teams Area Coordinator Relationship Specialty Start Date End Date Miguel Arreola DO [address] [place] [address] PCP - General Family Medicine 10/27/22 documented as of this encounter
--- OUTSIDE RECORDS SUMMARY | 2023-11-24 13:31 | External Medical Summary | Summary of Care ---
Author Name Unknown Organization [facility] Address [address] [place] [address] Phone [phone] Care Team Providers Care Roller Repairer Name Role Phone Miguel Arreola DO Primary Care Provider [phone] Reason for Visit * Reason Comments eRx-Medication Refill Encounter Details Date Type Department Care Team (Late st Contact Info) Description 10/15/2023 [address]ill [address] [place] [address] Miguel Hayden MD [facility] [place] [address] Allergies Active Allergy Reactions Criticality Noted Date Comments Buspirone High 08/14/2022 Other reaction(s): nightmares Doxycycline Monohydrate Rash 08/16/2010 Mirtazapine Low 08/14/2022 Other reaction(s): weight gain documented as of this encounter (statuses as of 10/17/2023) Medications Medication Sig Dispensed Refills Start Date [...] Tablet (Tylenol) 2 Tablets. 0 09/18/2020 Active predniSONE 5 MG Oral Tablet (Deltasone) Take 1-2 tabs daily for RA 180 Tablet 4 07/11/2023 Active traMADol HCl 50 MG Oral Tablet (Ultram) Take 1 Tablet by mouth every 6 hours as needed for Pain, Severe. 60 Tablet 1 07/23/2023 Active Orencia 125 MG/ML Subcutaneous Solution Prefilled Syringe (Abatacept)Indicatio ns:Rheumatoid arthritis involving multiple joints (HCC) Inject 125mg (1 syringe) under the skin once weekly 4 mL 5 10/01/2023 Active Hydroxychloroquine Sulfate 200 MG Oral Tablet (Plaquenil)Indicatio ns:KAMRAN (juvenile idiopathic arthritis) (HCC),Encounter for long-term (current) use of medications TAKE 1 TABLET BY MOUTH DAILY ALTERNATING WITH 2 TABS DAILY 45 Tablet 11 10/03/2023 Active documented as of this encounter (statuses as of 10/17/2023) Active Problems Problem Noted Date Diagnosed Date Arthritis, rheumatoid 07/04/2023 Senile osteoporosis 08/23/2021 Diverticulosis of large intestine without hemorr jasmyne 10/06/2020 History of rectal cancer 03/05/2018 Osteoporosis without current pathological fractu re 10/31/2017 KAMRAN (juvenile idiopathic arthritis) 12/06/2016 [facility] current use of systemic steroids 12/28 Rectal [...] as of this encounter (statuses as of 10/17/2023) Resolved Problems Problem Noted Date Diagnosed Date Resolved Date Senile osteoporosis 09/11/2022 07/23/20 23 MEDICATION USE AGREEMENT 09/24/2018 Encounter for long-term (cur rent) use of medications 12/29/2015 03/18/2019 Osteoporosis 08/17/2015 06/07/2022 POLYART JUV RHEUM ARTHR 01/2022 documented as of this encounter (statuses as of 10/17/2023) Immunizations Name Administration Dates Next Due COVID-19 mRNA, LNP-s, No Pre serve, 2-Dose Series ([employer]) 05/10/2021,10/29/2020,10/08/2020 Covid-19, Mrna, Lnp-s, Pf, B ivalent, 30 Mcg, IM, 12 yrs and above (Pfizer) 06/12/2022 Pneumococcal Polysaccharide PPV23 (Pneumovax) 08/01/2012,06/27/2007 Seasonal [...] drink = 0.6 oz pur e alcohol) Hunger Vital Sign Answer Date Recorded Within the past 12 months, y ou worried that your food would run out before you got the money to buy more. Never true 11/25/19 23 Within the past 12 months, t he food you bought just didn't last and you didn't have money to get more. Never true 11/24/2022 Sex and Gender Information Value Date Recorded Sex Assigned at Not on file Gender Identity Not on file Sexual Orientation Not on file Job Start Date Occupation Industry Not on file Not on file Not on file documented as of this encounter Miscellaneous Notes * Telephone Encounter - Fabiola Hillman [facility] - 10/17/2023 9:07 AM ESTRefused Prescriptions: Disp Refills predniSONE 10 MG Oral Tablet (Deltasone) 24 Tab*0 Sig: TAKE 3 TABLETS BY MOUTH DAILY FOR 4 DAYS, THEN 2 TAB DAILY FOR 4 DAYS, THEN 1 TAB DAILY FOR 4 DAYS.Refused By: FABIOLA HILLMANeason for Refusal: Refill Not AppropriateReason for Refusal Comment: pt does not need at this time * Telephone Encounter - Fabiola Hillman [facility] - 10/17/2023 9:05 AM EST Spoke to patient. She is currently having a flare but does not want/need a refill of Prednisone at this time since she has plenty of tablets left on hand. Request refused. Thank you, Fabiola Hillman, PharmD [facility] Clinical Pharmacist Rheumatology Department [phone] 10/17/2023 * Telephone Encounter - Fabiola Hillman [facility] - 10/16/2023 2:02 PM ESTPending Prescriptions: Disp Refills predniSONE 10 MG Oral Tablet [Pharmacy Med*24 Tab*0 Sig: TAKE 3 TABLETS BY MOUTH DAILY FOR 4 DAYS, THEN 2 TAB DAILY FOR 4 DAYS, THEN 1 TAB DAILY FOR 4 DAYS. * Telephone Encounter - Fabiola Hillman [facility] - 10/16/2023 1:55 PM EST Called patient to verify/inquire reason for refill request on acute steroid taper (ie. Is patient having a flare?) Unable to reach patient at this time. Left message on the answering machine requesting callback or MyG reply. Please transfer her back to myself or an available pharmacist. Advised patient to please call [phone]. Thank you, Fabiola Hillman, PharmD [facility] Clinical Pharmacist Rheumatology Department [phone] 10/16/2023 documented in this encounter Plan of Treatment Upcoming Encounters Date Type Department Care Team (Late st Contact Info) Description 10/29/2023 9:00 AM EST Hem/Onc Treatment Hematology/[address], [address] [address] Winnie, Chair [address] [place] [address] 03/20/2024 9:20 AM EDT Office Visit Rheumatology [facility] [address] [place] [address] Miguel Hayden MD [address] [facility] [place] [address] Health Maintenance Due Date Last Done Comments [...] - PCV) 08/01/2013 08/01/2012, 06/27/2007 DXA Scan 10/10/2025 10/10/2023, 08/04, 06/24/2018, Additional history exists Colonoscopy 06/27/2033 06/27/2023 Colorectal Cancer Screening 06/27/2033 Influenza Vaccine (FLU shot) Completed , 06/12/2022, 07/02/2021, Additional history exists COVID-19 Vaccine Completed 08/15/2023, 06/2022, 05/10/2021, Additional history exists VITAMIN D LEVEL ONCE IN A LIFETIME-USE SMARTSET# [id number] Completed 10/03/2023, 09/13/2022, 08/31/2021, Additional history exists [...] this encounter Medical Devices Implanted Type Area Industrial Service Technician Device Identifier Shelf Expiration Date Model / Serial / Lot Coonrad/Morrey Total Elbow Interchangeable Humeral Assesmbly Implanted:Qty: 1 on 03/23/2010 [place] [facility] [place] Right: Elbow [employer] 06/03/2014 32-8105-25 -04 / / [id number] documented as of this encounter Advance Directives [...] and were consensually agreed upon. Care Teams Roller Repairer Relationship Specialty Start Date End Date Miguel Arreola DO [address] [facility] [address] [place] [address] PCP - General Family Medicine 10/27/22 documented as of this encounter
--- OUTSIDE RECORDS SUMMARY | 2023-11-24 13:31 | External Medical Summary | Summary of Care ---
Author Name Unknown Organization [facility] Address [address] [place] [address] Phone [phone] Care Team Providers Care Garment Sewer Hand Name Role Phone Miguel Arreola DO Primary Care Provider [phone] Reason for Visit * Reason Comments IV Therapy Reclast * Episode Based Medications (Routine) - Authorized Specialty Diagnoses / Procedures Referred By Contac t Referred To Contact Diagnoses Senile osteoporosis Procedures PA ZOLEDRONIC ACID 1MG Miguel Hayden MD [address] [facility] [address] Anc Hem/Onc [address] [address] Referral ID Status Reason Start Date Expiration Date V isits Requested Visits Authorized [id number] Authorized 09/28/2023 09/28/2024 [id number] Encounter Details Date Type Department Care Team (Latest Contact Info) Description 10/29/2023 9:00 AM EST Hem/Onc Treatment Hematology/Oncology Treatment, [address] [address] Winnie, Chair [address] [address] Senile osteoporosis* Allergies Active Allergy Reactions Criticality Noted Date Comments Buspirone High 08/14/2022 Other reaction(s): nightmares Doxycycline Monohydrate Rash 08/16/2010 Mirtazapine Low 08/14/2022 Other reaction(s): weight gain documented as of this encounter (statuses as of 11/20/2023) Medications Medication Sig Dispensed Refills Start Date End Date Status CYMBALTA 60 MG PO CPEPIndications:Dep ression one [...] Orencia 125 MG/ML Subcutaneous Solution Prefilled Syringe (Abatacept)Indicati ons:Rheumatoid arthritis involving multiple joints (HCC) Inject 125mg (1 syringe) under the skin once weekly 4 mL 5 10/01/2023 Active IBUPROFEN 600 MG PO TABSIndications: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 24 Tablet 0 10/18/2023 4 documented as of this encounter (statuses as of 11/20/2023) Active Problems Problem Noted Date Diagnosed Date Arthritis, rheumatoid 07/04/2023 Senile osteoporosis 08/23/2021 Diverticulosis of large intestine without hemorr jasmyne 10/06/2020 History of rectal cancer 03/05/2018 Osteoporosis without current pathological fractu re 10/31/2017 KAMRAN (juvenile idiopathic arthritis) 12/06/2016 [facility] current use of systemic steroids 12/28 Rectal [...] as of this encounter (statuses as of 11/20/2023) Resolved Problems Problem Noted Date Diagnosed Date Resolved Date Senile osteoporosis 09/11/2022 07/23/20 23 MEDICATION USE AGREEMENT 09/24/2018 Encounter for long-term (cur rent) use of medications 12/29/2015 03/18/2019 Osteoporosis 08/17/2015 06/07/2022 POLYART JUV RHEUM ARTHR 01/2022 documented as of this encounter (statuses as of 11/20/2023) Immunizations Name Administration Dates Next Due COVID-19 mRNA, LNP-s, No Pre serve, 2-Dose Series ([employer]) 05/10/2021,10/29/2020,10/08/2020 Covid-19, Mrna, Lnp-s, Pf, B ivalent, 30 Mcg, IM, 12 yrs and above ([employer]) 06/12/2022 Pneumococcal Polysaccharide PPV23 (Pneumovax) 08/01/2012,06/27/2007 Seasonal [...] Sign Reading Time Taken Comments Blood Pressure 118/80 10/29/2023 9:32 AM EST Pulse 86 10/29/2023 9:32 AM EST Temperature 36.8 C (98.2 F) 10/29/2023 9:32 AM ES T Respiratory Rate 18 10/29/2023 9:32 AM EST Oxygen Saturation - - Inhaled Oxygen Concentration - - Weight - - Height - - Body Mass Index - - documented in this encounter Nursing Notes * Mary Nieves RN - 10/29/2023 10:06 AM EST Pt completed treatment without issues. IV removed. Pt discharged in stable condition. * Mary Nieves RN - 10/29/2023 9:33 AM EST Cheryl, chair 7. Pt has no acute concerns to report today, and states she has previously toleratedReclast without issues. PIV established; Reclast infusing. documented in this encounter Plan of Treatment Upcoming Encounters Date Type Department Care Team (Late st Contact Info) Description 03/20/2024 9:20 AM EDT Office Visit Rheumatology [place] [address] [facility] [place] [address] Miguel Hayden MD [address] [place] [address] Health Maintenance Due Date Last Done Comments [...] Screening 10/25/2024 10/25/2023 DXA Scan 10/10/2025 10/10/2023, 08/04, 06/24/2018, Additional history exists Colonoscopy 06/27/2033 06/27/2023 Colorectal Cancer Screening 06/27/2033 Influenza Vaccine (FLU shot) Completed , 06/12/2022, 07/02/2021, Additional history exists COVID-19 Vaccine Completed 08/15/2023, 06/2022, 05/10/2021, Additional history exists VITAMIN D LEVEL ONCE IN A LIFETIME-USE SMARTSET# [id number] Completed 10/03/2023, 09/13/2022, 08/31/2021, Additional history exists [...] this encounter Medical Devices Implanted Type Area Metal Lather Device Identifier Shelf Expiration Date Model / Serial / Lot Cement Bone Lv G 1119-140-01 - [id number] [place]planted:Qty[place] 1 [place] [facility] [place]: Elbow [employer] 09/03/2012 00-1119-14 0- [id number] Cement Bone Lv G 1119-140-01 - [id number] Implanted:Qty: 1 on 03/23/2010 [place] [facility] [place]: Elbow [employer] 09/03/2012-1119-14 0 [id number] Coonrad/Morrey Total Elbow Implanted:Qty: 1 on 03/23/2010 [place] [facility] [place] Right: Elbow [employer] 07/04/2014 32-8105-04 11-02 [id number] Description:Coonrad/Morrey T otal Elbow Interchangable Ulnar Assembly Extra Small Coonrad/Morrey Total Elbow Interchangeable Humeral Assesmbly Implanted:Qty: 1 on 03/23/2010 [place] [facility] [place]: Elbow [employer] 06/03/2014 32-8105-25 - / / [id number] documented as of this encounter Visit Diagnoses Diagnosis Senile osteoporosis- Primary documented in this encounter Administered Medications Inactive Administered Medications - up to 3 most recent administrations Medication Order MAR Action Action Date Dose Rate Site Acetaminophen (Tylenol) tab 650 mg 650 mg, Oral, ONCE, On Sun10/29/23 at 1000, For 1 dose, Maximum of 4 grams (4000 mg) per day. Given 10/29/2023 9:29 AM EST 650 mg NSS infusion 500 mL, Intravenous, at 50 mL/hr, CONTINUOUS, Starting on Sun10/29/23 at 1030, Until Sun10/29/23 at 1408 Start Infusion 10/29/2023 9:30 AM EST 500 mL 50 mL/hr Zoledronic Acid (Reclast) 5 mg in 100 mL PREMIX ivpb 5 mg, IV Piggyback, ONCE, 1 dose, On Sun10/29/23 at 1100 Start Infusion 10/29/2023 9:44 AM EST 5 mg 400 mL/hr documented in this encounter Advance Directives Latest [...] and were consensually agreed upon. Care Teams Garment Sewer Hand Relationship Specialty Start Date End Date Miguel Arreola DO [address] [place] [address] PCP - General Family Medicine 10/27/22 documented as of this encounter
--- OUTSIDE RECORDS SUMMARY | 2023-11-24 13:31 | External Medical Summary | Summary of Care ---
Author Name Unknown Organization [facility] Address [address] [place] [address] Phone [phone] Care Team Providers Care Shift Lab Technician Name Role Phone Miguel Arreola DO Primary Care Provider [phone] Reason for Visit * Reason Comments IV Therapy Reclast * Episode Based Medications (Routine) - Authorized Specialty Diagnoses / Procedures Referred By Contac t Referred To Contact Diagnoses Senile osteoporosis Procedures [place] ZOLEDRONIC ACID 1MG Miguel [facility]den [facility] [address] [facility] [address] [facility]On[facility] [address] [address] Referral ID Status Reason Start Date Expiration Date V isits Requested Visits Authorized [id number] Authorized 09/28/2023 09/28/[phone] Encounter Details Date Type Department Care Team (Latest Contact Info) Description 10/29/2023 9:00 AM EST Hem/Onc Treatment Hematology/Oncology Treatment, [address] [address] [place], Chair [address] [address] Senile osteoporosis* Allergies Active Allergy Reactions Criticality Noted Date Comments Buspirone High 08/14/2022 Other reaction(s): nightmares Doxycycline Monohydrate Rash 08/16/2010 Mirtazapine Low 08/14/2022 Other reaction(s): weight gain documented as of this encounter (statuses as of 10/29/2023) Medications Medication Sig Dispensed Refills Start Date End Date Status IBUPROFEN 600 MG PO TABSIndications:Acute polyarticular juvenile rheumatoid arthritis (HCC),Other osteoporosis 1 tab every 6 - 8 hr as needed 90 Tab 6 03/24/2010 Active CYMBALTA 60 MG PO CPEPIndications:Depre ssion one tab daily 30 Cap 12 10/20/2011 Active CYMBALTA 30 MG PO CPEPIndications:Depre ssion one tab daily 30 Cap 12 10/20/2011 Active buPROPion extended release, SR, (WELLBUTRIN SR) 100 MG TB12 Take 1 Tablet by mouth in the morning. 0 12/03/2019 Active Acetaminophen 500 MG Oral Tablet (Tylenol) 2 Tablets. 0 09/18/2020 Act geoff predniSONE 5 MG Oral Tablet (Deltasone) Take 1-2 tabs daily for RA 180 Tablet 4 07/11/2023 Active traMADol HCl 50 MG Oral Tablet (Ultram) Take 1 Tablet by mouth every 6 hours as needed for Pain, Severe. 60 Tablet 1 07/23/2023 Active Orencia 125 MG/ML Subcutaneous Solution Prefilled Syringe (Abatacept)Indication s:Rheumatoid arthritis involving multiple joints (HCC) Inject 125mg (1 syringe) under the skin once weekly 4 mL 5 10/01/2023 Active predniSONE 10 MG Oral Tablet (Deltasone) Take 3 Tablets by mouth daily for 4 days, THEN 2 Tablets daily for 4 days, THEN 1 Tablet daily for 4 days. 24 Tablet 0 10/18/2023 10/30/2023 Active documented as of this encounter (statuses as of 10/29/2023) Active Problems Problem Noted Date Diagnosed Date Arthritis, rheumatoid 07/04/2023 Senile osteoporosis 08/23/2021 Diverticulosis of large intestine without hemorr jasmyne 10/06/2020 History of rectal cancer 03/05/2018 Osteoporosis without current pathological fractu re 10/31/2017 KAMRAN (juvenile idiopathic arthritis) 12/06/2016 longterm current use of systemic steroids 12/28 Rectal [...] as of this encounter (statuses as of 10/29/2023) Resolved Problems Problem Noted Date Diagnosed Date Resolved Date Senile osteoporosis 09/11/2022 07/23/20 23 MEDICATION USE AGREEMENT 09/24/2018 Encounter for long-term (cur rent) use of medications 12/29/2015 03/18/2019 Osteoporosis 08/17/2015 06/07/2022 POLYART JUV RHEUM ARTHR 01/2022 documented as of this encounter (statuses as of 10/29/2023) Immunizations Name Administration Dates Next Due COVID-19 mRNA, LNP-s, No Pre serve, 2-Dose Series (Egr Renovation) 05/10/2021,10/29/2020,10/08/2020 Covid-19, Mrna, Lnp-s, Pf, B ivalent, 30 Mcg, IM, 12 yrs and above (Egr Renovation) 06/12/2022 Pneumococcal Polysaccharide PPV23 (Pneumovax) 08/01/2012,06/27/2007 Seasonal [...] 03/20/2024 9:20 AM EDT Office Visit Rheumatology [place] [id number] [facility] [place] [address] Miguel Hayden MD [address] [place] [address] Health Maintenance Due Date Last Done Comments [...] of 3 - PCV) 08/01/2013 08/01/2012, 06/27/2007 *BISPHONATE OR OTHER ACCEPTABLE MEDICATION NEEDED FOR OSTEOPOROSIS (REFER TO SMARTSET #1146) 10/27/2023 Depression Screening 10/25/2024 10/25/2023 DXA Scan 10/10/2025 10/10/2023, 08/04, 06/24/2018, Additional history exists Colonoscopy 06/27/2033 06/27/2023 Colorectal Cancer Screening 06/27/2033 Influenza Vaccine (FLU shot) Completed , 06/12/2022, 07/02/2021, Additional history exists COVID-19 Vaccine Completed 08/15/2023, 06/2022, 05/10/2021, Additional history exists VITAMIN D LEVEL ONCE IN A LIFETIME-USE SMARTSET# 21376 Completed 10/03/2023, 09/13/2022, 08/31/2021, Additional history exists [...] this encounter Medical Devices Implanted Type Area Manufacturing Specialist Device Identifier Shelf Expiration Date Model / Serial / Lot Cement Bone Ricky Cobos 1119-140-01 - [id number] Implanted:Qty: 1 on 03/23/[place] [facility] [place] Elbow [employer] 09/03/2012 00-1119-14 0- [id number] Cement Bone Ricky Cobos 1119-140-01 - [id number] Implanted:Qty: 1 on 03/23/2010 at [place] [facility] [place] Right: Elbow [employer] 09/03/2012-1119-14 0- [id number] [employer] Total Elbow Implanted:Qty: 1 on 03/23/2010 at [place] [facility] [place] Right: Elbow [employer] 07/04/2014 32-8105-04 3- / / [id number] Description:Coonrad/Morrey T otal Elbow Interchangable Ulnar Assembly Extra Small [employer]rad/[employer]rey Total Elbow Interchangeable Humeral Assesmbly Implanted:Qty: 1 on 03/23/2010 at [place] [facility] [place] Right: Elbow [employer] 06/03/2014 32-8105-25 -04 / / [id number] documented as of this encounter Visit Diagnoses Diagnosis Senile osteoporosis- Primary documented in this encounter Administered Medications Active Administered Medications - up to 3 most recent administrations Medication Order MAR Action Action Date Dose Rate Site diphenhydrAMINE (Benadryl) inj 50 mg 50 mg, IV Push, ONCE PRN Other, Hypersensitivity Reaction, Starting on Sun10/29/23 at 0926, Until Sun10/30/23 at 0925, For 24 hours EPINEPHrine 1 MG/ML inj 0.3 mg 0.3 mg, Intramuscular, ONCE PRN Other, Hypersensitivity Reaction or Anaphylaxis, Starting on Sun10/29/23 at 0926, Until Sun10/30/23 at 0925, For 24 hours hEParin 100 UNIT/ML Lock Flush inj 500 Units 500 Units (5 mL), IV Lock, PRN Other, IV Flush, Starting on Sun10/29/23 at 0926, Until Sun10/30/23 at 0925, For 24 hours, Do not flush if lock, PICC, or central line not in place; IV infusing or unable to flush. Hydrocortisone Sod Suc (PF) (Solu-Cortef) inj 100 mg 100 mg, IV Push, ONCE PRN Other, Hypersensitivity Reaction, Starting on Sun10/29/23 at 0926, Until Sun10/30/23 at 0925, For 24 hours NSS infusion 500 mL, Intravenous, at 50 mL/hr, CONTINUOUS, Starting on Sun10/29/23 at 1030, Until Sun10/29/23 at 2028 Start Infusion 10/29/2023 9:30 AM EST 500 mL 50 mL/hr oxygen GAS Inhalation, OXYGEN, First dose on Sun10/29/23 at 1000, Until Discontinued, Device/Managed by: Low Flow Device, Goal SPO2 (%): 91-95, Starting Device: Nasal Cannula, Initial Flow Rate (LPM): 2, Lowest Support: Nasal Cannula: Flow 0-6 LPM. Titrate up/down by 1 LPM., Higher Support: Non-Rebreather (NRB) Mask: Minimum of 10 LPM. Titrate to maintain bag inflation., Titration Interval: Q2 minutes and as needed., Notify Provider: For sudden DECREASE in resting SPO2 to less than 85% and when escalating delivery device., Wean patient off Oxygen when the oxygen saturation is greater than or equal to 93% sodium chloride 0.9 % flush central line 10 mL 10 mL, IV Push, PRN Other, IV Flush, Starting on Sun10/29/23 at 0926, Until Sun10/30/23 at 0925, For 24 hours, Do not flush if lock, PICC, or central line not in place; IV infusing or unable to flush. Inactive Administered Medications - up to 3 most recent administrations Medication Order MAR Action Action Date Dose Rate Site Acetaminophen (Tylenol) tab 650 mg 650 mg, Oral, ONCE, On Sun10/29/23 at 1000, For 1 dose, Maximum of 4 grams (4000 mg) per day. Given 10/29/2023 9:29 AM EST 650 mg Zoledronic Acid (Reclast) 5 mg in 100 [...] and were consensually agreed upon. Care Teams Shift Lab Technician Relationship Specialty Start Date End Date Miguel Arreola DO [address] [place] [address] PCP - General Family Medicine 10/27/22 documented as of this encounter
--- OUTSIDE RECORDS SUMMARY | 2023-11-24 13:31 | External Medical Summary | Summary of Care ---
Author Name Unknown Organization [facility] Address [address] [place] [address] Phone [phone] Care Team Providers Care Fisher Sponge Hooking Name Role Phone Miguel Arreola DO Primary Care Provider [phone] Reason for Visit * Reason Comments IV Therapy Reclast * Episode Based Medications (Routine) - Authorized Specialty Diagnoses / Procedures Referred By Contac t Referred To Contact Diagnoses Senile osteoporosis Procedures [place] ZOLEDRONIC ACID 1MG Miguel Hayden MD [address] [facility] [address] Anc Hem/Onc [address] [address] Referral ID Status Reason Start Date Expiration Date V isits Requested Visits Authorized [id number] Authorized 09/28/2023 09/28/[phone] Encounter Details Date Type Department Care Team (Latest Contact Info) Description 10/29/2023 9:00 AM EST Hem/Onc Treatment Hematology/Oncology Treatment, [address] [address] [place], Chair [address] [address] Senile osteoporosis* Allergies Active Allergy [...] mRNA, LNP-s, No Pre serve, 2-Dose Series (Proacta) 05/10/2021,10/29/2020,10/08/2020 Covid-19, Mrna, Lnp-s, Pf, B ivalent, 30 Mcg, IM, 12 yrs and above (Proacta) 06/12/2022 Pneumococcal Polysaccharide PPV23 (Pneumovax) 08/01/2012,06/27/2007 Seasonal [...] 03/20/2024 9:20 AM EDT Office Visit Rheumatology [place] [id number] [facility] [place] [address] Miguel Hayden MD [address] [place] [address] Health Maintenance Due Date Last Done Comments [...] D LEVEL ONCE IN A LIFETIME-USE SMARTSET# 62135 Completed 10/03/2023, 09/13/2022, 08/31/2021, Additional history exists [...] encounter Medical Devices Implanted Type Area Manager Coding Device Identifier Shelf Expiration Date Model / Serial / Lot Cement Bone Lv G 1119-140-01 - [id number] Implanted:Qty: 1 on 03/23/2010 at [place] [facility] [place] Right: Elbow [employer] 09/03/2012 00-1119-14 0- [id number] Cement Bone Lv G 1119-140-01 - [id number] Implanted:Qty: 1 on 03/23/2010 at [place] [facility] [place] Right: Elbow [employer] 09/03/2012-1119-14 0 [id number] [employer] Total Elbow Implanted:Qty: 1 on 03/23/2010 at [place] [facility] [place] Right: Elbow [employer] 07/04/2014 32-8105-04 11-02 [id number] Description:[employer]rad/Morrey T otal Elbow Interchangable Ulnar Assembly Extra Small [employer] Total Elbow Interchangeable Humeral Assesmbly Implanted:Qty: 1 on 03/23/2010 at [place] [facility] [place] Right: Elbow [employer] 06/03/2014 32-8105-25 - / / [id number] documented as of this encounter Visit Diagnoses [...] and were consensually agreed upon. Care Teams Fisher Sponge Hooking Relationship Specialty Start Date End Date Miguel Arreola DO [address] [place] [address] PCP - General Family Medicine 10/27/22 documented as of this encounter
[2023-11-24] MEDS: SODIUM CHLORIDE 0.9% 1,000 ML IV STA (13:40)
[2023-11-24] MEDS: ONDANSETRON INJ 2 MG/ML 2 ML VIAL IV STA (13:40)
--- NOTE | 2023-11-24 13:56 | Emergency Department Note ---
History of Present Illness General Chief complaint: Weakness Stated complaint: weakness Time Seen by Provider: 11/24/23 13:19 Source: patient, RN notes reviewed and old records reviewed (10/11/23-primary care office visit for anxiety) Mode of arrival: ambulatory Limitations: no limitations History of Present Illness This patient is a 63-year-old female who is brought in by EMS and she feels "terrible". She has had nausea vomiting diarrhea since 11:00 last night. No unusual food or sick contacts. No blood or coffee grounds in her emesis or blood or melena stool. She no chest pain she feels slightly short of breath at times no blood thinner use. No trauma or injury. No dysuria or hematuria. she feels diffusely weak but nonfocal he. She does have a history of having an ostomy but has been reversed. She also had a history of anal cancer. Home Medications Medication Instructions Recorded Confirmed Type zoledronic acid 5 mg/100 mL in 1 ea IV YEARLY 08/10/21 11/24/23 History mannitol 5 %-water intravenous piggybck (Reclast) acetaminophen 500 mg tablet 1,000 mg (2 x 500 mg) PO Q8H PRN 01/12/22 11/24/23 Rx Pain #30 tabs prednisone 10 mg tablet 10 mg PO QAM 04/13/23 11/24/23 History abatacept 50 mg/0.4 mL 125 mg subcut WK 06/06/23 11/24/23 History subcutaneous syringe (Orencia) tramadol 50 mg tablet 50 mg PO UD PRN Pain 06/19/23 11/24/23 History duloxetine 60 mg capsule,delayed 60 mg PO QAM #90 caps 06/21/23 11/24/23 Rx release (Cymbalta) bupropion HCl 100 mg tablet,12 hr 100 mg PO DAILY anxiety 07/09/23 11/24/23 History sustained-release (Wellbutrin SR) duloxetine 30 mg capsule,delayed 30 mg PO QAM 07/09/23 11/24/23 History release (Cymbalta) hydroxyzine HCl 10 mg tablet 10 mg PO TID PRN anxiety #30 tabs 10/18/23 11/24/23 Rx Allergies Allergy/AdvReac Type Severity Reaction Status Date / Time doxycycline Allergy Unknown RASH Verified 11/24/23 16:56 buspirone AdvReac Unknown nightmares Verified 11/24/23 16:56 mirtazapine AdvReac Unknown weight gain Verified 11/24/23 16:56 Past Med/Surg History Medical History Small bowel perforation Ventral hernia without obstruction or gangrene History of anesthesia reaction sister is slower to wake up sometimes. Restless leg occurs off and on/no med for. Age related osteoporosis History of chemotherapy Chronic diarrhea History of colon cancer Interstitial lung disease rarely needs inhaler Pleural effusion hx Perforation of sigmoid colon due to diverticulitis (~2020) Pneumonia hx Abnormal CT scan, chest lung disease dx from methotrexate Juvenile idiopathic arthritis Immunocompromised state History of DVT (deep vein thrombosis) Atrial tachycardia hx - not that pt aware. Lyme disease hx Degenerative disc disease Spinal stenosis Deep vein thrombosis hx of after back surgery---no blood thinners Anxiety 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, chemo, radiation Rheumatoid arthritis Detached retina cant see from left eye after having the surgery Diverticulosis hx Surgical History S/P hernia repair H/O abdominal surgery (07/09/23) p Open Colostomy Site Hernia Repair, Repair of Small Bowel Perforation,(Not Applicable) - [place] Eugene DO s Laparoscopic Lysis of Adhesions(Not Applicable) - [place] Medina DO History of cataract surgery left History of removal of Port-a-Cath History of colostomy reversal (~2020) Dr. Elena History of colostomy History of vascular access device Aport right side History of arthroscopy of left knee History of lumbar fusion hardware in place History of lumbar discectomy History of total left knee replacement (TKR) History of colonoscopy Recommend repeat 2023 History of esophagogastroduodenoscopy (EGD) History of detached retina repair left Hx of cholecystectomy History of right elbow replacement H/O hemorrhoidectomy Family History Sister Family history of reaction to anesthesia trouble waking up after anesthesia Breast cancer Diabetes Mother Cardiac disorder Hypertension Diabetes Grandfather (Paternal) Colorectal cancer Father Bladder cancer Grandfather Osteoarthritis Cancer unsure Grandmother Osteoarthritis Aunt Breast cancer Social History Smoking Status: Never smoker Tobacco Type: Cigarettes Age Started Using Tobacco: 17; Age Quit Using Tobacco: 40; packs per day: 1; Second Hand Exposure: No; Do You Dip or Chew Tobacco: No; Hx Alcohol Use: No Hx Substance Use: No Preferred Language: Citizen Of The [place] Communication Ability: Effective Visual Impairment: Limited Hearing Ability: Normal Staff Design Engineer Required: No Beliefs That Will Affect Care: None marital status: Single Current Living Situation: Alone current occupational status: disabled How many Children do You have: 1 Feels Safe at Home: Yes Childhood Exposure to Second-Hand Smoke: Yes Diet: regular caffeine: Yes during the past year weight has: decreased > 10 lbs Dental Care, Regularly: Yes Physical Activity Frequency: 1-2 Times per Week Physical Activity Frequency Comment: walk Seatbelt Use: always Sunscreen Use: Yes Assistive Devices: None Review of Systems A total of 10 systems reviewed and were otherwise negative Physical Exam Vital Signs Vital Signs - 24 hr 11/24/23 13:15 11/24/23 13:15 11/24/23 13:15 Temperature 36.5 C Temperature Source Axillary Oral Pulse Rate 88 Pulse Rate from SpO2 Sensor Respiratory Rate 16 Blood Pressure 139/105 H Blood Pressure Mean 116 Pulse Oximetry 100 Oxygen Delivery Method Room Air Room Air Sepsis Recent Fever Within 48 Hours No Sepsis New/Unexplained Change in Mental Status N/A Sepsis Action Taken by Nursing No Action Required 11/24/23 13:15 11/24/23 13:18 11/24/23 13:20 Temperature Temperature Source Pulse Rate 93 H 94 H 80 Pulse Rate from SpO2 Sensor 91 H 80 Respiratory Rate 18 Blood Pressure Blood Pressure Mean Pulse Oximetry 100 100 Oxygen Delivery Method Sepsis Recent Fever Within 48 Hours Sepsis New/Unexplained Change in Mental Status Sepsis Action Taken by Nursing 11/24/23 13:30 11/24/23 13:30 11/24/23 13:35 Temperature Temperature Source Pulse Rate 83 Pulse Rate from SpO2 Sensor 82 Respiratory Rate 16 Blood Pressure 141/100 H Blood Pressure Mean 128 Pulse Oximetry 99 99 Oxygen Delivery Method Room Air Sepsis Recent Fever Within 48 Hours Sepsis New/Unexplained Change in Mental Status Sepsis Action Taken by Nursing 11/24/23 13:40 11/24/23 13:46 11/24/23 13:46 Temperature Temperature Source Pulse Rate 81 74 Pulse Rate from SpO2 Sensor Respiratory Rate Blood Pressure 128/88 Blood Pressure Mean 120 Pulse Oximetry Oxygen Delivery Method Sepsis Recent Fever Within 48 Hours Sepsis New/Unexplained Change in Mental Status Sepsis Action Taken by Nursing 11/24/23 13:50 11/24/23 14:00 11/24/23 14:00 Temperature Temperature Source Pulse Rate 73 71 Pulse Rate from SpO2 Sensor Respiratory Rate 22 Blood Pressure 132/81 Blood Pressure Mean 109 Pulse Oximetry Oxygen Delivery Method Sepsis Recent Fever Within 48 Hours Sepsis New/Unexplained Change in Mental Status Sepsis Action Taken by Nursing 11/24/23 14:10 11/24/23 14:15 11/24/23 14:15 Temperature Temperature Source Pulse Rate 76 75 Pulse Rate from SpO2 Sensor Respiratory Rate 21 Blood Pressure 146/89 H Blood Pressure Mean 117 Pulse Oximetry Oxygen Delivery Method Sepsis Recent Fever Within 48 Hours Sepsis New/Unexplained Change in Mental Status Sepsis Action Taken by Nursing 11/24/23 14:20 11/24/23 14:30 11/24/23 14:30 Temperature Temperature Source Pulse Rate 72 73 Pulse Rate from SpO2 Sensor Respiratory Rate 17 17 Blood Pressure 125/79 Blood Pressure Mean 102 Pulse Oximetry Oxygen Delivery Method Sepsis Recent Fever Within 48 Hours Sepsis New/Unexplained Change in Mental Status Sepsis Action Taken by Nursing 11/24/23 14:40 11/24/23 14:45 11/24/23 14:45 Temperature Temperature Source Pulse Rate 76 75 Pulse Rate from SpO2 Sensor Respiratory Rate 19 16 Blood Pressure 126/81 Blood Pressure Mean 99 Pulse Oximetry Oxygen Delivery Method Sepsis Recent Fever Within 48 Hours Sepsis New/Unexplained Change in Mental Status Sepsis Action Taken by Nursing 11/24/23 14:50 11/24/23 15:00 11/24/23 15:00 Temperature Temperature Source Pulse Rate 77 77 Pulse Rate from SpO2 Sensor Respiratory Rate 21 Blood Pressure 129/92 Blood Pressure Mean 119 Pulse Oximetry Oxygen Delivery Method Sepsis Recent Fever Within 48 Hours Sepsis New/Unexplained Change in Mental Status Sepsis Action Taken by Nursing 11/24/23 15:10 11/24/23 15:26 Temperature Temperature Source Pulse Rate 75 84 Pulse Rate from SpO2 Sensor Respiratory Rate 18 Blood Pressure Blood Pressure Mean Pulse Oximetry Oxygen Delivery Method Sepsis Recent Fever Within 48 Hours Sepsis New/Unexplained Change in Mental Status Sepsis Action Taken by Nursing General: Well developed well nourished middle-age female who appears in no acute distress, breathing comfortably on room air. Normal speech HEENT: Normal cephalic atraumatic. Pupils are equal round and reactive to light. Extraocular movements are intact. Oropharynx is pink with moist mucous membranes. No swelling of the mouth lips or tongue. Neck: Supple with a midline trachea. No meningeal signs or stiffness, no JVD or bruits. No Stridor. Chest: Clear to auscultation bilaterally. No wheezes or rhonchi. No increased work of breathing. Heart: Regular rate and rhythm without murmurs or gallops. Abdomen: Soft nontender, nondistended without rebound guarding or rigidity. Extremities: No cyanosis clubbing or edema. No calf tenderness or assymetry Spine/Back. Non tender to palpation. No CVA tenderness Skin: Good turgor without rashes. Neurologic exam: Cranial nerves two through 12 are intact. Motor and sensation are intact and symmetrical throughout. Course Administered Medications Lactated Ringer's (Lr) 1,000 mls @ 100 mls/hr IV .Q10H CADENCE Stop: 11/25/23 12:44 Last Admin: 11/24/23 17:48 Dose: 100 mls/hr Documented By: ARTHUR Promethazine HCl 6.25 mg/ (Sodium Chloride) 50.25 mls @ 201 mls/hr IV Q6H PRN PRN Reason: Nausea And Vomiting Stop: 12/24/23 16:40 Last Infusion: 11/24/23 17:30 Dose: Infused Documented By: Admin: 11/24/23 17:15 Dose: 201 mls/hr Documented By: ARTHUR Discontinued Medications Sodium Chloride (Nss) 1,000 mls @ 999 mls/hr IV .Q1H1M STA Stop: 11/24/23 14:33 Last Infusion: 11/24/23 14:39 Dose: Infused Documented By: Admin: 11/24/23 13:40 Dose: 999 mls/hr Documented By: KD Promethazine HCl (Phenergan) 12.5 mg in 50.5 mls @ 202 mls/hr IV NOW STA Stop: 11/24/23 14:52 Last Infusion: 11/24/23 15:19 Dose: Infused Documented By: Admin: 11/24/23 15:00 Dose: 202 mls/hr Documented By: KD Sodium Chloride (Nss) 500 mls @ 999 mls/hr IV .Q31M ONE Stop: 11/24/23 16:37 Last Infusion: 11/24/23 16:52 Dose: Infused Documented By: Admin: 11/24/23 16:19 Dose: 999 mls/hr Documented By: ARTHUR Ioversol (Optiray 320 100ml) 92 ml IV ONCE ONE Stop: 11/24/23 15:22 Last Admin: 11/24/23 15:21 Dose: 92 ml Documented By: DANIELLA Ondansetron HCl (Ondansetron Inj 2 Mg/Ml 2 Ml Vial) 4 mg IV NOW STA Stop: 11/24/23 13:34 Last Admin: 11/24/23 13:40 Dose: 4 mg Documented By: KD Medical Decision Making Differential Diagnosis Dehydration, viral illness, infection, electrolyte or metabolic abnormality, intra-abdominal process Medical Records Attestation: I reviewed the patient's medical records. Home Medications Current Medication List: was personally reviewed by me Laboratory Data Attestation: I reviewed the patient's lab results. 11/24/23 13:15 11/24/23 13:15 Lab Results 11/24/23 11/24/23 11/24/23 Range/Units 13:15 13:45 15:00 WBC 15.38 H (4.8-10.8) K/ul RBC 5.62 H (4.20-5.40) M/uL Hgb 15.3 (12.0-16.0) g/dl Hct 48.8 H (37.0-47.0) % MCV 86.8 (80.0-100.0) fL MCH 27.2 (25.0-34.0) pg MCHC 31.4 L (32.0-36.0) g/dL RDW Std Deviation 47.4 H (36.4-46.3) fL RDW Coeff of Gabrielle 15.2 H (11.5-14.5) % Plt Count 360 (130-400) K/uL MPV 9.6 (9.4-12.4) fL Immature Gran % (Auto) 1.6 % Neut % (Auto) 87.6 % Lymph % (Auto) 3.8 % [place] % (Auto) 6.1 % Eos % (Auto) 0.6 % Baso % (Auto) 0.3 % Neut # (Auto) 13.47 H (1.40-6.50) K/uL Lymph # (Auto) 0.59 L (1.20-3.40) K/uL [place] # (Auto) 0.94 H (0.11-0.59) K/uL Eos # (Auto) 0.09 (0.00-0.50) K/uL Baso # (Auto) 0.05 (0.00-0.20) K/uL Immature Gran # (Auto) 0.24 H (0.01-0.20) K/uL Sodium 135 L (136-145) mmol/L Potassium 3.5 (3.5-5.1) mmol/L Chloride 100 (98-107) mmol/L Carbon Dioxide 22 (21-32) mmol/L Anion Gap 13 H (3-11) BUN 21 (6-23) mg/dl Creatinine 0.87 (0.6-1.2) mg/dl Est Cr Clr Drug Dosing 61.1 ml/min Est GFR ( Amer) 83.3 ml/min Est GFR (Non-Af Amer) 71.9 ml/min BUN/Creatinine Ratio 24.1 H (10-20) Glucose 135 H (70-99(Fasting)) mg/dl Lactate (0.4-2.0) mmol/L Calcium 9.3 (8.6-10.3) mg/dl Phosphorus 1.1 L* (2.5-4.9) mg/dl Magnesium 1.6 L (1.7-2.4) mg/dl Total Bilirubin 0.7 (0.2-1.0) mg/dl AST 20 (13-39) U/L ALT 18 (7-52) U/L Alkaline Phosphatase 80 (34-104) U/L Total Protein 7.6 (6.0-8.3) gm/dl Albumin 4.1 (3.4-5.0) gm/dl Globulin 3.5 (2.5-4.0) gm/dl Albumin/Globulin Ratio 1.2 (0.9-2) Lipase 13 (11-82) U/L Stl C. cayetanensis PCR Not Detected (NotDetected) Stool Rotavirus A PCR Not Detected (NotDetected) Stl Adenov F 40/41 PCR Not Detected (NotDetected) Stool Astrovirus (PCR) Not Detected (NotDetected) Stool Campylobacter PCR Not Detected (NotDetected) Stl C. diff Tox B Gene Positive Cdiff Gene H (Neg) Stl C.difficile Tox A&B Negative Cdiff Toxin (Negative) Stool Cryptosporidium PCR Not Detected (NotDetected) Stl E.coli Shiga Tox PCR Not Detected (NotDetected) Stl Enterotoxigenic E PCR Not Detected (NotDetected) Stool EPEC (PCR) Not Detected (NotDetected) Stool EAEC (PCR) Not Detected (NotDetected) Stl E. histolytica PCR Not Detected (NotDetected) Stool Giardia Lamblia PCR Not Detected (NotDetected) Stool Salmonella PCR Not Detected (NotDetected) Stool Sapovirus (PCR) Not Detected (NotDetected) Stl P. shigelloides PCR Not Detected (NotDetected) Stl Shigella/EIEC PCR Not Detected (NotDetected) St Y.enterocolitica PCR Not Detected (NotDetected) Stool Vibrio (PCR) Not Detected (NotDetected) Stl Vibrio cholerae PCR Not Detected (NotDetected) Stl Norovirus GI/GII PCR DETECTED A* (NotDetected) Adenovirus (PCR) Not Detected (NotDetected) B. pertussis DNA (PCR) Not Detected (NotDetected) B.parapertussis DNA PCR Not Detected (NotDetected) C. pneumoniae DNA (PCR) Not Detected (NotDetected) Coronavirus OC43 (PCR) Not Detected (NotDetected) Coronavirus HKU1 (PCR) Not Detected (NotDetected) Coronavirus 229E (PCR) Not Detected (NotDetected) SARS-CoV-2 (PCR) Not Detected (NotDetected) Coronavirus NL63 (PCR) Not Detected (NotDetected) Human Metapneumovir PCR Not Detected (NotDetected) Influenza Type A (PCR) Not Detected (NotDetected) Influenza Type B (PCR) Not Detected (NotDetected) M. pneumoniae (PCR) Not Detected (NotDetected) Parainfluenza 1 (PCR) Not Detected (NotDetected) Parainfluenza 2 (PCR) Not Detected (NotDetected) Parainfluenza 3 (PCR) Not Detected (NotDetected) Parainfluenza 4 (PCR) Not Detected (NotDetected) RSV (PCR) Not Detected (NotDetected) Entero/Rhino (PCR) Not Detected (NotDetected) 11/24/23 Range/Units 17:00 WBC (4.8-10.8) K/ul RBC (4.20-5.40) M/uL Hgb (12.0-16.0) g/dl Hct (37.0-47.0) % MCV (80.0-100.0) fL MCH (25.0-34.0) pg MCHC (32.0-36.0) g/dL RDW Std Deviation (36.4-46.3) fL RDW Coeff of Gabrielle (11.5-14.5) % Plt Count (130-400) K/uL MPV (9.4-12.4) fL Immature Gran % (Auto) % Neut % (Auto) % Lymph % (Auto) % [place] % (Auto) % Eos % (Auto) % Baso % (Auto) % Neut # (Auto) (1.40-6.50) K/uL Lymph # (Auto) (1.20-3.40) K/uL [place] # (Auto) (0.11-0.59) K/uL Eos # (Auto) (0.00-0.50) K/uL Baso # (Auto) (0.00-0.20) K/uL Immature Gran # (Auto) (0.01-0.20) K/uL Sodium (136-145) mmol/L Potassium (3.5-5.1) mmol/L Chloride (98-107) mmol/L Carbon Dioxide (21-32) mmol/L Anion Gap (3-11) BUN (6-23) mg/dl Creatinine (0.6-1.2) mg/dl Est Cr Clr Drug Dosing ml/min Est GFR ( Amer) ml/min Est GFR (Non-Af Amer) ml/min BUN/Creatinine Ratio (10-20) Glucose (70-99(Fasting)) mg/dl Lactate 2.5 H* (0.4-2.0) mmol/L Calcium (8.6-10.3) mg/dl Phosphorus (2.5-4.9) mg/dl Magnesium (1.7-2.4) mg/dl Total Bilirubin (0.2-1.0) mg/dl AST (13-39) U/L ALT (7-52) U/L Alkaline Phosphatase (34-104) U/L Total Protein (6.0-8.3) gm/dl Albumin (3.4-5.0) gm/dl Globulin (2.5-4.0) gm/dl Albumin/Globulin Ratio (0.9-2) Lipase (11-82) U/L Stl C. cayetanensis PCR (NotDetected) Stool Rotavirus A PCR (NotDetected) Stl Adenov F 40/41 PCR (NotDetected) Stool Astrovirus (PCR) (NotDetected) Stool Campylobacter PCR (NotDetected) Stl C. diff Tox B Gene (Neg) Stl C.difficile Tox A&B (Negative) Stool Cryptosporidium PCR (NotDetected) Stl E.coli Shiga Tox PCR (NotDetected) Stl Enterotoxigenic E PCR (NotDetected) Stool EPEC (PCR) (NotDetected) Stool EAEC (PCR) (NotDetected) Stl E. histolytica PCR (NotDetected) Stool Giardia Lamblia PCR (NotDetected) Stool Salmonella PCR (NotDetected) Stool Sapovirus (PCR) (NotDetected) Stl P. shigelloides PCR (NotDetected) Stl Shigella/EIEC PCR (NotDetected) St Y.enterocolitica PCR (NotDetected) Stool Vibrio (PCR) (NotDetected) Stl Vibrio cholerae PCR (NotDetected) Stl Norovirus GI/GII PCR (NotDetected) Adenovirus (PCR) (NotDetected) B. pertussis DNA (PCR) (NotDetected) B.parapertussis DNA PCR (NotDetected) C. pneumoniae DNA (PCR) (NotDetected) Coronavirus OC43 (PCR) (NotDetected) Coronavirus HKU1 (PCR) (NotDetected) Coronavirus 229E (PCR) (NotDetected) SARS-CoV-2 (PCR) (NotDetected) Coronavirus NL63 (PCR) (NotDetected) Human Metapneumovir PCR (NotDetected) Influenza Type A (PCR) (NotDetected) Influenza Type B (PCR) (NotDetected) M. pneumoniae (PCR) (NotDetected) Parainfluenza 1 (PCR) (NotDetected) Parainfluenza 2 (PCR) (NotDetected) Parainfluenza 3 (PCR) (NotDetected) Parainfluenza 4 (PCR) (NotDetected) RSV (PCR) (NotDetected) Entero/Rhino (PCR) (NotDetected) Imaging Data Attestation: I personally reviewed and interpreted this imaging study as follows: My Impression: Ct Abd/pelvis- No obstruction or free air. Radiologist's Impression: Abdomen/Pelvis CT 11/24/23 14:51 CT OF THE ABDOMEN AND PELVIS WITH CONTRAST CLINICAL HISTORY: Abdominal pain, elevated wbc. COMPARISON STUDY: CT of the abdomen and pelvis April 09, 2023. TECHNIQUE: Following IV administration of 92 mL of Optiray, axial images of the abdomen and pelvis were obtained from the lung bases to the proximal femurs. Images were reviewed in the axial, sagittal, and coronal planes. IV contrast was administered without complication. Automated exposure control was utilized for the study. A dose lowering technique was utilized adhering to the principles of ALARA. CT DOSE: 828.44 mGy.cm FINDINGS: Lung bases are unremarkable. No pneumatosis, free air or portal venous gas is present. Biliary ductal dilatation is unchanged and likely related to cholecystectomy. 4.5 cm segment 7 hepatic lesion is unchanged from earlier exams. This likely reflects a hemangioma. Spleen, adrenal glands and kidneys are unremarkable. There is no peripancreatic abnormality. There is no hydronephrosis. The appendix is normal. Sigmoid anastomosis is noted. No evidence for a bowel obstruction. The caliber and wall thickness of small and large bowel are normal. No acute fractures are present. Postoperative findings within the spine are incidentally noted. IMPRESSION: 1. No acute process within the abdomen or pelvis. 2. No bowel obstruction. No bowel wall thickening. Normal appendix. ACT 112: Negative or not required by law. Electronically signed by: Enrrique Stratton M.D. 11/24/2023 3:59 PM ECG Data Attestation: I personally reviewed and interpreted this ECG as follows: Indication: + nausea and + vomiting Rate (beats per minute): 87 Rhythm: + normal sinus ECG Intervals/blocks: + Short [place] and + Normal QT ECG [place]: + Normal ECG ST segments: + Normal ST segments ECG Findings: no PACs or no PVCs Comparison ECG Date: from (07/02/23) Change: no significant change MDM Narrative This patient comes in as described above she had nausea vomiting diarrhea. IV access been established by EMS. She was placed on a personnel monitor. She was given 1 L IV normal saline bolus and Zofran 4 mg IV. Multiple blood testing was obtained stool studies were obtained. She did ask for Phenergan as she said that typically helps her she was given 12.5 mg of IV Phenergan. She received additional 500 cc IV normal saline bolus she seems to tolerate this well. EKG shows no ischemic changes or ectopy. White count is elevated. There was no sign of electrolyte or metabolic abnormalities. CAT scan shows no acute findings. Bio fire respiratory was negative. Bio fire of the stool was positive for norovirus. C. difficile gene was positive but toxin was negative. The patient is feeling better but still does not feel well enough to go home. She is dehydrated as well. I talked to multiple family members. I have consulted the [facility] hospitalist group to see her in the ER and they will admit her for hydration and further treatment and evaluation Continuous cardiac monitoring: Orders placed in EMR for continuous personnel monitor: Upon my evaluation patient to be in normal sinus rhythm at 85 Impression & Plan Norovirus, Nausea vomiting and diarrhea, Dehydration, Lab test negative for COVID-19 virus Discharge Plan Visit Data Chief Complaint: Weakness Stated Complaint: weakness ED Provider: Miguel Jerome Discharge Problem: Norovirus, Nausea vomiting and diarrhea, Dehydration, Lab test negative for COVID-19 virus Patient Disposition: Admitted As Inpatient Discharge Instructions Interventions: ED Discharge Assessment Last Done: 11/24/23 18:04 Forms Stand Alone Forms: My [facility] Prescriptions Prescriptions: No Action acetaminophen 500 mg tablet 1,000 mg PO Q8H PRN (Reason: Pain) Qty: 30 0RF duloxetine [Cymbalta] 60 mg capsule,delayed release(DR/EC) 60 mg PO QAM Qty: 90 3RF Rx Instructions: TAKE WITH 30MG CAP FOR A TOTAL OF 90MG DAILY hydroxyzine HCl 10 mg tablet 10 mg PO TID PRN (Reason: anxiety) Qty: 30 0RF prednisone 10 mg tablet 10 mg PO QAM Orencia 50 mg/0.4 mL syringe 125 mg subcut WK Patient Comments: wednesdays Rx Instructions: TAKE THIS MED EVERY SUNDAY zoledronic [id number] [Reclast] 5 mg/100 mL piggyback 1 ea IV YEARLY Patient Comments: ? last dose March 2023. tramadol 50 mg Tablet 50 mg PO UD PRN (Reason: Pain) bupropion HCl [Wellbutrin SR] 100 mg tablet sustained-release 12 hr 100 mg PO DAILY duloxetine [Cymbalta] 30 mg capsule,delayed release(DR/EC) 30 mg PO QAM Rx Instructions: TAKE WITH 60MG CAP FOR A TOTAL OF 90MG DAILY Referrals Referrals: Miguel Arreola DO [Primary Care Provider] -
[2023-11-24 14:29] LABS: Basophils # (auto) 0.05 K/uL (0.00-0.20); Basophils % (auto) 0.3 %; Eosinophils # (auto) 0.09 K/uL (0.00-0.50); Eosinophils % (auto) 0.6 %; Hematocrit (blood only) 48.8 % (37.0-47.0); Hemoglobin 15.3 g/dl (12.0-16.0); Immature Granulocytes # (auto) 0.24 K/uL (0.01-0.20); Immature Granulocytes % (auto) 1.6 %; Lymphocytes # (auto) 0.59 K/uL (1.20-3.40); Lymphocytes % (auto) 3.8 %; Mean Corpuscular Hemoglobin 27.2 pg (25.0-34.0); Mean Corpuscular Hgb Conc 31.4 g/dL (32.0-36.0); Mean Corpuscular Volume 86.8 fL (80.0-100.0); Mean Platelet Volume 9.6 fL (9.4-12.4); Monocytes # (auto) 0.94 K/uL (0.11-0.59); Monocytes % (auto) 6.1 %; Neutrophils # (auto) 13.47 K/uL (1.40-6.50); Neutrophils % (auto) 87.6 %; Platelet Count 360 K/uL (130-400); RDW Coefficient of Variation 15.2 % (11.5-14.5); RDW Standard Deviation 47.4 fL (36.4-46.3); Red Blood Count 5.62 M/uL (4.20-5.40); White Blood Count 15.38 K/ul (4.8-10.8)
[2023-11-24 14:39] LABS: Cdiff Toxin B Gene (2yr or >) Positive Cdiff Gene (Neg)
[2023-11-24 14:44] LABS: Albumin Globulin Ratio 1.2 (0.9-2); Albumin Level 4.1 gm/dl (3.4-5.0); BUN Creatinine Ratio 24.1 (10-20); Bilirubin,Total 0.7 mg/dl (0.2-1.0); Calcium 9.3 mg/dl (8.6-10.3); Creatinine Clr Calc Pharmacy 61.1 ml/min; Est GFR (African American) 83.3 ml/min; Est GFR (Non-African American) 71.9 ml/min; Globulin 3.5 gm/dl (2.5-4.0); Potassium 3.5 mmol/L (3.5-5.1); Total Protein 7.6 gm/dl (6.0-8.3)
[2023-11-24] MEDS: PROMETHAZINE 12.5 MG/50.5 ML BAG IV STA (15:00)
[2023-11-24 15:21] LABS: Adenovirus F 40/41 PCR Not Detected (NotDetected); Astrovirus PCR Not Detected (NotDetected); Campylobacter PCR Not Detected (NotDetected); Cryptosporidium PCR Not Detected (NotDetected); Cyclospora cayetanensis PCR Not Detected (NotDetected); Entamoeba histolytica PCR Not Detected (NotDetected); Enteroaggregative E.coli(EAEC) Not Detected (NotDetected); Enteropathogenic E.coli (EPEC) Not Detected (NotDetected); Enterotoxigenic E.coli (ETEC) Not Detected (NotDetected); Giardia lamblia PCR Not Detected (NotDetected); Plesiomonas shigelloides PCR Not Detected (NotDetected); Rotavirus A PCR Not Detected (NotDetected); Salmonella PCR Not Detected (NotDetected); Sapovirus PCR Not Detected (NotDetected); Shiga-like Toxin E.coli (STEC) Not Detected (NotDetected); Shigella/Enteroinvasive E.coli Not Detected (NotDetected); Vibrio cholerae PCR Not Detected (NotDetected); Vibrio species PCR Not Detected (NotDetected); Yersinia enterocolitica PCR Not Detected (NotDetected)
[2023-11-24] MEDS: OPTIRAY 320 100ml IV ONE (15:21)
[2023-11-24 15:27] LABS: Cdiff Antigen Positive; Cdiff Toxin A+B Negative Cdiff Toxin (Negative); Norovirus GI/GII PCR DETECTED (NotDetected)
--- NOTE | 2023-11-24 16:02 | CT Scan Report ---
CT OF THE ABDOMEN AND PELVIS WITH CONTRAST CLINICAL HISTORY: Abdominal pain, elevated wbc. COMPARISON STUDY: CT of the abdomen and pelvis April 09, 2023. TECHNIQUE: Following IV administration of 92 mL of Optiray, axial images of the abdomen and pelvis we re obtained from the lung bases to the proximal femurs. Images were reviewed in the axial, sagittal, and coronal planes. IV contrast was administered without complication. Automated exposure control wa s utilized for the study. A dose lowering technique was utilized adhering to the principles of ALARA . CT DOSE: 828.44 mGy.cm FINDINGS: Lung bases are unremarkable. No pneumatosis, free air or portal venous gas is present. Bili ara ductal dilatation is unchanged and likely related to cholecystectomy. 4.5 cm segment 7 hepatic le mark is unchanged from earlier exams. This likely reflects a hemangioma. Spleen, adrenal glands and k idneys are unremarkable. There is no peripancreatic abnormality. There is no hydronephrosis. The appe ndix is normal. Sigmoid anastomosis is noted. No evidence for a bowel obstruction. The caliber and wa ll thickness of small and large bowel are normal. No acute fractures are present. Postoperative findi ngs within the spine are incidentally noted. IMPRESSION: 1. No acute process within the abdomen or pelvis. 2. No bowel obstruction. No bowel wall thickening. Normal appendix. ACT 112: Negative or not required by law. Electronically signed by: Enrrique Stratton M.D. 11/24/2023 3:59 PM
[2023-11-24 16:12] LABS: Adenovirus PCR Not Detected (NotDetected); Bordetella parapertussis PCR Not Detected (NotDetected); Bordetella pertussis PCR Not Detected (NotDetected); Chlamydia pneumoniae PCR Not Detected (NotDetected); Coronavirus 229E PCR Not Detected (NotDetected); Coronavirus CoV-2 (COVID19)PCR Not Detected (NotDetected); Coronavirus HKU1 PCR Not Detected (NotDetected); Coronavirus NL63 PCR Not Detected (NotDetected); Coronavirus OC43PCR Not Detected (NotDetected); Human Metapneumovirus PCR Not Detected (NotDetected); Influenza A PCR Not Detected (NotDetected); Influenza B PCR Not Detected (NotDetected); Mycoplasma pneumoniae PCR Not Detected (NotDetected); Parainfluenza Virus 1 PCR Not Detected (NotDetected); Parainfluenza Virus 2 PCR Not Detected (NotDetected); Parainfluenza Virus 3 PCR Not Detected (NotDetected); Parainfluenza Virus 4 PCR Not Detected (NotDetected); Respiratory Syncytial VirusPCR Not Detected (NotDetected); Rhinovirus/Enterovirus PCR Not Detected (NotDetected)
[2023-11-24] MEDS: SODIUM CHLORIDE 0.9% 500 ML IV ONE (16:19)
--- NOTE | 2023-11-24 16:21 | History & Physical Report ---
Date of Service November 24, 2023 Assessment & Plan (1) Infection due to Norovirus species: Plan: -Admit to med/tele -Currently stable and non-toxic appearing -Presented to the [facility] ED this am after experiencing multiple episodes of non- bloody emesis and diarrhea which began last night around 2300 -Noted to have a leukocytosis of 15 with neutrophil predominance of 13 -Stool studies are positive for norovirus and C. diff Gene H but is negative for C. diff toxin -At this time she will need ongoing supportive care with IV fluids and antiemetics -Will add on mag, phos, and lactate for further evaluation -S/P 1.5L NSS in the ED -Will start maintenance LR x 2 bags on admission -PRN Promethazine for nausea/vomiting -PRN tylenol and morphine for pain -BL DINA's for DVT PPX -Clear liquid diet for now -AM CBC, CMP, mag, PT/INR (2) Nausea vomiting and diarrhea: Plan: -Likely due to acute norovirus infection -CT of the abd/pelvis w/con was negative for acute findings -Rest of care per Norovirus plan (3) Dehydration: Plan: -Due to acute norovirus infection -See norovirus plan for rest of care (4) Dizziness: Plan: -Resolved -Likely due to dehydration from vomiting and diarrhea -Non-focal neurologic exam -Rest of care per Norovirus plan (5) Rheumatoid arthritis: Plan: -Continue 10 mg PO prednisone daily -Does not appear to be in an adrenal crisis Plan The patient was discussed with Dr. Justin at the time of the exam History of Present Illness Chief Complaint: Nausea,vomiting,diarrhea, dizziness Primary Care Provider: DO Misa Snell is a 63 year old female with a PMH significant for RA (on chronic prednisone and weekly Orencia therapy), diverticulitis and anal cancer S/[place]moide[place]osis [place] [facility] [place], interstitial lung disease, previous DVT wh o presented to the [facility] ED via EMS on 11/24/23 with complaints of nausea, vomiting, diarrhea, and dizziness which started last night. She remained stable in the ED. Labs were significant for a leukocytosis of 15 with neutrophil predominance of 13, AG of 13 with bicarb WNL, full respiratory biofire negative and stool studies positive for norovirus and C. diff Gene H but negative for C. diff toxin. CT of the abd/pelvis w/con was read as "1. No acute process within the abdomen or pelvis. 2. No bowel obstruction. No bowel wall thickening. Normal appendix.". Prior to admission the patient was given 1.5L NSS, 12.g mg IV Promethazine, 4 mg IV zofran. At the time of the exam the patient was lying in bed in no acute distress with family bedside, history was obtained from all. She started to develop nausea, non-bloody emesis, and non-bloody diarrhea last night around 2300. She has been unable to keep foor or liquids down and felt dehydrated a few hours after symptoms began. She woke up this am with dizziness and generalized weakness along with her symptoms which started last night. She states that since receiving IV fluids and Phenergan in the ED her dizziness has resolved and she does not feel as weak as prior to arrival. She denies recent fever, chest pain, SOB, abd pain, hematemesis, dysuria, hematuria, melena, bright red bloody BM's, LE swelling, and recent trauma. She clearly states that she is a DNR/DNI, family at bedside confirmed this. Please refer to Dr. Justin's attestation for any changes to the treatment plan Allergies Allergy/AdvReac Type Severity Reaction Status Date / Time doxycycline Allergy Unknown RASH Verified 11/24/23 16:56 buspirone AdvReac Unknown nightmares Verified 11/24/23 16:56 mirtazapine AdvReac Unknown weight gain Verified 11/24/23 16:56 Home Medications Medication Instructions Recorded Confirmed Type zoledronic acid 5 mg/100 mL in 1 ea IV YEARLY 08/10/21 11/24/23 History mannitol 5 %-water intravenous piggybck (Reclast) acetaminophen 500 mg tablet 1,000 mg (2 x 500 mg) PO Q8H PRN 01/12/22 11/24/23 Rx Pain #30 tabs prednisone 10 mg tablet 10 mg PO QAM 04/13/23 11/24/23 History abatacept 50 mg/0.4 mL 125 mg subcut WK 06/06/23 11/24/23 History subcutaneous syringe (Orencia) tramadol 50 mg tablet 50 mg PO UD PRN Pain 06/19/23 11/24/23 History duloxetine 60 mg capsule,delayed 60 mg PO QAM #90 caps 06/21/23 11/24/23 Rx release (Cymbalta) bupropion HCl 100 mg tablet,12 hr 100 mg PO DAILY anxiety 07/09/23 11/24/23 History sustained-release (Wellbutrin SR) duloxetine 30 mg capsule,delayed 30 mg PO QAM 07/09/23 11/24/23 History release (Cymbalta) hydroxyzine HCl 10 mg tablet 10 mg PO TID PRN anxiety #30 tabs 10/18/23 11/24/23 Rx Past Med/Surg History Medical History Small bowel perforation Ventral hernia without obstruction or gangrene History of anesthesia reaction sister is slower to wake up sometimes. Restless leg occurs off and on/no med for. Age related osteoporosis History of chemotherapy Chronic diarrhea History of colon cancer Interstitial lung disease rarely needs inhaler Pleural effusion hx Perforation of sigmoid colon due to diverticulitis (~2020) Pneumonia hx Abnormal CT scan, chest lung disease dx from methotrexate Juvenile idiopathic arthritis Immunocompromised state History of DVT (deep vein thrombosis) Atrial tachycardia hx - not that pt aware. Lyme disease hx Degenerative disc disease Spinal stenosis Deep vein thrombosis hx of after back surgery---no blood thinners Anxiety 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, chemo, radiation Rheumatoid arthritis Detached retina cant see from left eye after having the surgery Diverticulosis hx Surgical History S/P hernia repair H/O abdominal surgery (07/09/23) p Open Colostomy Site Hernia Repair, Repair of Small Bowel Perforation,(Not Applicable) - [place] Eugene DO s Laparoscopic Lysis of Adhesions(Not Applicable) - [place] Medina DO History of cataract surgery left History of removal of Port-a-Cath History of colostomy reversal (~2020) Dr. Elena History of colostomy History of vascular access device Aport right side History of arthroscopy of left knee History of lumbar fusion hardware in place History of lumbar discectomy History of total left knee replacement (TKR) History of colonoscopy Recommend repeat 2023 History of esophagogastroduodenoscopy (EGD) History of detached retina repair left Hx of cholecystectomy History of right elbow replacement H/O hemorrhoidectomy Family History Sister Family history of reaction to anesthesia trouble waking up after anesthesia Breast cancer Diabetes Mother Cardiac disorder Hypertension Diabetes Grandfather (Paternal) Colorectal cancer Father Bladder cancer Grandfather Osteoarthritis Cancer unsure Grandmother Osteoarthritis Aunt Breast cancer Social History Smoking Status: Former smoker Tobacco Type: Cigarettes Age Started Using Tobacco: 17; Age Quit Using Tobacco: 40; packs per day: 1; Second Hand Exposure: No; Do You Dip or Chew Tobacco: No; Hx Alcohol Use: No Hx Substance Use: No Preferred Language: Slovenian Communication Ability: Effective Visual Impairment: Limited Hearing Ability: Normal Card Feeder Required: No Beliefs That Will Affect Care: None marital status: Single Current Living Situation: Alone current occupational status: disabled How many Children do You have: 1 Other Information That Helps Us Care for You: No Feels Safe at Home: Yes Safety Concerns: Feels Safe At This Time Childhood Exposure to Second-Hand Smoke: Yes Diet: regular caffeine: Yes during the past year weight has: decreased > 10 lbs Dental Care, Regularly: Yes Physical Activity Frequency: 1-2 Times per Week Physical Activity Frequency Comment: walk Seatbelt Use: always Sunscreen Use: Yes Assistive Devices: Glasses Physical Exam Physical Exam: Physical Exam: General: In no acute distress, stated age, ill appearing but non-toxic HEENT: Normocephalic, atraumatic, no scleral icterus, right pupil is round, and reactive to light, left pupil is asymmetric from previous procedure and less reactive to light, dry mucus membranes, trachea midline, no thyromegaly Chest/Pulm: No respiratory distress, symmetrical chest expansion, clear breath sounds throughout Cardiac: RRR, no murmurs noted Abdomen: Negative for ascites and bruising, normoactive bowel sounds, soft, non-tender to palpation throughout Musculoskeletal: Symmetrical and without signs of acute trauma, upper and low er extremities with full ROM, no atrophy, spasticity, or flaccidity Extremities: Radial, dorsalis pedis, and posterior tibial pulses are intact and symmetrical, no edema noted in the BL LE's Skin: Warm, dry, no rashes , lesions, or scars noted Neuro: Alert and oriented to person, place, month, year, and president, no f ocal defects, CN II-XII tested and intact, no tremors noted Psych: No acute distress, calm and cooperative during the exam Results & Data Results & Data Vital Signs (Past 12 Hours) Vital Signs Temp Pulse Resp BP Pulse Ox O2 Del Method 11/24/23 15:26 84 11/24/23 15:10 75 18 11/24/23 15:00 129/92 11/24/23 15:00 77 11/24/23 14:50 77 21 11/24/23 14:45 75 16 11/24/23 14:45 126/81 11/24/23 14:40 76 19 11/24/23 14:30 73 17 11/24/23 14:30 125/79 11/24/23 14:20 72 17 11/24/23 14:15 75 11/24/23 14:15 146/89 H 11/24/23 14:10 76 21 11/24/23 14:00 132/81 11/24/23 14:00 71 22 11/24/23 13:50 73 11/24/23 13:46 74 11/24/23 13:46 128/88 11/24/23 13:40 81 11/24/23 13:35 99 Room Air 11/24/23 13:30 83 16 99 11/24/23 13:30 141/100 H 11/24/23 13:20 80 18 100 11/24/23 13:18 94 H 11/24/23 13:15 93 H 100 11/24/23 13:15 Room Air 11/24/23 13:15 36.5 C 88 16 139/105 H 100 Room Air Laboratory Results Abnormal lab results 11/24/23 11/24/23 Range/Units 13:15 13:45 WBC 15.38 H (4.8-10.8) K/ul RBC 5.62 H (4.20-5.40) M/uL Hct 48.8 H (37.0-47.0) % MCHC 31.4 L (32.0-36.0) g/dL RDW Std Deviation 47.4 H (36.4-46.3) fL RDW Coeff of Gabrielle 15.2 H (11.5-14.5) % Neut # (Auto) 13.47 H (1.40-6.50) K/uL Lymph # (Auto) 0.59 L (1.20-3.40) K/uL [place] # (Auto) 0.94 H (0.11-0.59) K/uL Immature Gran # (Auto) 0.24 H (0.01-0.20) K/uL Sodium 135 L (136-145) mmol/L Anion Gap 13 H (3-11) BUN/Creatinine Ratio 24.1 H (10-20) Glucose 135 H (70-99(Fasting)) mg/dl Stl C. diff Tox B Gene Positive Cdiff Gene H (Neg) Stl Norovirus GI/GII PCR DETECTED A* (NotDetected) Diagnostic Findings Abdomen/Pelvis CT 11/24/23 14:51 CT OF THE ABDOMEN AND PELVIS WITH CONTRAST CLINICAL HISTORY: Abdominal pain, elevated wbc. COMPARISON STUDY: CT of the abdomen and pelvis April 09, 2023. TECHNIQUE: Following IV administration of 92 mL of Optiray, axial images of the abdomen and pelvis were obtained from the lung bases to the proximal femurs. Images were reviewed in the axial, sagittal, and coronal planes. IV contrast was administered without complication. Automated exposure control was utilized for the study. A dose lowering technique was utilized adhering to the principles of ALARA. CT DOSE: 828.44 mGy.cm FINDINGS: Lung bases are unremarkable. No pneumatosis, free air or portal venous gas is present. Biliary ductal dilatation is unchanged and likely related to cholecystectomy. 4.5 cm segment 7 hepatic lesion is unchanged from earlier exams. This likely reflects a hemangioma. Spleen, adrenal glands and kidneys are unremarkable. There is no peripancreatic abnormality. There is no hydronephrosis. The appendix is normal. Sigmoid anastomosis is noted. No evidence for a bowel obstruction. The caliber and wall thickness of small and large bowel are normal. No acute fractures are present. Postoperative findings within the spine are incidentally noted. IMPRESSION: 1. No acute process within the abdomen or pelvis. 2. No bowel obstruction. No bowel wall thickening. Normal appendix. ACT 112: Negative or not required by law. Electronically signed by: Enrrique Stratton M.D. 11/24/2023 3:59 PM ECG Additional Comments: Sinus rhythm with short AL Otherwise normal ECG When compared with ECG of 02-JUL-2023 11:02, Nonspecific T wave abnormality now evident in Inferior leads Code Status & VTE Plan Code Status DNR/DNI VTE Prophylaxis Plan VTE Prophylaxis will be ordered: Yes Supervising Physician Co-Signing Physician Notes I personally saw and examined the patient. I verified all morales points and agree with Lew Carrera PA-C with the following exceptions and/or additions: 63 year old female presents to the ER with diarrhea, nausea and vomiting starti ng yesterday. O/E HS RRR, no murmurs, Chest CTAB, Abdo SNT A/P Norovirus - conservative management with IV fluids, antiemetics Syncope in setting of of dehydration, no further workup required as long as doesn't recur, no murmurs on exam PG Care Time/CCT Total # of Minutes Spent Total Time Spent with Patient: Total time spent is greater than 50% in coordination of care (as documented) at patient's floor/unit and/or counseling patient: Coding [place] [address] INT INP/OBS CARE 2/55MIN Patient Type Established Medical Decision Making High Complexity Diagnoses Infection due to Norovirus species A08.11 Nausea vomiting and diarrhea R11.2; R19.7 Dehydration E86.0 Dizziness R42 Rheumatoid arthritis, involving unspecified site, unspecified whether rheumatoid factor present M06.9 Rheumatoid arthritis location: unspecified site Rheumatoid factor presence: unspecified presence (5) Rheumatoid arthritis Rheumatoid arthritis location: unspecified site Rheumatoid factor presence: u nspecified presence Qualified Code(s): M06.9 - Rheumatoid arthritis, unspecified
[2023-11-24] MEDS ORDERED: ACETAMINOPHEN 325 MG TAB PO PRN (16:37)
[2023-11-24] MEDS ORDERED: MoRPHine SULFATE 2 MG/ML CARP IV PRN (16:37)
[2023-11-24 17:13] LABS: Magnesium 1.6 mg/dl (1.7-2.4); Phosphorus 1.1 mg/dl (2.5-4.9)
[2023-11-24] MEDS: PROMETHAZINE HCL 6.25 MG in SODIUM CHLORIDE 0.9% 50 ML IV PRN (17:15)
[2023-11-24] MEDS: LACTATED RINGER'S 1,000 ML IV SCH (17:48)
[2023-11-24] MEDS ORDERED: POTASSIUM PHOS 3 MMOL/1 ML INFUSION IV STA (18:20)
[2023-11-24] MEDS: MAGNESIUM SULFATE / D5W 1 GM/100 ML BAG IV SCH (20:20)
[2023-11-24] MEDS: POTASSIUM PHOSPHATE 30 MMOL in SODIUM CHLORIDE 0.9% 500 ML IV ONE (20:21)
[2023-11-25] MEDS: PROMETHAZINE HCL 6.25 MG in SODIUM CHLORIDE 0.9% 50 ML IV STA (01:19)
[2023-11-25 04:59] LABS: Basophils # (auto) 0.03 K/uL (0.00-0.20); Basophils % (auto) 0.4 %; Eosinophils # (auto) 0.17 K/uL (0.00-0.50); Eosinophils % (auto) 2.1 %; Hematocrit (blood only) 41.5 % (37.0-47.0); Hemoglobin 13.1 g/dl (12.0-16.0); Immature Granulocytes # (auto) 0.05 K/uL (0.01-0.20); Immature Granulocytes % (auto) 0.6 %; Lymphocytes # (auto) 0.62 K/uL (1.20-3.40); Lymphocytes % (auto) 7.7 %; Mean Corpuscular Hemoglobin 27.1 pg (25.0-34.0); Mean Corpuscular Hgb Conc 31.6 g/dL (32.0-36.0); Mean Corpuscular Volume 85.7 fL (80.0-100.0); Mean Platelet Volume 9.2 fL (9.4-12.4); Monocytes # (auto) 0.53 K/uL (0.11-0.59); Monocytes % (auto) 6.6 %; Neutrophils # (auto) 6.67 K/uL (1.40-6.50); Neutrophils % (auto) 82.6 %; Platelet Count 250 K/uL (130-400); RDW Coefficient of Variation 15.3 % (11.5-14.5); Red Blood Count 4.84 M/uL (4.20-5.40); White Blood Count 8.07 K/ul (4.8-10.8)
[2023-11-25 05:19] LABS: Albumin Globulin Ratio 1.2 (0.9-2); Albumin Level 3.3 gm/dl (3.4-5.0); BUN Creatinine Ratio 16.9 (10-20); Bilirubin,Total 0.7 mg/dl (0.2-1.0); Calcium 7.5 mg/dl (8.6-10.3); Creatinine Clr Calc Pharmacy 88.4 ml/min; Est GFR (African American) 111.1 ml/min; Est GFR (Non-African American) 95.8 ml/min; Globulin 2.7 gm/dl (2.5-4.0); Magnesium 2.3 mg/dl (1.7-2.4); Phosphorus 2.7 mg/dl (2.5-4.9); Prothrombin Time 11.2 Seconds (9.0-12.0)
[2023-11-25] MEDS: PROMETHAZINE HCL 12.5 MG in SODIUM CHLORIDE 0.9% 50 ML IV PRN (05:27)
--- NOTE | 2023-11-25 08:40 | Electrocardiogram Report ---
Test Reason : Blood Pressure : / mmHG Vent. Rate : 087 BPM Atrial Rate : 087 BPM P-R Int : 106 ms QRS Dur : 080 ms QT Int : 370 ms P-R-T Axes : 017 071 066 degrees QTc Int : 445 ms Poor data quality, interpretation may be adversely affected Sinus rhythm Normal ECG When compared with ECG of 02-JUL-2023 11:02, No significant change Confirmed by Gilbert Unger ([id number]) on 11/25/2023 8:40:17 AM Referred By: REFERRED SELF Confirmed By:Gilbert Unger
[2023-11-25] MEDS: buPROPion SR 100 MG TABCR PO SCH (09:29)
[2023-11-25] MEDS: predniSONE 10 MG TABLET PO SCH (09:29)
[2023-11-25] MEDS: DULoxetine HCL 30 MG CAP PO SCH (09:29)
[2023-11-25] MEDS: DULoxetine HCL 60 MG CAP PO SCH (09:30)
[2023-11-25 10:17] LABS: Appearance Urine Clear (Clear); Bacteria Urine Automated Negative (Negative); Bilirubin Urine Negative (Negative); Blood Urine 2+ (Negative); Cast Urine Automated 0 /lpf (0-5); Color Urine Yellow; Glucose Urine UA Negative (Negative); Ketones Urine 1+ (Negative); Leukocyte Esterase Urine Trace (Negative); Nitrite Urine Negative (Negative); Protein Urine Negative (Negative); Urobilinogen Urine Negative (Negative)
--- NOTE | 2023-11-25 15:44 | Hospitalist Progress Note ---
Date of Service November 25, 2023 Assessment & Plan (1) Infection due to Norovirus species: Plan: -Emesis + diarrhea, stool studies are positive for norovirus and C. diff Gene H but is negative for C. diff toxin -At this time she will need ongoing supportive care with IV fluids and antiemetics -IVF, trend electrolytes -PRN Zofran + promethazine for nausea/vomiting -PRN tylenol and morphine for pain -BL DINA's for DVT PPX -Clear liquid diet for now (2) Nausea vomiting and diarrhea: Plan: -Likely due to acute norovirus infection -CT of the abd/pelvis w/con was negative for acute findings -Rest of care per Norovirus plan (3) Dehydration: Plan: -Due to acute norovirus infection -See norovirus plan for rest of care (4) Dizziness: Plan: -Resolved -Likely due to dehydration from vomiting and diarrhea -Non-focal neurologic exam -Rest of care per Norovirus plan (5) Rheumatoid arthritis: Plan: -Continue 10 mg PO prednisone daily -Does not appear to be in an adrenal crisis Admission and Anticipated Discharge Date Admission Date: November 24, 2023 Subjective Feeling extremely nauseous today but denying abdominal pain. Not having any ongoing vomiting. Having a few episodes of loose stool still today. Review of Systems Review of Systems: Per subjective Physical Exam Physical Exam: General: Ill but nontoxic-appearing, NAD Cardiovascular: RRR, no M/R/G Pulmonary: CTAB anteriorly Abdomen: Soft, NT/ND, no guarding Extremities: Moving all extremities Integumentary: No suspicious rash or lesion on exposed skin Neurologic: AAOx3, no focal deficits Psychiatric: Appropriate mood/affect Results & Data Results & Data Vital Signs (Past 12 Hours) Vital Signs Temp Pulse Pulse Resp BP Pulse Ox O2 Del Method 11/25/23 15:18 36.3 C L 79 16 117/82 99 Room Air 11/25/23 11:39 36.8 C 76 18 147/91 H 98 Room Air 11/25/23 08:25 36.8 C 73 16 144/87 H 98 Room Air 11/25/23 07:34 80 Laboratory Results Reviewed labs this morningnormalization of WBC, hemoglobin stable, sodium mildly low at 133, creatinine stable at 0.65, phosphorus normalized to 2.7 and magnesium normalized to 2.3. Calcium still low at 37.5. PG Care Time/CCT Total # of Minutes Spent Total Time Spent with Patient: Total time spent is greater than 50% in coordination of care (as documented) at patient's floor/unit and/or counseling patient: Coding Level of Care Code 63663 SUB INP/OBS CARE 2/35MIN Diagnoses Infection due to Norovirus species A08.11 Nausea vomiting and diarrhea R11.2; R19.7 Dehydration E86.0 Dizziness R42 Rheumatoid arthritis, involving unspecified site, unspecified whether rheumatoid factor present M06.9 Rheumatoid arthritis location: unspecified site Rheumatoid factor presence: unspecified presence (5) Rheumatoid arthritis Rheumatoid arthritis location: unspecified site Rheumatoid factor presence: unspecified presence Qualified Code(s): M06.9 - Rheumatoid arthritis, unspeci fied
[2023-11-25] MEDS: ONDANSETRON INJ 2 MG/ML 2 ML VIAL IV PRN (17:10)
[2023-11-26 06:02] LABS: Basophils # (auto) 0.04 K/uL (0.00-0.20); Basophils % (auto) 0.5 %; Eosinophils # (auto) 0.09 K/uL (0.00-0.50); Eosinophils % (auto) 1.2 %; Hematocrit (blood only) 41.4 % (37.0-47.0); Immature Granulocytes # (auto) 0.04 K/uL (0.01-0.20); Immature Granulocytes % (auto) 0.5 %; Lymphocytes # (auto) 1.09 K/uL (1.20-3.40); Mean Corpuscular Hemoglobin 27.1 pg (25.0-34.0); Mean Corpuscular Hgb Conc 31.4 g/dL (32.0-36.0); Mean Corpuscular Volume 86.3 fL (80.0-100.0); Monocytes % (auto) 7.7 %; Neutrophils # (auto) 5.95 K/uL (1.40-6.50); Neutrophils % (auto) 76.1 %; Platelet Count 252 K/uL (130-400); RDW Standard Deviation 46.7 fL (36.4-46.3); White Blood Count 7.81 K/ul (4.8-10.8)
[2023-11-26 06:21] LABS: Albumin Globulin Ratio 1.2 (0.9-2); Albumin Level 3.5 gm/dl (3.4-5.0); BUN Creatinine Ratio 15.6 (10-20); Bilirubin,Total 0.6 mg/dl (0.2-1.0); Creatinine Clr Calc Pharmacy 89.8 ml/min; Est GFR (African American) 111.6 ml/min; Est GFR (Non-African American) 96.3 ml/min; Magnesium 2.2 mg/dl (1.7-2.4); Phosphorus 1.8 mg/dl (2.5-4.9); Potassium 4.1 mmol/L (3.5-5.1); Total Protein 6.5 gm/dl (6.0-8.3)
[2023-11-26 06:22] LABS: Prothrombin Time 10.8 Seconds (9.0-12.0)
[2023-11-26] MEDS ORDERED: SODIUM PHOSPHATE 3 MMOL/1 ML INFUSION IV STA (08:57)
[2023-11-26] MEDS: SODIUM PHOSPHATE 24 MMOL in DEXTROSE 5% 500 ML IV ONE (09:50)
--- NOTE | 2023-11-26 10:23 | Hospitalist Progress Note ---
Date of Service November 26, 2023 Assessment & Plan (1) Infection due to Norovirus species: Plan: -Emesis + diarrhea, stool studies are positive for norovirus and C. diff Gene H but is negative for C. diff toxin -supportive care: Zofran and promethazine for nausea vomiting, Tylenol for pain - received 3.5 L of IV fluids since ED - tolerating pills without issue. Given that she is not eating due to the food options, rather than nausea. Will advance diet to full liquids today and see how she progresses - if not tolerating may need to restart maintenance fluids -NaPhos replaced today AM BMP, Mag, phos, CBC (2) Nausea vomiting and diarrhea: Plan: -Likely due to acute norovirus infection -hx of bowel preforation, ostomy and revision of ostomy (2020), recently had hernia repaired at prior stoma site -CTA/P w/con was negative for acute findings -Rest of care per Norovirus plan (3) Dizziness: Plan: Resolved -Likely due to dehydration from vomiting and diarrhea (4) Rheumatoid arthritis: Plan: -Continue 10 mg PO prednisone daily -Does not appear to be in an adrenal crisis Plan Dispo: continued inpatient stay DVT prophy: Teds, encourage ambulation Admission and Anticipated Discharge Date Admission Date: November 24, 2023 Supervising Physician Co-Signing Physician Notes Attending Attestation - Chart reviewed, care plan d/w DENYS Goode. I agree w/ the morales components of her documentation. Ramsey Kee MD Subjective Patient resting in bed. States she feels better than yesterday. Has not tolerated much of a diet, due to food not sounding good. Is unable to tell me if the food makes her more nauseous. nausea responds well to medication. however when it gets bad, she does report numbness and tingling feeling in bilateral hands. Does not spread. No symptoms currently. Does endorse anxiety, not significantly worse in the last week from baseline. reports 5 loose stools yesterday and 1-2 this morning. no blood. No vomiting since admission. patient recently with hernia repair surgery Tele 70s Review of Systems Review of Systems: All systems reviewed & are unremarkable except as noted in Subjective Physical Exam Physical Exam: General: NAD, VS as above Resp: normal respiratory effort, lungs clear to auscultation CV: RRR, no murmur, Abd: normal bowel sounds, non tender, no hepatosplenomegaly Extremities: Moves all extremities, no LE edema , ramona hose in place Neuro: A&O x3, Skin: intact, no lesions noted Results & Data Results & Data Vital Signs (Past 12 Hours) Vital Signs Temp Pulse Pulse Resp BP BP Pulse Ox 11/26/23 07:32 36.8 C 62 20 154/92 H 97 11/26/23 06:01 70 11/26/23 03:26 36.7 C 69 18 156/90 H 98 11/26/23 01:37 69 11/25/23 23:05 36.9 C 71 16 152/75 H 96 O2 Del Method 11/26/23 07:32 Room Air 11/26/23 06:01 11/26/23 03:26 Room Air 11/26/23 01:37 11/25/23 23:05 Room Air Laboratory Results CBC, coagulation studies, chemistry reviewed PG Care Time/CCT Total # of Minutes Spent Total Time Spent with Patient: Total time spent is greater than 50% in coordination of care (as documented) at patient's floor/unit and/or counseling patient: Coding Level of Care Code 74263 SUB INP/OBS CARE 3/50MIN Diagnoses Infection due to Norovirus species A08.11 Nausea vomiting and diarrhea R11.2; R19.7 Dizziness R42 Rheumatoid arthritis, involving unspecified site, unspecified whether rheumatoid factor present M06.9 Rheumatoid arthritis location: unspecified site Rheumatoid factor presence: unspecified presence (4) Rheumatoid arthritis Rheumatoid arthritis location: unspecified site Rheumatoid factor presence: unspecified presence Qualified Code(s): M06.9 - Rheumatoid arthritis, unspecified
[2023-11-27 05:41] LABS: Red Blood Count 4.81 M/uL (4.20-5.40); White Blood Count 9.61 K/ul (4.8-10.8)
[2023-11-27 05:42] LABS: Basophils # (auto) 0.04 K/uL (0.00-0.20); Basophils % (auto) 0.4 %; Eosinophils # (auto) 0.11 K/uL (0.00-0.50); Eosinophils % (auto) 1.1 %; Hematocrit (blood only) 41.2 % (37.0-47.0); Hemoglobin 13.2 g/dl (12.0-16.0); Immature Granulocytes # (auto) 0.06 K/uL (0.01-0.20); Immature Granulocytes % (auto) 0.6 %; Lymphocytes # (auto) 1.23 K/uL (1.20-3.40); Lymphocytes % (auto) 12.8 %; Mean Corpuscular Hemoglobin 27.4 pg (25.0-34.0); Mean Corpuscular Volume 85.7 fL (80.0-100.0); Monocytes # (auto) 0.69 K/uL (0.11-0.59); Monocytes % (auto) 7.2 %; Neutrophils # (auto) 7.48 K/uL (1.40-6.50); Neutrophils % (auto) 77.9 %; Platelet Count 244 K/uL (130-400); RDW Coefficient of Variation 14.9 % (11.5-14.5); RDW Standard Deviation 46.7 fL (36.4-46.3)
[2023-11-27 05:57] LABS: Albumin Globulin Ratio 1.2 (0.9-2); Albumin Level 3.7 gm/dl (3.4-5.0); BUN Creatinine Ratio 12.5 (10-20); Bilirubin,Total 0.5 mg/dl (0.2-1.0); Calcium 8.4 mg/dl (8.6-10.3); Creatinine Clr Calc Pharmacy 79.8 ml/min; Est GFR (African American) 104.8 ml/min; Est GFR (Non-African American) 90.4 ml/min; Magnesium 2.1 mg/dl (1.7-2.4); Phosphorus 1.9 mg/dl (2.5-4.9); Potassium 3.8 mmol/L (3.5-5.1); Total Protein 6.7 gm/dl (6.0-8.3)
[2023-11-27] MEDS: POT PHOSPHATE MONOBASIC W/ SOD TAB PO SCH (09:22)
[2023-11-27] MEDS ORDERED: ONDANSETRON 4 MG OD TAB PO PRN (10:04)
--- NOTE | 2023-11-27 10:04 | Hospitalist Progress Note ---
Date of Service November 27, 2023 Assessment & Plan (1) Infection due to Norovirus species: Plan: -Emesis + diarrhea, stool studies are positive for norovirus and C. diff Gene H but is negative for C. diff toxin -supportive care: Zofran and promethazine for nausea vomiting, Tylenol for pain - received 3.5 L of IV fluids since ED - tolerating low fiber diet - PO phos replacement ordered Will transition antiemetics to PO today AM BMP, Mag, phos, (2) Nausea vomiting and diarrhea: Plan: -Likely due to acute norovirus infection -hx of bowel preforation, ostomy and revision of ostomy (2020), recently had hernia repaired at prior stoma site -CTA/P w/con was negative for acute findings (3) Dizziness: Plan: Resolved -Likely due to dehydration from vomiting and diarrhea (4) Rheumatoid arthritis: Plan: -Continue 10 mg PO prednisone daily -Does not appear to be in an adrenal crisis will add additional 30mg dose today as prolonged illness Plan Dispo: continued inpatient stay DVT prophy: Teds, encourage ambulation sister updated by phone Admission and Anticipated Discharge Date Admission Date: November 24, 2023 Subjective Patient resting in bed. Reports nausea, not worse with eating. about 8 loose stools yesterday. No vomiting. Ambulating in room independently. Plan to transition to PO antiemetics today in preparation for discharge, pt aware. Tele - SR 70s Review of Systems Review of Systems: All systems reviewed & are unremarkable except as noted in Subjective Physical Exam Physical Exam: General: NAD, VS as above Resp: normal respiratory effort, lungs clear to auscultation CV: RRR, no murmur, Abd: normal bowel sounds, non tender, no hepatosplenomegaly Extremities: Moves all extremities, no LE edema , ramona hose in place Neuro: A&O x3, Skin: intact, no lesions noted Results & Data Results & Data Vital Signs (Past 12 Hours) Vital Signs Temp Pulse Pulse Resp BP BP Pulse Ox 11/27/23 07:51 36.9 C 88 20 146/95 H 97 11/27/23 03:38 36.7 C 66 18 160/92 H 96 11/26/23 23:57 75 11/26/23 22:36 36.8 C 79 18 119/80 93 O2 Del Method 11/27/23 07:51 Room Air 11/27/23 03:38 Room Air 11/26/23 23:57 11/26/23 22:36 Room Air Laboratory Results CBC, chemistry, mag, phos reviewed PG Care Time/CCT Total # of Minutes Spent Total Time Spent with Patient: Total time spent is greater than 50% in coordination of care (as documented) at patient's floor/unit and/or counseling patient: Coding Level of Care Code 18576 SUB INP/OBS CARE 2/35MIN Diagnoses Infection due to Norovirus species A08.11 Nausea vomiting and diarrhea R11.2; R19.7 Dizziness R42 Rheumatoid arthritis, involving unspecified site, unspecified whether rheumatoid factor present M06.9 Rheumatoid arthritis location: unspecified site Rheumatoid factor presence: unspecified presence (4) Rheumatoid arthritis Rheumatoid arthritis location: unspecified site Rheumatoid factor presence: unspecified presence Qualified Code(s): M06.9 - Rheumatoid arthritis, unspecified
[2023-11-27] MEDS: PROMETHAZINE HCL 12.5 MG/10 ML UDP PO PRN (16:02)
[2023-11-27] MEDS: predniSONE 10 MG TABLET PO STA (22:24)
[2023-11-28 06:50] LABS: BUN Creatinine Ratio 18.5 (10-20); Calcium 8.3 mg/dl (8.6-10.3); Creatinine Clr Calc Pharmacy 88.4 ml/min; Est GFR (African American) 111.1 ml/min; Est GFR (Non-African American) 95.8 ml/min; Phosphorus 3.6 mg/dl (2.5-4.9); Potassium 3.7 mmol/L (3.5-5.1)
--- NOTE | 2023-11-28 10:01 | Discharge Summary ---
Discharge Summary Date of Service November 28, 2023 Notes For Next Care Provider hospitalized with norovirus - improved with supportive care and low dose stress dose steroids Medication Changes From Visit 20 mg prednisone on 11/28 then return to normal 10 mg dosing Admission HPI Per Admitting Provider Misa is a 63 year old female with a PMH significant for RA (on chronic prednisone and weekly Orencia therapy), diverticulitis and anal cancer S/P sigmoidectomy with anastomosis and ghost ileostomy at [facility] [place] in 2019 with reversal in 2021, interstitial lung disease, previous DVT wh o presented to the [facility] ED via EMS on 11/24/23 with complaints of nausea, vomiting, diarrhea, and dizziness which started last night. She remained stable in the ED. Labs were significant for a leukocytosis of 15 with neutrophil predominance of 13, AG of 13 with bicarb WNL, full respiratory biofire negative and stool studies positive for norovirus and C. diff Gene H but negative for C. diff toxin. CT of the abd/pelvis w/con was read as "1. No acute process within the abdomen or pelvis. 2. No bowel obstruction. No bowel wall thickening. Normal appendix.". Prior to admission the patient was given 1.5L NSS, 12.g mg IV Promethazine, 4 mg IV zofran. At the time of the exam the patient was lying in bed in no acute distress with family bedside, history was obtained from all. She started to develop nausea, non-bloody emesis, and non-bloody diarrhea last night around 2300. She has been unable to keep foor or liquids down and felt dehydrated a few hours after symptoms began. She woke up this am with dizziness and generalized weakness along with her symptoms which started last night. She states that since receiving IV fluids and Phenergan in the ED her dizziness has resolved and she does not feel as weak as prior to arrival. She denies recent fever, chest pain, SOB, abd pain, hematemesis, dysuria, hematuria, melena, bright red bloody BM's, LE swelling, and recent trauma. She clearly states that she is a DNR/DNI, family at bedside confirmed this. Please refer to Dr. Justin's attestation for any changes to the treatment plan Principal Dx & Hospital Course #1 = Principal Diagnosis (1) Infection due to Norovirus species: -Emesis + diarrhea, stool studies are positive for norovirus and C. diff Gene H but is negative for C. diff toxin -supportive care: Zofran and promethazine for nausea vomiting, Tylenol for pain - received 3.5 L of IV fluids since ED - tolerating low fiber diet - received PO phos replacement Has only needed one dose of PO antiemetic. Symptoms are much improved day of discharge and patient looks much better (2) Nausea vomiting and diarrhea: -Likely due to acute norovirus infection -hx of bowel preforation, ostomy and revision of ostomy (2020), recently had hernia repaired at prior stoma site -CTA/P w/con was negative for acute findings Improved (3) Dizziness: Resolved -Likely due to dehydration from vomiting and diarrhea (4) Rheumatoid arthritis: -Continue 10 mg PO prednisone daily -Does not appear to be in an adrenal crisis Stress dose steroids Gave additional 30 mg 11/26 Additional 20 mg 11/27 Patient aware to take additional 10 mg 11/28 Return to normal dosing 11/29 Plan Dispo: discharge to home today Discharge Exam General: NAD, ambulating independently when I walked into the room, appears much better, VS as above Resp: normal respiratory effort, lungs clear to auscultation CV: RRR, no murmur, Abd: normal bowel sounds, non tender, no hepatosplenomegaly Extremities: Moves all extremities, no LE edema , ramona hose in place Neuro: A&O x3, Skin: intact, no lesions noted Updated Medication List Medication Instructions Recorded Confirmed Type zoledronic acid 5 mg/100 mL in 1 ea IV YEARLY 08/10/21 11/24/23 History mannitol 5 %-water intravenous piggybck (Reclast) acetaminophen 500 mg tablet 1,000 mg (2 x 500 mg) PO Q8H PRN 01/12/22 11/24/23 Rx Pain #30 tabs prednisone 10 mg tablet 10 mg PO QAM 04/13/23 11/24/23 History abatacept 50 mg/0.4 mL 125 mg subcut WK 06/06/23 11/24/23 History subcutaneous syringe (Orencia) tramadol 50 mg tablet 50 mg PO UD PRN Pain 06/19/23 11/24/23 History duloxetine 60 mg capsule,delayed 60 mg PO QAM #90 caps 10/19/23 03/23/24 Rx release (Cymbalta) bupropion HCl 100 mg tablet,12 hr 100 mg PO DAILY anxiety 07/09/23 11/24/23 History sustained-release (Wellbutrin SR) duloxetine 30 mg capsule,delayed 30 mg PO QAM 07/09/23 11/24/23 History release (Cymbalta) hydroxyzine HCl 10 mg tablet 10 mg PO TID PRN anxiety #30 tabs 10/18/23 11/24/23 Rx ondansetron 4 mg disintegrating 4 mg PO Q6H PRN nausea and 11/28/23 Rx tablet vomiting #10 tabs Hospital Stay Data Consultations 11/24/23 16:40 ED Decision to Admit Stat Diagnostic Imagining Performed Abdomen/Pelvis CT 11/24/23 14:51 CT OF THE ABDOMEN AND PELVIS WITH CONTRAST CLINICAL HISTORY: Abdominal pain, elevated wbc. COMPARISON STUDY: CT of the abdomen and pelvis April 09, 2023. TECHNIQUE: Following IV administration of 92 mL of Optiray, axial images of the abdomen and pelvis were obtained from the lung bases to the proximal femurs. Images were reviewed in the axial, sagittal, and coronal planes. IV contrast was administered without complication. Automated exposure control was utilized for the study. A dose lowering technique was utilized adhering to the principles of ALARA. CT DOSE: 828.44 mGy.cm FINDINGS: Lung bases are unremarkable. No pneumatosis, free air or portal venous gas is present. Biliary ductal dilatation is unchanged and likely related to cholecystectomy. 4.5 cm segment 7 hepatic lesion is unchanged from earlier exams. This likely reflects a hemangioma. Spleen, adrenal glands and kidneys are unremarkable. There is no peripancreatic abnormality. There is no hydronephrosis. The appendix is normal. Sigmoid anastomosis is noted. No evidence for a bowel obstruction. The caliber and wall thickness of small and large bowel are normal. No acute fractures are present. Postoperative findings within the spine are incidentally noted. IMPRESSION: 1. No acute process within the abdomen or pelvis. 2. No bowel obstruction. No bowel wall thickening. Normal appendix. ACT 112: Negative or not required by law. Electronically signed by: Enrrique Stratton M.D. 11/24/2023 3:59 PM Pending Results Patient Have Any Pending Studies at Discharge: No Discharge Instructions Given to Patient (Per Discharging Provider) Ms. Miller, Richardson were hospitalized after having nausea and diarrhea that was found to be norovirus. Your symptoms improved with IV fluids, nausea medications and increased steroids. Tomorrow 11/28, take one extra tab of your prednisone for a total of 20 mg. Starting 11/29 return to your normal 10mg daily dose. I have attached information about a low fiber, low residue diet. continue to follow this diet until your stools return to normal. make sure you are practicing good hand hygiene. I have sent in oral zofran to your pharmacy incase your symptoms worsen. You can do normal everyday activities as your body allows. Take rest breaks if you feel tired. Do not overexert. Stop activity if you have pain, shortness of breath or feel dizzy. Follow-up appointments: Make an appointment with your primary care physician within one week of discharge. A copy of this summary will be sent to them. Every time you see your primary care physician, or any other doctor, bring your medication list, and a list of questions. CONTACT YOUR PRIMARY CARE PROVIDER if you experience any of the following: Shortness of breath or difficulty breathing Fevers or chills Feeling tired with normal activity or experiencing dizziness or fainting Difficulty following your treatment plan, or difficulty taking medications CALL 911 OR GO TO THE EMERGENCY DEPARTMENT if you experience any of the following: Severe abdominal pain or nausea/vomiting Severe chest pain, or chest pain that radiates (moves) to your jaw or arm Sudden, severe shortness of breath or difficulty breathing Thank you for allowing us to participate in your care. Total Time Total Time Spent Total Time Spent (In Minutes): Time spend day of discharge 35 minutes including direct patient care, medication reconciliation, documentation, review of labs and images, and coordination of care. Coding Level of Care Code 29827 INP/OBS DISCH >30 MIN Diagnoses Infection due to Norovirus species A08.11 Nausea vomiting and diarrhea R11.2; R19.7 Dizziness R42 Rheumatoid arthritis, involving unspecified site, unspecified whether rheumatoid factor present M06.9 Rheumatoid arthritis location: unspecified site Rheumatoid factor presence: unspecified presence
[2023-11-28] MEDS: predniSONE 20 MG TAB PO STA (10:45)
== END 2023-11-28 14:08 | disposition home or self-care (01) | DRG 392 ==
LOC: ED 13:07 → 2W 16:22 → SUATTDRO 16:22 → 2W 18:04
DX: Z87.891 Personal history of nicotine dependence; M06.9 Rheumatoid arthritis, unspecified; Z66 Do not resuscitate; E86.0 Dehydration; Z88.8 Allergy status to other drugs, medicaments and biological substances; Z79.899 Other long term (current) drug therapy; F41.9 Anxiety disorder, unspecified; Z79.52 Long term (current) use of systemic steroids; M81.0 Age-related osteoporosis without current pathological fracture; J84.9 Interstitial pulmonary disease, unspecified; Z85.048 Personal history of other malignant neoplasm of rectum, rectosigmoid junction, and anus; Z88.1 Allergy status to other antibiotic agents; Z79.61 Long term (current) use of immunomodulator; Z87.19 Personal history of other diseases of the digestive system; Z86.718 Personal history of other venous thrombosis and embolism; A08.11 Acute gastroenteropathy due to Norwalk agent

== ENCOUNTER 2025-03-29 06:07 | Inpatient (IN) ==
[2025-03-29] MEDS: SODIUM CHLORIDE 0.9% 1,000 ML IV ONE ×2 (06:24→08:40)
[2025-03-29] MEDS: ONDANSETRON INJ 2 MG/ML 2 ML VIAL IV STA ×2 (06:25→07:19)
--- NOTE | 2025-03-29 06:26 | Emergency Department Note ---
Impression & Plan Intractable nausea and vomiting, Acute dehydration ED Provider Note Name: SERA ABRAMS Age: 64 Sex: Female Arrives Via: Walk-In Informant: Patient ED Provider: Noam Parkinson MD Chief Complaint: Vomiting Impression: As per impressions above Medical Decision Makin-year-old female arrives for evaluation of vomiting. Patient with 48 hours of nausea vomiting and diarrhea. She is feeling very dehydrated. On examination she is dry appearing, tachycardic and a moderate distress. Multiple rounds of antiemetics and IV fluids and persistent nausea. Opted for imaging of abdomen which is fortunately unremarkable. Laboratory workup markable for mildly elevated white blood cell count which I suspect is more dehydrational and has happened in the past with the patient. She also is a bit on the acidotic side consistent with dehydration. Discussed with hospitalist given persistent symptoms and plan is to bring in for further management. She is not septic she has a soft nontender abdomen. Triage/Nursing Notes reviewed by Me External Chart Review by me: I reviewed the express care note from 03/27/2025 when she received Robaxin for sciatica-like symptoms Differential:Gastroenteritis, food borne illness, infections, appendicitis, diverticulitis, inflammatory bowel disease, obstruction, GI bleed, biliary pathology, volvulus, as well as other pathologies. Vital Signs: reviewed and remarkable for tachycardic on arrival mildly hypertensive Interventions: Normal saline bolus 2 L IV, Zofran IV, Compazine IV, Benadryl IV, Phenergan IV Labs:ED labs Reviewed by me and remarkable for elevated white blood cell count, low bicarb, mild hyperglycemia Imaging:CT of the ab pelvis with IV contrast as per my informal interpretation there is no obstruction, free air, free fluid. Confirmed by radiologist. EKG:As per my interpretation. Indication vomiting. Normal sinus rhythm at 67 bpm with PAC noted. No ischemia appreciated. QTc 448. There is no significant change from November 24, 2023 Cardiac/Tele Monitoring: Cardiac Monitoring: An Order was placed for continuous cardiac monitoring. The monitor shows a rate of 70 with a normal sinus rhythm. Consults:Discussed with hospitalist who will further evaluate and manage. Plan: Disposition:Hospitalization. Condition: Fair History of Present Illness: 64-year-old female arrives for evaluation of vomiting. Patient notes that she has been dealing with sciatica and was seen in urgent care 2 days ago. Started on Robaxin. The sciatica improved following this. That evening though she developed nausea and vomiting. Over the last 48 hours she has been unable to keep down any food or fluids. States she is also developed severe diarrhea. She has been vomiting and having diarrhea once an hour for the last several hours. No blood in stool or emesis. Does not recall any recent antibiotics. Denies any falls, trauma, injuries. Denies any chest pain or difficulty breathing and denies any abdominal pain. She does note that her entire body feels weak and she has tingling in her legs which started this morning. She does not have any pain going down 1 leg versus the other. She has no weakness in her legs other than just full body weakness. No medications taken for nausea vomiting or diarrhea. No known sick contacts. Past Medical History: Anxiety/depression, arthritis, GERD, vitamin D deficiency Home Medications:See Below Allergies: Doxycycline, buspirone, mirtazapine Vitals:Blood Pressure: 162/106, Pulse 104, RR 20, T 36.6C, O2 98% on RA Physical Exam: GENERAL: Patient is tired/anxious/dehydrated appearing and in moderate distress. RESPIRATORY: No dyspnea. Clear to auscultation and equal bilaterally. CARDIOVASCULAR: Tachy.No murmur appreciated. GASTROINTESTINAL: Abdomen soft, non-tender, no peritonitis. EXTREMITIES: Normal motion all extremities, no cyanosis, no edema. NEUROLOGIC: Alert and oriented. No focal neurologic deficits appreciated SKIN: Poor skin turgor. No rash, no jaundice, no diaphoresis. PSYCH: Appropriate GCS: 15 ED Course: Times/Reassessments: Multiple repeat evaluations. Patient continues to be quite nauseous though does appear much more comfortable. Agreeable to hospitalization Noam Parkinson MD Past Med/Surg History Problem List (Updated 03/29/25 @ 14:08 by Noam Parkinson MD) Acute dehydration (Acute) Intractable nausea and vomiting (Acute) Viral gastroenteritis Anxiety Depression (Acute) Rheumatoid arthritis involving multiple joints Followed by [facility] [place] Juvenile idiopathic arthritis Chronic steroid use Osteoporosis (Acute) Followed by [facility] [place], [place] with Reclast Globus pharyngeus GERD (gastroesophageal reflux disease) Vitamin D deficiency (Acute) Medical History Osteoarthritis of right knee Lumbar stenosis (12/30/13) Hiatal hernia (~01/06/25) Hernia of abdominal wall Anemia Hx of sepsis GERD (gastroesophageal reflux disease) History of dyspnea Small bowel perforation Ventral hernia without obstruction or gangrene History of anesthesia reaction Restless leg History of chemotherapy History of colon cancer Interstitial lung disease Pleural effusion Perforation of sigmoid colon due to diverticulitis (~2020) Pneumonia Abnormal CT scan, chest Immunocompromised state History of DVT (deep vein thrombosis) Atrial tachycardia Lyme disease Degenerative disc disease Spinal stenosis Anal cancer Rheumatoid arthritis Detached retina Diverticulosis Surgical History S/P hernia repair H/O abdominal surgery (07/09/23) History of cataract surgery History of removal of Port-a-Cath History of colostomy reversal (~2020) History of colostomy History of vascular access device History of arthroscopy of left knee History of lumbar fusion History of lumbar discectomy History of total left knee replacement (TKR) History of colonoscopy History of esophagogastroduodenoscopy (EGD) History of detached retina repair Hx of cholecystectomy History of right elbow replacement H/O hemorrhoidectomy Family History Sister Family history of reaction to anesthesia Breast cancer Diabetes Mother Cardiac disorder Hypertension Diabetes Grandfather (Paternal) Colorectal cancer Father Bladder cancer Grandfather Osteoarthritis Cancer Grandmother Osteoarthritis Aunt Breast cancer Social History Smoking Status: Former smoker Tobacco Type: Cigarettes Age Started Using Tobacco: 17; Age Quit Using Tobacco: 40; packs per day: 1; Second Hand Exposure: No; Do You Dip or Chew Tobacco: No; Hx Alcohol Use: No Hx Substance Use: No Preferred Language: Vincentian Communication Ability: Effective Visual Impairment: Limited Hearing Ability: Normal Stopper Grinder Required: No Beliefs That Will Affect Care: None marital status: Single Current Living Situation: Alone current occupational status: disabled How many Children do You have: 1 Feels Safe at Home: Yes Safety Concerns: Feels Safe At This Time Childhood Exposure to Second-Hand Smoke: Yes Diet: regular caffeine: Yes during the past year weight has: remained stable Dental Care, Regularly: Yes Physical Activity Frequency: 1-2 Times per Week Physical Activity Frequency Comment: walk Seatbelt Use: always Sunscreen Use: Yes Assistive Devices: Glasses Allergies Allergies Allergy/AdvReac Type Severity Reaction Status Date / Time doxycycline Allergy Intermediate Rash Verified 03/29/25 09:10 buspirone AdvReac Severe Nightmares Verified 03/29/25 09:10 mirtazapine AdvReac Intermediate Weight Gain Verified 03/29/25 09:10 Home Meds Home Medications Medication Instructions Recorded Confirmed tramadol 50 mg tablet 50 mg PO Q6H PRN Pain 10/06/24 03/29/25 abatacept 125 mg/mL subcutaneous 125 mg subcut WK 03/29/25 03/29/25 syringe (Orencia) duloxetine 30 mg capsule,delayed 30 mg PO QAM 03/29/25 03/29/25 release duloxetine 60 mg capsule,delayed 60 mg PO QAM 03/29/25 03/29/25 release lorazepam 0.5 mg tablet 0.5 mg PO DAILY PRN Anxiety 03/29/25 03/29/25 omeprazole 40 mg capsule,delayed 40 mg PO QAM 03/29/25 03/29/25 release prednisone 5 mg tablet 10 mg PO QAM 03/29/25 03/29/25 Previous Rx's Medication Instructions Recorded bupropion HCl 100 mg tablet,12 hr 100 mg PO QAM anxiety #90 ea 03/02/25 sustained-release (Wellbutrin SR) Results & Data (ED) Vital Signs Vital Signs - 24 hr 03/29/25 06:09 03/29/25 06:16 03/29/25 07:00 Temperature 36.6 C Temperature Source Oral Pulse Rate 81 104 H 79 Pulse Rate from SpO2 Sensor 77 Respiratory Rate 20 17 Respiratory Effort / Characteristics Non-Labored Spontaneous Respiratory Depth Normal Respiratory Pattern Regular Blood Pressure 162/106 H 158/97 H Blood Pressure Mean 124 117 Blood Pressure Position Sitting Pulse Oximetry 98 97 Oxygen Delivery Method Room Air Room Air Sepsis Recent Fever Within 48 Hours No Sepsis New/Unexplained Change in Mental Status N/A Sepsis Action Taken by Nursing No Action Required 03/29/25 07:30 03/29/25 08:06 03/29/25 08:42 Temperature Temperature Source Pulse Rate 68 73 76 Pulse Rate from SpO2 Sensor 65 75 76 Respiratory Rate 15 18 18 Respiratory Effort / Characteristics Respiratory Depth Respiratory Pattern Blood Pressure 153/84 H 151/93 H 153/87 H Blood Pressure Mean 107 112 109 Blood Pressure Position Pulse Oximetry 96 100 99 Oxygen Delivery Method Room Air Room Air Room Air Sepsis Recent Fever Within 48 Hours Sepsis New/Unexplained Change in Mental Status Sepsis Action Taken by Nursing Laboratory Data 03/29/25 06:20 03/29/25 06:20 Lab Results 03/29/25 Range/Units 06:20 WBC 14.53 H (4.8-10.8) K/ul RBC 5.07 (4.20-5.40) M/uL Hgb 13.6 (12.0-16.0) g/dl Hct 43.0 (37.0-47.0) % MCV 84.8 (80.0-100.0) fL MCH 26.8 (25.0-34.0) pg MCHC 31.6 L (32.0-36.0) g/dL RDW Std Deviation 45.5 (36.4-46.3) fL RDW Coeff of Gabrielle 14.9 H (11.5-14.5) % Plt Count 360 (130-400) K/uL MPV 9.1 L (9.4-12.4) fL Immature Gran % (Auto) 1.0 % Neut % (Auto) 88.6 % Lymph % (Auto) 4.1 % [place] % (Auto) 5.8 % Eos % (Auto) 0.2 % Baso % (Auto) 0.3 % Neut # (Auto) 12.85 H (1.40-6.50) K/uL Lymph # (Auto) 0.60 L (1.20-3.40) K/uL [place] # (Auto) 0.85 H (0.11-0.59) K/uL Eos # (Auto) 0.03 (0.00-0.50) K/uL Baso # (Auto) 0.05 (0.00-0.20) K/uL Immature Gran # (Auto) 0.15 (0.01-0.20) K/uL Sodium 134 L (136-145) mmol/L Potassium 4.0 (3.5-5.1) mmol/L Chloride 101 (98-107) mmol/L Carbon Dioxide 16 L (21-32) mmol/L Anion Gap 17 H (3-11) BUN 15 (6-23) mg/dl Creatinine 0.75 (0.6-1.2) mg/dl Est Cr Clr Drug Dosing 79.2 ml/min eGFR 89.96 BUN/Creatinine Ratio 20.0 (10-20) Glucose 121 H (70-99(Fasting)) mg/dl Calcium 9.4 (8.6-10.3) mg/dl Magnesium 1.8 (1.7-2.4) mg/dl Total Bilirubin 0.9 (0.2-1.0) mg/dl Direct Bilirubin 0.1 (0-0.2) mg/dl AST 22 (13-39) U/L ALT 25 (7-52) U/L Alkaline Phosphatase 100 (34-104) U/L Total Creatine Kinase 58 (26-192) U/L Troponin I High Sens 4.5 (0-14) pg/ml Total Protein 7.5 (6.0-8.3) gm/dl Albumin 4.1 (3.4-5.0) gm/dl Lipase 8 L (11-82) U/L Administered Medications Sodium Chloride (Nss) 1,000 mls @ 100 mls/hr IV .Q10H CADENCE Stop: 04/01/25 11:53 Last Admin: 03/29/25 12:11 Dose: 100 mls/hr Documented By: MADDI Metoclopramide HCl (Metoclopramide Hcl Inj 5 Mg/Ml 2 Ml Vial) 10 mg IV Q6H CADENCE Stop: 04/28/25 11:59 Last Admin: 03/29/25 12:12 Dose: 10 mg Documented By: Admin: 03/29/25 12:12 Dose: 10 mg Documented By: MADDI Discontinued Medications Diphenhydramine HCl (Diphenhydramine 50 Mg/Ml Vial) 25 mg IV NOW STA Stop: 03/29/25 07:41 Last Admin: 03/29/25 07:59 Dose: 25 mg Documented By: RICHA Hydrocortisone Sodium Succinate (Hydrocortisone Sod Succinate 100 Mg/2 Ml Vial) 50 mg IV NOW STA Stop: 03/29/25 09:27 Last Admin: 03/29/25 09:40 Dose: 50 mg Documented By: RICHA Sodium Chloride (Nss) 1,000 mls @ 999 mls/hr IV .Q1H1M ONE Stop: 03/29/25 07:22 Last Infusion: 03/29/25 07:19 Dose: Infused Documented By: Admin: 03/29/25 06:24 Dose: 999 mls/hr Documented By: ELSY Prochlorperazine (Compazine) 1 mls @ 1 mls/min IV ONE ONE Stop: 03/29/25 07:41 Last Admin: 03/29/25 08:00 Dose: 1 mls/min Documented By: RICHA Promethazine HCl (Phenergan) 25 mg in 51 mls @ 204 mls/hr IV NOW STA Stop: 03/29/25 08:44 Last Infusion: 03/29/25 09:14 Dose: Infused Documented By: Admin: 03/29/25 08:40 Dose: 204 mls/hr Documented By: RICHA Sodium Chloride (Nss) 1,000 mls @ 999 mls/hr IV .Q1H1M ONE Stop: 03/29/25 09:30 Last Infusion: 03/29/25 09:44 Dose: Infused Documented By: Admin: 03/29/25 08:40 Dose: 999 mls/hr Documented By: RICHA Ioversol (Optiray 320 100ml) 94 ml IV ONCE ONE Stop: 03/29/25 07:58 Last Admin: 03/29/25 07:58 Dose: 94 ml Documented By: RIC Metoclopramide HCl (Metoclopramide Hcl Inj 5 Mg/Ml 2 Ml Vial) 10 mg IV NOW STA Stop: 03/29/25 09:27 Last Admin: 03/29/25 09:33 Dose: 10 mg Documented By: RICHA Ondansetron HCl (Ondansetron Inj 2 Mg/Ml 2 Ml Vial) 4 mg IV NOW STA Stop: 03/29/25 06:23 Last Admin: 03/29/25 06:25 Dose: 4 mg Documented By: ELSY Ondansetron HCl (Ondansetron Inj 2 Mg/Ml 2 Ml Vial) 4 mg IV NOW STA Stop: 03/29/25 07:15 Last Admin: 03/29/25 07:19 Dose: 4 mg Documented By: RICHA Imaging Data Radiologist's Impression: Abdomen/Pelvis CT 03/29/25 07:[address] WITH IV CONTRAST CT DOSE: 1157.21 mGy.cm HISTORY: epigastric pain, intractable vomiting TECHNIQUE: Multiaxial CT images of the abdomen and pelvis were performed following the IV administration of 90 cc of Optiray, A dose lowering technique was utilized adhering to the principles of ALARA. COMPARISON STUDY: 11/24/2023 FINDINGS: Stable mild atelectasis in the lung bases. ABDOMEN: Gallbladder is surgically absent and there is stable mild biliary dilatation, common after cholecystectomy. There is a stable 4.5 cm hypodense finding upper right hepatic lobe, likely hemangioma. There are a few stable tiny liver cysts. Spleen, pancreas, and adrenal glands are unremarkable. Kidneys show no hydronephrosis or calculi. There are a few stable tiny renal cysts. There are scattered atherosclerotic calcifications. No abdominal aortic aneurysm. Pelvis: There is a small fat-containing left-sided ventral hernia, mildly increased in size measuring 6 cm in greatest dimension with the neck measuring 1.2 cm diameter. No evidence of associated inflammation or fluid seen to suggest incarceration.. Urinary bladder is mildly distended. Uterus is diminutive. No adnexal mass seen. Stable distal sigmoid surgical anastomosis. There is mild colonic diverticulosis. No acute diverticulitis. Normal appendix. No bowel inflammation or obstruction seen. No free fluid or free air. No enlarged adenopathy. Osseous structures: There is stable laminectomy and metallic fusion at L3-L5. Stable degenerative changes at the lumbar spine. Stable mild degenerative changes at the hips. IMPRESSION: No acute findings. ACT 112: Negative or not required by law. The above report was generated using voice recognition software. It may contain grammatical, syntax or spelling errors. Electronically signed by: Omar Munoz M.D. 03/29/2025 8:19 AM Discharge Plan Visit Data Chief Complaint: Vomiting Stated Complaint: VOMIT, DEHYDRATED, WEAK ED Provider: Noam Parkinson Discharge Problem: Intractable nausea and vomiting, Acute dehydration Patient Disposition: Admitted As Inpatient Condition: Fair
[2025-03-29 06:45] LABS: Hematocrit (blood only) 43.0 % (37.0-47.0); Hemoglobin 13.6 g/dl (12.0-16.0); Immature Granulocytes # (auto) 0.15 K/uL (0.01-0.20); Immature Granulocytes % (auto) 1.0 %; Mean Corpuscular Hemoglobin 26.8 pg (25.0-34.0); Mean Corpuscular Volume 84.8 fL (80.0-100.0); Platelet Count 360 K/uL (130-400); RDW Standard Deviation 45.5 fL (36.4-46.3); Red Blood Count 5.07 M/uL (4.20-5.40); White Blood Count 14.53 K/ul (4.8-10.8)
[2025-03-29 07:11] LABS: Alanine Aminotransferase 25.0 U/L (7-52); Alkaline Phosphatase 100.0 U/L (34-104); Anion Gap 17.0 (3-11); Bilirubin,Total 0.9 mg/dl (0.2-1.0); Blood Urea Nitrogen 15.0 mg/dl (6-23); Calcium 9.4 mg/dl (8.6-10.3); Carbon Dioxide 16.0 mmol/L (21-32); Chloride 101.0 mmol/L (98-107); Creatine Kinase 58.0 U/L (26-192); Creatinine Clr Calc Pharmacy 79.2 ml/min; Glucose 121.0 mg/dl (70-99(Fasting)); Lipase 8.0 U/L (11-82); Magnesium 1.8 mg/dl (1.7-2.4); Potassium 4.0 mmol/L (3.5-5.1); Sodium 134.0 mmol/L (136-145); Total Protein 7.5 gm/dl (6.0-8.3)
[2025-03-29] MEDS: OPTIRAY 320 100ml IV ONE (07:58)
[2025-03-29] MEDS: diphenhydrAMINE 50 MG/ML VIAL IV STA (07:59)
[2025-03-29] MEDS: PROCHLORPERAZINE 1 ML IV ONE (08:00)
--- NOTE | 2025-03-29 08:21 | CT Scan Report ---
ABDOMEN AND PELVIS CT WITH IV CONTRAST CT DOSE: 1157.21 mGy.cm HISTORY: epigastric pain, intractable vomiting TECHNIQUE: Multiaxial CT images of the abdomen and pelvis were performed following the IV administrat ion of 90 cc of Optiray, A dose lowering technique was utilized adhering to the principles of ALARA. COMPARISON STUDY: 11/24/2023 FINDINGS: Stable mild atelectasis in the lung bases. ABDOMEN: Gallbladder is surgically absent and there is stable mild biliary dilatation, common after c holecystectomy. There is a stable 4.5 cm hypodense finding upper right hepatic lobe, likely hemangiom a. There are a few stable tiny liver cysts. Spleen, pancreas, and adrenal glands are unremarkable. Ki dneys show no hydronephrosis or calculi. There are a few stable tiny renal cysts. There are scattered atherosclerotic calcifications. No abdominal aortic aneurysm. Pelvis: There is a small fat-containing left-sided ventral hernia, mildly increased in size measuring 6 cm in greatest dimension with the neck measuring 1.2 cm diameter. No evidence of associated inflam mation or fluid seen to suggest incarceration.. Urinary bladder is mildly distended. Uterus is diminu tive. No adnexal mass seen. Stable distal sigmoid surgical anastomosis. There is mild colonic diverti culosis. No acute diverticulitis. Normal appendix. No bowel inflammation or obstruction seen. No free fluid or free air. No enlarged adenopathy. Osseous structures: There is stable laminectomy and metallic fusion at L3-L5. Stable degenerative jacek nges at the lumbar spine. Stable mild degenerative changes at the hips. IMPRESSION: No acute findings. ACT 112: Negative or not required by law. The above report was generated using voice recognition software. It may contain grammatical, syntax o r spelling errors. Electronically signed by: Omar Munoz M.D. 03/29/2025 8:19 AM
[2025-03-29] MEDS: PROMETHAZINE 25 MG/51 ML BAG IV STA (08:40)
[2025-03-29] MEDS: METOCLOPRAMIDE HCL INJ 5 MG/ML 2 ML VIAL IV STA (09:33)
[2025-03-29] MEDS: HYDROCORTISONE SOD SUCCINATE 100 MG/2 ML VIAL IV STA (09:40)
--- NOTE | 2025-03-29 09:57 | History & Physical Report ---
Date of Service March 29, 2025 Assessment & Plan (1) Viral gastroenteritis: Plan: Causing nausea, vomiting and diarrhea. No obstruction seen on CT scan. Symptomatic management with scheduled dosing of IV Reglan. IV acetaminophen if there is any fever. Supportive care. Serial labs (2) Chronic steroid use: Plan: IV hydrocortisone for now (3) Rheumatoid arthritis involving multiple joints: Plan: Steroid-dependent. IV hydrocortisone for now (4) GERD (gastroesophageal reflux disease): Plan: IV Protonix for now Plan Hopeful discharge back to home within the next day or 2 History of Present Illness Chief Complaint: Nausea, vomiting, diarrhea, epigastric discomfort Primary Care Provider: Miguel Arreola DO 64-year-old white female with rapid onset of what appears to be a viral gastroenteritis with nausea vomiting and diarrhea. This occurred within the past 24 hours. No other family members are ill. She denies hematemesis, melena, hematochezia. No current fever. Lab studies are unremarkable. She denies chest pain or shortness of breath. No bowel obstruction seen on CT scan. She is admitted for further evaluation and treatment Allergies Allergy/AdvReac Type Severity Reaction Status Date / Time doxycycline Allergy Intermediate Rash Verified 03/29/25 09:10 buspirone AdvReac Severe Nightmares Verified 03/29/25 09:10 mirtazapine AdvReac Intermediate Weight Gain Verified 03/29/25 09:10 Home Medications Medication Instructions Recorded Confirmed Type tramadol 50 mg tablet 50 mg PO Q6H PRN Pain 10/06/24 03/29/25 History bupropion HCl 100 mg tablet,12 hr 100 mg PO QAM anxiety #90 ea 03/02/25 03/29/25 Rx sustained-release (Wellbutrin SR) abatacept 125 mg/mL subcutaneous 125 mg subcut WK 03/29/25 03/29/25 History syringe (Orencia) duloxetine 30 mg capsule,delayed 30 mg PO QAM 03/29/25 03/29/25 History release duloxetine 60 mg capsule,delayed 60 mg PO QAM 03/29/25 03/29/25 History release lorazepam 0.5 mg tablet 0.5 mg PO DAILY PRN Anxiety 03/29/25 03/29/25 History omeprazole 40 mg capsule,delayed 40 mg PO QAM 03/29/25 03/29/25 History release prednisone 5 mg tablet 10 mg PO QAM 03/29/25 03/29/25 History Past Med/Surg History Problem List (Updated 03/29/25 @ 09:56 by Iftikhar Tolbert MD) Viral gastroenteritis Anxiety Depression (Acute) Rheumatoid arthritis involving multiple joints [place] [facility] [place] Juvenile idiopathic arthritis Chronic steroid use Osteoporosis (Acute) [place] [facility] [place] Reclast Globus pharyngeus GERD (gastroesophageal reflux disease) Vitamin D deficiency (Acute) Medical History Osteoarthritis of right knee Lumbar stenosis (12/30/13) Hiatal hernia (~01/06/25) Hernia of abdominal wall Anemia Hx of sepsis GERD (gastroesophageal reflux disease) History of dyspnea Small bowel perforation Ventral hernia without obstruction or gangrene History of anesthesia reaction Restless leg History of chemotherapy History of colon cancer Interstitial lung disease Pleural effusion Perforation of sigmoid colon due to diverticulitis (~2020) Pneumonia Abnormal CT scan, chest Immunocompromised state History of DVT (deep vein thrombosis) Atrial tachycardia Lyme disease Degenerative disc disease Spinal stenosis Anal cancer Rheumatoid arthritis Detached retina Diverticulosis Surgical History S/P hernia repair H/O abdominal surgery (07/09/23) History of cataract surgery History of removal of Port-a-Cath History of colostomy reversal (~2020) History of colostomy History of vascular access device History of arthroscopy of left knee History of lumbar fusion History of lumbar discectomy History of total left knee replacement (TKR) History of colonoscopy History of esophagogastroduodenoscopy (EGD) History of detached retina repair Hx of cholecystectomy History of right elbow replacement H/O hemorrhoidectomy Family History Sister Family history of reaction to anesthesia Breast cancer Diabetes Mother Cardiac disorder Hypertension Diabetes Grandfather (Paternal) Colorectal cancer Father Bladder cancer Grandfather Osteoarthritis Cancer Grandmother Osteoarthritis Aunt Breast cancer Social History Smoking Status: Never smoker Tobacco Type: Cigarettes Age Started Using Tobacco: 17; Age Quit Using Tobacco: 40; packs per day: 1; Second Hand Exposure: No; Do You Dip or Chew Tobacco: No; Hx Alcohol Use: No Hx Substance Use: No Preferred Language: Russian Communication Ability: Effective Visual Impairment: Limited Hearing Ability: Normal Clinical Auditor Required: No Beliefs That Will Affect Care: None marital status: Single Current Living Situation: Alone current occupational status: disabled How many Children do You have: 1 Feels Safe at Home: Yes Childhood Exposure to Second-Hand Smoke: Yes Diet: regular caffeine: Yes during the past year weight has: remained stable Dental Care, Regularly: Yes Physical Activity Frequency: 1-2 Times per Week Physical Activity Frequency Comment: walk Seatbelt Use: always Sunscreen Use: Yes Assistive Devices: Glasses Review of Systems 2 Review of Systems: Constitutionalno fever or chills ENTno blurred vision, no double vision, no epistaxis, no sore throat Respiratoryno cough, no wheezing, no shortness of breath Cardiacno palpitations, no chest pain, no syncope GInausea, vomiting and diarrhea. No hematemesis. No melena or hematochezia GUno urinary retention, no urinary incontinence, no dysuria, no hematuria Musculoskeletalno joint pain, no muscle tenderness Skinno bruising, no rashes, no pruritus Neurono isolated weakness, no paresthesia, no weakness Psychno depression, no anxiety Physical Exam 2 Physical Exam: General-alert and oriented x3, no fever, no chills HEENT-head atraumatic and normocephalic, pupils equal and reactive to light, extraocular muscles intact Neck-no lymphadenopathy or thyromegaly, trachea midline Chest-clear to auscultation. No rales, wheezing or rhonchi Cardiac-regular rate and rhythm, normal S1 and S2 Abdomen-epigastric tenderness. Bowel sounds are active. No rebound or guarding. No palpable masses. Extremities-no cyanosis, clubbing, or edema Neuro-cranial nerves II through XII intact, motor and sensory function within normal limits, strength symmetrical, no focal deficits Psych-normal affect, normal mood Results & Data Results & Data Vital Signs (Past 12 Hours) Vital Signs Temp Pulse Resp BP Pulse Ox O2 Del Method 03/29/25 08:42 76 18 153/87 H 99 Room Air 03/29/25 08:06 73 18 151/93 H 100 Room Air 03/29/25 07:30 68 15 153/84 H 96 Room Air 03/29/25 07:00 79 17 158/97 H 97 Room Air 03/29/25 06:16 104 H 03/29/25 06:09 36.6 C 81 20 162/106 H 98 Room Air Laboratory Results 03/29/25 06:20 03/29/25 06:20 Code Status & VTE Plan Code Status Full code PG Care Time/CCT Total # of Minutes Spent Total Time Spent with Patient: Total time spent is greater than 50% in coordination of care (as documented) at patient's floor/unit and/or counseling patient: Coding Level of Care Code 36281 INT INP/OBS CARE 2/55MIN Diagnoses Viral gastroenteritis A08.4 Chronic steroid use Rheumatoid arthritis involving multiple joints M06.9 GERD (gastroesophageal reflux disease) K21.9
[2025-03-29] MEDS: SODIUM CHLORIDE 0.9% 1,000 ML IV SCH (12:11)
[2025-03-29] MEDS: METOCLOPRAMIDE HCL INJ 5 MG/ML 2 ML VIAL IV SCH (12:12)
[2025-03-29] MEDS ORDERED: HYDROCORTISONE SOD SUCCINATE 100 MG/2 ML VIAL IV SCH (12:30)
[2025-03-29] MEDS ORDERED: Nursing to Pharmacy Communication SCH (14:00)
[2025-03-29] MEDS: HYDROCORTISONE SOD 50 MG in SYRINGE 0 ML IV SCH (14:32)
[2025-03-29] MEDS: ONDANSETRON INJ 2 MG/ML 2 ML VIAL IV PRN (15:07)
[2025-03-29 15:38] LABS: Appearance Urine Clear (Clear); Bacteria Urine Automated None Seen (None Seen); Cast Urine Automated 0-2 /lpf (0-2); Epithelial Cell Urine Auto 0-2 /hpf (0-2); Glucose Urine UA Negative (Negative); WBC Urine Automated 0-5 /hpf (0-5)
[2025-03-29] MEDS: PROMETHAZINE 12.5 MG/50.5 ML BAG IV STA ×2 (16:32→20:55)
[2025-03-29] MEDS: HEPARIN SOD 5,000 UNIT/0.5 ML VIAL SQ SCH (20:59)
[2025-03-29] MEDS: PANTOprazole 40 MG/10 ML SYR IV SCH (21:00)
[2025-03-30 07:42] LABS: Hematocrit (blood only) 33.5 % (37.0-47.0); Hemoglobin 10.5 g/dl (12.0-16.0); Mean Corpuscular Hemoglobin 26.9 pg (25.0-34.0); Mean Corpuscular Volume 85.7 fL (80.0-100.0); Red Blood Count 3.91 M/uL (4.20-5.40); White Blood Count 7.39 K/ul (4.8-10.8)
[2025-03-30 07:43] LABS: Immature Granulocytes # (auto) 0.05 K/uL (0.01-0.20); Immature Granulocytes % (auto) 0.7 %; Platelet Count 272 K/uL (130-400); RDW Standard Deviation 47.0 fL (36.4-46.3)
[2025-03-30 07:58] LABS: Alanine Aminotransferase 16.0 U/L (7-52); Albumin Globulin Ratio 1.3 (0.9-2); Alkaline Phosphatase 66.0 U/L (34-104); Anion Gap 8.0 (3-11); Bilirubin,Total 0.6 mg/dl (0.2-1.0); Blood Urea Nitrogen 7.0 mg/dl (6-23); Calcium 8.2 mg/dl (8.6-10.3); Carbon Dioxide 17.0 mmol/L (21-32); Chloride 109.0 mmol/L (98-107); Creatinine Clr Calc Pharmacy 109.0 ml/min; Globulin 2.6 gm/dl (2.5-4.0); Glucose 95.0 mg/dl (70-99(Fasting)); Potassium 3.6 mmol/L (3.5-5.1); Sodium 134.0 mmol/L (136-145); Total Protein 5.9 gm/dl (6.0-8.3)
--- NOTE | 2025-03-30 12:07 | Hospitalist Progress Note ---
"Date of Service March 30, 2025 Assessment & Plan (1) Viral gastroenteritis: (2) Chronic steroid use: (3) Rheumatoid arthritis involving multiple joints: (4) GERD (gastroesophageal reflux disease): (5) Anemia: Plan This patient is a 64-year-old female who presented on 03/30 for nausea, vomiting, and diarrhea #Viral gastroenteritis | N/V/D No obstruction seen on CT scan Diarrhea resolved shortly after admission Symptomatic management with scheduled dosing of IV Reglan IV acetaminophen PRN IV antiemetics PRN IV famotidine QAM Supportive care Tolerating clear liquid diet on 03/29 Continue LR at 80mL/hr in the setting of poor p.o. intake Advance diet as tolerated #Chronic steroid use | rheumatoid arthritis involving multiple joints Patient is on chronic prednisone 10 mg daily for RA Hypotensive at 91/61 on arrival Continue stress dose steroids in the setting of acute illness Hydrocortisone 50 mg IV q8h #Anemia Hgb dropped from 13.6 to 10.5 on 03/30 Suspect volume dilution in the setting of IV fluid boluses No active bleeding Trend H&H #GERD Switch from p.o. to IV Protonix Disposition: Continued stay on [facility] with telemetry; hopeful discharge in the next 1 to 2 days if patient begins to feel better and is tolerating a solid diet Admission and Anticipated Discharge Date Admission Date: March 29, 2025 [address]ive Mrs. Miller reports feeling generalized fatigue this morning. She reports she feels extremely tired, but did sleep okay she has been tolerating her clear liquid diet, and is up for trying solids this evening. Patient was vomiting yesterday afternoon at the hospital, but reports no additional episodes of vomiting today. Patient endorses nausea, and extreme fatigue. Patient denies fever, chills, night sweats, dizziness/lightheadedness, headache, chest pain, chest palpitations, SOB, cough, diarrhea (resolved), or abdominal pain. Review of Systems Review of Systems: See HPI above Physical Exam Physical Exam: General: no acute distress; lethargic; patient does appear acutely ill; pale; frail appearing; cooperative; SpO2 97% on RA HEENT: normocephalic, atraumatic; no scleral icterus; PERRLA; vision and hearing grossly intact Neck: supple; no lymphadenopathy; trachea midline Skin: warm, dry without signs of tenting; no cyanosis; no rashes, bruising, lesions, or erythema noted CV: chest wall NTP; RRR; S1/S2 normal; no murmurs/rubs/gallops; pulses intact and symmetric at radial, DP, and PT Lungs: no acute respiratory distress; symmetrical chest wall expansion; clear breath sounds across all lung ramirez w/o adventitious sounds; no wheezing ABD: Soft, NTP in all 4 quadrants; BS present; no rebound/guarding; no dis tention MSK: no tics or fasciculations; no edema noted in the LEs b/l, nonerythematous Neuro: A&Ox3; normal mood and affect; fluent speech; no focal deficits; sensation intact and symmetric in lower extremities bilaterally Results & Data Results & Data Vital Signs (Past 12 Hours) Vital Signs Temp Pulse Pulse Resp BP Pulse Ox O2 Del Method 03/30/25 08:35 36.9 C 62 17 147/84 H 97 Room Air 03/30/25 06:01 60 03/30/25 04:11 36.7 C 79 18 154/91 H 100 Room Air 03/30/25 00:54 Room Air PG Care Time/CCT Total # of Minutes Spent Total Time Spent with Patient: Total time spent is greater than 50% in coordination of care (as documented) at patient's floor/unit and/or counseling patient: Coding [place] [address] SUB INP/OBS CARE 2/35MIN Patient Type Established History Comprehensive Exam Comprehensive Medical Decision Making Moderate Complexity Diagnoses Viral gastroenteritis A08.4 Chronic steroid use Rheumatoid arthritis involving multiple joints M06.9 GERD (gastroesophageal reflux disease) K21.9 Anemia D64.9"
[2025-03-30] MEDS: FAMOTIDINE 20MG IV PUSH 20 MG/5 ML SYR IV STA (13:28)
[2025-03-30] MEDS: LACTATED RINGER'S 1,000 ML IV SCH (17:31)
[2025-03-30] MEDS: ACETAMINOPHEN 1,000 MG/100 ML VIAL IV PRN (19:32)
--- NOTE | 2025-03-31 06:10 | Electrocardiogram Report ---
Test Reason : Blood Pressure : */* mmHG Vent. Rate : 72 BPM Atrial Rate : 72 BPM P-R Int : 154 ms QRS Dur : 92 ms QT Int : 400 ms P-R-T Axes : 76 29 65 degrees QTcB Int : 438 ms Normal sinus rhythm Normal ECG When compared with ECG of 29-Mar-2025 06:27, Premature atrial complexes are no longer Present Confirmed by Viral Duldey ([id number]) on 03/31/2025 6:09:59 AM Referred By: REFERRED SELF Confirmed By: Viral Dudley
--- NOTE | 2025-03-31 06:10 | Electrocardiogram Report ---
Test Reason : Blood Pressure : */* mmHG Vent. Rate : 67 BPM Atrial Rate : 67 BPM P-R Int : 142 ms QRS Dur : 84 ms QT Int : 424 ms P-R-T Axes : 76 38 81 degrees QTcB Int : 448 ms Sinus rhythm with Premature atrial complexes Nonspecific ST abnormality When compared with ECG of 24-Nov-2023 13:12, Premature atrial complexes are now Present NC interval has increased Confirmed by Viral Dudley ([id number] on 03/31/2025 6:09:40 AM Referred By: REFERRED SELF Confirmed By: Viral Dudley
[2025-03-31 07:10] LABS: Hematocrit (blood only) 33.3 % (37.0-47.0); Hemoglobin 10.7 g/dl (12.0-16.0); Immature Granulocytes # (auto) 0.03 K/uL (0.01-0.20); Immature Granulocytes % (auto) 0.5 %; Mean Corpuscular Hemoglobin 26.6 pg (25.0-34.0); Mean Corpuscular Volume 82.6 fL (80.0-100.0); Platelet Count 286 K/uL (130-400); RDW Standard Deviation 44.9 fL (36.4-46.3); Red Blood Count 4.03 M/uL (4.20-5.40); White Blood Count 5.82 K/ul (4.8-10.8)
[2025-03-31 07:39] LABS: Alanine Aminotransferase 17.0 U/L (7-52); Albumin Globulin Ratio 1.2 (0.9-2); Alkaline Phosphatase 61.0 U/L (34-104); Anion Gap 8.0 (3-11); Bilirubin,Total 0.5 mg/dl (0.2-1.0); Blood Urea Nitrogen 7.0 mg/dl (6-23); Calcium 8.6 mg/dl (8.6-10.3); Carbon Dioxide 22.0 mmol/L (21-32); Chloride 106.0 mmol/L (98-107); Creatinine Clr Calc Pharmacy 105.9 ml/min; Globulin 2.8 gm/dl (2.5-4.0); Glucose 102.0 mg/dl (70-99(Fasting)); Potassium 3.1 mmol/L (3.5-5.1); Sodium 136.0 mmol/L (136-145); Total Protein 6.2 gm/dl (6.0-8.3)
[2025-03-31 08:10] VITALS: O2SAT 96
[2025-03-31] MEDS: FAMOTIDINE 20MG IV PUSH 20 MG/5 ML SYR IV SCH (08:16)
[2025-03-31] MEDS: MAGNESIUM SULFATE / D5W 1 GM/100 ML BAG IV ONE (09:55)
[2025-03-31] MEDS: POTASSIUM CHLORIDE / WTR 10 MEQ/100 ML PLCT IV SCH (09:55)
[2025-03-31 11:01] LABS: Appearance Urine Clear (Clear); Bacteria Urine Automated 4+ (None Seen); Cast Urine Automated 0-2 /lpf (0-2); Epithelial Cell Urine Auto 0-2 /hpf (0-2); Glucose Urine UA Negative (Negative); RBC Urine Automated 0-2 /hpf (0-2); WBC Urine Automated >50 /hpf (0-5)
[2025-03-31 11:13] VITALS: BP 134/83; RESP 18; TEMP 98.6
--- NOTE | 2025-03-31 11:37 | Discharge Summary ---
Discharge Summary Date of Service March 31, 2025 Principal Dx & Hospital Course #1 = Principal Diagnosis (1) Viral gastroenteritis: (2) Urinary tract infection: (3) Chronic steroid use: (4) Rheumatoid arthritis involving multiple joints: (5) GERD (gastroesophageal reflux disease): (6) Anemia: (7) Hypokalemia: Plan This patient is a 64-year-old female who presented on 03/29 for nausea, vomiting, and diarrhea. Her symptoms were thought to be secondary to a viral gastroenteritis. While patient remained symptomatic on 03/30, she woke up on 03/31 reporting significant improvement. Day of discharge 03/31: VSS Mrs. Miller reports she feels "100% better" when compared to yesterday. She slept very well, and does not feel nauseous this morning. She last vomited 2 days ago. She was able to tolerate cream of rice this morning, and is willing to try a fully solid diet today. No BM x 2 days. Her only new complaint is that she developed burning with urination this morning. She does not have a history of UTIs, but has had 1 or 2 in the past. She reported no allergies to penicillins or cephalosporins. No allergies to antibiotics other than doxycycline (mild rash). Patient believes she has tolerated Macrobid in the past; no prior history of kidney issues. ROS: Patient endorses burning with urination and dysuria. Patient denies fever, chills, dizziness/lightheadedness when getting up to the bathroom, chest pain, SOB, abdominal pain, nausea (resolved), vomiting (resolved), diarrhea (resolved) increased urinary frequency or lower back pain. #Viral gastroenteritis | N/V/D No obstruction seen on CT scan Diarrhea resolved shortly after admission Symptomatic management with scheduled dosing of IV Reglan IV acetaminophen PRN IV antiemetics PRN IV famotidine QAM IVF maintenance as Supportive care Tolerating clear liquid diet on 03/29 Tolerating full liquid diet on the morning of 03/31 Trial of solids, and potential DC home on the afternoon of 03/31 #Urinary tract infection Burning with urination began on the morning of 03/31 No leukocytosis; afebrile UA with +4 bacteria Ceftriaxone 2000 mg IV x 1 while in the hospital Most recent urine culture available from 08/16/2020 grew E. coli with resistance to FQ We will plan to send patient home on nitrofurantoin 100 mg p.o. BID x 5 days Patient informed that she may need to have this antibiotic switched depending on what her urine culture grows FOLLOW-UP ON UCx from 03/31 #Hypokalemia K low at 3.1 on the morning of 03/22 Suspect secondary to GI losses in setting of acute illness Patient declined p.o. K supplementation due to concern for recurrence of nausea/vomiting K rider 10mEq IV x 4 while in the hospital Follow-up BMP outpatient prior to transitional care appointment #Chronic steroid use | rheumatoid arthritis involving multiple joints Patient is on chronic prednisone 10 mg daily for RA Hypotensive at 91/61 on arrival, but normotensive throughout hospital stay Stress dose steroids were continued in the setting of acute illness x 3 days Hydrocortisone 50 mg IV q8h Transition back to regular steroid regimen upon discharge #Anemia (resolved) Hgb trend: 13.6 -> 10.5 -> 10.7 (stable) Suspect volume dilution in the setting of IV fluid boluses No active bleeding Follow-up H&H to ensure stability #GERD Continue PPI Disposition: Discharge home Notes For Next Care Provider Patient was hospitalized from 03/29 - 03/31 for a viral gastroenteritis. She reported significant improvement on the morning of 03/31 (full resolution of N/V/D and advancement to regular, solid diet). However, on the morning of discharge patient's potassium was slightly low at 3.1. She received K riders x 10mEq x 4 prior to discharge. Recommend follow-up BMP and magnesium prior to transitional care appointment to assess for electrolyte deficiencies. Additionally, patient reports she began having burning with urination on the morning of discharge 03/31. Urinalysis was positive for UTI. She received ceftriaxone 2000 mg IV x 1 while in the hospital. Discharged home on nitrofurantoin 100 mg p.o. twice daily x 5 days. Please follow up on the current urine culture obtained on 03/31 and adjust antibiotics as needed. Admission HPI Per Admitting Provider 64-year-old white female with rapid onset of what appears to be a viral gastroenteritis with nausea vomiting and diarrhea. This occurred within the past 24 hours. No other family members are ill. She denies hematemesis, melena, hematochezia. No current fever. Lab studies are unremarkable. She denies chest pain or shortness of breath. No bowel obstruction seen on CT scan. She is admitted for further evaluation and treatment Admission Exam Per Admitting Provider Constitutionalno fever or chills ENTno blurred vision, no double vision, no epistaxis, no sore throat Respiratoryno cough, no wheezing, no shortness of breath Cardiacno palpitations, no chest pain, no syncope GInausea, vomiting and diarrhea. No hematemesis. No melena or hematochezia GUno urinary retention, no urinary incontinence, no dysuria, no hematuria Musculoskeletalno joint pain, no muscle tenderness Skinno bruising, no rashes, no pruritus Neurono isolated weakness, no paresthesia, no weakness Psychno depression, no anxiety Discharge Exam General: no acute distress; pleasant affect; non-toxic appearing; cooperative; SpO2 96% on RA HEENT: normocephalic, atraumatic; no scleral icterus; PERRLA; vision and hearing grossly intact Neck: supple; trachea midline Skin: warm, dry without signs of tenting; no cyanosis; no rashes, bruising, lesi ons, or erythema noted CV: chest wall NTP; RRR; S1/S2 normal; no murmurs/rubs/gallops; pulses intact and symmetric at radial, DP, and PT Lungs: no acute respiratory distress; symmetrical chest wall expansion; clear breath sounds across all lung ramirez w/o adventitious sounds; no wheezing ABD: Soft, NTP in all 4 quadrants; BS present; no rebound/guarding; no distention : Negative suprapubic tenderness MSK: no tics or fasciculations; no edema noted in the LEs b/l, nonerythematous Neuro: A&Ox3; normal mood and affect; fluent speech; no focal deficits; sensation intact and symmetric in lower extremities bilaterally Discharge Plan Discharge Items Patient Disposition: Home - Self-Care Reason For Visit: VOMIT, GASTROENTERITIS Discharge Diagnosis: Viral gastroenteritis, UTI Condition on Discharge: Fair Activity: Resume your previous activity Non-emergency contact: Primary Care Provider Call non-emergency contact if: you have any medication questions, your symptoms worsen, your pain is not controlled and you have a fever Follow-up/Referrals: Miguel Arreola DO [Primary Care Provider] - Diet: Regular Addtl Attending Provider Instructions: You were hospitalized at [facility] from 03/29 - 03/31 for intractable nausea, vomiting, and diarrhea. Upon arrival, your blood pressure was low, and you were started on stress dose steroids in the setting of acute illness. It is believed that your symptoms are due to viral gastroenteritis or a "stomach bug". This illness is usually self-limiting, and needs to run its course on its own with supportive care. While in the hospital you received IV fluids, antinausea medications, and medications as needed for pain control. Imaging was taken of your abdomen and pelvis, which did not reveal any acute findings of concern. At time of discharge, you reported feeling much better with no recurrence of nausea and vomiting. Your vital signs were stable and you reported that you were once again tolerating solid food. For these reasons, we feel that is safe for you to return home at this time. Please plan to follow-up with your PCP in the next 1 to 2 weeks for a transitional care appointment. Prior to this appointment, you will need to have blood work drawn to evaluate your potassium and magnesium levels, as well as your hemoglobin level. At time of discharge, your potassium is slightly low at 3.1 (normal reference range 3.5 - 5.1). We suspect this was due to your GI illness, and you received IV potassium just prior to discharge. However, we recommend you have repeat blood work drawn within the next week to ensure that your electrolyte levels remain stable. Your hemoglobin level was also slightly low but stable at 10.7 (normal reference range 12.0-16.); this was likely due to receiving IV fluids in the hospital. Additionally, you reported burning with urination on the morning of 03/31. Urinalysis revealed that you do have a urinary tract infection. You received a dose of IV antibiotics (ceftriaxone 2000 mg IV) x 1 while in the hospital. We will plan to send you home on the following antibiotic course: - Nitrofurantoin (Macrobid) 100 mg twice daily x 5 days Your urine culture is currently pending at time of discharge. Please follow-up with your PCP if adjustments need to be made to your current antibiotic regimen. If you develop any new or worsening symptoms, such as fever, chills, chest pain, SOB, intractable nausea/vomiting/diarrhea, or blood in the urine or stool, please return to the emergency department immediately. It was a pleasure taking care of you. Please reach out with any questions or concerns. Sincerely, The hospital medicine team at [facility] Pending Studies at Discharge: Yes Studies:: Urine culture obtained on 03/31 Stand-Alone Forms: My [facility] Medications and DC Order Prescriptions: New nitrofurantoin monohyd/m-cryst [Macrobid] 100 mg capsule 100 mg PO BID 5 Days Qty: 10 0RF Rx Instructions: must administer with a meal/food Take 1 capsule by mouth twice daily x 5 days Continued bupropion HCl [Wellbutrin SR] 100 mg tablet sustained-release 12 hr 100 mg PO QAM Qty: 90 3RF prednisone 5 mg tablet 10 mg PO QAM lorazepam 0.5 mg tablet 0.5 mg PO DAILY PRN (Reason: Anxiety) duloxetine 30 mg capsule,delayed release(DR/EC) 30 mg PO QAM Rx Instructions: Take w/ 60mg to equal 90mg by mouth every morning. duloxetine 60 mg capsule,delayed release(DR/EC) 60 mg PO QAM Rx Instructions: Take w/ 30mg to equal 90mg by mouth every morning. Orencia 125 mg/mL syringe 125 mg subcut WK Rx Instructions: Sunday omeprazole 40 mg capsule,delayed release(DR/EC) 40 mg PO QAM tramadol 50 mg tablet 50 mg PO Q6H PRN (Reason: Pain) Discharge Orders: Discharge Order (Routine); Ordered 03/31/25 Ordered By: Paulo Uribe Admission Data Admit Date/Time: 03/29/25 09:45 Attending Provider: Den Irving Admit Provider: Iftikhar Tolbert Primary Care Provider: Miguel Arreola Other Providers: Iftikhar Tolbert Hospital Stay Data Consultations 03/29/25 09:01 ED Decision to Admit Stat Diagnostic Imagining Performed 03/29/25 07:40 CT abd pelvis IV con only Stat Discharge Instructions Given to Patient (Per Discharging Provider) You were hospitalized at [facility] from 03/29 - 03/31 for intractable nausea, vomiting, and diarrhea. Upon arrival, your blood pressure was low, and you were started on stress dose steroids in the setting of acute illness. It is believed that your symptoms are due to viral gastroenteritis or a "stomach bug". This illness is usually self-limiting, and needs to run its course on its own with supportive care. While in the hospital you received IV f luids, antinausea medications, and medications as needed for pain control. Imaging was taken of your abdomen and pelvis, which did not reveal any acute findings of concern. At time of discharge, you reported feeling much better with no recurrence of nausea and vomiting. Your vital signs were stable and you reported that you were once again tolerating solid food. For these reasons, we feel that is safe for you to return home at this time. Please plan to follow-up with your PCP in the next 1 to 2 weeks for a transitional care appointment. Prior to this appointment, you will need to have blood work drawn to evaluate your potassium and magnesium levels, as well as your hemoglobin level. At time of discharge, your potassium is slightly low at 3.1 (normal reference range 3.5 - 5.1). We suspect this was due to your GI illness, and you received IV potassium just prior to discharge. However, we recommend you have repeat blood work drawn within the next week to ensure that your electrolyte levels remain stable. Your hemoglobin level was also slightly low but stable at 10.7 (normal reference range 12.0-16.); this was likely due to receiving IV fluids in the hospital. Additionally, you reported burning with urination on the morning of 03/31. Urinalysis revealed that you do have a urinary tract infection. You received a dose of IV antibiotics (ceftriaxone 2000 mg IV) x 1 while in the hospital. We will plan to send you home on the following antibiotic course: - Nitrofurantoin (Macrobid) 100 mg twice daily x 5 days Your urine culture is currently pending at time of discharge. Please follow-up with your PCP if adjustments need to be made to your current antibiotic regimen. If you develop any new or worsening symptoms, such as fever, chills, chest pain, SOB, intractable nausea/vomiting/diarrhea, or blood in the urine or stool, please return to the emergency department immediately. It was a pleasure taking care of you. Please reach out with any questions or concerns. Sincerely, The hospital medicine team at [facility] Total Time Total Time Spent Total Time Spent (In Minutes): 35 Coding [place] [address] INP/OBS DISCH >30 MIN Patient Type Established History Comprehensive Exam Comprehensive Medical Decision Making High Complexity Diagnoses Viral gastroenteritis A08.4 Urinary tract infection N39.0 Chronic steroid use Rheumatoid arthritis involving multiple joints M06.9 GERD (gastroesophageal reflux disease) K21.9 Anemia D64.9 Hypokalemia E87.6
[2025-03-31] MEDS: cefTRIAXone SODIUM 2,000 MG/50 ML BAG IV STA (14:01)
[2025-03-31 15:09] VITALS: PULSE 87
== END 2025-03-31 15:45 | disposition home or self-care (01) | DRG 392 ==
LOC: SUATTDRO → ED 06:07 → 2W 09:45 → SUATTDRO 09:45 → 2W 11:20